=== PATIENT | male | born 1950 | race Caucasian/White ===

== ENCOUNTER 2022-07-31 17:21 | Inpatient (IN) | payer MEDICARE, BC ==
[~2022-07-31] VITALS: Ht 177.8 cm; Wt 98.4 kg
--- NOTE | 2022-07-31 17:33 | NUR ---
[id number] FOR LEFT TOE PAIN X 2 WEEKS "POSSIBLE GANGRENE". PT STATED THAT HE FIRST NOTICED IT ON SUNDAY AND IGNORED IT, NOTICED IT STARTED TO TURNED BLACK WHICH PROMPTED THEM TO CALL EMS. PT IS A&OX4, VISION IMPAIRED. PT IS UNABLE TO AMBULATE ON HIS OWN. AWAITING MD NICE.
[2022-07-31] MEDS ORDERED: VANCOMYCIN 1 GM in IV D5W 250 ML IV ONE (18:00)
[2022-07-31] MEDS ORDERED: CEFEPIME 1 GM in IV D5W 50 ML IV ONE (18:00)
[2022-07-31] MEDS ORDERED: KETOROLAC TROMETHAMINE INJ 30 MG/ML VIAL IV ONE (18:00)
--- NOTE | 2022-07-31 18:17 | NUR ---
IV ESTABLISHED R HAND 20G. LABS DRAWN AND COLLECTED AT BEDSIDE
--- NOTE | 2022-07-31 18:18 | NUR ---
COVID TEST COLLECTED AND SENT
[2022-07-31] MEDS ORDERED: KETOROLAC TROMETHAMINE 15 MG/ML VIAL ONE (18:20)
[2022-07-31 18:27] LABS: BASOPHILS % (AUTO) 0.3 % (0.0-2.0); EOSINOPHILS % (AUTO) 0.2 % (0.0-6.0); HEMATOCRIT 34 % (39-51); HEMOGLOBIN 10.4 g/dL (13.5-17.5); LYMPHOCYTES # (AUTO) 1.8 K/uL (0.8-4.8); LYMPHOCYTES % (AUTO) 11.9 % (20.0-44.0); MEAN CORPUSCULAR HGB CONC 31 g/dl (31.0-36.0); MEAN CORPUSCULAR VOLUME 86 fL (80-96); MONOCYTES # (AUTO) 1.5 K/uL (0.1-1.30); MONOCYTES % (AUTO) 9.7 % (2.0-12.0); NEUTROPHILS % (AUTO) 77.9 % (43.0-81.0); PLATELET COUNT (AUTO) 254 K/uL (150-450); RED BLOOD CELL COUNT(AUTO) 3.95 MIL/uL (4.5-6.0); WHITE BLOOD COUNT (AUTO) 15.4 K/uL (4.3-11.0)
[2022-07-31 18:45] LABS: CALCIUM, SERUM 8.6 mg/dL (8.5-10.1); CARBON DIOXIDE 21 mmol/L (21-32); CHLORIDE 99 mmol/L (98-107); CREATININE 1.9 mg/dL (0.6-1.3); GLUCOSE 129 mg/dL (74-106); POTASSIUM 4.9 mmol/L (3.5-5.1); SODIUM SERUM 132 mmol/L (136-145); UREA NITROGEN, BLOOD 33 mg/dL (7-18)
--- NOTE | 2022-07-31 19:09 | NUR ---
MOVE SHEET SUBMITTED.
[2022-07-31 19:19] LABS: C-REACTIVE PROTEIN 22.1 mg/dL (0.0-0.9)
[2022-07-31] MEDS ORDERED: DEXTROSE 50%-WATER 50 ML DISP.SYRIN IV PRN (21:00)
[2022-07-31] MEDS ORDERED: ONDANSETRON HCL/PF 4 MG/2 ML VIAL IVP PRN (21:00)
[2022-07-31] MEDS ORDERED: ZOLPIDEM TARTRATE 5 MG TABLET PO PRN (21:00)
[2022-07-31] MEDS ORDERED: MAGNESIUM HYDROXIDE 30 ML UDC PO PRN (21:00)
[2022-07-31] MEDS ORDERED: Z GUARD REMEDY 4 OZ OINT TP PRN (21:00)
[2022-07-31] MEDS ORDERED: MAG HYDROX/AL HYDROX/SIMETH 30 ML UDC PO PRN (21:00)
--- NOTE | 2022-07-31 21:25 | NUR ---
REPORT GIVEN TO ROSARIO Mitchell RN FOR GABRIELA
[2022-07-31] MEDS ORDERED: VANCOMYCIN HCL 0.75 GM in IV D5W 250 ML IV ONE (21:30)
--- NOTE | 2022-07-31 21:37 | NUR ---
transferred to 311 in stable condition
[2022-07-31 21:40] VITALS: BP 128/73
--- NOTE | 2022-07-31 21:40 | NUR ---
MS TRADE SPECIALIST NOTE RECEIVED REPORT FROM ER NURSE CEDRIC. PT IS BEING ADMITTED IN ROOM 311-2 WITH DIAGNOSIS OF DIABETIC FOOT ULCER. PT CAME FROM ER VIA GURNEY WITH ER NURSE PRESENT. PATIENT IS A/O X4, ABLE TO VERBALIZE NEEDS. NO SOB, NO RESPIRATORY DISTRESS NOTED. PT ON ROOM AIR. IV ACCESS TO RIGHT HAND #20G, IV INTACT, AND PATENT. PT HAS REDNESS TO LEFT FOOT, WITH GANGRENE TO LEFT SECOND TOE, REDNESS TO RIGHT HEEL WITH SCAB, AND REDNESS TO BILATERAL KNEES WITH BRUISES, DUE TO RECENT FALL AT HOME. ALL THE BELONGINGS ACCOUNTED AND SIGN FOR. ALL SAFETY MEASURES IN PLACE. BED LOCKED IN THE LOWEST POSITION. CALL LIGHT AND TABLE IN EASY REACH. SIDE RAILS UP TIMES 2. WILL CONTINUE TO MONITOR CLOSELY.
--- NOTE | 2022-07-31 21:45 | NUR ---
MS RN NOTE VANCOMYCIN IVPB IS NOT ADMINSTERED DUE TO PT WAS ALREADY GIVEN VANCOMYCIN AT 1900 PRIOR TO ADMISSION TO MS FLOOR. CHARGE NURSE DANIE SMITH.
[2022-07-31] MEDS: BLOOD SUGAR DIAGNOSTIC 1 EACH STRIP IN SCH (22:00)
[2022-08-01] MEDS: IV NS 0.9% 1,000 ML IV PRN ×2 (01:33→18:15)
[2022-08-01] MEDS: HEPARIN SODIUM, PORCINE 5000 UNITS/1 ML VIAL SQ SCH ×3 (01:33→21:22)
[2022-08-01] MEDS ORDERED: PIPERACILLIN /TAZOBACTAM 3.375 G VIAL IV ONE (01:44)
[2022-08-01] MEDS: ZOSYN IVPB 3.375 G in IV D5W 50ml IV SCH ×5 (02:03→21:22)
[2022-08-01] MEDS: INSULIN REGULAR, HUMAN 100 UNIT/ML 3 ML VIAL SQ PRN ×5 (02:23→21:54)
[2022-08-01 06:09] LABS: BASOPHILS % (AUTO) 0.2 % (0.0-2.0); EOSINOPHILS % (AUTO) 0.3 % (0.0-6.0); HEMATOCRIT 34 % (39-51); HEMOGLOBIN 10.9 g/dL (13.5-17.5); LYMPHOCYTES # (AUTO) 1.6 K/uL (0.8-4.8); MEAN CORPUSCULAR HGB CONC 32 g/dl (31.0-36.0); MEAN CORPUSCULAR VOLUME 82 fL (80-96); MONOCYTES # (AUTO) 1.3 K/uL (0.1-1.30); MONOCYTES % (AUTO) 10.2 % (2.0-12.0); NEUTROPHILS # (AUTO) 10.2 K/uL (1.8-8.9); NEUTROPHILS % (AUTO) 77.3 % (43.0-81.0); PLATELET COUNT (AUTO) 234 K/uL (150-450); RED BLOOD CELL COUNT(AUTO) 4.16 MIL/uL (4.5-6.0); WHITE BLOOD COUNT (AUTO) 13.2 K/uL (4.3-11.0)
--- NOTE | 2022-08-01 06:30 | NUR ---
MS RN CLOSING NOTE LEFT PT AWAKE, IN BED. PATIENT IS A/O X4, ABLE TO VERBALIZE NEEDS. NO SOB, NO RESPIRATORY DISTRESS NOTED. PT ON ROOM AIR. IV ACCESS TO RIGHT HAND #20G, IV INTACT, AND PATENT, INFUSING NS AT 75 ML/HR. IVPB ZOSYN NOT GIVEN TO PT DUE TO MED WAS ADMINISTERED AT 0200. WILL BE TOO SOON TO GIVE AT 0600. PHARMACY CALLED, AND REQUEST MADE WITH MODESTA TO CHANGE MED TIME . ALL SAFETY MEASURES IN PLACE. BED LOCKED IN THE LOWEST POSITION. CALL LIGHT AND TABLE IN EASY REACH. SIDE RAILS UP TIMES 2. WILL ENDORSE PT TO AM SHIFT NURSE FOR GABRIELA.
[2022-08-01 06:34] LABS: CHOLESTEROL 84 mg/dL (<200); HDL CHOLESTEROL 36 mg/dL (40-60); LDL 53 mg/dL (0-99); THYROID STIMULATING HORMONE 1.029 uIU/mL (0.358-3.74); TRIGLYCERIDES 73 mg/dL (30-150)
[2022-08-01 06:35] LABS: CALCIUM, SERUM 9.1 mg/dL (8.5-10.1); CARBON DIOXIDE 24 mmol/L (21-32); CHLORIDE 98 mmol/L (98-107); CREATININE 1.8 mg/dL (0.6-1.3); GLUCOSE 178 mg/dL (74-106); MAGNESIUM 1.9 mg/dL (1.8-2.4); PHOSPHORUS 4.4 mg/dL (2.5-4.9); POTASSIUM 4.8 mmol/L (3.5-5.1); SODIUM SERUM 135 mmol/L (136-145); UREA NITROGEN, BLOOD 36 mg/dL (7-18)
[2022-08-01] MEDS: BLOOD SUGAR DIAGNOSTIC 1 EACH STRIP IN SCH ×4 (06:49→21:48)
--- NOTE | 2022-08-01 07:30 | NUR ---
RN OPENING NOTE PATIENT AWAKE IN BED RESTING, A/O X 3-4. NO S/S OF PAIN NOTED AT THIS TIME. ON ROOM AIR, BREATHING EVEN UNLABORED, NO DISTRESS OR SHORTNESS OF BREATH NOTED. IV ACCESS R HAND #20G INTACT, PATENT AND FLUSHING WELL, RUNNING NS @ 75 ML/HR. FALL AND SAFETY MEASURES IN PLACE, BED ALARM ON, BED IN LOW AND LOCK POSITION, CALL LIGHT AND TABLE WITHIN EASY REACH, SIDE RAILS UP X2. WILL CONTINUE TO MONITOR.
[2022-08-01 08:00] VITALS: BP 133/62
[2022-08-01] MEDS ORDERED: VANCOMYCIN 1 GM in IV D5W 250ml IV SCH (08:30)
[2022-08-01] MEDS ORDERED: PANTOPRAZOLE 40 MG VIAL IV SCH (09:00)
--- NOTE | 2022-08-01 10:37 | NUR ---
WOUND CARE CONSULT: PT PRESENTS WITH RT HEEL ESCHAR AND LEFT 2ND TOE BLACK NECROTIC TISSUE WITH SURROUNDING REDNESS AND TENDERNESS, PRESENT ON ADMISSION. DR SUAREZ CALLED FOR DPM CONSULT. IN AGREEMENT WITH PLAN OF CARE.
[2022-08-01] MEDS ORDERED: DULA1.5P SQ (11:14)
[2022-08-01] MEDS ORDERED: CHOL100062 PO (11:14)
[2022-08-01] MEDS ORDERED: LISI40TA13 PO (11:14)
[2022-08-01] MEDS ORDERED: CARV12.52 PO (11:14)
[2022-08-01] MEDS ORDERED: METF-881 PO (11:14)
[2022-08-01] MEDS ORDERED: SPIR25TA6 PO (11:14)
[2022-08-01] MEDS ORDERED: ROSU10TA29 PO (11:14)
[2022-08-01] MEDS ORDERED: BUME0.5T5 PO (11:14)
[2022-08-01] MEDS ORDERED: GLIM2TAB31 PO (11:14)
[2022-08-01] MEDS ORDERED: ASPI-1420 PO (11:14)
[2022-08-01] MEDS ORDERED: GABA300C PO (11:14)
[2022-08-01 12:48] LABS: BILIRUBIN,URINE NEGATIVE (NEGATIVE); COLOR,URINE YELLOW (YELLOW); LEUKOCYTE ESTERASE ,URINE NEGATIVE (NEGATIVE); NITRITE, URINE NEGATIVE (NEGATIVE); PROTEIN,URINE NEGATIVE (NEGATIVE); UGLUCOSE NEGATIVE (NEGATIVE); UROBILINOGEN,URINE 0.2 EU/dL (0.2)
[2022-08-01 13:16] LABS: CREATININE, URINE 151.1 MG/DL (30.0-125.0)
[2022-08-01 14:43] LABS: BACTERIA,URINE Few /HPF (None Seen); RBC,URINE NONE SEEN /HPF (0-2); SQUAMOUS EPITHELIAL CELL,UR Few /HPF (None Seen); WBC,URINE 0-2 /HPF (0-3)
[2022-08-01 14:44] LABS: URINE AMORPHOUS URATE Many /HPF (None Seen)
[2022-08-01 16:00] VITALS: BP 108/74
--- NOTE | 2022-08-01 19:26 | NUR ---
RN CLOSING NOTE PATIENT AWAKE IN BED RESTING, A/O X 3-4. NO S/S OF PAIN NOTED AT THIS TIME. ON ROOM AIR, BREATHING EVEN UNLABORED, NO DISTRESS OR SHORTNESS OF BREATH NOTED. IV ACCESS R HAND #20G INTACT, PATENT AND FLUSHING WELL, RUNNING NS @ 75 ML/HR. FALL AND SAFETY MEASURES IN PLACE, BED ALARM ON, BED IN LOW AND LOCK POSITION, CALL LIGHT AND TABLE WITHIN EASY REACH, SIDE RAILS UP X2. Addendum: 08/01/22 at 1945 by SONJA REYNOLDS RN OPENING NOTE
[2022-08-01] MEDS: ACETAMINOPHEN 325 MG TABLET PO PRN (19:34)
--- NOTE | 2022-08-01 19:45 | NUR ---
RN NOTE PT NOTED WITH FEVER 100.5 PRN TYLENOL PROVIDED WELL COOLING MEASURES.
--- NOTE | 2022-08-01 19:52 | NUR ---
RN CLOSING NOTE PATIENT AWAKE IN BED RESTING, A/O X 3-4. NO S/S OF PAIN NOTED AT THIS TIME. ON ROOM AIR, BREATHING EVEN UNLABORED, NO DISTRESS OR SHORTNESS OF BREATH NOTED. IV ACCESS R HAND #20G INTACT, PATENT AND FLUSHING WELL, RUNNING NS @ 75 ML/HR. WOUND CARE IMPLEMENTED. SCHEDULE MEDICATIONS GIVEN. FALL AND SAFETY MEASURES IN PLACE, BED ALARM ON, BED IN LOW AND LOCK POSITION, CALL LIGHT AND TABLE WITHIN EASY REACH, SIDE RAILS UP X2. ALL NEEDS ATTENDED AND ANTICIPATED. WILL ENDORSE TO STORE CUSTODIAN NURSE.
[2022-08-01 20:00] VITALS: BP 134/78
[2022-08-01] MEDS: VANCOMYCIN 1 GM in IV D5W 250ml IV SCH (20:08)
[2022-08-02] MEDS: ZOSYN IVPB 3.375 G in IV D5W 50ml IV SCH ×4 (02:46→20:38)
[2022-08-02] MEDS: BLOOD SUGAR DIAGNOSTIC 1 EACH STRIP IN SCH ×4 (06:30→22:53)
[2022-08-02] MEDS: INSULIN REGULAR, HUMAN 100 UNIT/ML 3 ML VIAL SQ PRN ×4 (06:30→22:59)
--- NOTE | 2022-08-02 06:47 | NUR ---
RN CLOSING NOTE PATIENT AWAKE IN BED RESTING, A/O X4. NO S/S OF PAIN NOTED AT THIS TIME. ON ROOM AIR, BREATHING EVEN UNLABORED, NO DISTRESS OR SHORTNESS OF BREATH NOTED. IV ACCESS R HAND #20G INTACT, PATENT AND FLUSHING WELL, RUNNING NS @ 75 ML/HR. SCHEDULE MEDICATIONS GIVEN. FALL AND SAFETY MEASURES IN PLACE, BED ALARM ON, BED IN LOW AND LOCK POSITION, CALL LIGHT AND TABLE WITHIN EASY REACH, SIDE RAILS UP X2. ALL NEEDS ATTENDED AND ANTICIPATED. WILL ENDORSE TO BASKETBALL PLAYER NURSE.
[2022-08-02 07:00] VITALS: BP 143/71
[2022-08-02] MEDS: ACETAMINOPHEN 325 MG TABLET PO PRN (08:26)
[2022-08-02] MEDS: HEPARIN SODIUM, PORCINE 5000 UNITS/1 ML VIAL SQ SCH ×2 (08:27→21:06)
[2022-08-02] MEDS ORDERED: PANTOPRAZOLE 40 MG/PACK PACK PO SCH (09:00)
[2022-08-02 13:19] LABS: CALCIUM, SERUM 8.9 mg/dL (8.5-10.1); CARBON DIOXIDE 23 mmol/L (21-32); CHLORIDE 101 mmol/L (98-107); CREATININE 1.5 mg/dL (0.6-1.3); GLUCOSE 224 mg/dL (74-106); POTASSIUM 4.2 mmol/L (3.5-5.1); SODIUM SERUM 135 mmol/L (136-145); UREA NITROGEN, BLOOD 28 mg/dL (7-18)
--- NOTE | 2022-08-02 13:53 | NUR ---
RN NOTE DR GRCAY DIETRICH REQUESTED MATERIAL REQUIREMENTS WORKER TO BE INFORMED THAT PATIENT IS NOW AGREEING FOR AMPUTATION SURGERY. SPOKE WITH DR.TAYLOR SCHREIBER WHILE AT BEDSIDE WITH PATIENT AND SHE INFORMED MATERIAL REQUIREMENTS WORKER THAT PATIENT IS AGREEABLE TO SURGERY AWAITING FOR ANGIOPLASTY PER MATERIAL REQUIREMENTS WORKER
[2022-08-02 15:34] VITALS: BP 136/72
--- NOTE | 2022-08-02 15:52 | NUR ---
RN NOTE PATIENT REQUESTED TO HAVE TRAMADOL. DR WAS INFORMED AND DR ORDERED TRAMADOL 50MG PO Q6H PRN. ORDER WAS PLACED
[2022-08-02] MEDS: IV NS 0.9% 1,000 ML IV PRN (17:45)
--- NOTE | 2022-08-02 18:59 | NUR ---
RN CLOSING NOTE PT AWAKE, IN BED. PATIENT IS A/O X3, WITH EPISODE OF CONFUSION, ABLE TO VERBALIZE NEEDS. NO SOB, NO RESPIRATORY DISTRESS NOTED. PT ON ROOM AIR. IV ACCESS TO LEFT FOREARM #20G, IV INTACT, AND PATENT, INFUSING NS AT 100 ML/HR. PATIENT WAS REPOSITION PER PROTOCOL. FALL AND SAFETY MEASURES IN PLACE. BED LOCKED IN THE LOWEST POSITION. CALL LIGHT AND TABLE IN EASY REACH. SIDE RAILS UP TIMES 2. WOUND CARE AND DRESSING IMPLEMENTED. WILL ENDORSE PT TO BARGE CAPTAIN NURSE FOR GABRIELA.
--- NOTE | 2022-08-02 19:20 | NUR ---
noc rn opening Received patient with eyes closed, easy to arouse. at bedside during rounding. patient has no s/s of apparent distress in room air. no c/o pain at this time. patient noted to have bed mobility. left foot with dressing clean, dry, intact at this time. Left forearm #20 g running ns @100mls/hr. safety in place-- bed in lowest, locked position, call light within reach, siderails up X2, bed alarm in place. will continue with patient's plan of care.
[2022-08-02 20:00] VITALS: BP 116/57
[2022-08-02] MEDS: VANCOMYCIN 1 GM in IV D5W 250ml IV SCH (21:05)
[2022-08-03] MEDS: ACETAMINOPHEN 325 MG TABLET PO PRN ×2 (01:08→20:15)
--- NOTE | 2022-08-03 01:11 | NUR ---
noc rn note Temperature of 101.4. Given Tylenol 650 mg as ordered PRN. started on cooling measures.
[2022-08-03] MEDS: ZOSYN IVPB 3.375 G in IV D5W 50ml IV SCH ×4 (02:02→20:39)
--- NOTE | 2022-08-03 02:29 | NUR ---
noc rn note temp 100.5. continuing with the cooling measures. will cont. to monitor.
[2022-08-03] MEDS: IV NS 0.9% 1,000 ML IV PRN ×2 (06:21→17:34)
[2022-08-03] MEDS: BLOOD SUGAR DIAGNOSTIC 1 EACH STRIP IN SCH ×4 (06:52→22:56)
[2022-08-03] MEDS: INSULIN REGULAR, HUMAN 100 UNIT/ML 3 ML VIAL SQ PRN ×4 (06:53→22:56)
[2022-08-03 07:00] VITALS: BP 128/66
--- NOTE | 2022-08-03 07:07 | NUR ---
noc rn note Patient in bed comfortably sleeping. no s/s of apparent distress in room air. denies pain when asked. IV NS running @100mls/hr. all needs attended. all scheduled medications administered. Wound tx done for today. safety kept in place the whole shift. will endorse to morning shift rn for continuity of patient care,
--- NOTE | 2022-08-03 07:30 | NUR ---
RN OPENING NOTE PATIENT ASLEEP IN BED, EASY TO AROUSE. NO S/S OF PAIN NOTED AT THIS TIME. ON ROOM AIR, BREATHING EVEN AND UNLABORED, NO DISTRESS OR SHORTNESS OF BREATH NOTED. IV ACCESS R HAND #20G INTACT, PATENT AND FLUSHING WELL, RUNNING NS @ 100 ML/HR. FALL AND SAFETY MEASURES IN PLACE, BED ALARM ON, BED IN LOW AND LOCK POSITION, CALL LIGHT AND TABLE WITHIN EASY REACH, SIDE RAILS UP X2. WILL CONTINUE TO MONITOR.
[2022-08-03] MEDS ORDERED: PANTOPRAZOLE 40 MG/PACK PACK PO SCH (09:00)
[2022-08-03] MEDS: HEPARIN SODIUM, PORCINE 5000 UNITS/1 ML VIAL SQ SCH ×2 (09:08→21:00)
[2022-08-03] MEDS: TRAMADOL HCL 50 MG TABLET PO PRN (09:36)
--- NOTE | 2022-08-03 10:49 | NUR ---
RN NOTE DR DIETRICH AT BEDSIDE. ORDERED MIDLINE INSERTION AND NORCO 5-325 Q6H PO FOR PAIN. ORDERS PLACED. MIDLINE WAS INSERTED BY MD AT RIGHT UPPER ARM GAUGE 18, PATENT AND IN PLACED.
[2022-08-03] MEDS: HYDROCODONE/APAP 5/325MG TABLET PO PRN (11:36)
[2022-08-03 12:44] LABS: CALCIUM, SERUM 8.9 mg/dL (8.5-10.1); CARBON DIOXIDE 22 mmol/L (21-32); CHLORIDE 105 mmol/L (98-107); CREATININE 1.4 mg/dL (0.6-1.3); GLUCOSE 189 mg/dL (74-106); POTASSIUM 4.3 mmol/L (3.5-5.1); SODIUM SERUM 138 mmol/L (136-145); UREA NITROGEN, BLOOD 20 mg/dL (7-18)
[2022-08-03 15:26] VITALS: BP 144/92
[2022-08-03] MEDS: GLUCERNA SHAKE 237 ML CAN PO SCH (17:57)
--- NOTE | 2022-08-03 18:03 | NUR ---
RN NOTE 1700 GLUCOSE CHECK =152 MG/DL. PATIENT REFUSED TO EAT DINNER. PER SLIDING SCALE PATIENT WAS SUPPOSE TO GET 2 UNITS OF INSULIN, WAS NOT ADMINISTERED. WILL CONTINUE TO MONITOR
--- NOTE | 2022-08-03 19:05 | NUR ---
MS RN CLOSING NOTE PT AWAKE, IN BED. PATIENT IS A/O X3-4, WITH EPISODE OF CONFUSION, ABLE TO VERBALIZE NEEDS. NO SOB, NO RESPIRATORY DISTRESS NOTED. PT ON ROOM AIR. IV ACCESS TO RIGHT UPPERARM MIDLINE #18G, INTACT, AND PATENT, INFUSING NS AT 100 ML/HR. PATIENT WAS REPOSITION PER PROTOCOL. FALL AND SAFETY MEASURES IN PLACE. BED LOCKED IN THE LOWEST POSITION. CALL LIGHT AND TABLE IN EASY REACH. SIDE RAILS UP TIMES 2. WOUND CARE AND DRESSING IMPLEMENTED. WILL ENDORSE PT TO BLACK TOP RAKER NURSE FOR GABRIELA. PATIENT SHOULD BE NPO AFTER MIDNIGHT.
--- NOTE | 2022-08-03 19:30 | NUR ---
MS RN OPENING NOTE RECEIVED PT RESTING IN BED. A/O X0-1, VERY CONFUSED, ABLE TO VERBALIZE NEEDS. ON RA WITH NO SOB, NO RESPIRATORY DISTRESS NOTED. DENIES PAIN AT THIS TIME. IV ACCESS TO RIGHT UPPERARM MIDLINE #18G, INTACT, AND PATENT, INFUSING NS AT 100 ML/HR. FOR NPO AT MIDNIGHT DUE TO ABDOMINAL AORTOGRAM PROCEDURE TOMORROW AM. FALL AND SAFETY MEASURES IN PLACE: BED LOCKED IN THE LOWEST POSITION, SIDE RAILS UP X2, BED ALARM ON, CALL LIGHT AND TABLE IN EASY REACH. WILL CONTINUE TO MONITOR AND ASSIST.
--- NOTE | 2022-08-03 19:57 | NUR ---
RN NOTE RECEIVED CALL FROM PHARMACY TO HOLD VANCOMYCIN 1 GM. VANCOMYCIN TROUGH LEVEL @ 1930: 9.
[2022-08-03 20:00] VITALS: BP 136/71
--- NOTE | 2022-08-03 20:25 | NUR ---
RN NOTE PT TEMP 101.3 F. GIVEN TYLENOL 650 MG AND COOLING MEASURES PERFORMED. WILL MONITOR PT AND REASSESS TEMP IN 1 HR
--- NOTE | 2022-08-03 21:25 | NUR ---
RN NOTE PT TEMP AT 99.8 F. COOLING MEASURES MAINTAINED. WILL CONTINUE TO MONITOR.
[2022-08-03] MEDS: VANCOMYCIN 1.5 GM in IV D5W 500ml IV SCH (21:38)
--- NOTE | 2022-08-03 21:38 | NUR ---
RN NOTE NEW DOSE OF VANCOMYCIN PER PHARMACY: 1.5 GM / 500 ML GIVEN TO PT PRESCRIBED.
--- NOTE | 2022-08-03 21:50 | NUR ---
RN NOTE HEPARIN SCHEDULED @ [address] ROMERO DUE TO ABDOMINAL AORTOGRAM SCHEDULED FOR TOMORROW AT 0630.
--- NOTE | 2022-08-03 22:56 | NUR ---
RN NOTE PT BLOOD SUGAR AT 238. REGULAR INSULIN HELD DUE TO PT REFUSING TO EAT TONIGHT, WILL BE NPO BY MIDNIGHT, AND HAS A PROCEDURE TOMORROW MORNING. WILL CONTINUE TO MONITOR.
--- NOTE | 2022-08-03 23:10 | NUR ---
RN NOTE PT TOO CONFUSED TO SIGN CONSENT FOR ABDOMINAL AORTOGRAM WITH BILATERAL OR UNILATERAL LOWER EXTREMITY ARTERIOGRAM RUN OFF WITH CONTRAST. CALLED SUSANNAH QUINONES () AND SHELBI QUINONES (SON) FOR TELEPHONE CONSENT, BOTH VERBALIZED AGREEMENT TO THE PROCEDURE.
[2022-08-04] VITALS (27 sets, daily range): BP systolic 106–156; BP diastolic 65–97
[2022-08-04] MEDS: ZOSYN IVPB 3.375 G in IV D5W 50ml IV SCH ×4 (02:11→20:34)
--- NOTE | 2022-08-04 02:30 | NUR ---
RN NOTE PT TEMP 98.3 F AT THIS TIME. NO DISTRESS NOTED. WILL CONTINUE TO MONITOR.
[2022-08-04 04:27] LABS: BASOPHILS % (AUTO) 0.3 % (0.0-2.0); EOSINOPHILS % (AUTO) 0.8 % (0.0-6.0); HEMATOCRIT 29 % (39-51); LYMPHOCYTES # (AUTO) 1.4 K/uL (0.8-4.8); LYMPHOCYTES % (AUTO) 10.6 % (20.0-44.0); MEAN CORPUSCULAR HGB CONC 32 g/dl (31.0-36.0); MEAN CORPUSCULAR VOLUME 82 fL (80-96); MONOCYTES # (AUTO) 1.3 K/uL (0.1-1.30); MONOCYTES % (AUTO) 9.7 % (2.0-12.0); NEUTROPHILS # (AUTO) 10.2 K/uL (1.8-8.9); NEUTROPHILS % (AUTO) 78.6 % (43.0-81.0); PLATELET COUNT (AUTO) 220 K/uL (150-450)
[2022-08-04 04:45] LABS: CALCIUM, SERUM 8.9 mg/dL (8.5-10.1); CARBON DIOXIDE 27 mmol/L (21-32); CHLORIDE 104 mmol/L (98-107); CREATININE 1.5 mg/dL (0.6-1.3); GLUCOSE 217 mg/dL (74-106); MAGNESIUM 2.1 mg/dL (1.8-2.4); PHOSPHORUS 3.3 mg/dL (2.5-4.9); POTASSIUM 4.4 mmol/L (3.5-5.1); SODIUM SERUM 138 mmol/L (136-145); UREA NITROGEN, BLOOD 21 mg/dL (7-18)
--- NOTE | 2022-08-04 06:00 | NUR ---
ICU/PODIATRY PROFESSOR PT BROUGHT DOWN FROM THIRD FLOOR, REPORT RECIEVED FROM MED/SURG NURSE. PT PLACED ON MONITOR
--- NOTE | 2022-08-04 06:10 | NUR ---
TRANSFER/CLOSING NOTE PT TRANSFERRED TO ICU ROOM 253 FOR ABDOMINAL AORTOGRAM PROCEDURE, REPORT GIVEN TO NORMA WHITEHEAD. BELONGINGS LEFT AT BEDSIDE. CELLPHONE AND EMAIL MARKETING COORDINATOR WAS WITH PATIENT. PT IS A/O X3 THIS MORNING, ORIENTED TO PERSON, PLACE, TIME. ABLE TO MAKE NEEDS KNOWN. STABLE ON RA WITH NO SOB, NO RESPIRATORY DISTRESS NOTED. DENIES PAIN AT THIS TIME. IV ACCESS TO RIGHT UPPERARM MIDLINE #18G, INTACT, AND PATENT, INFUSING NS AT 100 ML/HR. NPO SINCE MIDNIGHT DUE TO ABDOMINAL AORTOGRAM PROCEDURE TODAY AT 0630. TURNED AND REPOSITIONED. ALL CARE PROVIDED AND MEDS TOLERATED WWLL. FALL AND SAFETY MEASURES MAINTAINED: BED LOCKED IN THE LOWEST POSITION, SIDE RAILS UP X2, BED ALARM ON, CALL LIGHT AND TABLE IN EASY REACH. WILL ENDORSE GABRIELA TO DAY SHIFT NURSE.
[2022-08-04] MEDS ORDERED: IODIXANOL 150 ML IV ONE ×2 (06:20→07:34)
[2022-08-04] MEDS ORDERED: IV SET PRIMARY PUMP SET 1 EA INFUS.SET MC ONE (06:21)
[2022-08-04] MEDS ORDERED: IV NS 0.9% 1,000 ML ONE (06:21)
--- NOTE | 2022-08-04 06:38 | NUR ---
ICU/MEDICAL SUPERINTENDENT PT WAS TAKEN DOWNSTAIRS TO ANNEALING TORCH OPERATOR WITH NURSES
[2022-08-04] MEDS ORDERED: LIDOCAINE HCL/MPF 1% 30 ML VIAL IJ ONE (06:53)
[2022-08-04] MEDS ORDERED: FENTANYL PF 100MCG/2ML AMPUL ONE ×2 (07:06→07:55)
[2022-08-04] MEDS ORDERED: MIDAZOLAM HCL 2 MG/2ML VIAL ONE (07:06)
[2022-08-04] MEDS: BLOOD SUGAR DIAGNOSTIC 1 EACH STRIP IN SCH ×4 (07:30→21:07)
[2022-08-04] MEDS ORDERED: HEPARIN SODIUM, PORCINE 5000 UNITS/1 ML VIAL ONE (07:37)
[2022-08-04] MEDS ORDERED: HEPARIN SODIUM, PORCINE 1,000 UNIT/ML VIAL ONE (07:38)
[2022-08-04] MEDS: GLUCERNA SHAKE 237 ML CAN PO SCH ×2 (08:00→17:51)
[2022-08-04] MEDS ORDERED: CLOPIDOGREL BISULFATE 300 MG TABLET ONE (08:18)
--- NOTE | 2022-08-04 08:53 | NUR ---
PATIENT IS BACK FROM GRAPPLER., BEDSIDE REPORT GIVEN BY RN-GRIS PER REPORT "S/P ABDOMINAL AORTOGRAM AND PLAVIX 300MG WAS GIVEN." RIGHT FEMORAL INCISION WITH DRSG C/D/I, NO BLEEDING NOTED, NO HEMATOMA NOTED. KEEP FLAT/BEDREST ON BED PER ORDER; ORAL TEMP =98.4F; NO SSX OF ACUTE DISTRESS NOTED. WILL CONTINUE TO MONITOR PT.
[2022-08-04] MEDS ORDERED: IV NS 0.9% 1,000 ML IV ONE (09:30)
--- NOTE | 2022-08-04 10:15 | NUR ---
PT. UNCOOPERATIVE AND COMBATIVE/HOSTILE, CHARGE NURSE-JONATHAN AND FILLING OPERATOR INSTRUCTED PT. TO KEEP LEGS FLAT ON BED D/T POST SURGERY STATUS, PT. REMAINS UNCOOPERATIVE AND BENDING HIS BOTH LEGS, AND DR. VELA WAS NOTIFIED AND MADE AWARE.
--- NOTE | 2022-08-04 10:28 | NUR ---
PT. AGREED NOW TO KEEP HIS LEGS FLAT ON BED. CHARGE NURSE-JONATHAN SMITH AND DR. VELA WAS NOTIFIED.
--- NOTE | 2022-08-04 11:00 | NUR ---
BEDREST/FLAT ON BED X 2HRS COMPLETED. RIGHT FEMORAL DRSG. C/D/I, NO BLEEDING/HEMATOMA NOTED.
[2022-08-04] MEDS: INSULIN REGULAR, HUMAN 100 UNIT/ML 3 ML VIAL SQ PRN ×3 (11:52→21:09)
[2022-08-04] MEDS: PANTOPRAZOLE 40 MG TABLET.DR PO SCH (11:53)
--- NOTE | 2022-08-04 12:00 | NUR ---
RIGHT FEMORAL DRSG. C/D/I, NO BLEEDING/HEMATOMA NOTED; KEPT PT POSITIONED HOB AT 10 DEG. PER ORDER.
--- NOTE | 2022-08-04 13:00 | NUR ---
HOB 30 DEG TOLERATED.
[2022-08-04] MEDS: IV NS 0.9% 1,000 ML IV PRN (16:09)
--- NOTE | 2022-08-04 16:35 | NUR ---
DR. LIBRADO Rosales SEEN PT. NOW
--- NOTE | 2022-08-04 16:41 | NUR ---
RIGHT FEMORAL DRSG. C/D/I, NO BLEEDING/HEMATOMA NOTED.
--- NOTE | 2022-08-04 16:41 | NUR ---
TRANSFERRED PT. PER ORDER/PROTOCOL TO TELE 3W RM 311-BED 2, NO SSX OF ACUTE DISTRESS NOTED AT THIS TIME, STABLE VS. BEDSIDE REPORT GIVEN TO AUBREE-CHARLEY, ALL BELONGINGS HANDED TO NATASHA ALSO PHONE/DUAL HOSE CEMENTER/ GLASSES. ALL SAFETY MEASURES IN-PLACE.
--- NOTE | 2022-08-04 16:50 | NUR ---
MS RN NOTES PATIENT CAME BACK FROM PROCEDURE IN STABLE CONDITION, REPORT GIVEN BY ROSE WHITEHEAD FROM ICU. PATIENT ALERT ORIENTED X 4. NO ACUTE DISTRESS NOTED, BREATHING UNLABORED. DENIED PAIN AT THIS TIME. SURGICAL SITE ON RIGHT FEMORAL WITH DRESSING CLEAN DRY AND INTACT. VITAL SIGNS STABLE.SAFETY MEASURES IN PLACE, CALL LIGHT WITHIN REACH WILL CONTINUE TO MONITOR ACCORDINGLY.
--- NOTE | 2022-08-04 18:48 | NUR ---
MS RN CLOSING NOTES PATIENT IN BED ALERT ORIENTED X 4. NO ACUTE DISTRESS NOTED, BREATHING UNLABORED. DENIED PAIN AT THIS TIME. SURGICAL SITE ON RIGHT FEMORAL WITH DRESSING CLEAN DRY AND INTACT. VITAL SIGNS STABLE.NEEDS ATTENDED AND ANTICIPATED. SAFETY MEASURES IN PLACE. CALL LIGHT WITHIN REACH. WILL ENDORSE TO NIGHT NURSE FOR CONTINUITY OF CARE.
[2022-08-04 18:53] LABS: CALCIUM, SERUM 8.7 mg/dL (8.5-10.1); CARBON DIOXIDE 23 mmol/L (21-32); CHLORIDE 106 mmol/L (98-107); CREATININE 1.3 mg/dL (0.6-1.3); GLUCOSE 218 mg/dL (74-106); POTASSIUM 4.4 mmol/L (3.5-5.1); SODIUM SERUM 139 mmol/L (136-145); UREA NITROGEN, BLOOD 21 mg/dL (7-18)
--- NOTE | 2022-08-04 19:00 | NUR ---
RN OPENING NOTE PT IS AWAKE IN BED WITH ON BEDSIDE. A/OX4, ABLE TO MAKE NEEDS KNOWN. PT IS IN 2LPM O2 VIA NASAL CANNULA, TOLERATING WELL, BREATHING EVEN AND UNLABORED @ THIS TIME. PT IV PRESENT ON MANUELA MIDLINE #18G RUNNING NS @100MLS/HR, PATENT, INTACT AND FLUSHES WELL W/ NO S & SX OF INFILTRATION @ SITE NOTED. PT IS ON DIAPER. PT IS ON TELE MONITOR WITH CURRENT READING OF SINUS RHYTHM W/ PVC, HR 90 BPM. SAFETY MEASURES IS IN PLACE. BED AT LOWEST AND LOCKED POSITION. SIDE RAILS UP X 3. BEDSIDE TABLE AND CALL LIGHT IS EASY REACH. BED ALARM IS ON. WILL CONTINUE TO MONITOR PT ACCORDINGLY.
[2022-08-04] MEDS: HYDROCODONE/APAP 5/325MG TABLET PO PRN (20:58)
[2022-08-04] MEDS: VANCOMYCIN 1.5 GM in IV D5W 500ml IV SCH (21:56)
[2022-08-05] VITALS: BP_SYST 118; BP_SYST 160; BP_DIAS 69; BP_DIAS 88
[2022-08-05] MEDS: IV NS 0.9% 1,000 ML IV PRN ×2 (00:52→16:54)
[2022-08-05] MEDS: ZOSYN IVPB 3.375 G in IV D5W 50ml IV SCH ×4 (01:55→19:53)
[2022-08-05 04:00] VITALS: BP 136/81
[2022-08-05 06:31] LABS: BASOPHILS % (AUTO) 0.2 % (0.0-2.0); EOSINOPHILS % (AUTO) 1.4 % (0.0-6.0); HEMATOCRIT 26 % (39-51); HEMOGLOBIN 8.5 g/dL (13.5-17.5); LYMPHOCYTES # (AUTO) 1.4 K/uL (0.8-4.8); MEAN CORPUSCULAR HGB CONC 33 g/dl (31.0-36.0); MEAN CORPUSCULAR VOLUME 82 fL (80-96); MONOCYTES # (AUTO) 0.8 K/uL (0.1-1.30); MONOCYTES % (AUTO) 7.8 % (2.0-12.0); NEUTROPHILS # (AUTO) 8.1 K/uL (1.8-8.9); NEUTROPHILS % (AUTO) 77.6 % (43.0-81.0); PLATELET COUNT (AUTO) 216 K/uL (150-450); RED BLOOD CELL COUNT(AUTO) 3.18 MIL/uL (4.5-6.0); WHITE BLOOD COUNT (AUTO) 10.5 K/uL (4.3-11.0)
[2022-08-05] MEDS: BLOOD SUGAR DIAGNOSTIC 1 EACH STRIP IN SCH ×4 (06:42→22:34)
[2022-08-05] MEDS: INSULIN REGULAR, HUMAN 100 UNIT/ML 3 ML VIAL SQ PRN ×4 (06:44→22:35)
--- NOTE | 2022-08-05 06:47 | NUR ---
RN CLOSING NOTE PT IS AWAKE AND RESTING COMFORTABLY IN BED . A/OX4, RESPONSIVE AND FOLLOWS VERBAL COMMAND. PT IS IN RA W/ NO S & SX OF RESPIRATORY DISTRESS @ THIS TIME. PT IV PRESENT ON MANUELA MIDLINE #18G RUNNING NS @100MLS/HR, PATENT, INTACT AND FLUSHES WELL W/ NO S & SX OF INFILTRATION @ SITE NOTED. PT DIAPER CHANGED X3. PT IS KEPT CLEAN AND DRY. PT IS ON TELE MONITOR WITH CURRENT READING OF SINUS RHYTHM W/ BBB, 1ST DEGREE AV BLOCK, HR 87 BPM. ADMINISTERED MEDICATION ACCORDINGLY PER MD'S ORDER. SAFETY MEASURES IS IN PLACE. BED AT LOWEST AND LOCKED POSITION. SIDE RAILS UP X 2. BEDSIDE TABLE AND CALL LIGHT IS EASY REACH. BED ALARM IS ON. WILL ENDORSE TO THE NEXT SHIFT FOR CONTINUITY OF CARE.
[2022-08-05 07:21] LABS: CALCIUM, SERUM 8.5 mg/dL (8.5-10.1); CARBON DIOXIDE 24 mmol/L (21-32); CHLORIDE 105 mmol/L (98-107); CREATININE 1.1 mg/dL (0.6-1.3); GLUCOSE 196 mg/dL (74-106); MAGNESIUM 2.1 mg/dL (1.8-2.4); PHOSPHORUS 2.8 mg/dL (2.5-4.9); SODIUM SERUM 138 mmol/L (136-145); UREA NITROGEN, BLOOD 20 mg/dL (7-18)
--- NOTE | 2022-08-05 07:30 | NUR ---
LAVENDER FARM WORKER OPENING NOTES RECEIVED PT RESTING IN BED, AO X4. ON 2L VIA NC, INCONTINENT USES DIAPER. DENIES PAIN/DISCOMFORT. RUNNING NS AT 100 ML/HR AT MANUELA MIDLINE 18 G. NO SX OF INFILTRATION NOTED. ON TELE MONITOR SR 76. PT IN NO DISTRESS. AMBULATORY WITH ASSIST AND CONTINENT. ABLE TO MAKE NEEDS KNOWN. SAFETY PRECAUTIONS IN PLACED. SIDE RAILS UP X2. CALL LIGHT WITHIN REACH. WILL ADMINISTR=ER MEDICATIONS SCHEDULED
[2022-08-05 08:00] VITALS: BP 142/77
[2022-08-05] MEDS: PANTOPRAZOLE 40 MG TABLET.DR PO SCH (08:47)
[2022-08-05] MEDS: CLOPIDOGREL BISULFATE 75 MG TABLET PO SCH (08:48)
[2022-08-05] MEDS: GLUCERNA SHAKE 237 ML CAN PO SCH ×2 (09:00→17:01)
[2022-08-05 12:47] LABS: CALCIUM, SERUM 8.7 mg/dL (8.5-10.1); CARBON DIOXIDE 24 mmol/L (21-32); CHLORIDE 106 mmol/L (98-107); CREATININE 1.3 mg/dL (0.6-1.3); GLUCOSE 197 mg/dL (74-106); POTASSIUM 4.3 mmol/L (3.5-5.1); SODIUM SERUM 138 mmol/L (136-145); UREA NITROGEN, BLOOD 18 mg/dL (7-18)
--- NOTE | 2022-08-05 18:23 | NUR ---
CASSANDRA CONSULTANT CLOSING NOTES PT RESTING IN BED, AO X4. ON ROOM AIR, STABLE, NO SOB, NO S/SX OF RESPIRATORY DISTRESS. INCONTINENT USES DIAPER. DENIES PAIN/DISCOMFORT. IV NS RUNNING AT 100 ML/HR AT MANUELA MIDLINE 18G. NO SX OF INFILTRATION NOTED. ON TELE MONITOR SR 99. PT IN NO DISTRESS. AMBULATORY WITH ASSIST AND CONTINENT. ABLE TO MAKE NEEDS KNOWN. SAFETY PRECAUTIONS IN PLACED. SIDE RAILS UP X2. CALL LIGHT WITHIN REACH. ALL DUE MEDS ADMINISTERED SCHEDULED. WILL ENDORSE TO NEXT SHIFT.
--- NOTE | 2022-08-05 18:44 | NUR ---
RN NOTES OFFERED PT WOUND TREATMENT BUT PT REFUSED TO HAVE WOUND TREATMENT AND DRESSING CHANGED DONE ON HIS LEFT FOOT. PT ALSO REFUSES TO SIGN CONSENT AT THIS TIME.
[2022-08-05 20:00] VITALS: BP 135/72
--- NOTE | 2022-08-05 20:00 | NUR ---
RECEIVED PATIENT IN BED, ALERT/ORIENTED X1, ROOM AIR, NO COMPLAIN OF PAIN, HOSTILE, DOES NOT WANT TO BE TOUCHED. SINUS TACH ON THE TELE, MANUELA MIDLINE INFUSING WITH NS. INCONTINENT OF URINE, KEPT SAFE, WILL CONTINUE TO MONITOR.
--- NOTE | 2022-08-05 22:05 | NUR ---
NOTIFIED AFTER HOURS PHARMACY REGARDING NEW VANCO TROUGH 13. PER PHARMACY, GIVE CURRENT OF VANCOMYCIN 1.5 SCHEDULED.
[2022-08-05] MEDS: VANCOMYCIN 1.5 GM in IV D5W 500ml IV SCH (22:15)
[2022-08-06] VITALS: BP 138/61
[2022-08-06] MEDS: ZOSYN IVPB 3.375 G in IV D5W 50ml IV SCH ×4 (03:05→20:07)
[2022-08-06 04:00] VITALS: BP 93/60
[2022-08-06 06:11] LABS: BASOPHILS % (AUTO) 0.2 % (0.0-2.0); EOSINOPHILS % (AUTO) 0.7 % (0.0-6.0); HEMATOCRIT 26 % (39-51); HEMOGLOBIN 8.1 g/dL (13.5-17.5); LYMPHOCYTES # (AUTO) 1.2 K/uL (0.8-4.8); LYMPHOCYTES % (AUTO) 10.8 % (20.0-44.0); MEAN CORPUSCULAR HGB CONC 31 g/dl (31.0-36.0); MEAN CORPUSCULAR VOLUME 83 fL (80-96); MONOCYTES % (AUTO) 8.3 % (2.0-12.0); NEUTROPHILS # (AUTO) 9.2 K/uL (1.8-8.9); PLATELET COUNT (AUTO) 243 K/uL (150-450); RED BLOOD CELL COUNT(AUTO) 3.12 MIL/uL (4.5-6.0); WHITE BLOOD COUNT (AUTO) 11.6 K/uL (4.3-11.0)
--- NOTE | 2022-08-06 06:12 | NUR ---
CONFUSED DURING GLOBAL SUPPLY CHAIN VICE PRESIDENT, COMBATIVE, HOSTILE, UNCOOPERATIVE, ST WITH PVC ON THE TELE. ROOM AIR, NO COMPLAIN OF PAIN, ZOSYN AND VANCOMYCIN, LEFT FOOT DRESSING CHANGED. FOR LEFT 2ND TOE AMPUTATION ON 08/07/22, CONSENT NOT SIGNED YET.
[2022-08-06] MEDS: BLOOD SUGAR DIAGNOSTIC 1 EACH STRIP IN SCH ×4 (06:30→21:28)
[2022-08-06] MEDS: INSULIN REGULAR, HUMAN 100 UNIT/ML 3 ML VIAL SQ PRN ×4 (06:33→21:30)
[2022-08-06 07:07] LABS: CALCIUM, SERUM 8.5 mg/dL (8.5-10.1); CREATININE 1.2 mg/dL (0.6-1.3); POTASSIUM 3.7 mmol/L (3.5-5.1)
--- NOTE | 2022-08-06 07:47 | NUR ---
RN OPENING NOTE PATIENT AWAKE IN BED RESTING, A/O X 3. NO S/S OF PAIN NOTED AT THIS TIME. ON ROOM AIR, BREATHING EVEN UNLABORED, NO DISTRESS OR SHORTNESS OF BREATH NOTED. IV ACCESS MANUELA MIDLINE #18G INTACT, PATENT AND FLUSHING WELL, RUNNING NS @ 100 ML/HR. FALL AND SAFETY MEASURES IN PLACE, BED ALARM ON, BED IN LOW AND LOCK POSITION, CALL LIGHT AND TABLE WITHIN EASY REACH, SIDE RAILS UP X2. WILL CONTINUE TO MONITOR. Addendum: 08/06/22 at 0754 by Gela Collier RN PATIENT WITH EXTERNAL B2B SALES REPRESENTATIVE WITH CURRENT READING OF SR AND HR OF 83, NO CARDIAC DISTRESS NOTED.
[2022-08-06] MEDS: CLOPIDOGREL BISULFATE 75 MG TABLET PO SCH (08:34)
[2022-08-06] MEDS: GLUCERNA SHAKE 237 ML CAN PO SCH ×2 (08:34→17:31)
[2022-08-06] MEDS: PANTOPRAZOLE 40 MG TABLET.DR PO SCH (08:34)
[2022-08-06 09:29] VITALS: BP 130/71
[2022-08-06] MEDS: IV NS 0.9% 1,000 ML IV PRN (11:11)
[2022-08-06 12:00] VITALS: BP 134/77
[2022-08-06 12:44] LABS: CALCIUM, SERUM 8.5 mg/dL (8.5-10.1); CREATININE 1.3 mg/dL (0.6-1.3); POTASSIUM 3.9 mmol/L (3.5-5.1)
[2022-08-06] MEDS: VANCOMYCIN 1 GM in IV D5W 250ml IV SCH (15:48)
--- NOTE | 2022-08-06 18:35 | NUR ---
RN NOTE PATIENT COMPLAINED OF DIFFICULTY BREATHING, VITAL SIGNS WERE TAKEN T: 98.8, P: 80, R: 20, BP: 146/78, O2 95% AT ROOM AIR, OXYGEN VIA NC WAS PROVIDED, PATIENT IS ON 2L OXYGEN VIA NC SAT. 98 AT THE MOMENT. PATIENT IS IN BED RESTING COMFORTABLY, WILL CONTINUE TO MONITOR.
--- NOTE | 2022-08-06 18:43 | NUR ---
RN CLOSING NOTE PATIENT AWAKE IN BED RESTING, A/O X 3, CONFUSED AT TIMES. NO S/S OF PAIN NOTED AT THIS TIME. ON ROOM AIR, BREATHING EVEN UNLABORED, NO DISTRESS OR SHORTNESS OF BREATH NOTED. IV ACCESS MANUELA MIDLINE #18G INTACT, PATENT AND FLUSHING WELL, RUNNING NS @ 100 ML/HR. PATIENT WITH EXTERNAL PEDIATRIC REGISTERED NURSE WITH CURRENT READING OF SR WITH PVC BBB AND HR OF 85, NO CARDIAC DISTRESS NOTED. WOUND CARE IMPLEMENT, PICTURE TAKEN OF LEFT FOOT. SCHEDULE MEDICATIONS ADMINISTERED. PATIENT WAS TURNED AND REPOSITIONED PER PROTOCOL. FALL AND SAFETY MEASURES IN PLACE, BED ALARM ON, BED IN LOW AND LOCK POSITION, CALL LIGHT AND TABLE WITHIN EASY REACH, SIDE RAILS UP X2. ALL NEEDS ATTENDED AND ANTICIPATED. WILL ENDORSE TO UNIVERSITY PROFESSOR NURSE..
--- NOTE | 2022-08-06 19:21 | NUR ---
SLOT SUPERVISOR OPENING NOTE RECEIVED PT RESTING IN BED, VERBALLY RESPONSIVE. A/O X3 AND ABLE TO MAKE NEEDS KNOWN. PT ON O2 @ 2LPM VIA NC, TOLERATING WELL. NO SOB OR S/S OF RESPIRATORY DISTRESS. BREATHING EVEN AND UNLABORED. ON EXTERNAL ENVIRONMENTAL STUDIES PROFESSOR READING SR 80 BPM. IV ACCESS MANUELA MIDLINE, INTACT AND PATENT, RUNNING NS @ 100 ML/HR. SAFETY PRECAUTIONS IN PLACE. BED IN LOWEST LOCKED POSITION, HOB ELEVATED, SIDE RAILS UP X2, AND CALL LIGHT AND TABLE WITHIN REACH. ALL NEEDS MET AT THIS TIME.
[2022-08-06 19:53] VITALS: BP 142/69
[2022-08-07] VITALS (10 sets, daily range): BP systolic 120–156; BP diastolic 50–80
[2022-08-07] MEDS: ZOSYN IVPB 3.375 G in IV D5W 50ml IV SCH ×4 (01:43→19:57)
[2022-08-07] MEDS: IV NS 0.9% 1,000 ML IV PRN ×2 (01:44→17:53)
[2022-08-07] MEDS: VANCOMYCIN 1 GM in IV D5W 250ml IV SCH ×2 (02:58→14:39)
[2022-08-07] MEDS: BLOOD SUGAR DIAGNOSTIC 1 EACH STRIP IN SCH ×4 (06:38→21:50)
[2022-08-07 06:39] LABS: BASOPHILS % (AUTO) 0.3 % (0.0-2.0); EOSINOPHILS % (AUTO) 1.3 % (0.0-6.0); HEMATOCRIT 26 % (39-51); HEMOGLOBIN 8.3 g/dL (13.5-17.5); LYMPHOCYTES % (AUTO) 9.3 % (20.0-44.0); MEAN CORPUSCULAR HGB CONC 32 g/dl (31.0-36.0); MEAN CORPUSCULAR VOLUME 83 fL (80-96); MONOCYTES # (AUTO) 0.7 K/uL (0.1-1.30); MONOCYTES % (AUTO) 6.7 % (2.0-12.0); NEUTROPHILS # (AUTO) 8.4 K/uL (1.8-8.9); NEUTROPHILS % (AUTO) 82.4 % (43.0-81.0); PLATELET COUNT (AUTO) 281 K/uL (150-450); RED BLOOD CELL COUNT(AUTO) 3.12 MIL/uL (4.5-6.0); WHITE BLOOD COUNT (AUTO) 10.2 K/uL (4.3-11.0)
[2022-08-07] MEDS: INSULIN REGULAR, HUMAN 100 UNIT/ML 3 ML VIAL SQ PRN ×4 (06:39→21:55)
--- NOTE | 2022-08-07 06:47 | NUR ---
SHIRT IRONER CLOSING NOTE PT RESTING IN BED, VERBALLY RESPONSIVE. A/O X3 AND ABLE TO MAKE NEEDS KNOWN. PT STABLE ON ROOM AIR, SATURATING 97%. NO SOB OR S/S OF RESPIRATORY DISTRESS. BREATHING EVEN AND UNLABORED. ON EXTERNAL WINDOWS PHONE DEVELOPER READING SR 82 BPM WITH BBB AND PVCS. IV ACCESS MANUELA MIDLINE, INTACT AND PATENT, RUNNING NS @ 100 ML/HR. ALL DUE MEDS GIVEN ORDERED. KEPT CLEAN AND DRY. KEPT NPO POST MIDNIGHT. SAFETY PRECAUTIONS IN PLACE AT ALL TIMES. BED IN LOWEST LOCKED POSITION, HOB ELEVATED, SIDE RAILS UP X2, AND CALL LIGHT AND TABLE WITHIN REACH. ALL NEEDS MET AT THIS TIME AND WILL ENDORSE TO ONCOMING NURSE FOR GABRIELA.
--- NOTE | 2022-08-07 07:03 | NUR ---
SENIOR SOFTWARE PROJECT MANAGER OPENING NOTES: RECEIVED PT ALMOST GOING FOR SURGERY,PT AWAKE. A/O X3. NO SOB OR CARDIAC DISTRESS NOTED. ON TELE MONITOR WITH CURRENT READING TELE SR 72 WITH BBB PVCS. PICKED UP BY SURGERY TRANSPORTER VIA BED. PT LEFT THE UNIT STABLE.
[2022-08-07] MEDS ORDERED: ANESTHESIA TRAY IN PYXIS 1 EA TRAY MC ONE (07:05)
[2022-08-07] MEDS ORDERED: LIDOCAINE HCL/MPF 1% 30 ML VIAL IJ ONE (07:06)
[2022-08-07 07:09] LABS: CALCIUM, SERUM 8.5 mg/dL (8.5-10.1); CARBON DIOXIDE 22 mmol/L (21-32); CHLORIDE 105 mmol/L (98-107); CREATININE 1.8 mg/dL (0.6-1.3); GLUCOSE 175 mg/dL (74-106); MAGNESIUM 2.2 mg/dL (1.8-2.4); PHOSPHORUS 4.7 mg/dL (2.5-4.9); POTASSIUM 4.2 mmol/L (3.5-5.1); SODIUM SERUM 138 mmol/L (136-145); UREA NITROGEN, BLOOD 24 mg/dL (7-18)
[2022-08-07] MEDS: PANTOPRAZOLE 40 MG TABLET.DR PO SCH (07:17)
[2022-08-07] MEDS: GLUCERNA SHAKE 237 ML CAN PO SCH ×2 (07:18→16:51)
[2022-08-07] MEDS ORDERED: MIDAZOLAM HCL 2 MG/2ML VIAL ONE (08:22)
[2022-08-07] MEDS ORDERED: FENTANYL PF 100MCG/2ML AMPUL ONE (08:22)
[2022-08-07] MEDS ORDERED: BUPIVACAINE 0.25% 75 MG/30 ML VIAL ONE (08:29)
[2022-08-07] MEDS: CLOPIDOGREL BISULFATE 75 MG TABLET PO SCH (08:40)
--- NOTE | 2022-08-07 09:50 | NUR ---
RN NOTES: S/P LEFT 2ND TOE AMPUTATION. PT BACK FROM SURGERY ACCOMPANIED BY CHARLEY WALLS AND TRANSPORTER BY BED. PT ALERT AND ORIENTED X 3 WITH EPISODES OF FORGETFULNESS/CONFUSION. RESUME DIET AND MEDS PER DR PÉREZ. ORDERS NOTED AND CARRIED OUT. TELEMONITOR ATTACHED. VS TAKEN, PT'S STABLE. PROVIDED CRACKERS AND JUICE. NOTED WITH LEFT LEG DRESSING WRAPPED IN KERLIX AND LEA WRAP, NO UNUSUAL DRAINAGE NOTED. WILL MONITOR PT ACCORDINGLY. SAFETY MEASURES MAINTAINED: BED LOCKED AND IN LOWEST POSITION, SIDE RAILS UP X 2. CALL LIGHT IN EASY OSKAR WILL MONITOR PT ACCORDINGLY.
[2022-08-07 12:30] LABS: CALCIUM, SERUM 8.6 mg/dL (8.5-10.1); CARBON DIOXIDE 23 mmol/L (21-32); CHLORIDE 108 mmol/L (98-107); CREATININE 2.1 mg/dL (0.6-1.3); GLUCOSE 159 mg/dL (74-106); SODIUM SERUM 140 mmol/L (136-145); UREA NITROGEN, BLOOD 24 mg/dL (7-18)
--- NOTE | 2022-08-07 14:25 | NUR ---
RN NOTES: PT REQUESTED IF SHE CAN HAVE EYE DROPS, INFORMED DR KIM AND SHE OKAYED FOR EYE DROPS PRN Q 8HRS. ORDERS NOTED AND CARRIED OUT.
--- NOTE | 2022-08-07 18:52 | NUR ---
JIG BORE TOOL MAKER CLOSING NOTES: PT IN BED AWAKE, ALERT AN ORIENTED X 3-4 WITH EPISODES OF CONFUSION AND FORGETFULNESS. NO SOB OR CARDIAC DISTRESS NOTED ON TELECOMMUNICATIONS ANALYST WITH CURRENT READING OF SINUS RHYTHM @ 75 BPM WITH PVCS AND BBB. IV ACCESS MANUELA MIDLINE GAUGE 18, PATENT, INTACT AND INFUSING NS @ 100ML/HR. ON BS MONITORING ACHS AND INSULIN ADMINISTRATION PER SLIDING SCALE ORDER.PT NOTED WITH FOOT DRESSING ON LEFT FOOT, S/P LEFT 2ND TOE AMPUTATION. SAFETY MEASURES MAINTAINED: BED LOCKED AND IN LOWEST POSITION, SIDE RAILS UP X 2. CALL LIGHT IN EASY REACH FOR HELP. WILL ENDORSED TO RECREATION TECHNICIAN FOR GABRIELA.
--- NOTE | 2022-08-07 19:30 | NUR ---
TIRE TRIMMER HAND OPENING NOTE RECEIVED PT RESTING IN BED, VERBALLY RESPONSIVE. A/O X3 AND ABLE TO MAKE NEEDS KNOWN, WITH EPISODES OF CONFUSION. PT STABLE ON ROOM AIR. NO SOB OR S/S OF RESPIRATORY DISTRESS. BREATHING EVEN AND UNLABORED. ON EXTERNAL RIVET MAKER READING SR 75 BPM. IV ACCESS MANUELA MIDLINE, INTACT AND PATENT, RUNNING NS @ 100 ML/HR. L FOOT DRESSING C/D/I. SAFETY PRECAUTIONS IN PLACE. BED IN LOWEST LOCKED POSITION, HOB ELEVATED, SIDE RAILS UP X2, AND CALL LIGHT AND TABLE WITHIN REACH. ALL NEEDS MET AT THIS TIME.
[2022-08-08] VITALS: BP 147/82
[2022-08-08] MEDS: ZOSYN IVPB 3.375 G in IV D5W 50ml IV SCH ×3 (01:07→13:03)
[2022-08-08] MEDS: VANCOMYCIN 1 GM in IV D5W 250ml IV SCH (03:00)
--- NOTE | 2022-08-08 03:26 | NUR ---
RN NOTE VANCO TROUGH 27. HELD VANCO AT THIS TIME.
[2022-08-08 04:00] VITALS: BP 150/79
[2022-08-08] MEDS: BLOOD SUGAR DIAGNOSTIC 1 EACH STRIP IN SCH ×2 (06:30→11:57)
[2022-08-08] MEDS: INSULIN REGULAR, HUMAN 100 UNIT/ML 3 ML VIAL SQ PRN ×2 (06:31→12:04)
--- NOTE | 2022-08-08 06:38 | NUR ---
CERAMICS TEST ENGINEER CLOSING NOTE PT RESTING IN BED, VERBALLY RESPONSIVE. A/O X3 AND ABLE TO MAKE NEEDS KNOWN. PT STABLE ON ROOM AIR, SATURATING 97%. NO SOB OR S/S OF RESPIRATORY DISTRESS. BREATHING EVEN AND UNLABORED. ON EXTERNAL COURT TRANSCRIBER READING SR 75 BPM WITH BBB AND PVCS. IV ACCESS SIXTO MIDLINE, INTACT AND PATENT, RUNNING NS @ 100 ML/HR. ALL DUE MEDS GIVEN ORDERED. KEPT CLEAN AND DRY. PT REFUSED INSULIN THIS AM FOR BS 139 "I WILL ONLY TAKE INSULIN WHEN IT IS ABOVE 150". ATTEMPTED EDUCATION BUT PT STILL REFUSED. SAFETY PRECAUTIONS IN PLACE AT ALL TIMES. BED IN LOWEST LOCKED POSITION, HOB ELEVATED, SIDE RAILS UP X2, AND CALL LIGHT AND TABLE WITHIN REACH. ALL NEEDS MET AT THIS TIME AND WILL ENDORSE TO ONCOMING NURSE FOR GABRIELA.
[2022-08-08 07:00] VITALS: BP 145/80
--- NOTE | 2022-08-08 07:30 | NUR ---
HEAD OF ADVERTISING OPENING NOTES RECEIVED PT RESTING IN BED, AWAKE, AO X4. ON ROOM AIR, STABLE WITH NO SIGNS OF RESPIRATORY DISTRESS. DENIES SOB, COMPLAINED OF PAIN FROM FOOT SURGERY. INCONTINENT USES DIAPER. RUNNING NS AT 100 ML/HR AT MANUELA MIDLINE 18 G. NO SX OF INFILTRATION NOTED. ON TELE MONITOR SR 95. PT IN NO DISTRESS. AMBULATORY WITH ASSIST. ABLE TO MAKE NEEDS KNOWN. SAFETY PRECAUTIONS IN PLACED. SIDE RAILS UP X2. CALL LIGHT WITHIN REACH. FOR POSSIBLE D/C, WILL UPDATE WITH ATTENDING DR. WILL ADMINISTER MEDICATIONS SCHEDULED
[2022-08-08] MEDS: PANTOPRAZOLE 40 MG TABLET.DR PO SCH (08:30)
[2022-08-08] MEDS: CLOPIDOGREL BISULFATE 75 MG TABLET PO SCH (08:30)
[2022-08-08] MEDS: GLUCERNA SHAKE 237 ML CAN PO SCH (08:30)
[2022-08-08] MEDS ORDERED: CEFE1FRO IV (10:03)
[2022-08-08] MEDS: TRAMADOL HCL 50 MG TABLET PO PRN (13:07)
[2022-08-08] MEDS ORDERED: VANCOMYCIN 1 GM in IV D5W 250ml IV SCH (15:00)
[2022-08-08 16:00] VITALS: BP 151/85
--- NOTE | 2022-08-08 17:55 | NUR ---
DREDGE PIPE INSTALLER NOTES PT AWAKE, ALERT AND ORIENTED, SITTING IN BED, NO COMPLAINT OF PAIN AT THIS TIME, RESPIRATIONS NORMAL, SEEN BY DR. CASTILLO AND DR. THORNTON TODAY, DISCHARGE ORDER GIVEN, LEFT FOOT DRESSING CHANGE DONE BY MD, DISCHARGE AND MEDICATION INSTRUCTIONS PROVIDED TO PT AND TO SUSANNAH, VERBALIZED UNDERSTANDING, PT REFUSED PHOTOS OF HIS SACRAL AREA AND LEFT FOOT, REPORT GIVEN TO BERTA WHITEHEAD OF [facility], PICKED UP BY 2 AMBULANCE PERSONNEL, LEFT VIA GUERNEY IN STABLE CONDITION.
== END 2022-08-08 17:50 | DRG 853 ==
LOC: ER 17:27 → MED 21:03 → ICU 08-04 06:05 → TELE 08-04 17:03
PROVIDERS: ADMIT Nurse Practitioner Acute Care; ATTEND Internal Medicine
PROC: 05HB33Z Insertion of Infusion Device into Right Basilic Vein, Percutaneous Approach (ICD-10-PCS; 2022-08-03)
PROC: 047U3ZZ Dilation of Left Peroneal Artery, Percutaneous Approach (ICD-10-PCS; principal; 2022-08-04)
PROC: 047S3ZZ Dilation of Left Posterior Tibial Artery, Percutaneous Approach (ICD-10-PCS; principal; 2022-08-04)
PROC: B41DYZZ Fluoroscopy of Aorta and Bilateral Lower Extremity Arteries using Other Contrast (ICD-10-PCS; principal; 2022-08-04)
PROC: 0Y6S0Z1 Detachment at Left 2nd Toe, High, Open Approach (ICD-10-PCS; 2022-08-07)
DX: A41.9 Sepsis, unspecified organism (principal); N17.0 Acute kidney failure with tubular necrosis; E11.52 Type 2 diabetes mellitus with diabetic peripheral angiopathy with gangrene; I70.262 Atherosclerosis of native arteries of extremities with gangrene, left leg; M86.8X7 Other osteomyelitis, ankle and foot; I70.92 Chronic total occlusion of artery of the extremities; E87.1 Hypo-osmolality and hyponatremia; E11.69 Type 2 diabetes mellitus with other specified complication; E11.621 Type 2 diabetes mellitus with foot ulcer; L97.529 Non-pressure chronic ulcer of other part of left foot with unspecified severity; E11.40 Type 2 diabetes mellitus with diabetic neuropathy, unspecified; E78.5 Hyperlipidemia, unspecified; I10 Essential (primary) hypertension; Z20.822 Contact with and (suspected) exposure to COVID-19; I25.10 Atherosclerotic heart disease of native coronary artery without angina pectoris; Z79.4 Long term (current) use of insulin; Z79.899 Other long term (current) drug therapy; Z95.1 Presence of aortocoronary bypass graft; Z79.84 Long term (current) use of oral hypoglycemic drugs
CPT/HCPCS: 36246; 36410; 36415; 37234; 73630-TC; 75625; 76770-TC; 80048-TC; 80061-TC; 80202-TC; 81001; 82570-TC; 82962-TC; 83605-TC; 83735-TC; 84100-TC; 84300-TC; 84443-TC; 85025-TC; 85347; 85610-TC; 85652-TC; 85730-TC; 86140-TC; 87040-TC; 87081-TC; 93926-TC; 97110-TC; 97112-TC; 97116-TC; 97530-TC; A4223; A6209; A6403; C1725; C1769; C1887; C1894; C9113; C9803; G0378; G0500; J0692; J1200; J1644; J1815; J1885; J2250; J2543; J2704; J2765; J3010; J3370; J3490; J7030; J7060; Q9967

== ENCOUNTER 2022-08-14 10:50 | Outpatient (CLI) | payer MEDICARE, BC ==
[~2022-08-14 10:50] MED LIST: ASPI-1420 PO; BUME0.5T5 PO; CARV12.52 PO; CEFE1FRO IV; CHOL100062 PO; DULA1.5P SQ; GABA300C PO; GLIM2TAB31 PO; LISI40TA13 PO; METF-881 PO; ROSU10TA29 PO; SPIR25TA6 PO
[2022-08-15] MEDS ORDERED: NA P133E RC (10:42)
[2022-08-15] MEDS ORDERED: MAGN400O6 PO (10:42)
[2022-08-15] MEDS ORDERED: ACET-868 PO (10:42)
[2022-08-15] MEDS ORDERED: BISA10SU11 RC (10:42)
[2022-08-15] MEDS ORDERED: MULT-447 PO (10:42)
[2022-08-15] MEDS ORDERED: HYDR-4209 PO (10:42)
== END 2022-08-14 23:59 | disposition home or self-care (01) ==
LOC: WOU 10:50
PROVIDERS: ATTEND Podiatrist Foot & Ankle Surgery
DX: E11.621 Type 2 diabetes mellitus with foot ulcer (principal); L97.526 Non-pressure chronic ulcer of other part of left foot with bone involvement without evidence of necrosis; E11.42 Type 2 diabetes mellitus with diabetic polyneuropathy; E11.51 Type 2 diabetes mellitus with diabetic peripheral angiopathy without gangrene; D69.0 Allergic purpura
CPT/HCPCS: G0463

== ENCOUNTER 2022-08-14 11:54 | Inpatient (IN) | payer MEDICARE, BC ==
[~2022-08-14] VITALS: Ht 177.8 cm; Wt 95.3 kg
--- NOTE | 2022-08-14 11:54 | NUR ---
[facility] STAFF FOR EVAL AND TREATMENT OF RASH TO BOTH FEEL AND HANDS X6 DAYS. PTS STATED THAT HE HAD SURGERY ON HIS L FOOT AT THIS HOSPITAL AND WAS SENT TO REHAB FOR ANTIBIOTIC TREATMENT AND STARTED TO DEVELOP A RASH ON HIS LEGS BILATER AND HANDS. PT VITALS ARE WITHIN NORMAL LIMITS, NO RESPIRATORY DISTRESS NOTED. AWAITING MD NICE.
--- NOTE | 2022-08-14 12:16 | NUR ---
COVID TEST COLLECTED AND SENT
[2022-08-14] MEDS ORDERED: DEXTROSE 50%-WATER 50 ML DISP.SYRIN IV PRN (13:30)
[2022-08-14] MEDS ORDERED: ONDANSETRON HCL/PF 4 MG/2 ML VIAL IVP PRN (13:30)
[2022-08-14 14:27] LABS: HEMATOCRIT 30 % (39-51); NEUTROPHILS # (AUTO) 9.9 K/uL (1.8-8.9); WHITE BLOOD COUNT (AUTO) 12.8 K/uL (4.3-11.0)
[2022-08-14 14:53] LABS: BASOPHILS % (AUTO) 0.1 % (0.0-2.0); EOSINOPHILS % (AUTO) 1.4 % (0.0-6.0); HEMOGLOBIN 9.4 g/dL (13.5-17.5); LYMPHOCYTES % (AUTO) 15.9 % (20.0-44.0); MEAN CORPUSCULAR HGB CONC 32 g/dl (31.0-36.0); MEAN CORPUSCULAR VOLUME 81 fL (80-96); MONOCYTES # (AUTO) 0.7 K/uL (0.1-1.30); MONOCYTES % (AUTO) 5.2 % (2.0-12.0); NEUTROPHILS % (AUTO) 77.4 % (43.0-81.0); PLATELET COUNT (AUTO) 501 K/uL (150-450); RED BLOOD CELL COUNT(AUTO) 3.65 MIL/uL (4.5-6.0)
[2022-08-14 15:01] LABS: ALANINE AMINOTRANSFERASE 17 U/L (12-78); ALBUMIN 2.5 g/dL (3.4-5.0); ALKALINE PHOSPHATASE 58 U/L (46-116); ASPARTATE AMINOTRANSFERASE 19 U/L (15-37); BILIRUBIN,DIRECT 0.3 mg/dL (0.0-0.2); BILIRUBIN,TOTAL 0.7 mg/dL (0.2-1.0); CALCIUM, SERUM 8.9 mg/dL (8.5-10.1); CARBON DIOXIDE 27 mmol/L (21-32); CHLORIDE 105 mmol/L (98-107); CREATININE 1.2 mg/dL (0.6-1.3); GLUCOSE 100 mg/dL (74-106); POTASSIUM 3.7 mmol/L (3.5-5.1); SODIUM SERUM 141 mmol/L (136-145); UREA NITROGEN, BLOOD 17 mg/dL (7-18)
--- NOTE | 2022-08-14 15:21 | NUR ---
REPORT GIVEN TO BHAVANA FOR GABRIELA
--- NOTE | 2022-08-14 15:40 | NUR ---
PT TRANSFERRED TO [facility] IN STABLE CONDITION
--- NOTE | 2022-08-14 16:00 | NUR ---
MS RN ADMITTING NOTES ADMITTED THIS 72 YO MALE TO THE UNIT AT 1540 VIA GURNEY WITH DX OF DRUG INTERACTION. PT IS AOX4 AND ABLE TO MAKE NEEDS KNOWN. ORIENTED TO ROOM AND STAFF. VS TAKEN, STABLE, RECORDED. PT ON ROOM AIR, TOLERATING WELL WITH NO ACUTE RESPIRATORY DISTRESS NOTED, IV ACCESS ON RFA MIDLINE G#10, SALINE LOCKED, PATENT AND FLUSHING WELL. LUNGS CLEAR UPON AUSCULTATION BILATERALLY, ABDOMEN SOFT AND NON TENDER, NON DISTENDED WITH + BOWEL SOUNDS ON ALL FOUR QUADRANTS. GENERALIZED PURPURICS RASH NOTED EXCEPT ON THE FACE, PICTURES TAKEN. WOUND CONSULT ORDERED FOR BILATERAL FOOT, PATIENT REFUSED TO HAVE IT CHECKED HE JUST HAD IT TREATED THIS MORNING. DENIES PAIN NOR DISCOMFORT AT THIS MOMENT. SAFETY MEASURES IN PLACE: BED IN LOWEST AND LOCKED POSITION, SIDE RAILS UP 2X, CALL LIGHT AND TRAY TABLE WITHIN EASY REACH. WILL MONITOR.
[2022-08-14] MEDS: ATORVASTATIN 10 MG TABLET PO SCH (17:14)
[2022-08-14] MEDS: GABAPENTIN 300 MG CAPSULE PO SCH (17:14)
[2022-08-14] MEDS: ENOXAPARIN SODIUM 40 MG/0.4 ML DISP.SYRIN SQ SCH (17:14)
[2022-08-14] MEDS: BLOOD SUGAR DIAGNOSTIC 1 EACH STRIP IN SCH ×2 (17:24→22:15)
[2022-08-14 18:00] VITALS: BP 160/82
--- NOTE | 2022-08-14 18:43 | NUR ---
RN NOTES - DR MITCHELL ORDERED NORCO 5/325 MG Q6H PRN
[2022-08-14] MEDS: HYDROCODONE/APAP 5/325MG TABLET PO PRN (18:55)
--- NOTE | 2022-08-14 18:55 | NUR ---
RN NOTES - PT IS COMPLAINING OF 8/10 L FOOT PAIN, GIVEN NORCO 5/325 ORDERED. WILL CONTINUE TO MONITOR.
--- NOTE | 2022-08-14 19:25 | NUR ---
MS RN CLOSING NOTES ENDORSED PATIENT TO RN CRISTINAI, PATIENT WAS JUST SEEN BY DR MITCHELL, AWAITING ORDERS. NORCO 5/325 MG WAS ADMINISTERED ALREADY, ENDORSED FOR MONITORING. SUSANNAH IS AT BEDSIDE. PATIENT IS NOT IN ANY FORM OF ACUTE DISTRESS.
--- NOTE | 2022-08-14 19:30 | NUR ---
MS RN OPENING NOTES RECEIVED PATIENT AWAKE IN BED. BED SIDE. PATIENT IS A/O TIMES 4. ABLE TO MAKE NEEDS KNOWN. NO PIN NOTED.NO SOB NOTED. NO DISTRESS NOTED. SIXTO MIDLINE G # 18 INTACT . PATIENT USING URINAL. ALL NEEDS ATTENDED. GENERALIZED RASH NOTED ON THE BODY. NO ITCHING. NO SWOLLEN LIPS .BREATHING EVEN AND UNLABORED IN ROOM AIR. DRESSING ON THE LEFT FOOT INTACT . ALL SAFETY MEASURES IN PLACE. BED LOCKED IN THE LOWEST POSITION. CALL LIGHT AND TABLE IN EASY REACH. SIDE RAILS UP TIMES 2. BED ALARM ON. WILL CONTINUE TO MONITOR CLOSELY FOR ANY GABRIELA.
[2022-08-14 20:00] VITALS: BP 134/76
[2022-08-14] MEDS ORDERED: Medication Not On Formulary EA (Cefepime Hcl/Dextrose, Iso-Osm (Cefepime 1 Gm Injection) IV SCH (21:00)
[2022-08-15] MEDS: HYDROCODONE/APAP 5/325MG TABLET PO PRN ×2 (05:55→14:47)
--- NOTE | 2022-08-15 05:55 | NUR ---
RN NOTES COMPLAINS OF PAIN 7/10 OF THE LEFT FOOT. PRN NORCO 5/325 ONE TAB GIVEN ORDERED PER MD ORDER FOR PAIN. WILL REASSESS IN 1 HOUR.
[2022-08-15] MEDS: BLOOD SUGAR DIAGNOSTIC 1 EACH STRIP IN SCH ×4 (06:13→21:13)
--- NOTE | 2022-08-15 06:42 | NUR ---
MS RN CLOSING NOTES PATIENT AWAKE IN BED. PATIENT IS A/O TIMES 4. ABLE TO MAKE NEEDS KNOWN. PAIN MEDICATION GIVEN. NOTED.NO SOB NOTED. NO DISTRESS NOTED. SIXTO MIDLINE G # 18 INTACT . PATIENT USING URINAL. ALL NEEDS ATTENDED. GENERALIZED RASH NOTED ON THE BODY. NO ITCHING. NO SWOLLEN LIPS .BREATHING EVEN AND UNLABORED IN ROOM AIR. DRESSING ON THE LEFT FOOT INTACT . ALL DUE MEDS GIVEN ORDERED.ALL SAFETY MEASURES IN PLACE. BED LOCKED IN THE LOWEST POSITION. CALL LIGHT AND TABLE IN EASY REACH. SIDE RAILS UP TIMES 2. BED ALARM ON. WILL ENDORSE FOR GABRIELA.
[2022-08-15 07:00] VITALS: BP 150/73
--- NOTE | 2022-08-15 07:00 | NUR ---
RN NOTES BEFORE BREAKFAST BLOOD SSUGAR CHECK WAS 76. ORANGE JUICE GIVEN . PATIENT ALERT AND ORIENTED TIMES 4.
--- NOTE | 2022-08-15 07:30 | NUR ---
MS RN CLOSING NOTES PATIENT AWAKE IN BED. PATIENT IS A/O TIMES 4. ABLE TO MAKE NEEDS KNOWN. PAIN MEDICATION GIVEN. NO SOB NOTED. NO DISTRESS NOTED. SIXTO MIDLINE G # 18 INTACT . PATIENT USING URINAL. ALL NEEDS ATTENDED. GENERALIZED RASH NOTED ON THE BODY. NO ITCHING, NO SWOLLEN LIPS, BREATHING EVEN AND UNLABORED IN ROOM AIR. DRESSING ON THE LEFT FOOT INTACT. ALL DUE MEDS GIVEN ORDERED.ALL SAFETY MEASURES IN PLACE. BED LOCKED IN THE LOWEST POSITION. CALL LIGHT AND TABLE IN EASY REACH. SIDE RAILS UP TIMES 2. BED ALARM ON. WILL ENDORSE FOR GABRIELA. Addendum: 08/15/22 at 1948 by TRICIA GORDON RN WRONG TIME ENTERED. THIS IS CLOSING NOTE
--- NOTE | 2022-08-15 07:40 | NUR ---
MS RN OPENING NOTES RECEIVED PATIENT AWAKE IN BED. PATIENT IS A/O TIMES 4. ABLE TO MAKE NEEDS KNOWN. PAIN SCALE OF 8-9 NOTED.NO SOB NOTED. NO DISTRESS NOTED. SIXTO MIDLINE G # 18 INTACT . PATIENT USING URINAL. ALL NEEDS ATTENDED. GENERALIZED RASH NOTED ON THE BODY. NO ITCHING. NO SWOLLEN LIPS .BREATHING EVEN AND UNLABORED IN ROOM AIR. DRESSING ON THE LEFT FOOT INTACT . ALL SAFETY MEASURES IN PLACE. BED LOCKED IN THE LOWEST POSITION. CALL LIGHT AND TABLE IN EASY REACH. SIDE RAILS UP TIMES 2. BED ALARM ON. WILL CONTINUE TO MONITOR CLOSELY FOR ANY GABRIELA.
[2022-08-15] MEDS: LISINOPRIL (20MG) 20 MG TABLET PO SCH (09:29)
[2022-08-15] MEDS: GABAPENTIN 300 MG CAPSULE PO SCH ×2 (09:29→17:15)
[2022-08-15] MEDS: CHOLECALCIFEROL 1,000 UNIT TABLET (VIT D3) PO SCH (09:29)
[2022-08-15] MEDS: SPIRONOLACTONE 25 MG TABLET PO SCH (09:30)
[2022-08-15] MEDS: ASPIRIN EC 81 MG TABLET.DR PO SCH (09:30)
[2022-08-15] MEDS: BUMETANIDE (1 MG) 1 MG TABLET PO SCH (09:30)
[2022-08-15] MEDS: METFORMIN XR 500 MG TAB.SR.24H PO SCH (09:30)
[2022-08-15] MEDS: CARVEDILOL 12.5 MG TABLET PO SCH (09:31)
[2022-08-15] MEDS: MORPHINE SULFATE INJ 2 MG/ML DISP.SYRIN IV PRN (09:38)
--- NOTE | 2022-08-15 09:43 | NUR ---
WOUND CARE CONSULT: PT PRESENTS WITH SEVERE RASH ALL OVER BODY, ESPECIALLY ON LOWER AND UPPER EXTREMITIES, PRESENT ON ADMISSION. DR MELENDREZ CALLED FOR DPM CONSULT ON LOWER EXTREMITY WOUNDS. DISCUSSED SKIN PROTECTION WITH NURSING STAFF. PT REFUSED TO REMOVE HIS SWEATER. MD IN AGREEMENT WITH PLAN OF CARE.
[2022-08-15 10:19] LABS: BASOPHILS % (AUTO) 0.3 % (0.0-2.0); EOSINOPHILS % (AUTO) 2.3 % (0.0-6.0); HEMATOCRIT 31 % (39-51); LYMPHOCYTES # (AUTO) 1.9 K/uL (0.8-4.8); LYMPHOCYTES % (AUTO) 17.7 % (20.0-44.0); MEAN CORPUSCULAR HGB CONC 32 g/dl (31.0-36.0); MEAN CORPUSCULAR VOLUME 81 fL (80-96); MONOCYTES # (AUTO) 0.5 K/uL (0.1-1.30); NEUTROPHILS % (AUTO) 74.7 % (43.0-81.0); PLATELET COUNT (AUTO) 479 K/uL (150-450); RED BLOOD CELL COUNT(AUTO) 3.84 MIL/uL (4.5-6.0); WHITE BLOOD COUNT (AUTO) 10.6 K/uL (4.3-11.0)
[2022-08-15] MEDS ORDERED: MAGN400O6 PO (10:42)
[2022-08-15] MEDS ORDERED: MULT-447 PO (10:42)
[2022-08-15] MEDS ORDERED: BISA10SU11 RC (10:42)
[2022-08-15] MEDS ORDERED: NA P133E RC (10:42)
[2022-08-15] MEDS ORDERED: ACET-868 PO (10:42)
[2022-08-15] MEDS ORDERED: HYDR-4209 PO (10:42)
[2022-08-15 10:53] LABS: ALANINE AMINOTRANSFERASE 16 U/L (12-78); ALBUMIN 2.4 g/dL (3.4-5.0); ALKALINE PHOSPHATASE 58 U/L (46-116); ASPARTATE AMINOTRANSFERASE 18 U/L (15-37); CALCIUM, SERUM 8.7 mg/dL (8.5-10.1); CARBON DIOXIDE 26 mmol/L (21-32); CHLORIDE 105 mmol/L (98-107); GLUCOSE 145 mg/dL (74-106); MAGNESIUM 1.7 mg/dL (1.8-2.4); PHOSPHORUS 3.1 mg/dL (2.5-4.9); POTASSIUM 3.7 mmol/L (3.5-5.1); SODIUM SERUM 140 mmol/L (136-145); TOTAL PROTEIN, SERUM 6.8 g/dL (6.4-8.2); UREA NITROGEN, BLOOD 15 mg/dL (7-18)
[2022-08-15 11:16] LABS: BILIRUBIN,TOTAL 0.7 mg/dL (0.2-1.0)
[2022-08-15] MEDS: INSULIN REGULAR, HUMAN 100 UNIT/ML 3 ML VIAL SQ PRN ×3 (11:57→21:23)
[2022-08-15] MEDS: ENOXAPARIN SODIUM 40 MG/0.4 ML DISP.SYRIN SQ SCH (13:35)
[2022-08-15] MEDS ORDERED: AZTREONAM 1 G VIAL IM SCH (14:00)
[2022-08-15 16:00] VITALS: BP 121/57
[2022-08-15] MEDS: AZTREONAM 2 G in IV NS 0.9% 100 ML IV SCH ×2 (17:14→21:13)
[2022-08-15] MEDS: ATORVASTATIN 10 MG TABLET PO SCH (17:15)
[2022-08-15] MEDS: ACETAMINOPHEN 325 MG TABLET PO PRN (17:15)
--- NOTE | 2022-08-15 19:20 | NUR ---
MS RN CLOSING NOTES PATIENT AWAKE IN BED. PATIENT IS A/O TIMES 4. ABLE TO MAKE NEEDS KNOWN. PAIN MEDICATION GIVEN. NO SOB NOTED. NO DISTRESS NOTED. SIXTO MIDLINE G # 18 INTACT . PATIENT USING URINAL. ALL NEEDS ATTENDED. GENERALIZED RASH NOTED ON THE BODY. NO ITCHING, NO SWOLLEN LIPS, BREATHING EVEN AND UNLABORED IN ROOM AIR. DRESSING ON THE LEFT FOOT INTACT. ALL DUE MEDS GIVEN ORDERED.ALL SAFETY MEASURES IN PLACE. BED LOCKED IN THE LOWEST POSITION. CALL LIGHT AND TABLE IN EASY REACH. SIDE RAILS UP TIMES 2. BED ALARM ON. WILL ENDORSE FOR GABRIELA.
--- NOTE | 2022-08-15 19:35 | NUR ---
MS RN OPENING NOTES PATIENT AWAKE IN BED. PATIENT IS A/O TIMES 4. ABLE TO MAKE NEEDS KNOWN. PAIN MEDICATION GIVEN. NO SOB NOTED. NO DISTRESS NOTED. SIXTO MIDLINE G # 18 INTACT . PATIENT USING URINAL. ALL NEEDS ATTENDED. GENERALIZED RASH NOTED ON THE BODY. NO ITCHING, NO SWOLLEN LIPS, BREATHING EVEN AND UNLABORED IN ROOM AIR. DRESSING ON THE LEFT FOOT INTACT.ALL SAFETY MEASURES IN PLACE. BED LOCKED IN THE LOWEST POSITION. CALL LIGHT AND TABLE IN EASY REACH. SIDE RAILS UP TIMES 2. BED ALARM ON.
[2022-08-15 20:00] VITALS: BP 137/74
[2022-08-16] MEDS: AZTREONAM 2 G in IV NS 0.9% 100 ML IV SCH ×3 (05:04→21:41)
[2022-08-16] MEDS: INSULIN REGULAR, HUMAN 100 UNIT/ML 3 ML VIAL SQ PRN ×4 (06:25→21:57)
--- NOTE | 2022-08-16 06:41 | NUR ---
MS RN CLOSING NOTES PATIENT AWAKE IN BED. PATIENT IS A/O TIMES 4. ABLE TO MAKE NEEDS KNOWN. PAIN MEDICATION GIVEN. NO SOB NOTED. NO DISTRESS NOTED. SIXTO MIDLINE G # 18 INTACT . PATIENT USING URINAL. ALL NEEDS ATTENDED. GENERALIZED RASH NOTED ON THE BODY. NO ITCHING, NO SWOLLEN LIPS, BREATHING EVEN AND UNLABORED IN ROOM AIR. DRESSING ON THE LEFT FOOT INTACT.ALL SAFETY MEASURES IN PLACE. BED LOCKED IN THE LOWEST POSITION. CALL LIGHT AND TABLE IN EASY REACH. SIDE RAILS UP TIMES 2. BED ALARM ON. WILL ENDORSE CARE TO DAY SHIFT NURSE.
--- NOTE | 2022-08-16 07:25 | NUR ---
MS RN OPENING NOTES RECEIVED PATIENT AWAKE, SITTING IN BED. PATIENT IS A/O X4. ABLE TO MAKE NEEDS KNOWN. NO PAIN NOTED. NO SOB AND NO DISTRESS NOTED. SIXTO MIDLINE G# 18 INTACT. PATIENT USING URINAL. ALL NEEDS ATTENDED. GENERALIZED RASH NOTED ON THE BODY. NO ITCHING. NO SWOLLEN LIPS .BREATHING EVEN AND UNLABORED IN ROOM AIR. DRESSING ON THE LEFT FOOT INTACT . ALL SAFETY MEASURES IN PLACE. BED LOCKED IN THE LOWEST POSITION. CALL LIGHT AND TABLE IN EASY REACH. SIDE RAILS UP X2. BED ALARM ON. WILL CONTINUE TO MONITOR CLOSELY FOR ANY GABRIELA AND ASSIST PATIENT WITH IMMEDIATE NEEDS.
[2022-08-16 08:19] LABS: BASOPHILS % (AUTO) 0.1 % (0.0-2.0); EOSINOPHILS % (AUTO) 0.3 % (0.0-6.0); HEMATOCRIT 29 % (39-51); HEMOGLOBIN 8.8 g/dL (13.5-17.5); LYMPHOCYTES # (AUTO) 1.7 K/uL (0.8-4.8); LYMPHOCYTES % (AUTO) 13.9 % (20.0-44.0); MEAN CORPUSCULAR HGB CONC 31 g/dl (31.0-36.0); MEAN CORPUSCULAR VOLUME 82 fL (80-96); MONOCYTES # (AUTO) 0.6 K/uL (0.1-1.30); MONOCYTES % (AUTO) 5.1 % (2.0-12.0); NEUTROPHILS # (AUTO) 9.7 K/uL (1.8-8.9); NEUTROPHILS % (AUTO) 80.6 % (43.0-81.0); PLATELET COUNT (AUTO) 407 K/uL (150-450); RED BLOOD CELL COUNT(AUTO) 3.51 MIL/uL (4.5-6.0); WHITE BLOOD COUNT (AUTO) 12.1 K/uL (4.3-11.0)
[2022-08-16] MEDS: BLOOD SUGAR DIAGNOSTIC 1 EACH STRIP IN SCH ×4 (08:19→21:58)
[2022-08-16 08:26] LABS: CALCIUM, SERUM 8.4 mg/dL (8.5-10.1); CARBON DIOXIDE 27 mmol/L (21-32); CHLORIDE 104 mmol/L (98-107); CREATININE 1.3 mg/dL (0.6-1.3); GLUCOSE 184 mg/dL (74-106); SODIUM SERUM 141 mmol/L (136-145); UREA NITROGEN, BLOOD 22 mg/dL (7-18)
[2022-08-16] MEDS: GABAPENTIN 300 MG CAPSULE PO SCH ×2 (08:57→17:09)
[2022-08-16] MEDS: METFORMIN XR 500 MG TAB.SR.24H PO SCH (08:57)
[2022-08-16] MEDS: CHOLECALCIFEROL 1,000 UNIT TABLET (VIT D3) PO SCH (08:58)
[2022-08-16] MEDS: ASPIRIN EC 81 MG TABLET.DR PO SCH (08:58)
[2022-08-16] MEDS: BUMETANIDE (1 MG) 1 MG TABLET PO SCH (08:58)
[2022-08-16] MEDS: CARVEDILOL 12.5 MG TABLET PO SCH (08:59)
[2022-08-16] MEDS: SPIRONOLACTONE 25 MG TABLET PO SCH (08:59)
[2022-08-16] MEDS: LISINOPRIL (20MG) 20 MG TABLET PO SCH (08:59)
[2022-08-16] MEDS: HYDROCODONE/APAP 5/325MG TABLET PO PRN ×2 (09:30→16:24)
--- NOTE | 2022-08-16 12:54 | NUR ---
RN NOTE PHARMACY ASKED IF PATIENT CAN PROVIDE THE MEDICATION DULAGLUTIDE/TRULICITY FROM HOME. PATIENT WAS INFORMED AND STATED THAT IF HE HAVE ANY LEFT AT HOME HE WILL ASK HIS TO BRING THE MEDICATION. PHARMACY AWARE.
[2022-08-16] MEDS: ENOXAPARIN SODIUM 40 MG/0.4 ML DISP.SYRIN SQ SCH (13:17)
[2022-08-16] MEDS: MORPHINE SULFATE INJ 2 MG/ML DISP.SYRIN IV PRN (13:45)
[2022-08-16 16:00] VITALS: BP 135/67
[2022-08-16] MEDS: ATORVASTATIN 10 MG TABLET PO SCH (17:09)
--- NOTE | 2022-08-16 18:40 | NUR ---
MS RN CLOSING NOTES PATIENT AWAKE IN BED. PATIENT IS A/O x4. ABLE TO MAKE NEEDS KNOWN. PAIN MEDICATION GIVEN. NO SOB NOTED. NO DISTRESS NOTED. SIXTO MIDLINE #18G, PATENT AND FLUSHING WELL. PATIENT USING URINAL. ALL NEEDS ATTENDED. GENERALIZED RASH NOTED ON THE BODY. NO ITCHING, NO SWOLLEN LIPS, BREATHING EVEN AND UNLABORED IN ROOM AIR. DRESSING DONE ON THE LEFT FOOT BY MD. DRESSING DRY AND INTACT. ALL DUE MEDS GIVEN ORDERED.ALL SAFETY MEASURES IN PLACE. BED LOCKED IN THE LOWEST POSITION. CALL LIGHT AND TABLE IN EASY REACH. SIDE RAILS UP TIMES 2. BED ALARM ON. WILL ENDORSE TO TRANSCRIBING OPERATORS SUPERVISOR NURSE.
--- NOTE | 2022-08-16 19:36 | NUR ---
MS RN OPENING NOTES: RECEIVED PATIENT SLEEP IN BED COMFORTABLY, AROUSABLE TO VERBAL STIMULI, BED IN LOW POSITION CALL LIGHTS WITHIN REACH, NO COMPLAIN OF PAIN AND DISCOMFORT AT THIS TIME, ON ROOM AIR SATURATING WELL, PATIENT IS A/O X4 ABLE TO MAKE NEEDS KNOWN, IV LINE AT SIXTO ML SL. PATIENT KEPT CLEAN AND DRY ALL NEEDS MET WILL CONTINUE TO MONITOR.
[2022-08-16 20:00] VITALS: BP 136/71
[2022-08-16] MEDS: ACETAMINOPHEN 325 MG TABLET PO PRN (22:46)
[2022-08-17] MEDS: AZTREONAM 2 G in IV NS 0.9% 100 ML IV SCH ×3 (05:08→22:07)
[2022-08-17] MEDS: HYDROCODONE/APAP 5/325MG TABLET PO PRN ×2 (06:06→15:01)
[2022-08-17] MEDS: BLOOD SUGAR DIAGNOSTIC 1 EACH STRIP IN SCH ×4 (06:48→22:28)
--- NOTE | 2022-08-17 06:48 | NUR ---
RN NOTES; BLOOD SUGAR-95/ NO INSULIN GIVEN PER SLIDING SCALE.
--- NOTE | 2022-08-17 06:51 | NUR ---
RN CLOSING NOTES; PATIENT AWAKE IN BED, BED IN LOW POSITION CALL LIGHTS WITHIN REACH, NO COMPLAIN OF PAIN AND DISCOMFORT AT THIS TIME, ON ROOM AIR SATURATING WELL, PATIENT IS A/O X4 ABLE TO MAKE NEEDS KNOWN. AMBULATORY WITH ASSISTANCE, ON PAIN MANAGEMENT, PATIENT KEPT CLEAN AND DRY ALL NEEDS MET ENDORSE TO INCOMING SHIFT.
[2022-08-17 07:11] LABS: BASOPHILS % (AUTO) 0.2 % (0.0-2.0); EOSINOPHILS % (AUTO) 1.5 % (0.0-6.0); HEMATOCRIT 29 % (39-51); HEMOGLOBIN 8.8 g/dL (13.5-17.5); LYMPHOCYTES # (AUTO) 2.5 K/uL (0.8-4.8); LYMPHOCYTES % (AUTO) 21.8 % (20.0-44.0); MEAN CORPUSCULAR HGB CONC 31 g/dl (31.0-36.0); MEAN CORPUSCULAR VOLUME 81 fL (80-96); MONOCYTES # (AUTO) 0.7 K/uL (0.1-1.30); NEUTROPHILS # (AUTO) 8.2 K/uL (1.8-8.9); NEUTROPHILS % (AUTO) 70.5 % (43.0-81.0); PLATELET COUNT (AUTO) 425 K/uL (150-450); RED BLOOD CELL COUNT(AUTO) 3.56 MIL/uL (4.5-6.0); WHITE BLOOD COUNT (AUTO) 11.6 K/uL (4.3-11.0)
[2022-08-17 07:30] LABS: CALCIUM, SERUM 8.6 mg/dL (8.5-10.1); CARBON DIOXIDE 31 mmol/L (21-32); CHLORIDE 108 mmol/L (98-107); CREATININE 1.2 mg/dL (0.6-1.3); GLUCOSE 103 mg/dL (74-106); POTASSIUM 4.2 mmol/L (3.5-5.1); SODIUM SERUM 146 mmol/L (136-145); UREA NITROGEN, BLOOD 23 mg/dL (7-18)
--- NOTE | 2022-08-17 07:53 | NUR ---
RN OPENING NOTES; PATIENT AWAKE IN BED, BED IN LOW POSITION CALL LIGHTS WITHIN REACH, NO COMPLAIN OF PAIN AND DISCOMFORT AT THIS TIME, ON ROOM AIR SATURATING WELL, PATIENT IS A/O X4 ABLE TO MAKE NEEDS KNOWN. AMBULATORY WITH ASSISTANCE, ON PAIN MANAGEMENT. SAFETY MEASURES ARE IN PLACED: BED IN LOWEST AND LOCKED POSITION; SIDE RAILS UP X 2; CALL LIGHT AND TABLE ARE WITHIN REACH. WILL CONTINUE TO MONITOR.
[2022-08-17 08:11] VITALS: BP 152/56
[2022-08-17] MEDS: ASPIRIN EC 81 MG TABLET.DR PO SCH (08:18)
[2022-08-17] MEDS: LISINOPRIL (20MG) 20 MG TABLET PO SCH (08:18)
[2022-08-17] MEDS: BUMETANIDE (1 MG) 1 MG TABLET PO SCH (08:19)
[2022-08-17] MEDS: SPIRONOLACTONE 25 MG TABLET PO SCH (08:20)
[2022-08-17] MEDS: METFORMIN XR 500 MG TAB.SR.24H PO SCH (08:20)
[2022-08-17] MEDS: CHOLECALCIFEROL 1,000 UNIT TABLET (VIT D3) PO SCH (08:20)
[2022-08-17] MEDS: GABAPENTIN 300 MG CAPSULE PO SCH ×2 (08:20→16:36)
[2022-08-17] MEDS: CARVEDILOL 12.5 MG TABLET PO SCH (08:24)
[2022-08-17] MEDS: ENOXAPARIN SODIUM 40 MG/0.4 ML DISP.SYRIN SQ SCH (13:01)
[2022-08-17] MEDS: INSULIN REGULAR, HUMAN 100 UNIT/ML 3 ML VIAL SQ PRN ×3 (13:28→22:28)
[2022-08-17 16:23] VITALS: BP 154/75
[2022-08-17] MEDS: ATORVASTATIN 10 MG TABLET PO SCH (17:01)
[2022-08-17] MEDS: TRULICITY 1.5 MG SQ SCH (18:25)
--- NOTE | 2022-08-17 18:35 | NUR ---
RN CLOSING NOTES- PATIENT AWAKE IN BED, BED IN LOW POSITION CALL LIGHTS WITHIN REACH, NO COMPLAIN OF PAIN AND DISCOMFORT AT THIS TIME, ON ROOM AIR SATURATING WELL, PATIENT IS A/O X4 ABLE TO MAKE NEEDS KNOWN. ON PAIN MANAGEMENT. WOUND CARE RENDERED, KEPT PATIENT CLEAN AND COMFORTABLE ALL TRHOUGHOUT THE SHIFT. SAFETY MEASURES ARE IN PLACED: BED IN LOWEST AND LOCKED POSITION; SIDE RAILS UP X 2; CALL LIGHT AND TABLE ARE WITHIN REACH. WILL ENDORSE TO NEXT SHIFT NURSE FOR CONTINUING PT CARE.
--- NOTE | 2022-08-17 19:27 | NUR ---
MS RN OPENING NOTES: RECEIVED PATIENT AWAKE IN BED, BED IN LOW POSITION CALL LIGHTS WITHIN REACH, NO COMPLAIN OF PAIN AND DISCOMFORT AT THIS TIME, ON ROOM AIR SATURATING WELL, NO SOB WAS OBSERVED, PATIENT IS A/O X4 AMBULATORY WITH FWW, WITH ASSISTANCE, IV LINE AT [facility], PATIENT KEPT CLEAN AND DRY ALL NEEDS MET WILL CONTINUE TO MONITOR.
[2022-08-17 20:00] VITALS: BP 159/79
--- NOTE | 2022-08-17 22:28 | NUR ---
RN NOTES: BLOOD SUGAR-150/ 2 UNITS INSULIN GIVEN PER SLIDING SCALE
[2022-08-18] MEDS: AZTREONAM 2 G in IV NS 0.9% 100 ML IV SCH (05:21)
[2022-08-18 05:59] LABS: BASOPHILS % (AUTO) 0.2 % (0.0-2.0); EOSINOPHILS % (AUTO) 0.7 % (0.0-6.0); HEMATOCRIT 29 % (39-51); HEMOGLOBIN 8.9 g/dL (13.5-17.5); LYMPHOCYTES # (AUTO) 1.7 K/uL (0.8-4.8); LYMPHOCYTES % (AUTO) 14.9 % (20.0-44.0); MEAN CORPUSCULAR HGB CONC 31 g/dl (31.0-36.0); MEAN CORPUSCULAR VOLUME 82 fL (80-96); MONOCYTES # (AUTO) 0.5 K/uL (0.1-1.30); MONOCYTES % (AUTO) 4.8 % (2.0-12.0); NEUTROPHILS # (AUTO) 8.9 K/uL (1.8-8.9); NEUTROPHILS % (AUTO) 79.4 % (43.0-81.0); PLATELET COUNT (AUTO) 378 K/uL (150-450); RED BLOOD CELL COUNT(AUTO) 3.52 MIL/uL (4.5-6.0); WHITE BLOOD COUNT (AUTO) 11.2 K/uL (4.3-11.0)
[2022-08-18 06:16] LABS: CALCIUM, SERUM 8.7 mg/dL (8.5-10.1); CARBON DIOXIDE 27 mmol/L (21-32); CHLORIDE 108 mmol/L (98-107); CREATININE 1.4 mg/dL (0.6-1.3); GLUCOSE 157 mg/dL (74-106); POTASSIUM 4.9 mmol/L (3.5-5.1); SODIUM SERUM 143 mmol/L (136-145); UREA NITROGEN, BLOOD 31 mg/dL (7-18)
--- NOTE | 2022-08-18 06:17 | NUR ---
MS RN CLOSING NOTES: PATIENT SLEEP IN BED COMFORTABLY, AROUSABLE TO VERBAL STIMULI, BED IN LOW POSITION CALL LIGHTS WITHIN REACH, NO COMPLAIN OF PAIN AND DISCOMFORT AT THIS TIME, ON ROOM AIR SATURATING WELL, NO SOB WAS OBSERVED, PATIENT KEPT CLEAN AND DRY ALL NEEDS MET ENDORSE TO INCOMING SHIFT.
[2022-08-18] MEDS: BLOOD SUGAR DIAGNOSTIC 1 EACH STRIP IN SCH ×4 (06:46→22:47)
[2022-08-18] MEDS: INSULIN REGULAR, HUMAN 100 UNIT/ML 3 ML VIAL SQ PRN ×4 (06:46→22:58)
[2022-08-18 08:16] VITALS: BP 156/75
[2022-08-18] MEDS: CHOLECALCIFEROL 1,000 UNIT TABLET (VIT D3) PO SCH (08:31)
[2022-08-18] MEDS: ASPIRIN EC 81 MG TABLET.DR PO SCH (08:31)
[2022-08-18] MEDS: predniSONE 20 MG TABLET PO SCH (08:31)
[2022-08-18] MEDS: LISINOPRIL (20MG) 20 MG TABLET PO SCH (08:31)
[2022-08-18] MEDS: GABAPENTIN 300 MG CAPSULE PO SCH ×2 (08:31→16:14)
[2022-08-18] MEDS: BUMETANIDE (1 MG) 1 MG TABLET PO SCH (08:31)
[2022-08-18] MEDS: SPIRONOLACTONE 25 MG TABLET PO SCH (08:32)
[2022-08-18] MEDS: METFORMIN XR 500 MG TAB.SR.24H PO SCH (08:32)
[2022-08-18] MEDS: CARVEDILOL 12.5 MG TABLET PO SCH (08:32)
[2022-08-18] MEDS: HYDROCODONE/APAP 5/325MG TABLET PO PRN ×2 (12:12→18:08)
[2022-08-18] MEDS: LEVOFLOXACIN (250MG) 250 MG TABLET PO SCH (12:25)
[2022-08-18] MEDS ORDERED: Magnesium 1 GM/2 ML VIAL IV ONE (12:30)
[2022-08-18] MEDS: Magnesium 1GM/D5W 100ML PREMIX 100 ML IV SCH ×2 (12:58→13:50)
[2022-08-18] MEDS: diphenhydrAMINE HCL 25 MG CAPSULE PO PRN (13:00)
[2022-08-18] MEDS: ENOXAPARIN SODIUM 40 MG/0.4 ML DISP.SYRIN SQ SCH (13:57)
[2022-08-18 16:11] VITALS: BP 150/72
--- NOTE | 2022-08-18 17:00 | NUR ---
RN NOTES S/P LEFT FOOT DEBRIDEMENT DONE BY MD, NO COMPLICATIONS NOTED. WILL MONITOR.
[2022-08-18] MEDS: ATORVASTATIN 10 MG TABLET PO SCH (17:06)
--- NOTE | 2022-08-18 18:16 | NUR ---
MS RN CLOSING NOTES: PATIENT AWAKE IN BED, A/OX4 BED IN LOW POSITION CALL LIGHTS WITHIN REACH, NO COMPLAIN OF PAIN AND DISCOMFORT AT THIS TIME, ON ROOM AIR SATURATING WELL, NO SOB WAS OBSERVED, ON NEW ANTIBIOTIC, LEVAQUIN, NO ADVERSE REACTION NOTED. S/P DEBRIDEMENT DONE IN THE AFTERNOON WITH NO COMPLICATIONS NOTED. PATIENT KEPT CLEAN AND DRY, ALL NEEDS MET. ENDORSE TO INCOMING SHIFT.
--- NOTE | 2022-08-18 19:30 | NUR ---
MS RN OPENING NOTE RECEIVED PATIENT IN BED; AWAKE, ALERT AND ORIENTED X 4. ON ROOM AIR; TOLERATING WELL. AFEBRILE. BREATHING EVEN AND NONLABORED. DENIES ANY PAIN OR DISCOMFORT AT THIS TIME. WITH RIGHT UPPER ARM MIDLINE; PATENT, INTACT AND SALINE LOCK. ABLE TO VERBALIZE NEEDS. SAFETY PRECAUTIONS IMPLEMENTED: CALL LIGHT AND TABLE WITHIN REACH, SIDE RAILS UP X 3. BED IN LOWEST LOCKED POSITION. WILL CONTINUE TO MONITOR THROUGHOUT SHIFT.
[2022-08-18 20:00] VITALS: BP 145/80
[2022-08-19] MEDS: diphenhydrAMINE HCL 25 MG CAPSULE PO PRN ×3 (01:18→22:13)
[2022-08-19] MEDS: HYDROCODONE/APAP 5/325MG TABLET PO PRN ×4 (01:22→22:07)
--- NOTE | 2022-08-19 01:22 | NUR ---
RN NOTE PATIENT COMPLAINED OF LEFT FOOT PAIN 7/10 PAIN SCALE. PRN NORCO 5/325 MG 1 TAB GIVEN PO ORDERED. KEPT COMFORTABLE IN BED. WILL CONTINUE TO MONITOR AND REASSESS PATIENT.
[2022-08-19 05:58] LABS: BASOPHILS % (AUTO) 0.3 % (0.0-2.0); HEMATOCRIT 28 % (39-51); HEMOGLOBIN 8.7 g/dL (13.5-17.5); LYMPHOCYTES # (AUTO) 2.2 K/uL (0.8-4.8); LYMPHOCYTES % (AUTO) 19.6 % (20.0-44.0); MEAN CORPUSCULAR HGB CONC 31 g/dl (31.0-36.0); MEAN CORPUSCULAR VOLUME 81 fL (80-96); MONOCYTES # (AUTO) 0.7 K/uL (0.1-1.30); MONOCYTES % (AUTO) 6.3 % (2.0-12.0); NEUTROPHILS # (AUTO) 8.3 K/uL (1.8-8.9); NEUTROPHILS % (AUTO) 72.8 % (43.0-81.0); PLATELET COUNT (AUTO) 349 K/uL (150-450); RED BLOOD CELL COUNT(AUTO) 3.44 MIL/uL (4.5-6.0); WHITE BLOOD COUNT (AUTO) 11.5 K/uL (4.3-11.0)
[2022-08-19] MEDS: BLOOD SUGAR DIAGNOSTIC 1 EACH STRIP IN SCH ×4 (06:20→22:04)
[2022-08-19 06:22] LABS: CALCIUM, SERUM 8.8 mg/dL (8.5-10.1); MAGNESIUM 1.9 mg/dL (1.8-2.4); POTASSIUM 4.2 mmol/L (3.5-5.1)
--- NOTE | 2022-08-19 06:45 | NUR ---
MS RN CLOSING NOTE PATIENT IN BED; AWAKE, A/O X 4. STABLE ON ROOM AIR. IN NO ACUTE DISTRESS. NO C/O ANY PAIN OR DISCOMFORT MADE AT THIS TIME. WITH SIXTO MIDLINE; INTACT, PATENT AND SALINE LOCK. ALL NEEDS ATTENDED. ALL DUE MEDS GIVEN ORDERED. SAFETY PRECAUTIONS MAINTAINED: CALL LIGHT AND TABLE WITHIN REACH, SIDE RAILS UP X 3. BED IN LOWEST LOCKED POSITION. ENDORSED TO MORNING SHIFT FOR GABRIELA.
--- NOTE | 2022-08-19 07:00 | NUR ---
MS RN OPENING NOTES: RECEIVED PT IN BED AWAKE ALERT AND ORIENTED X 3 AND ABLE TO MAKE NEEDS KNOWN. NO SOB OR CARDIAC DISTRESS NOTED AND ON ROOM AIR AND TOLERATING WELL. PT LEGALLY BLIND. IV ACCESS ON SIXTO MIDLINE PATENT, INTACT AND SALINE LOCKED. SAFETY MEASURES MAINTAINED: BED LOCKED AND IN LOWEST POSITION, SIDERAILS UP X 2 CALL LIGHT IN EASY REACH AND WILL MONITOR PT ACCORDINGLY.
[2022-08-19 08:00] VITALS: BP 160/88
[2022-08-19] MEDS: SPIRONOLACTONE 25 MG TABLET PO SCH (08:38)
[2022-08-19] MEDS: predniSONE 20 MG TABLET PO SCH (08:38)
[2022-08-19] MEDS: METFORMIN XR 500 MG TAB.SR.24H PO SCH (08:39)
[2022-08-19] MEDS: GABAPENTIN 300 MG CAPSULE PO SCH ×2 (08:39→16:21)
[2022-08-19] MEDS: LISINOPRIL (20MG) 20 MG TABLET PO SCH (08:39)
[2022-08-19] MEDS: CARVEDILOL 12.5 MG TABLET PO SCH (08:40)
[2022-08-19] MEDS: CHOLECALCIFEROL 1,000 UNIT TABLET (VIT D3) PO SCH (08:40)
[2022-08-19] MEDS: BUMETANIDE (1 MG) 1 MG TABLET PO SCH (08:41)
[2022-08-19] MEDS: ASPIRIN EC 81 MG TABLET.DR PO SCH (08:41)
[2022-08-19] MEDS: INSULIN REGULAR, HUMAN 100 UNIT/ML 3 ML VIAL SQ PRN ×3 (12:07→22:04)
[2022-08-19] MEDS: LEVOFLOXACIN (250MG) 250 MG TABLET PO SCH (12:08)
[2022-08-19] MEDS: ACETAMINOPHEN 325 MG TABLET PO PRN (12:59)
[2022-08-19] MEDS: ENOXAPARIN SODIUM 80 MG/0.8 ML DISP.SYRIN SQ SCH ×2 (13:00→22:07)
[2022-08-19 16:00] VITALS: BP 138/78
[2022-08-19] MEDS: ATORVASTATIN 10 MG TABLET PO SCH (17:10)
--- NOTE | 2022-08-19 19:06 | NUR ---
MS RN CLOSING NOTES: PT IN BED AWAKE ALERT AND ORIENTED X 3 AND ABLE TO MAKE NEEDS KNOWN. NO SOB OR CARDIAC DISTRESS NOTED AND ON ROOM AIR AND TOLERATING WELL. PT LEGALLY BLIND. PT ON PAIN MEDS ORDERED. ON BLOOD SUGAR MONITORING AND INSULIN ADMISINSTRATION PER SL ORDERED. NO HYPO OR HYPERGLYCEMIA NOTED IN AM SHIFT. IV ACCESS ON SIXTO MIDLINE PATENT, INTACT AND SALINE LOCKED.SAFETY MEASURES MAINTAINED: BED LOCKED AND IN LOWEST POSITION, SIDERAILS UP X 2 CALL LIGHT IN EASY REACH.ENDORSED TO REVERSE LOGISTICS ANALYST RN FOR CONTINUITY OF CARE.
--- NOTE | 2022-08-19 19:46 | NUR ---
MS RN OPENING NOTE PATIENT SLEEPING IN BED, EASILY AWAKENED, PT ALERT/ORIENTED X 3, PT ABLE TO MAKE NEEDS KNOWN. PATIENT STABLE ON RA, NO S/S OF DISTRESS OR SOB NOTED, BREATHING EVEN AND UNLABORED. SIXTO MIDLINE INTACT AND SALINE LOCKED. SAFETY MEASURES IN PLACE: CALL LIGHT WITHIN REACH, SIDE RAILS UP X 2, BED LOCKED IN LOWEST POSITION, HOB ELEVATED, BED ALARM ON. WILL CONTINUE TO MONITOR PATIENT
--- NOTE | 2022-08-19 22:15 | NUR ---
RN NOTE PATIENT C/O ITCHING D/T RASH. PRN BENADRYL 25 MG PO Q6H GIVEN ORDERED. WILL CONTINUE TO MONITOR
[2022-08-20 05:45] LABS: BASOPHILS % (AUTO) 0.3 % (0.0-2.0); EOSINOPHILS % (AUTO) 0.9 % (0.0-6.0); HEMATOCRIT 29 % (39-51); LYMPHOCYTES # (AUTO) 2.3 K/uL (0.8-4.8); LYMPHOCYTES % (AUTO) 20.6 % (20.0-44.0); MEAN CORPUSCULAR HGB CONC 31 g/dl (31.0-36.0); MEAN CORPUSCULAR VOLUME 82 fL (80-96); MONOCYTES # (AUTO) 0.7 K/uL (0.1-1.30); NEUTROPHILS # (AUTO) 8.2 K/uL (1.8-8.9); NEUTROPHILS % (AUTO) 72.2 % (43.0-81.0); PLATELET COUNT (AUTO) 332 K/uL (150-450); RED BLOOD CELL COUNT(AUTO) 3.55 MIL/uL (4.5-6.0); WHITE BLOOD COUNT (AUTO) 11.3 K/uL (4.3-11.0)
[2022-08-20 06:07] LABS: CREATININE 1.1 mg/dL (0.6-1.3)
--- NOTE | 2022-08-20 06:29 | NUR ---
MS RN CLOSING NOTE PATIENT SLEEPING IN BED, EASILY AWAKENED, PT ALERT/ORIENTED X 3, PT ABLE TO MAKE NEEDS KNOWN. PATIENT STABLE ON RA, NO S/S OF DISTRESS OR SOB NOTED, BREATHING EVEN AND UNLABORED. SIXTO MIDLINE INTACT AND SALINE LOCKED. NO SIGNIFICANT CHANGES THIS SHIFT, PT SLEPT WELL THROUGHOUT THE NIGHT, MEDICATIONS GIVEN ORDERED, PT NEEDS MET. ASSISTED PATIENT TO BATHROOM WITH FWW. SAFETY MEASURES IN PLACE: CALL LIGHT WITHIN REACH, SIDE RAILS UP X 2, BED LOCKED IN LOWEST POSITION, HOB ELEVATED, BED ALARM ON. WILL ENDORSE TO DAYSHIFT RN FOR CONTINUITY OF CARE
[2022-08-20] MEDS: BLOOD SUGAR DIAGNOSTIC 1 EACH STRIP IN SCH ×4 (06:43→22:56)
[2022-08-20] MEDS: INSULIN REGULAR, HUMAN 100 UNIT/ML 3 ML VIAL SQ PRN ×2 (06:43→16:46)
[2022-08-20 07:00] VITALS: BP 140/78
--- NOTE | 2022-08-20 07:30 | NUR ---
MS RN OPENING NOTE PATIENT SLEEPING IN BED, EASILY AWAKENED, PT ALERT/ORIENTED X 3, PT ABLE TO MAKE NEEDS KNOWN. PATIENT IS 95% LEGALLY BLIND, STABLE ON RA, NO S/S OF DISTRESS OR SOB NOTED, BREATHING EVEN AND UNLABORED. SIXTO MIDLINE INTACT AND SALINE LOCKED. SAFETY MEASURES IN PLACE: CALL LIGHT WITHIN REACH, SIDE RAILS UP X 2, BED LOCKED IN LOWEST POSITION, HOB ELEVATED, BED ALARM ON. WILL CONTINUE TO MONITOR THE PATIENT
[2022-08-20] MEDS: METFORMIN XR 500 MG TAB.SR.24H PO SCH (09:02)
[2022-08-20] MEDS: SPIRONOLACTONE 25 MG TABLET PO SCH (09:03)
[2022-08-20] MEDS: CARVEDILOL 12.5 MG TABLET PO SCH (09:03)
[2022-08-20] MEDS: BUMETANIDE (1 MG) 1 MG TABLET PO SCH (09:03)
[2022-08-20] MEDS: CHOLECALCIFEROL 1,000 UNIT TABLET (VIT D3) PO SCH (09:03)
[2022-08-20] MEDS: ASPIRIN EC 81 MG TABLET.DR PO SCH (09:04)
[2022-08-20] MEDS: LISINOPRIL (20MG) 20 MG TABLET PO SCH (09:04)
[2022-08-20] MEDS: predniSONE 20 MG TABLET PO SCH (09:04)
[2022-08-20] MEDS: ENOXAPARIN SODIUM 80 MG/0.8 ML DISP.SYRIN SQ SCH ×2 (09:06→21:00)
[2022-08-20] MEDS: GABAPENTIN 300 MG CAPSULE PO SCH ×2 (09:10→17:09)
[2022-08-20] MEDS: HYDROCODONE/APAP 5/325MG TABLET PO PRN (09:25)
[2022-08-20] MEDS: diphenhydrAMINE HCL 25 MG CAPSULE PO PRN (09:25)
[2022-08-20] MEDS: LEVOFLOXACIN (250MG) 250 MG TABLET PO SCH (11:27)
[2022-08-20] MEDS: ACETAMINOPHEN 325 MG TABLET PO PRN (12:22)
[2022-08-20 16:00] VITALS: BP 127/69
[2022-08-20] MEDS: ATORVASTATIN 10 MG TABLET PO SCH (17:09)
--- NOTE | 2022-08-20 18:45 | NUR ---
MS RN CLOSING NOTE PATIENT AWAKE, A/O X 3, PT IS 95% LEGALLY BLIND BUT ABLE TO MAKE NEEDS KNOWN. PATIENT STABLE ON RA, NO S/S OF DISTRESS OR SOB NOTED, BREATHING EVEN AND UNLABORED. SIXTO MIDLINE INTACT AND SALINE LOCKED. PATIENT IS NPO MIDNIGHT FOR WOUND DEBRIDEMENT OF LEFT FOOT TOMORROW. MEDICATIONS GIVEN ORDERED, PT NEEDS MET. ASSISTED PATIENT TO BATHROOM WITH FWW. SAFETY MEASURES IN PLACE: CALL LIGHT WITHIN REACH, SIDE RAILS UP X 2, BED LOCKED IN LOWEST POSITION, HOB ELEVATED, BED ALARM ON. WILL BE ENDORSED TO PM SHIFT RN FOR CONTINUITY OF CARE Addendum: 08/20/22 at 1930 by VERÓNICA MADRID JR, RN PATIENT'S [phone] IS COMING TOMORROW MORNING TO SIGN THE CONSENT FOR PATIENT'S SURGICAL DEBRIDEMENT OF LEFT FOOT AND NPWT SINCE PATIENT IS 95% LEGALLY BLIND. NIGHT NURSE AND CHARGE NURSE AWARE.
--- NOTE | 2022-08-20 19:20 | NUR ---
MS RN OPENING NOTE PATIENT IS SITTING IN BED WITH HIS FEET ELEVATED ON THE PILLOW. HE IS AWAKE, ALERT AND ORIENTED, AO X 4. PT IS ABLE TO MAKE NEEDS KNOWN. PATIENT IS 95% LEGALLY BLIND, HE IS ON RA, TOLERATED WELL. NO S/S OF DISTRESS OR SOB. PT HAS IV ACCESS AT HIS R UA, MIDLINE, #18G, SL. IV SITE IS PATENT AND INTACT. PATIENT IS ON NPO. EDUCATED ABOUT NPO; PT VERBALIZED UNDERSTANDING. SAFETY MEASURES ARE IN PLACED: CALL LIGHT WITHIN REACH, SIDE RAILS UP X 2, BED LOCKED IN LOWEST POSITION, HOB ELEVATED, BED ALARM ON. WILL CONTINUE MONITOR THE PT AND PROVIDE THE CARE PT NEEDS.
--- NOTE | 2022-08-20 19:50 | NUR ---
MS RN NOTE CALLED PT'S , SUSANNAH, AND GOT TELEPHONE CONSENT FOR THE PROCEDURE FOR SURGICAL DEBRIDEMENT WITH WOUND VAC APPLICATION, BLOOD TRANSFUSION, AND ANESTHESIA. WITNESSED BY CHARLEY MOHAMUD.
[2022-08-20 20:00] VITALS: BP 152/79
--- NOTE | 2022-08-20 21:00 | NUR ---
MS CHARLEY NOTE PT IS GOING TO HAVE WOUND DEBRIDEMENT AT OR TOMORROW. CONTACTED Quan KIM, AND Addendum: 08/20/22 at 2104 by VALENTIN GRAJEDA RN ASKED HER IF SHE WANT TO HOLD PT'S LOVENOX 80 MG SQ DUE AT 2100 TONIGHT. RECEIVED ORDER TO HOLD THIS MEDICATION. CHARGE NURSE, ANTHONY, NOTIFIED.
--- NOTE | 2022-08-20 21:15 | NUR ---
MS RN NOTE LOVENOX DUE AT 2100 WAS HELD PER MD ORDER. CHARGE NURSE, ANTHONY, NOTIFIED.
--- NOTE | 2022-08-20 22:59 | NUR ---
MS RN NOTE PT'S BS IS 144. INSULIN PER SLIDING SCALE IS NOT GIVEN DUE TO PT IS ON NPO FOR TOMORROW'S SURGERY.
[2022-08-21] MEDS: HYDROCODONE/APAP 5/325MG TABLET PO PRN ×3 (03:25→21:51)
[2022-08-21 06:24] LABS: BASOPHILS % (AUTO) 0.2 % (0.0-2.0); EOSINOPHILS % (AUTO) 0.5 % (0.0-6.0); HEMATOCRIT 30 % (39-51); HEMOGLOBIN 9.3 g/dL (13.5-17.5); LYMPHOCYTES # (AUTO) 2.3 K/uL (0.8-4.8); LYMPHOCYTES % (AUTO) 17.5 % (20.0-44.0); MEAN CORPUSCULAR HGB CONC 31 g/dl (31.0-36.0); MEAN CORPUSCULAR VOLUME 82 fL (80-96); MONOCYTES # (AUTO) 0.8 K/uL (0.1-1.30); MONOCYTES % (AUTO) 6.2 % (2.0-12.0); NEUTROPHILS # (AUTO) 9.9 K/uL (1.8-8.9); NEUTROPHILS % (AUTO) 75.6 % (43.0-81.0); PLATELET COUNT (AUTO) 326 K/uL (150-450); WHITE BLOOD COUNT (AUTO) 13.1 K/uL (4.3-11.0)
[2022-08-21] MEDS: BLOOD SUGAR DIAGNOSTIC 1 EACH STRIP IN SCH ×4 (06:39→21:20)
--- NOTE | 2022-08-21 06:40 | NUR ---
MS RN CLOSING NOTE PATIENT IS SITTING IN BED WITH HIS FEET ELEVATED ON THE PILLOW. HE IS AWAKE, ALERT AND ORIENTED, AO X 4. PT IS ABLE TO MAKE NEEDS KNOWN. PATIENT IS 95% LEGALLY BLIND, HE IS ON RA, TOLERATED WELL. NO S/S OF DISTRESS OR SOB. PT HAS IV ACCESS AT HIS R UA, MIDLINE, #18G, SL. IV SITE IS PATENT AND INTACT. PATIENT HAS BEEN ON NPO AFTER MIDNIGHT. CONSENT FOR THE PROCEDURES HAVE BEEN SIGNED AND PUT IN PT'S CHART. DRESSING HAS BEEN CHANGED, AND THE PICTURES OF HIS WOUNDS HAVE BEEN TAKEN AND PUT IN PATIENT'S CHART. SAFETY MEASURES ARE IN PLACED: CALL LIGHT WITHIN REACH, SIDE RAILS UP X 2, BED LOCKED IN LOWEST POSITION, HOB ELEVATED, BED ALARM ON. WILL ENDORSE NEXT SHIFT NURSE FOR CONTINUING PT CARE.
[2022-08-21 06:59] LABS: CALCIUM, SERUM 9.1 mg/dL (8.5-10.1); CREATININE 1.2 mg/dL (0.6-1.3); POTASSIUM 3.9 mmol/L (3.5-5.1)
--- NOTE | 2022-08-21 07:56 | NUR ---
MS RN OPENING NOTE RECEIVED PATIENT AWAKE, LYING IN BED. WITH HIS FEET ELEVATED ON THE PILLOW, AO X 4. PATIENT IS ON RA, NO S/S OF DISTRESS OR SOB. PT HAS IV ACCESS AT HIS SIXTO, MIDLINE, #18G, SL. IV SITE IS PATENT AND INTACT. PATIENT IS ON NPO. EDUCATED ABOUT NPO; PT VERBALIZED UNDERSTANDING. BED LOCKED IN THE LOWEST POSITION. CALL LIGHT AND TABLE IN EASY REACH. SIDE RAILS UP X2. BED ALARM ON. WILL CONTINUE TO MONITOR CLOSELY FOR ANY GABRIELA AND ASSIST PATIENT WITH IMMEDIATE NEEDS.
[2022-08-21 08:00] VITALS: BP 152/79
[2022-08-21] MEDS: METFORMIN XR 500 MG TAB.SR.24H PO SCH (09:00)
[2022-08-21] MEDS: SPIRONOLACTONE 25 MG TABLET PO SCH (09:00)
[2022-08-21] MEDS: GABAPENTIN 300 MG CAPSULE PO SCH ×2 (09:00→17:35)
[2022-08-21] MEDS: CHOLECALCIFEROL 1,000 UNIT TABLET (VIT D3) PO SCH (09:00)
[2022-08-21] MEDS: ENOXAPARIN SODIUM 80 MG/0.8 ML DISP.SYRIN SQ SCH ×2 (09:00→21:20)
[2022-08-21] MEDS: LISINOPRIL (20MG) 20 MG TABLET PO SCH (09:00)
[2022-08-21] MEDS: CARVEDILOL 12.5 MG TABLET PO SCH (09:00)
[2022-08-21] MEDS: predniSONE 20 MG TABLET PO SCH (09:00)
[2022-08-21] MEDS: ASPIRIN EC 81 MG TABLET.DR PO SCH (09:00)
[2022-08-21] MEDS: BUMETANIDE (1 MG) 1 MG TABLET PO SCH (09:00)
--- NOTE | 2022-08-21 11:00 | NUR ---
RN NOTE PATIENT IS NOT IN ROOM. PATIENT WAS TAKEN BY OR NURSE FOR SURGERY
[2022-08-21] MEDS: LEVOFLOXACIN (250MG) 250 MG TABLET PO SCH (11:37)
--- NOTE | 2022-08-21 11:37 | NUR ---
RN NOTE PATIENT GLUCOSE CHECK WAS NOT DONE AND SCHEDULED MEDICATION FOR 12:00 WERE NOT GIVEN. PATIENT WAS NOT IN UNIT. PATIENT WENT FOR SURGERY
--- NOTE | 2022-08-21 13:30 | NUR ---
RN NOTE PATIENT IS BACK FROM OR. VITAL SIGNS STABLE, TOLERATED PROCEDURE WELL. DRESSING IS DRY, INTACT. WOUND VAC IN PLACE. PATIENT IS IN BED RESTING COMFORTABLY. WILL CONTINUE TO MONITOR
[2022-08-21 16:00] VITALS: BP 156/82
[2022-08-21] MEDS: ATORVASTATIN 10 MG TABLET PO SCH (17:43)
--- NOTE | 2022-08-21 19:35 | NUR ---
MS RN OPENING NOTE RECEIVED PATIENT AWAKE, LYING IN BED. PT AO X 4. PATIENT IS ON RA, NO S/S OF DISTRESS OR SOB. PT HAS IV ACCESS AT HIS SIXTO, MIDLINE, #18G, SL. IV SITE IS PATENT AND INTACT. PATIENT IS ON NPO. EDUCATED ABOUT NPO; PT VERBALIZED UNDERSTANDING. BED LOCKED IN THE LOWEST POSITION. CALL LIGHT AND TABLE IN EASY REACH. SIDE RAILS UP X2. BED ALARM ON. WILL CONTINUE TO MONITOR CLOSELY FOR ANY GABRIELA AND ASSIST PATIENT WITH IMMEDIATE NEEDS. Addendum: 08/21/22 at 2058 by ROSARIO RAMOS RN WRONG ENTRY. PLEASE DISREGARD.
--- NOTE | 2022-08-21 19:36 | NUR ---
MS RN CLOSING NOTES PATIENT AWAKE IN BED. PATIENT IS A/O x4. ABLE TO MAKE NEEDS KNOWN. PAIN MEDICATION GIVEN. NO SOB NOTED. NO DISTRESS NOTED. SIXTO #18G, PATENT AND FLUSHING WELL. PATIENT USING URINAL. ALL NEEDS ATTENDED. GENERALIZED RASH NOTED ON THE BODY. NO ITCHING, NO SWOLLEN LIPS, BREATHING EVEN AND UNLABORED IN ROOM AIR. PATIENT HAS DRESSING ON THE LEFT FOOT WITH WOUND VAC AT 125 MMHG. DRESSING DRY AND INTACT. ALL DUE MEDS GIVEN ORDERED.ALL SAFETY MEASURES IN PLACE. BED LOCKED IN THE LOWEST POSITION. CALL LIGHT AND TABLE IN EASY REACH. SIDE RAILS UP TIMES 2. BED ALARM ON. WILL ENDORSE TO MANUFACTURING RECRUITER NURSE.
--- NOTE | 2022-08-21 19:40 | NUR ---
MS RN OPENING NOTE RECEIVED PATIENT SLEEPING IN BED. PT A/O X 4, ABLE TO MAKE NEEDS KNOWN. PATIENT IS ON RA, NO RESPIRATORY DISTRESS OR SOB NOTED. PT HAS IV ACCESS TO RIGHT UA, MIDLINE, #18G, SL, IV SITE PATENT AND INTACT. SAFETY MEASURES IN PLACE: BED LOCKED IN LOWEST POSITION. CALL LIGHT AND TABLE IN EASY REACH. SIDE RAILS UP X2. BED ALARM ON. WILL CONTINUE TO MONITOR CLOSELY.
[2022-08-21 21:14] VITALS: BP 146/81
--- NOTE | 2022-08-21 21:51 | NUR ---
MS RN NOTE PT REPORTS PAIN TO BILATERAL LEGS. NORCO ADMINISTERED TO PT.
[2022-08-22] MEDS: HYDROCODONE/APAP 5/325MG TABLET PO PRN ×2 (05:54→15:56)
--- NOTE | 2022-08-22 05:55 | NUR ---
MS RN NOTE PT REPORTS PAIN TO BILATERAL LEGS. NORCO ADMINISTERED TO PT.
[2022-08-22 06:18] LABS: CALCIUM, SERUM 8.8 mg/dL (8.5-10.1); CARBON DIOXIDE 25 mmol/L (21-32); CHLORIDE 107 mmol/L (98-107); GLUCOSE 83 mg/dL (74-106); POTASSIUM 3.8 mmol/L (3.5-5.1); SODIUM SERUM 141 mmol/L (136-145); UREA NITROGEN, BLOOD 17 mg/dL (7-18)
--- NOTE | 2022-08-22 06:35 | NUR ---
MS RN CLOSING NOTE LEFT PATIENT SLEEPING IN BED. PT A/O X 4, ABLE TO MAKE NEEDS KNOWN. PATIENT IS ON RA, NO RESPIRATORY DISTRESS OR SOB NOTED. PT HAS IV ACCESS TO RIGHT UA, MIDLINE, #18G, SL, IV SITE PATENT AND INTACT. SAFETY MEASURES IN PLACE: BED LOCKED IN LOWEST POSITION. CALL LIGHT AND TABLE IN EASY REACH. SIDE RAILS UP X2. BED ALARM ON. WILL ENDORSE PT TO AM SHIFT NURSE FOR GABRIELA.
[2022-08-22 07:07] LABS: BASOPHILS % (AUTO) 0.3 % (0.0-2.0); HEMATOCRIT 30 % (39-51); HEMOGLOBIN 9.4 g/dL (13.5-17.5); MEAN CORPUSCULAR HGB CONC 31 g/dl (31.0-36.0); MEAN CORPUSCULAR VOLUME 85 fL (80-96); MONOCYTES # (AUTO) 0.8 K/uL (0.1-1.30); MONOCYTES % (AUTO) 6.7 % (2.0-12.0); NEUTROPHILS # (AUTO) 9.3 K/uL (1.8-8.9); PLATELET COUNT (AUTO) 293 K/uL (150-450); RED BLOOD CELL COUNT(AUTO) 3.59 MIL/uL (4.5-6.0); WHITE BLOOD COUNT (AUTO) 12.3 K/uL (4.3-11.0)
--- NOTE | 2022-08-22 07:40 | NUR ---
MS RN OPENING NOTE RECEIVED PATIENT AWAKE, LYING IN BED. PATIENT IS ON ROOM AIR, NO S/S OF DISTRESS OR SOB, AO X4. WITH HIS FEET ELEVATED ON THE PILLOW, WITH WOUND VAC AT 125 MMHG. PT HAS IV ACCESS AT HIS SIXTO #18G, SL. IV SITE IS PATENT AND FLUSHING WELL. BED LOCKED IN THE LOWEST POSITION. CALL LIGHT AND TABLE IN EASY REACH. SIDE RAILS UP X2. BED ALARM ON. WILL CONTINUE TO MONITOR CLOSELY FOR ANY GABRIELA AND ASSIST PATIENT WITH IMMEDIATE NEEDS.
--- NOTE | 2022-08-22 07:45 | NUR ---
RN NOTE WOUND VAC BEEPING WITH ERROR MESSAGE OF AIR LEAKAGE. PATIENT COMPLAINING OF PAIN IN THE LEFT FOOT. TRIED TROUBLESHOOTING STEPS, ERROR STILL PRESENTING ON MACHINE. INFORMED WOUND NURSE FOR ASSISTANCE. INFORMED CHARGE NURSE
[2022-08-22] MEDS: BLOOD SUGAR DIAGNOSTIC 1 EACH STRIP IN SCH ×4 (07:53→21:53)
[2022-08-22] MEDS: INSULIN REGULAR, HUMAN 100 UNIT/ML 3 ML VIAL SQ PRN ×2 (07:54→17:36)
[2022-08-22 08:00] VITALS: BP 166/94
[2022-08-22] MEDS: MORPHINE SULFATE INJ 2 MG/ML DISP.SYRIN IV PRN (09:03)
--- NOTE | 2022-08-22 09:24 | NUR ---
WOUND CARE CONSULT: PT SEEN FOR LEFT LOWER LEG SURGICAL DRESSING WITH MEDELA NEGATIVE PRESSURE WOUND THERAPY DEVICE WHICH WAS ALARMING (AIR LEAK). DR SUAREZ NOTIFIED. FIT PAD WAS NONADHERENT, CAUSING AIR LEAK. FIT PAD WAS SEALED WITH DRAPE/TEGADERM. GENTLE LEA WRAP WAS APPLIED FOR PROTECTION OF DRESSING. PT TOLERATED WELL. NPWT FUNCTIONING WELL AT 125 mmHg CONTINUOUS SETTING WITH SMALL AMOUNT OF RED DRAINAGE IN CANISTER. MEDELA REP HERE. DR SUAREZ NOTIFIED.
--- NOTE | 2022-08-22 09:30 | NUR ---
WOUND NURSE REINFORCED DRESSING INSTEAD OF REMOVING THE DRESSING AND COVERED WITH LEA BANDAGE UNTIL DR ASSESSED PATIENT'S WOUND. WOUND VAC WORKING PROPERLY. CANISTER WAS CHANGED.
[2022-08-22] MEDS: CHOLECALCIFEROL 1,000 UNIT TABLET (VIT D3) PO SCH (09:50)
[2022-08-22] MEDS: predniSONE 20 MG TABLET PO SCH (09:51)
[2022-08-22] MEDS: METFORMIN XR 500 MG TAB.SR.24H PO SCH (09:51)
[2022-08-22] MEDS: LISINOPRIL (20MG) 20 MG TABLET PO SCH (09:52)
[2022-08-22] MEDS: CARVEDILOL 12.5 MG TABLET PO SCH (09:52)
[2022-08-22] MEDS: SPIRONOLACTONE 25 MG TABLET PO SCH (09:52)
[2022-08-22] MEDS: GABAPENTIN 300 MG CAPSULE PO SCH ×2 (09:53→17:14)
[2022-08-22] MEDS: ASPIRIN EC 81 MG TABLET.DR PO SCH (09:53)
[2022-08-22] MEDS: BUMETANIDE (1 MG) 1 MG TABLET PO SCH (09:53)
[2022-08-22] MEDS: ENOXAPARIN SODIUM 80 MG/0.8 ML DISP.SYRIN SQ SCH ×2 (10:16→21:19)
[2022-08-22] MEDS: LEVOFLOXACIN (250MG) 250 MG TABLET PO SCH (12:32)
[2022-08-22] MEDS: diphenhydrAMINE HCL 25 MG CAPSULE PO PRN (15:55)
[2022-08-22 16:00] VITALS: BP 133/78
[2022-08-22] MEDS: ATORVASTATIN 10 MG TABLET PO SCH (17:14)
--- NOTE | 2022-08-22 18:33 | NUR ---
MS RN CLOSING NOTES PATIENT AWAKE IN BED. PATIENT IS A/O x4. ABLE TO MAKE NEEDS KNOWN. PAIN MEDICATION GIVEN. NO SOB NOTED. NO DISTRESS NOTED. PATIENT IS BREATHING EVEN AND UNLABORED IN ROOM AIR. SIXTO #18G, PATENT AND FLUSHING WELL. PATIENT USING URINAL. ALL NEEDS ATTENDED. GENERALIZED RASH NOTED ON THE BODY. NO ITCHING, NO SWOLLEN LIPS. PATIENT HAS DRESSING ON THE LEFT FOOT WITH WOUND VAC AT 125 MMHG. DRESSING DRY AND INTACT. ALL DUE MEDS GIVEN ORDERED. SECURED CONSENT FOR CTA OF LOWER EXTREMITY. ALL SAFETY MEASURES IN PLACE. BED LOCKED IN THE LOWEST POSITION. CALL LIGHT AND TABLE IN EASY REACH. SIDE RAILS UP TIMES 2. BED ALARM ON. WILL ENDORSE TO RESIDENTIAL CAREGIVER NURSE.
--- NOTE | 2022-08-22 19:30 | NUR ---
MS RN OPENING NOTE RECEIVED PT RESTING IN BED, VERBALLY RESPONSIVE. A/O X4 AND ABLE TO MAKE NEEDS KNOWN. PT STABLE ON ROOM AIR. NO SOB OR S/S OF RESPIRATORY DISTRESS. BREATHING EVEN AND UNLABORED. IV ACCESS SIXTO 18G, INTACT AND PATENT. WITH WOUND VAC TO LLE, DRAINING BY SUCTION. SAFETY PRECAUTIONS IN PLACE. BED IN LOWEST LOCKED POSITION, HOB ELEVATED, SIDE RAILS UP X3, AND CALL LIGHT AND TABLE WITHIN REACH. ALL NEEDS MET AT THIS TIME.
[2022-08-22 19:54] VITALS: BP 135/68
[2022-08-23] MEDS: BLOOD SUGAR DIAGNOSTIC 1 EACH STRIP IN SCH ×4 (06:32→21:34)
--- NOTE | 2022-08-23 06:47 | NUR ---
MS RN CLOSING NOTE PT RESTING IN BED, VERBALLY RESPONSIVE. A/O X4 AND ABLE TO MAKE NEEDS KNOWN. PT STABLE ON ROOM AIR. NO SOB OR S/S OF RESPIRATORY DISTRESS. BREATHING EVEN AND UNLABORED. IV ACCESS SIXTO 18G, INTACT AND PATENT. WITH WOUND VAC TO LLE, DRAINING BY SUCTION. ALL DUE MEDS GIVEN ORDERED. KEPT CLEAN AND DRY. SAFETY PRECAUTIONS IN PLACE AT ALL TIMES. BED IN LOWEST LOCKED POSITION, HOB ELEVATED, SIDE RAILS UP X3, AND CALL LIGHT AND TABLE WITHIN REACH. ALL NEEDS MET AT THIS TIME AND WILL ENDORSE TO ONCOMING NURSE FOR GABRIELA.
[2022-08-23 07:00] VITALS: BP 131/68
--- NOTE | 2022-08-23 07:31 | NUR ---
WOUND CARE: MEDELA NEGATIVE PRESSURE WOUND THERAPY DEVICE FUNCTIONING WELL AT 125mmHg SETTING WITH SMALL AMOUNT OF RED DRAINAGE IN CANISTER.
--- NOTE | 2022-08-23 07:45 | NUR ---
MS RN OPENING NOTE RECEIVED PATIENT AWAKE, LYING IN BED. PATIENT IS ON ROOM AIR, NO S/S OF DISTRESS OR SOB, AO X4. WITH HIS FEET ELEVATED ON THE PILLOW, WITH WOUND VAC AT 125 MMHG. PT HAS IV ACCESS AT HIS SIXTO #18G, SL. IV SITE IS PATENT AND FLUSHING WELL. PATIENT VERBALIZED HAVING LOOSE STOOLS IN THE PARK GUARD, INFORMED DRMilton DE LEON LOCKED IN THE LOWEST POSITION. CALL LIGHT AND TABLE IN EASY REACH. SIDE RAILS UP X2. BED ALARM ON. WILL CONTINUE TO MONITOR CLOSELY FOR ANY GABRIELA AND ASSIST PATIENT WITH IMMEDIATE NEEDS.
[2022-08-23] MEDS: METFORMIN XR 500 MG TAB.SR.24H PO SCH (08:48)
[2022-08-23] MEDS: SPIRONOLACTONE 25 MG TABLET PO SCH (08:48)
[2022-08-23] MEDS: BUMETANIDE (1 MG) 1 MG TABLET PO SCH (08:49)
[2022-08-23] MEDS: CHOLECALCIFEROL 1,000 UNIT TABLET (VIT D3) PO SCH (08:49)
[2022-08-23] MEDS: ASPIRIN EC 81 MG TABLET.DR PO SCH (08:49)
[2022-08-23] MEDS: CARVEDILOL 12.5 MG TABLET PO SCH (08:50)
[2022-08-23] MEDS: predniSONE 20 MG TABLET PO SCH (08:50)
[2022-08-23] MEDS: GABAPENTIN 300 MG CAPSULE PO SCH ×2 (08:51→17:42)
[2022-08-23] MEDS: ENOXAPARIN SODIUM 80 MG/0.8 ML DISP.SYRIN SQ SCH ×2 (08:52→20:34)
[2022-08-23] MEDS: LISINOPRIL (20MG) 20 MG TABLET PO SCH (08:59)
[2022-08-23] MEDS: CHOLESTYRAMINE/ASPARTAME 4 G/PKT PACKET PO SCH ×2 (09:04→20:32)
[2022-08-23 09:13] LABS: BASOPHILS % (AUTO) 0.1 % (0.0-2.0); EOSINOPHILS % (AUTO) 0.8 % (0.0-6.0); HEMATOCRIT 31 % (39-51); HEMOGLOBIN 9.6 g/dL (13.5-17.5); LYMPHOCYTES # (AUTO) 1.1 K/uL (0.8-4.8); LYMPHOCYTES % (AUTO) 8.3 % (20.0-44.0); MEAN CORPUSCULAR HGB CONC 31 g/dl (31.0-36.0); MEAN CORPUSCULAR VOLUME 81 fL (80-96); MONOCYTES # (AUTO) 0.9 K/uL (0.1-1.30); MONOCYTES % (AUTO) 6.3 % (2.0-12.0); NEUTROPHILS # (AUTO) 11.5 K/uL (1.8-8.9); NEUTROPHILS % (AUTO) 84.5 % (43.0-81.0); PLATELET COUNT (AUTO) 296 K/uL (150-450); RED BLOOD CELL COUNT(AUTO) 3.83 MIL/uL (4.5-6.0); WHITE BLOOD COUNT (AUTO) 13.7 K/uL (4.3-11.0)
[2022-08-23 09:19] LABS: CALCIUM, SERUM 9.2 mg/dL (8.5-10.1); CREATININE 1.1 mg/dL (0.6-1.3); POTASSIUM 3.9 mmol/L (3.5-5.1)
[2022-08-23 09:24] LABS: ALBUMIN 2.6 g/dL (3.4-5.0); BILIRUBIN,TOTAL 1.3 mg/dL (0.2-1.0); TOTAL PROTEIN, SERUM 6.8 g/dL (6.4-8.2)
[2022-08-23] MEDS: INSULIN REGULAR, HUMAN 100 UNIT/ML 3 ML VIAL SQ PRN ×3 (12:10→21:34)
[2022-08-23] MEDS: LEVOFLOXACIN (250MG) 250 MG TABLET PO SCH (12:12)
--- NOTE | 2022-08-23 12:43 | NUR ---
RN NOTE CTA OF LOWER EXTREMITY NOT YET DONE AWAITING FOR RESULT OF C-DIFF. PATIENT HAS MORE THAN 5 BOWEL MOVEMENTS SUSPECTED OF CDIFF. CHARGE NURSE AWARE
[2022-08-23] MEDS: MORPHINE SULFATE INJ 2 MG/ML DISP.SYRIN IV PRN (14:23)
--- NOTE | 2022-08-23 15:15 | NUR ---
RN NOTE PATIENT WOUND VAC REMOVED BY WOUND CARE WAS DONE BY PATIENT TOLERATED PROCEDURE WELL. PAIN MEDICATION WAS GIVEN. PATIENT IS RESTING COMFORTABLY. AT BEDSIDE. WILL CONTINUE TO MONITOR
[2022-08-23 16:00] VITALS: BP 132/71
[2022-08-23] MEDS: ATORVASTATIN 10 MG TABLET PO SCH (17:42)
--- NOTE | 2022-08-23 18:41 | NUR ---
MS RN CLOSING NOTES PATIENT AWAKE IN BED. PATIENT IS A/O x4. ABLE TO MAKE NEEDS KNOWN. PAIN MEDICATION GIVEN DURING SHIFT. NO SOB NOTED. NO DISTRESS NOTED. PATIENT IS BREATHING EVEN AND UNLABORED IN OXYGEN AT 2LPM VIA NC. SIXTO #18G, PATENT AND FLUSHING WELL. PATIENT USING URINAL. ALL NEEDS ATTENDED. GENERALIZED RASH NOTED ON THE BODY. NO ITCHING, NO SWOLLEN LIPS. PATIENT HAS DRESSING ON THE LEFT FOOT. WOUND VAC WAS REMOVED TODAY. DRESSING DRY AND INTACT AT THE MOMENT. DURING SHIFT, PATIENT TRIED TO STAND AND STARTED BLEEDING FROM LEFT FOOT WOUND. DRESSING WAS REINFORCED AND FOOT ELEVATED. ALL DUE MEDS GIVEN ORDERED. CTA NOT DONE YET, AWAITING FOR C-DIFF RESULT. ALL SAFETY MEASURES IN PLACE. BED LOCKED IN THE LOWEST POSITION. CALL LIGHT AND TABLE IN EASY REACH. SIDE RAILS UP TIMES 2. BED ALARM ON. ALL NEEDS ATTENDED AND ANTICIPATED. WILL ENDORSE TO EMPLOYMENT MANAGER NURSE.
[2022-08-23] MEDS: VANCOMYCIN HCL 125 MG/2.5 ML ORAL.SUSP PO SCH (19:27)
[2022-08-23 20:00] VITALS: BP 105/57
[2022-08-23] MEDS: HYDROCODONE/APAP 5/325MG TABLET PO PRN (20:00)
--- NOTE | 2022-08-23 20:07 | NUR ---
MS RN OPENING NOTES PATIENT AWAKE IN BED. PATIENT IS A/O x4. ABLE TO MAKE NEEDS KNOWN. PAIN MEDICATION GIVEN AT THIS TIME FOR L FOOT PAIN. TOLERATED WELL. NO SOB NOTED. NO DISTRESS NOTED. PATIENT IS BREATHING EVEN AND UNLABORED IN OXYGEN AT 2LPM VIA NC. SIXTO #18G, PATENT AND FLUSHING WELL. PATIENT USING URINAL. ALL NEEDS ATTENDED. GENERALIZED RASH NOTED ON THE BODY. NO ITCHING, NO SWOLLEN LIPS. PATIENT HAS DRESSING ON THE LEFT FOOT. DRESSING DRY AND INTACT AT THE MOMENT. CTA NOT DONE YET, AWAITING FOR C-DIFF RESULT. ALL SAFETY MEASURES IN PLACE. BED LOCKED IN THE LOWEST POSITION. CALL LIGHT AND TABLE IN EASY REACH. SIDE RAILS UP TIMES 2. BED ALARM ON. ALL NEEDS ATTENDED AND ANTICIPATED.
--- NOTE | 2022-08-23 20:35 | NUR ---
RN NOTE PT NOTED WITH BLEEDING AT WOUND SITE INFORMED MANAGER MUSIC INSURANCE ADVISER NICK PER MANAGER MUSIC HOLD LOVENOX DOSE FOR TONIGHT.
[2022-08-24] MEDS: VANCOMYCIN HCL 125 MG/2.5 ML ORAL.SUSP PO SCH ×4 (01:21→17:31)
[2022-08-24] MEDS: ACIDOPHILUS/BULGARICUS 1 EACH TAB.CHEW PO SCH ×4 (02:41→16:07)
[2022-08-24] MEDS: HYDROCODONE/APAP 5/325MG TABLET PO PRN ×2 (02:51→16:07)
[2022-08-24 06:10] LABS: BASOPHILS % (AUTO) 0.2 % (0.0-2.0); EOSINOPHILS % (AUTO) 2.9 % (0.0-6.0); HEMATOCRIT 29 % (39-51); HEMOGLOBIN 8.9 g/dL (13.5-17.5); LYMPHOCYTES # (AUTO) 0.8 K/uL (0.8-4.8); LYMPHOCYTES % (AUTO) 12.9 % (20.0-44.0); MEAN CORPUSCULAR HGB CONC 31 g/dl (31.0-36.0); MEAN CORPUSCULAR VOLUME 81 fL (80-96); MONOCYTES # (AUTO) 0.6 K/uL (0.1-1.30); MONOCYTES % (AUTO) 9.5 % (2.0-12.0); NEUTROPHILS # (AUTO) 4.8 K/uL (1.8-8.9); NEUTROPHILS % (AUTO) 74.5 % (43.0-81.0); PLATELET COUNT (AUTO) 242 K/uL (150-450); RED BLOOD CELL COUNT(AUTO) 3.54 MIL/uL (4.5-6.0); WHITE BLOOD COUNT (AUTO) 6.5 K/uL (4.3-11.0)
[2022-08-24] MEDS: INSULIN REGULAR, HUMAN 100 UNIT/ML 3 ML VIAL SQ PRN ×2 (06:11→21:43)
[2022-08-24] MEDS: BLOOD SUGAR DIAGNOSTIC 1 EACH STRIP IN SCH ×4 (06:32→21:28)
--- NOTE | 2022-08-24 06:38 | NUR ---
MS RN CLOSING NOTES PATIENT AWAKE IN BED. PATIENT IS A/O x4. ABLE TO MAKE NEEDS KNOWN. NO SOB NOTED. NO DISTRESS NOTED. PATIENT IS BREATHING EVEN AND UNLABORED SIXTO #18G, PATENT AND FLUSHING WELL. ALL NEEDS ATTENDED. GENERALIZED RASH NOTED ON THE BODY. NO ITCHING, NO SWOLLEN LIPS. PATIENT HAS DRESSING ON THE LEFT FOOT. DRESSING DRY AND INTACT AT THE MOMENT. CTA NOT DONE YET, AWAITING FOR C-DIFF RESULT. ALL SAFETY MEASURES IN PLACE. BED LOCKED IN THE LOWEST POSITION. CALL LIGHT AND TABLE IN EASY REACH. SIDE RAILS UP TIMES 2. BED ALARM ON. ALL NEEDS ATTENDED AND ANTICIPATED. WILL ENDORSE CARE TO DAY SHIFT NURSE.
[2022-08-24 06:44] LABS: CALCIUM, SERUM 8.9 mg/dL (8.5-10.1); CARBON DIOXIDE 25 mmol/L (21-32); CHLORIDE 107 mmol/L (98-107); CREATININE 1.5 mg/dL (0.6-1.3); GLUCOSE 93 mg/dL (74-106); SODIUM SERUM 141 mmol/L (136-145); UREA NITROGEN, BLOOD 29 mg/dL (7-18)
[2022-08-24 06:50] LABS: ALANINE AMINOTRANSFERASE 10 U/L (12-78); ALBUMIN 2.4 g/dL (3.4-5.0); ALKALINE PHOSPHATASE 42 U/L (46-116); ASPARTATE AMINOTRANSFERASE 9 U/L (15-37); BILIRUBIN,TOTAL 1.4 mg/dL (0.2-1.0); TOTAL PROTEIN, SERUM 6.4 g/dL (6.4-8.2)
[2022-08-24 07:00] VITALS: BP 146/68
--- NOTE | 2022-08-24 07:00 | NUR ---
MS RN OPENING NOTES PATIENT AWAKE IN BED, A/O x4. ABLE TO MAKE NEEDS KNOWN. NO SOB NOTED, DISTRESS NOTED. PATIENT IS BREATHING EVEN AND UNLABORED IN OXYGEN AT 2LPM VIA NC. SIXTO #18G, C/D/I. GENERALIZED RASH NOTED ON THE BODY. NO ITCHING, NO SWOLLEN LIPS. PATIENT HAS DRESSING ON THE LEFT FOOT. DRESSING DRY AND INTACT AT THE MOMENT. CTA NOT DONE YET ENDORSED BY PM SHIFT NURSE, AWAITING FOR C-DIFF RESULT. ALL SAFETY MEASURES IN PLACE. BED LOCKED IN THE LOWEST POSITION. CALL LIGHT AND TABLE IN EASY REACH. SIDE RAILS UP TIMES 2. BED ALARM ON. ALL NEEDS ATTENDED.
[2022-08-24] MEDS: METFORMIN XR 500 MG TAB.SR.24H PO SCH ×2 (09:00→09:15)
[2022-08-24] MEDS: CHOLECALCIFEROL 1,000 UNIT TABLET (VIT D3) PO SCH (09:10)
[2022-08-24] MEDS: predniSONE 20 MG TABLET PO SCH (09:10)
[2022-08-24] MEDS: CHOLESTYRAMINE/ASPARTAME 4 G/PKT PACKET PO SCH ×2 (09:10→21:27)
[2022-08-24] MEDS: BUMETANIDE (1 MG) 1 MG TABLET PO SCH (09:11)
[2022-08-24] MEDS: GABAPENTIN 300 MG CAPSULE PO SCH ×2 (09:11→16:07)
[2022-08-24] MEDS: LISINOPRIL (20MG) 20 MG TABLET PO SCH (09:12)
[2022-08-24] MEDS: SPIRONOLACTONE 25 MG TABLET PO SCH (09:14)
[2022-08-24] MEDS: ASPIRIN EC 81 MG TABLET.DR PO SCH (09:15)
[2022-08-24] MEDS: CARVEDILOL 12.5 MG TABLET PO SCH (09:15)
[2022-08-24] MEDS: ENOXAPARIN SODIUM 80 MG/0.8 ML DISP.SYRIN SQ SCH ×2 (09:16→20:43)
[2022-08-24] MEDS: MORPHINE SULFATE INJ 2 MG/ML DISP.SYRIN IV PRN (09:18)
--- NOTE | 2022-08-24 11:37 | NUR ---
[phone] is C-Diff positive
[2022-08-24] MEDS: LEVOFLOXACIN (250MG) 250 MG TABLET PO SCH (12:00)
[2022-08-24 15:57] LABS: HEMOGLOBIN 8.8 g/dL (13.5-17.5)
[2022-08-24] MEDS ORDERED: SILVER NITRATE APPLICATOR 1 EA BOX TP STA (16:42)
[2022-08-24] MEDS: ATORVASTATIN 10 MG TABLET PO SCH (17:31)
[2022-08-24] MEDS: TRULICITY 1.5 MG SQ SCH (18:39)
--- NOTE | 2022-08-24 19:55 | NUR ---
MS RN CLOSING NOTES PATIENT AWAKE IN BED. PATIENT IS A/O x4. ABLE TO MAKE NEEDS KNOWN. NO SOB NOTED. NO DISTRESS NOTED. PATIENT IS BREATHING EVEN AND UNLABORED SIXTO #18G, PATENT AND FLUSHING WELL. ALL NEEDS ATTENDED. GENERALIZED RASH NOTED ON THE BODY. NO ITCHING, NO SWOLLEN LIPS. PATIENT HAS DRESSING ON THE LEFT FOOT. SILVER NITRATE APPLIED BY MD ON LEFT FOOT 2ND TOE (S/P DEBRIDEMENT), WITH APPLICATORS ON BEDSIDE THAT CAN BE USED IN CASE OF BLEEDING PLUS RECOMMENDED DRESSING - CHARGE NURSE AWARE. DRESSING DRY AND INTACT AT THE MOMENT. PATIENT IS C-DIFF POSITIVE, STILL AWAITING FOR CTA. ALL SAFETY MEASURES IN PLACE. BED LOCKED IN THE LOWEST POSITION. CALL LIGHT AND TABLE IN EASY REACH. SIDE RAILS UP TIMES 2. BED ALARM ON. ALL NEEDS ATTENDED AND ANTICIPATED. WILL ENDORSE CARE TO PM SHIFT NURSE FOR GABRIELA.
[2022-08-24 20:00] VITALS: BP 130/71
--- NOTE | 2022-08-24 20:11 | NUR ---
MS RN OPENING NOTES PATIENT AWAKE IN BED. PATIENT IS A/O x4. ABLE TO MAKE NEEDS KNOWN. NO SOB NOTED. NO DISTRESS NOTED. PATIENT IS BREATHING EVEN AND UNLABORED SIXTO #18G, PATENT AND FLUSHING WELL. ALL NEEDS ATTENDED. GENERALIZED RASH NOTED ON THE BODY. NO ITCHING, NO SWOLLEN LIPS. PATIENT HAS DRESSING ON THE LEFT FOOT. DRESSING DRY AND INTACT AT THE MOMENT. ALL SAFETY MEASURES IN PLACE. BED LOCKED IN THE LOWEST POSITION. CALL LIGHT AND TABLE IN EASY REACH. SIDE RAILS UP TIMES 2. BED ALARM ON. ALL NEEDS ATTENDED AND ANTICIPATED. ON ISOLATION FOR C. DIFF
[2022-08-25] MEDS: VANCOMYCIN HCL 125 MG/2.5 ML ORAL.SUSP PO SCH ×4 (00:14→17:20)
[2022-08-25] MEDS: HYDROCODONE/APAP 5/325MG TABLET PO PRN ×2 (02:13→12:39)
[2022-08-25] MEDS: INSULIN REGULAR, HUMAN 100 UNIT/ML 3 ML VIAL SQ PRN ×3 (06:01→23:18)
[2022-08-25 07:00] VITALS: BP 120/66
[2022-08-25 07:00] LABS: BASOPHILS % (AUTO) 0.2 % (0.0-2.0); EOSINOPHILS % (AUTO) 2.4 % (0.0-6.0); HEMATOCRIT 26 % (39-51); HEMOGLOBIN 8.2 g/dL (13.5-17.5); LYMPHOCYTES # (AUTO) 1.3 K/uL (0.8-4.8); LYMPHOCYTES % (AUTO) 17.1 % (20.0-44.0); MEAN CORPUSCULAR HGB CONC 31 g/dl (31.0-36.0); MEAN CORPUSCULAR VOLUME 81 fL (80-96); MONOCYTES # (AUTO) 0.8 K/uL (0.1-1.30); MONOCYTES % (AUTO) 10.6 % (2.0-12.0); NEUTROPHILS # (AUTO) 5.5 K/uL (1.8-8.9); NEUTROPHILS % (AUTO) 69.7 % (43.0-81.0); PLATELET COUNT (AUTO) 245 K/uL (150-450); RED BLOOD CELL COUNT(AUTO) 3.27 MIL/uL (4.5-6.0); WHITE BLOOD COUNT (AUTO) 7.9 K/uL (4.3-11.0)
[2022-08-25 07:09] LABS: CALCIUM, SERUM 8.7 mg/dL (8.5-10.1); CREATININE 1.3 mg/dL (0.6-1.3); POTASSIUM 4.1 mmol/L (3.5-5.1)
--- NOTE | 2022-08-25 07:12 | NUR ---
MS RN OPENING NOTES PATIENT ASLEEP BUT WAKES UP EASILY. ABLE TO MAKE NEEDS KNOWN. NO SOB NOTED, DISTRESS NOTED. PATIENT IS BREATHING EVEN AND UNLABORED IN OXYGEN AT 2LPM VIA NC. SIXTO #18G, C/D/I. GENERALIZED RASH NOTED ON THE BODY. NO ITCHING, NO SWOLLEN LIPS. PATIENT HAS DRESSING ON THE LEFT FOOT. DRESSING DRY AND INTACT AT THE MOMENT. CTA NOT DONE YET ENDORSED BY PM SHIFT NURSE, ALL SAFETY MEASURES IN PLACE. BED LOCKED IN THE LOWEST POSITION. CALL LIGHT AND TABLE IN EASY REACH. SIDE RAILS UP TIMES 2. BED ALARM ON. WILL CONTINUE TO MONITOR THE PATIENT
[2022-08-25 07:15] LABS: ALBUMIN 2.4 g/dL (3.4-5.0); BILIRUBIN,TOTAL 2.1 mg/dL (0.2-1.0); TOTAL PROTEIN, SERUM 6.2 g/dL (6.4-8.2)
[2022-08-25] MEDS: CHOLESTYRAMINE/ASPARTAME 4 G/PKT PACKET PO SCH ×2 (08:28→21:38)
[2022-08-25] MEDS: predniSONE 20 MG TABLET PO SCH (08:29)
[2022-08-25] MEDS: ACIDOPHILUS/BULGARICUS 1 EACH TAB.CHEW PO SCH ×3 (08:29→17:20)
[2022-08-25] MEDS: CHOLECALCIFEROL 1,000 UNIT TABLET (VIT D3) PO SCH (08:30)
[2022-08-25] MEDS: GABAPENTIN 300 MG CAPSULE PO SCH ×2 (08:30→17:20)
[2022-08-25] MEDS: BUMETANIDE (1 MG) 1 MG TABLET PO SCH (08:30)
[2022-08-25] MEDS: METFORMIN XR 500 MG TAB.SR.24H PO SCH ×2 (08:31→08:52)
[2022-08-25] MEDS: ASPIRIN EC 81 MG TABLET.DR PO SCH (08:31)
[2022-08-25] MEDS: BLOOD SUGAR DIAGNOSTIC 1 EACH STRIP IN SCH ×4 (08:48→22:28)
[2022-08-25] MEDS: SPIRONOLACTONE 25 MG TABLET PO SCH (08:49)
[2022-08-25] MEDS: LISINOPRIL (20MG) 20 MG TABLET PO SCH (08:49)
[2022-08-25] MEDS: CARVEDILOL 12.5 MG TABLET PO SCH (08:50)
[2022-08-25] MEDS: ENOXAPARIN SODIUM 80 MG/0.8 ML DISP.SYRIN SQ SCH (08:50)
[2022-08-25] MEDS: LEVOFLOXACIN (250MG) 250 MG TABLET PO SCH (12:39)
--- NOTE | 2022-08-25 12:58 | NUR ---
Patient refused regular insulin shot for glucose reading of 171 at 1243
[2022-08-25] MEDS: ATORVASTATIN 10 MG TABLET PO SCH (17:20)
[2022-08-25] MEDS: ACETAMINOPHEN 325 MG TABLET PO PRN (17:20)
[2022-08-25 20:00] VITALS: BP 121/70
--- NOTE | 2022-08-25 21:00 | NUR ---
MS RN CLOSING NOTES PATIENT AWAKE IN BED. PATIENT IS A/O x4. ABLE TO MAKE NEEDS KNOWN. NO SOB NOTED. NO DISTRESS NOTED. PATIENT IS BREATHING EVEN AND UNLABORED SIXTO #18G, PATENT AND FLUSHING WELL. ALL NEEDS ATTENDED. GENERALIZED RASH NOTED ON THE BODY. NO ITCHING, NO SWOLLEN LIPS. PATIENT HAS DRESSING ON THE LEFT FOOT, S/P DEBRIDEMENT. DRESSING DRY AND INTACT AT THE MOMENT. PATIENT IS C-DIFF POSITIVE, STILL AWAITING FOR CTA. ALL SAFETY MEASURES IN PLACE. BED LOCKED IN THE LOWEST POSITION. CALL LIGHT AND TABLE IN EASY REACH. SIDE RAILS UP TIMES 2. BED ALARM ON. ALL NEEDS ATTENDED AND ANTICIPATED. WILL ENDORSE CARE TO PM SHIFT NURSE FOR GABRIELA.
--- NOTE | 2022-08-25 21:44 | NUR ---
RN MS OPENING NOTES RECEIVED PATIENT IN BED, AWAKE AND COHERENT. A/O X 4 ABLE TO VERBALIZED CONCERNS. LEGALLY BLIND AMBULATE WITH ASSISTANCE, CONTINENT USES DIAPER AND URINAL. WITH IV ACCESS AT SIXTO $18G PATENT AND INTACT. NOTED GENERALIZED RASH AND LEFT FOOT CELLULITIS WITH DRESSING CLEAN AND DRY. KEPT BED ON MODERATE HIGH BACK REST POSITION, KEPT SIDE RAILS UP X 2 ALL THE TIME, KEPT PATIENT WARM AND COMFORTABLE. WILL CONTINUE TO MONITOR FOR GABRIELA.
[2022-08-26] MEDS: VANCOMYCIN HCL 125 MG/2.5 ML ORAL.SUSP PO SCH ×5 (00:18→23:51)
[2022-08-26] MEDS: HYDROCODONE/APAP 5/325MG TABLET PO PRN ×2 (04:19→20:09)
[2022-08-26] MEDS: BLOOD SUGAR DIAGNOSTIC 1 EACH STRIP IN SCH ×4 (06:32→21:53)
--- NOTE | 2022-08-26 06:33 | NUR ---
RN MS CLOSING NOTES PATIENT IS IN BED, ASLEEP. ON MODERATE HIGH BACK REST POSITION. PATIENT IS LEGALLY BLIND 95% AND AMBULATORY WITH ASSIST. INCONTINENT USES URINAL AND DIAPER. ON BEDREST FOR NOW. WITH IV ACCESS AT SIXTO #18G ON SL PATENT AND INTACT, ON SUGAR MONITORING. NO PAIN OR DISCOMFORT NOTED. VITAL SIGNS IS WNL. NO CHEST PAIN OR DISCOMFORT DURING THE SHIFT. PATIENT IS ON BLOOD SUGAR MONITORING WITH RESULTS OF 111MG/DL. ON CONTACT PRECAUTIONS MAINTAINED. KEPT BED ON LOWER LOCKED POSITION, KEPT SIDE RAILS X 2 UP ALL THE TIME, KEPT CALL LIGHT WITHIN AT REACH. WILL CONTINUE TO MONITOR FOR GABRIELA.
--- NOTE | 2022-08-26 07:30 | NUR ---
RN MS OPENING NOTES RECEIVED PATIENT AWAKE IN BED, A/O X 4 ABLE TO VERBALIZED CONCERNS. LEGALLY BLIND BUT AMBULATE WITH ASSISTANCE, CONTINENT USES DIAPER AND URINAL. WITH IV ACCESS AT SIXTO G#18 PATENT AND INTACT. NOTED GENERALIZED RASH AND LEFT FOOT CELLULITIS WITH DRESSING CLEAN AND DRY. KEPT BED ON MODERATE HIGH BACK REST POSITION, KEPT SIDE RAILS UP X 2 ALL THE TIME, KEPT PATIENT WARM AND COMFORTABLE. SAFETY MEASURES IMPLEMENTED, BED IN LOWEST LOCKED POSITION, CALL LIGHT WITHIN REACH, WILL CONTINUE TO MONITOR PATIENT.
[2022-08-26 07:35] LABS: BASOPHILS % (AUTO) 0.1 % (0.0-2.0); EOSINOPHILS % (AUTO) 2.3 % (0.0-6.0); HEMATOCRIT 27 % (39-51); HEMOGLOBIN 8.3 g/dL (13.5-17.5); LYMPHOCYTES # (AUTO) 1.3 K/uL (0.8-4.8); LYMPHOCYTES % (AUTO) 17.7 % (20.0-44.0); MEAN CORPUSCULAR HGB CONC 31 g/dl (31.0-36.0); MEAN CORPUSCULAR VOLUME 82 fL (80-96); MONOCYTES # (AUTO) 0.8 K/uL (0.1-1.30); NEUTROPHILS % (AUTO) 68.9 % (43.0-81.0); PLATELET COUNT (AUTO) 228 K/uL (150-450); RED BLOOD CELL COUNT(AUTO) 3.28 MIL/uL (4.5-6.0); WHITE BLOOD COUNT (AUTO) 7.2 K/uL (4.3-11.0)
[2022-08-26 07:48] LABS: CALCIUM, SERUM 8.8 mg/dL (8.5-10.1); CREATININE 1.2 mg/dL (0.6-1.3); POTASSIUM 4.3 mmol/L (3.5-5.1)
[2022-08-26 07:53] LABS: ALBUMIN 2.5 g/dL (3.4-5.0); BILIRUBIN,TOTAL 1.5 mg/dL (0.2-1.0); TOTAL PROTEIN, SERUM 6.3 g/dL (6.4-8.2)
[2022-08-26 08:00] VITALS: BP 132/76
[2022-08-26] MEDS: CHOLESTYRAMINE/ASPARTAME 4 G/PKT PACKET PO SCH ×2 (08:16→20:09)
[2022-08-26] MEDS: CARVEDILOL 12.5 MG TABLET PO SCH (08:16)
[2022-08-26] MEDS: ACIDOPHILUS/BULGARICUS 1 EACH TAB.CHEW PO SCH ×3 (08:17→17:20)
[2022-08-26] MEDS: GABAPENTIN 300 MG CAPSULE PO SCH ×2 (08:17→17:20)
[2022-08-26] MEDS: CHOLECALCIFEROL 1,000 UNIT TABLET (VIT D3) PO SCH (08:17)
[2022-08-26] MEDS: METFORMIN XR 500 MG TAB.SR.24H PO SCH (08:17)
[2022-08-26] MEDS: LISINOPRIL (20MG) 20 MG TABLET PO SCH (08:17)
[2022-08-26] MEDS: SPIRONOLACTONE 25 MG TABLET PO SCH (08:17)
[2022-08-26] MEDS: predniSONE 20 MG TABLET PO SCH (08:18)
[2022-08-26] MEDS: BUMETANIDE (1 MG) 1 MG TABLET PO SCH (08:18)
[2022-08-26] MEDS: ASPIRIN EC 81 MG TABLET.DR PO SCH (08:18)
[2022-08-26] MEDS: LEVOFLOXACIN (250MG) 250 MG TABLET PO SCH (12:13)
[2022-08-26] MEDS: INSULIN REGULAR, HUMAN 100 UNIT/ML 3 ML VIAL SQ PRN ×3 (12:38→22:17)
[2022-08-26] MEDS ORDERED: IV NS 0.9% 250 ML IV ONE (15:38)
[2022-08-26] MEDS ORDERED: IOHEXOL-350 100 ML VIAL IV ONE ×2 (15:38→15:53)
[2022-08-26] MEDS ORDERED: CT SWABBABLE VALVE TRANS SET 1 EA INFUS.SET MC ONE (15:38)
[2022-08-26] MEDS: ATORVASTATIN 10 MG TABLET PO SCH (18:10)
--- NOTE | 2022-08-26 19:33 | NUR ---
RN MS CLOSING NOTES PATIENT IS IN BED, EATING. PATIENT IS LEGALLY BLIND 95% AND AMBULATORY WITH ASSIST. INCONTINENT USES URINAL AND DIAPER. ON BEDREST FOR NOW. WITH IV ACCESS AT RAC #18G ON SL PATENT AND INTACT, WITH PICC LINE ON SIXTO. NO PAIN OR DISCOMFORT NOTED. VITAL SIGNS IS WNL. NO CHEST PAIN OR DISCOMFORT DURING THE SHIFT. KEPT BED ON LOWER LOCKED POSITION, KEPT SIDE RAILS X 2 UP ALL THE TIME, KEPT CALL LIGHT WITHIN REACH. WILL ENDORSE TO GAS METER REPAIR SUPERVISOR NURSE FOR GABRIELA.
[2022-08-26 20:00] VITALS: BP 93/50
--- NOTE | 2022-08-26 20:29 | NUR ---
RN MS OPENING NOTES RECEIVED PATIENT ON BED, AWAKE ON MODERATE HIGH BACK REST POSITION. ON OXYGEN VIA NASAL CANNULA AT 3 LPM SATURATING AT 98%. ON CONTACT PRECAUTIONS. COMPLAIN OF PAIN AT 7/10 AT LEG AREA, PAIN MEDICATIONS GIVEN AND TOLERATE BY THE PATIENT. NOTED RASH ALL OVER THE BODY AND BLE WOUND AND SWELLING KEPI DRESSING CLEAN AND INTACT,WITH IV ACCESS AT SIXTO #18G PATENT AND INTACT. ENCOURAGE FLUIDS TOLERATED. ON ASPIRATION PRECAUTIONS. FOR BLOOD SUGAR MONITORING. SAFETY PRECAUTIONS MAINTAINED. KEPT BED ON LOWER LOCKED POSITION, SIDE RAILS UP X 2 ALL THE TIME, CALL LIGHT KEPT ON REACH. KEPT PATIENT WARM AND COMFORTABLE. WILL CONTINUE TO MONITOR FOR GABRIELA.
[2022-08-27] MEDS: VANCOMYCIN HCL 125 MG/2.5 ML ORAL.SUSP PO SCH ×3 (05:30→18:09)
[2022-08-27 05:58] LABS: BASOPHILS % (AUTO) 0.1 % (0.0-2.0); EOSINOPHILS % (AUTO) 1.3 % (0.0-6.0); HEMATOCRIT 26 % (39-51); HEMOGLOBIN 8.1 g/dL (13.5-17.5); LYMPHOCYTES # (AUTO) 1.7 K/uL (0.8-4.8); LYMPHOCYTES % (AUTO) 20.9 % (20.0-44.0); MEAN CORPUSCULAR HGB CONC 31 g/dl (31.0-36.0); MEAN CORPUSCULAR VOLUME 80 fL (80-96); MONOCYTES # (AUTO) 0.9 K/uL (0.1-1.30); MONOCYTES % (AUTO) 11.4 % (2.0-12.0); NEUTROPHILS # (AUTO) 5.4 K/uL (1.8-8.9); NEUTROPHILS % (AUTO) 66.3 % (43.0-81.0); PLATELET COUNT (AUTO) 255 K/uL (150-450); RED BLOOD CELL COUNT(AUTO) 3.27 MIL/uL (4.5-6.0); WHITE BLOOD COUNT (AUTO) 8.2 K/uL (4.3-11.0)
[2022-08-27 06:01] LABS: CALCIUM, SERUM 8.7 mg/dL (8.5-10.1); CARBON DIOXIDE 25 mmol/L (21-32); CHLORIDE 105 mmol/L (98-107); CREATININE 1.4 mg/dL (0.6-1.3); GLUCOSE 112 mg/dL (74-106); POTASSIUM 4.3 mmol/L (3.5-5.1); SODIUM SERUM 139 mmol/L (136-145); UREA NITROGEN, BLOOD 28 mg/dL (7-18)
[2022-08-27 06:06] LABS: ALANINE AMINOTRANSFERASE 28 U/L (12-78); ALBUMIN 2.6 g/dL (3.4-5.0); ALKALINE PHOSPHATASE 51 U/L (46-116); ASPARTATE AMINOTRANSFERASE 21 U/L (15-37); BILIRUBIN,TOTAL 0.8 mg/dL (0.2-1.0); TOTAL PROTEIN, SERUM 6.4 g/dL (6.4-8.2)
--- NOTE | 2022-08-27 06:55 | NUR ---
RN MS CLOSING NOTES PATIENT IS ON BED, ASLEEP ON MODERATE HIGH BACK REST POSITION. ON OXYGEN VIA NASAL CANNULA AT 3 LPM SATURATING AT 98%. NO COMPLAIN OR PAIN OR DISCOMFORT AT THIS TIME. NOTED RASH ALL OVER THE BODY AND BLE WOUND AND SWELLING KEPI DRESSING CLEAN AND INTACT,WITH IV ACCESS AT SIXTO #18G PATENT AND INTACT. ENCOURAGE FLUIDS TOLERATED. ON ASPIRATION PRECAUTIONS.ALL DUE MEDICATIONS GIVEN, ALL NEEDS ATTENDED. PM CARE RENDERED.WITH EPISODES OF DIARRHEA INTAKE AND OUTPUT RECORDED. ALL DUE MEDICATIONS GIVEN. FOR BLOOD SUGAR MONITORING. SAFETY PRECAUTIONS MAINTAINED. KEPT BED ON LOWER LOCKED POSITION, SIDE RAILS UP X 2 ALL THE TIME, CALL LIGHT KEPT ON REACH. KEPT PATIENT WARM AND COMFORTABLE. ENDORSED TO NEXT SHIFT FOR GABRIELA.
[2022-08-27 07:00] VITALS: BP 115/57
--- NOTE | 2022-08-27 07:35 | NUR ---
RN MS OPENING NOTES RECEIVED PATIENT AWAKE IN BED, ON MODERATE HIGH BACK REST POSITION. ON OXYGEN VIA NASAL CANNULA AT 3 LPM SATURATING AT 98%. NO COMPLAINT OF PAIN, NO SOB, ON CONTACT PRECAUTIONS. NOTED RASH ALL OVER THE BODY, BLE WOUND WITH SWELLING, KEPT DRESSING CLEAN, DRY AND INTACT,WITH IV ACCESS AT [facility] #18G PATENT AND INTACT. PICC LINE AT [facility], ENCOURAGE FLUIDS TOLERATED. ON ASPIRATION PRECAUTIONS. FOR BLOOD SUGAR MONITORING. SAFETY PRECAUTIONS MAINTAINED. KEPT BED ON LOWER LOCKED POSITION, SIDE RAILS UP X 2 ALL THE TIME, CALL LIGHT KEPT ON REACH. KEPT PATIENT WARM AND COMFORTABLE. WILL CONTINUE TO MONITOR FOR GABRIELA.
--- NOTE | 2022-08-27 08:41 | NUR ---
RN NOTES HOLD METFORMIN FOR [address] SCAN WITH CONTRAST YESTERDAY.
[2022-08-27] MEDS: METFORMIN XR 500 MG TAB.SR.24H PO SCH (08:57)
[2022-08-27] MEDS: CHOLECALCIFEROL 1,000 UNIT TABLET (VIT D3) PO SCH (09:00)
[2022-08-27] MEDS: MULTIVIT W/MINERALS 1 TAB TABLET PO SCH (09:00)
[2022-08-27] MEDS: ACIDOPHILUS/BULGARICUS 1 EACH TAB.CHEW PO SCH ×3 (09:00→17:01)
[2022-08-27] MEDS: GABAPENTIN 300 MG CAPSULE PO SCH ×2 (09:00→17:00)
[2022-08-27] MEDS: CHOLESTYRAMINE/ASPARTAME 4 G/PKT PACKET PO SCH ×2 (09:00→20:49)
[2022-08-27] MEDS: SPIRONOLACTONE 25 MG TABLET PO SCH (09:01)
[2022-08-27] MEDS: BUMETANIDE (1 MG) 1 MG TABLET PO SCH (09:01)
[2022-08-27] MEDS: predniSONE 20 MG TABLET PO SCH (09:01)
[2022-08-27] MEDS: CARVEDILOL 12.5 MG TABLET PO SCH (09:02)
[2022-08-27] MEDS: LISINOPRIL (20MG) 20 MG TABLET PO SCH (09:02)
[2022-08-27] MEDS: ASPIRIN EC 81 MG TABLET.DR PO SCH (09:05)
[2022-08-27] MEDS: BLOOD SUGAR DIAGNOSTIC 1 EACH STRIP IN SCH ×3 (12:19→21:12)
[2022-08-27] MEDS: INSULIN REGULAR, HUMAN 100 UNIT/ML 3 ML VIAL SQ PRN ×3 (12:20→21:13)
[2022-08-27] MEDS: LEVOFLOXACIN (250MG) 250 MG TABLET PO SCH (12:22)
[2022-08-27] MEDS: MORPHINE SULFATE INJ 2 MG/ML DISP.SYRIN IV PRN (12:33)
--- NOTE | 2022-08-27 12:34 | NUR ---
RN NOTES PATIENT COMPLAINED OF LEFT LOWER TOE PAIN. RATE PAIN 8/10. PATIENT ASKED FOR PAIN MEDICINE. PRN MORPHINE 2MG GIVEN. WILL CONTINUE TO MONITOR PATIENT.
[2022-08-27 16:11] VITALS: BP 129/68
[2022-08-27] MEDS: ATORVASTATIN 10 MG TABLET PO SCH (18:09)
[2022-08-27] MEDS: HYDROCODONE/APAP 5/325MG TABLET PO PRN (18:25)
--- NOTE | 2022-08-27 18:30 | NUR ---
RN NOTES PATIENT COMPLAINED OF LEFT LOWER TOE PAIN. RATE PAIN 7/10. PATIENT ASKED FOR PAIN MEDICINE. PRN NORCO 5/325 GIVEN. WILL CONTINUE TO MONITOR PATIENT.
--- NOTE | 2022-08-27 18:48 | NUR ---
RN MS CLOSING NOTES PATIENT IN BED, ON OXYGEN VIA NASAL CANNULA AT 3 LPM SATURATING AT 98%. NO DISCOMFORT AT THIS TIME. NOTED RASH ALL OVER THE BODY. BLE WOUND WITH SWELLING, KEPT DRESSING CLEAN, DRY,AND INTACT. WITH PICC LINE IV ACCESS AT RFA PATENT AND INTACT. ON ASPIRATION PRECAUTIONS. ALL DUE MEDICATIONS GIVEN, ALL NEEDS ATTENDED. ALL DUE MEDICATIONS GIVEN. FOR BLOOD SUGAR MONITORING. SAFETY PRECAUTIONS MAINTAINED. KEPT BED ON LOWER LOCKED POSITION, SIDE RAILS UP X 2 ALL THE TIME, CALL LIGHT KEPT ON REACH. KEPT PATIENT WARM AND COMFORTABLE. WILL ENDORSE TO THE CAMPUS CHAPLAIN NURSE FOR GABRIELA.
--- NOTE | 2022-08-27 19:15 | NUR ---
RN opening notes Received Pt is sitting in the room watching TV comfortably. Pt is alert and orientedX4. Pt is legally blind and able to make needs known. On 3 L NC. No SOB. No S/S of distress noted. SIXTO Picc line is clean, intact. Noted BLE dressing are intact, clean and dry. Per am nurse and Pt informed that MD will change the dressing tomorrow. Safety precautions is maintained. Isolation precautions is maintained. Bed at low position, brakes locked, side rails upX2, hob elevated, urinal at the bedside, bed alarm is on and call light is within reach. will continue to monitor.
[2022-08-27] MEDS: ACETAMINOPHEN 325 MG TABLET PO PRN (19:28)
[2022-08-27 20:00] VITALS: BP 123/63
[2022-08-28] MEDS: VANCOMYCIN HCL 125 MG/2.5 ML ORAL.SUSP PO SCH ×4 (00:26→17:37)
[2022-08-28] MEDS: HYDROCODONE/APAP 5/325MG TABLET PO PRN (05:12)
--- NOTE | 2022-08-28 05:12 | NUR ---
RN notes Pt's complaining of BLE pain and requesting med. administered norco/1 tab/po/prn as ordered. safety precautions is maintained. will continue to monitor.
[2022-08-28 05:59] LABS: BASOPHILS % (AUTO) 0.2 % (0.0-2.0); EOSINOPHILS % (AUTO) 0.2 % (0.0-6.0); HEMATOCRIT 26 % (39-51); HEMOGLOBIN 8.2 g/dL (13.5-17.5); LYMPHOCYTES # (AUTO) 1.6 K/uL (0.8-4.8); LYMPHOCYTES % (AUTO) 15.8 % (20.0-44.0); MEAN CORPUSCULAR HGB CONC 32 g/dl (31.0-36.0); MEAN CORPUSCULAR VOLUME 80 fL (80-96); MONOCYTES # (AUTO) 0.9 K/uL (0.1-1.30); MONOCYTES % (AUTO) 9.2 % (2.0-12.0); NEUTROPHILS # (AUTO) 7.4 K/uL (1.8-8.9); NEUTROPHILS % (AUTO) 74.6 % (43.0-81.0); PLATELET COUNT (AUTO) 229 K/uL (150-450); RED BLOOD CELL COUNT(AUTO) 3.23 MIL/uL (4.5-6.0)
[2022-08-28 06:22] LABS: ALANINE AMINOTRANSFERASE 24 U/L (12-78); ALBUMIN 2.6 g/dL (3.4-5.0); ALKALINE PHOSPHATASE 48 U/L (46-116); ASPARTATE AMINOTRANSFERASE 19 U/L (15-37); BILIRUBIN,TOTAL 0.7 mg/dL (0.2-1.0); CALCIUM, SERUM 8.5 mg/dL (8.5-10.1); CARBON DIOXIDE 24 mmol/L (21-32); CHLORIDE 103 mmol/L (98-107); CREATININE 1.6 mg/dL (0.6-1.3); GLUCOSE 150 mg/dL (74-106); POTASSIUM 4.3 mmol/L (3.5-5.1); SODIUM SERUM 136 mmol/L (136-145); TOTAL PROTEIN, SERUM 6.5 g/dL (6.4-8.2); UREA NITROGEN, BLOOD 35 mg/dL (7-18)
[2022-08-28] MEDS: INSULIN REGULAR, HUMAN 100 UNIT/ML 3 ML VIAL SQ PRN (06:41)
[2022-08-28] MEDS: BLOOD SUGAR DIAGNOSTIC 1 EACH STRIP IN SCH ×3 (06:41→17:18)
--- NOTE | 2022-08-28 06:41 | NUR ---
RN notes Pt's blood sugar 135. Pt refuses coverage. explained risks and benefits. Will continue to monitor.
--- NOTE | 2022-08-28 06:42 | NUR ---
RN closing notes Pt is resting in bed comfortably. Pt is alert and orientedX4. On 3 L NC. No SOB. No S/S of distress noted. Vs is stable. SIXTO Picc line is clean, intact. Routine meds were given as ordered. Kept Pt clean, dry and comfortable. Safety precautions is maintained. Isolation precautions is maintained. Bed at low position, brakes locked, side rails upX2, hob elevated, urinal at the bedside, bed alarm is on and call light is within reach. Will endorse to am nurse for GABRIELA.
[2022-08-28 07:00] VITALS: BP 137/79
--- NOTE | 2022-08-28 07:35 | NUR ---
MS RN OPENING NOTES RECEIVED PATIENT ON BED AWAKE AND A/O X4 AND VERBALLY RESPONSIVE , ON 3L O2 WITH NO SOB OR DISTRESS NOTED , NO C/O OF PAIN AND DISCOMFORT NOTED , IV ACCESS ON THE SIXTO PICC LINE SL , SAFETY MEASURES PROVIDED , KEPT DRY AND CLEAN , CALL LIGHT WITHIN REACH AND WILL MONITOR FOR ANY CHANGES
[2022-08-28] MEDS: CHOLESTYRAMINE/ASPARTAME 4 G/PKT PACKET PO SCH (08:51)
[2022-08-28] MEDS: SPIRONOLACTONE 25 MG TABLET PO SCH (08:52)
[2022-08-28] MEDS: predniSONE 20 MG TABLET PO SCH (08:52)
[2022-08-28] MEDS: GABAPENTIN 300 MG CAPSULE PO SCH ×2 (08:52→17:32)
[2022-08-28] MEDS: ASPIRIN EC 81 MG TABLET.DR PO SCH (08:52)
[2022-08-28] MEDS: MULTIVIT W/MINERALS 1 TAB TABLET PO SCH (08:52)
[2022-08-28] MEDS: BUMETANIDE (1 MG) 1 MG TABLET PO SCH (08:52)
[2022-08-28] MEDS: CHOLECALCIFEROL 1,000 UNIT TABLET (VIT D3) PO SCH (08:52)
[2022-08-28] MEDS: ACIDOPHILUS/BULGARICUS 1 EACH TAB.CHEW PO SCH ×3 (08:52→17:32)
[2022-08-28] MEDS: LISINOPRIL (20MG) 20 MG TABLET PO SCH (08:53)
[2022-08-28] MEDS: CARVEDILOL 12.5 MG TABLET PO SCH (08:53)
[2022-08-28] MEDS: METFORMIN XR 500 MG TAB.SR.24H PO SCH (08:54)
[2022-08-28] MEDS ORDERED: LEVO250T59 PO (11:05)
[2022-08-28] MEDS ORDERED: VANC125C11 PO (11:05)
[2022-08-28] MEDS ORDERED: SPIR25TA6 PO (11:05)
[2022-08-28] MEDS ORDERED: PRED20TA PO (11:05)
[2022-08-28] MEDS: LEVOFLOXACIN (250MG) 250 MG TABLET PO SCH (12:21)
[2022-08-28 15:40] VITALS: BP 131/76
[2022-08-28] MEDS: ATORVASTATIN 10 MG TABLET PO SCH (17:33)
--- NOTE | 2022-08-28 20:04 | NUR ---
MS RN CLOSING AND DISCHARGE NOTES PATIENT ON BED AWAKE AND A/O X4 AND VERBALLY RESPONSIVE , ON 3L O2 WITH NO SOB OR DISTRESS NOTED , NO C/O OF PAIN AND DISCOMFORT NOTED , IV ACCESS ON THE SIXTO PICC LINE SL ,ALL DUE MEDS ORDERED , WITH ORDER FOR DISCHARGE TO HOME AND WILL BE FOLLOWED BY HOME HEALTH ARRANGED BY BILLET GRINDER , WOUND DRESSING DONE ON THE LEFT FOOT WOUND AND RIGHT WOUND , NO S/S OF BLEEDING NOTED . PICCLINE WILL RETAIN FOR IV ATB TO CONTINUE AT HOME FOR 6 WEEKS , DISCHARGE INSTRUCTIONS PROVIDED TO THE PATIENT AND REGARDING MEDICATIONS , FOLLOW WITH PCPC AND SURGEON , HOME HEALTH FOLLOW UP AND WHEN TO CALL 911 IN CASE OF EMERGENCY , PATIENT SIGNED ALL THE D/C PAPERS AND ALL BELONGINGS WERE TAKEN AND FORM WAS SIGNED , NO SOB OR DISTRESS NOTED AT THIS TIME , NO PAIN AND DISCOMFORT , ID BAND REMOVED AND ENDORSED TO CIGAR PATCHER . WAITING FOR AMBULANCE
--- NOTE | 2022-08-28 20:10 | NUR ---
MS RN OPENING NOTE RECEIVED PT AWAKE IN BED. AT BEDSIDE. MEDICALLY STABLE. NO ACUTE DISTRESS AT THIS TIME. WAITING FOR AMBULANCE AT THIS TIME.
--- NOTE | 2022-08-28 21:14 | NUR ---
RN NOTE TRANSPORTATION PICKING UP PT NOW. REPORT ALREADY GIVEN. MEDICALLY STABLE. DISCHARGED WITH BELONGINGS. CHARGE NURSE ANTHONY AWARE.
== END 2022-08-28 21:45 | disposition home health service (06) | DRG 570 ==
LOC: ER 11:56 → MED 14:41
PROVIDERS: ADMIT Internal Medicine; ATTEND Internal Medicine
PROC: 0KBW0ZZ Excision of Left Foot Muscle, Open Approach (ICD-10-PCS; principal; 2022-08-18)
PROC: 0JBR0ZZ Excision of Left Foot Subcutaneous Tissue and Fascia, Open Approach (ICD-10-PCS; 2022-08-21)
PROC: 02HV33Z Insertion of Infusion Device into Superior Vena Cava, Percutaneous Approach (ICD-10-PCS; 2022-08-26)
PROC: B548ZZA Ultrasonography of Superior Vena Cava, Guidance (ICD-10-PCS; 2022-08-26)
DX: L27.0 Generalized skin eruption due to drugs and medicaments taken internally (principal); N17.0 Acute kidney failure with tubular necrosis; E11.52 Type 2 diabetes mellitus with diabetic peripheral angiopathy with gangrene; M86.172 Other acute osteomyelitis, left ankle and foot; L97.413 Non-pressure chronic ulcer of right heel and midfoot with necrosis of muscle; A04.72 Enterocolitis due to Clostridium difficile, not specified as recurrent; I70.262 Atherosclerosis of native arteries of extremities with gangrene, left leg; E11.69 Type 2 diabetes mellitus with other specified complication; T36.95XA Adverse effect of unspecified systemic antibiotic, initial encounter; D69.2 Other nonthrombocytopenic purpura; Z20.822 Contact with and (suspected) exposure to COVID-19; I25.10 Atherosclerotic heart disease of native coronary artery without angina pectoris; Z95.1 Presence of aortocoronary bypass graft; I10 Essential (primary) hypertension; Z98.890 Other specified postprocedural states; Z79.82 Long term (current) use of aspirin; Z79.84 Long term (current) use of oral hypoglycemic drugs; Z79.899 Other long term (current) drug therapy; Z89.422 Acquired absence of other left toe(s); E11.42 Type 2 diabetes mellitus with diabetic polyneuropathy; E11.621 Type 2 diabetes mellitus with foot ulcer; D63.8 Anemia in other chronic diseases classified elsewhere; Z85.038 Personal history of other malignant neoplasm of large intestine; H54.8 Legal blindness, as defined in USA; E88.09 Other disorders of plasma-protein metabolism, not elsewhere classified; E78.5 Hyperlipidemia, unspecified; D75.839 Thrombocytosis, unspecified; L97.523 Non-pressure chronic ulcer of other part of left foot with necrosis of muscle; T36.1X5A Adverse effect of cephalosporins and other beta-lactam antibiotics, initial encounter; Y92.129 Unspecified place in nursing home as the place of occurrence of the external cause
CPT/HCPCS: 36415; 71045-TC; 75635-TC; 80048-TC; 80053-TC; 80076-TC; 82962-TC; 83605-TC; 83735-TC; 84100-TC; 84484-TC; 85025-TC; 85027-TC; 85610-TC; 85730-TC; 86592; 86593; 86803; 86850-TC; 87040-TC; 87081-TC; 87806; 97110-TC; 97530-TC; A4223; A6209; A6253; A6403; C9803; G0378; G0463; J0690; J1650; J1815; J2270; J3475; J3490; J7030; J7050; Q0163; Q9967

== ENCOUNTER 2022-08-31 09:57 | Outpatient (CLI) | payer MEDICARE, BC ==
[~2022-08-31 09:57] MED LIST changes: -CEFE1FRO IV; -GLIM2TAB31 PO; +LEVO250T59 PO; +MULT-447 PO; +PRED20TA PO; +VANC125C11 PO
[2022-08-31] MEDS ORDERED: LIDOCAINE 2% JEL 5 ML TUBE ONE (10:00)
[2022-08-31] MEDS ORDERED: DAKINS HALF STRENGTH (0.25%) 480 ML BOTTLE ONE (10:43)
[2022-08-31] MEDS ORDERED: UREA 10% -AHA 4% CREAM 57 GM TUBE ONE (10:51)
[2022-08-31 12:22] LABS: BASOPHILS # (AUTO) 0.1 K/uL (0.0-0.2); BASOPHILS % (AUTO) 0.7 % (0.0-2.0); EOSINOPHILS % (AUTO) 2.9 % (0.0-6.0); HEMATOCRIT 25 % (39-51); HEMOGLOBIN 7.7 g/dL (13.5-17.5); LYMPHOCYTES # (AUTO) 2.9 K/uL (0.8-4.8); LYMPHOCYTES % (AUTO) 18.5 % (20.0-44.0); MEAN CORPUSCULAR HGB CONC 31 g/dl (31.0-36.0); MEAN CORPUSCULAR VOLUME 81 fL (80-96); MONOCYTES # (AUTO) 1.2 K/uL (0.1-1.30); MONOCYTES % (AUTO) 7.9 % (2.0-12.0); NEUTROPHILS # (AUTO) 10.8 K/uL (1.8-8.9); PLATELET COUNT (AUTO) 223 K/uL (150-450); RED BLOOD CELL COUNT(AUTO) 3.06 MIL/uL (4.5-6.0); WHITE BLOOD COUNT (AUTO) 15.5 K/uL (4.3-11.0)
[2022-08-31 12:44] LABS: ALANINE AMINOTRANSFERASE 25 U/L (12-78); ALBUMIN 2.9 g/dL (3.4-5.0); ALKALINE PHOSPHATASE 57 U/L (46-116); ASPARTATE AMINOTRANSFERASE 14 U/L (15-37); BILIRUBIN,TOTAL 0.4 mg/dL (0.2-1.0); CALCIUM, SERUM 8.9 mg/dL (8.5-10.1); CARBON DIOXIDE 25 mmol/L (21-32); CHLORIDE 108 mmol/L (98-107); CREATININE 2.8 mg/dL (0.6-1.3); GLUCOSE 53 mg/dL (74-106); POTASSIUM 4.4 mmol/L (3.5-5.1); SODIUM SERUM 140 mmol/L (136-145); TOTAL PROTEIN, SERUM 6.9 g/dL (6.4-8.2); UREA NITROGEN, BLOOD 49 mg/dL (7-18)
== END 2022-08-31 23:59 | disposition home health service (06) ==
LOC: WOU 09:57
PROVIDERS: ATTEND Podiatrist Foot & Ankle Surgery
DX: E11.621 Type 2 diabetes mellitus with foot ulcer (principal); L97.526 Non-pressure chronic ulcer of other part of left foot with bone involvement without evidence of necrosis; L97.528 Non-pressure chronic ulcer of other part of left foot with other specified severity; L97.318 Non-pressure chronic ulcer of right ankle with other specified severity; L97.428 Non-pressure chronic ulcer of left heel and midfoot with other specified severity; L97.418 Non-pressure chronic ulcer of right heel and midfoot with other specified severity; E11.42 Type 2 diabetes mellitus with diabetic polyneuropathy; E11.51 Type 2 diabetes mellitus with diabetic peripheral angiopathy without gangrene; D69.0 Allergic purpura; Z79.82 Long term (current) use of aspirin; Z79.84 Long term (current) use of oral hypoglycemic drugs
CPT/HCPCS: 11043; 87070 ×2; 87075 ×2; 11046; 85025; 83036; 85652; 36415; 80053; 86140; 82306; A6253

== ENCOUNTER 2022-09-04 09:51 | Outpatient (CLI) | payer MEDICARE, BC | END 2022-09-04 23:59 | disposition home health service (06) | LOC: WOU 09:51 | PROVIDERS: ATTEND Podiatrist Foot & Ankle Surgery | DX: E11.621 Type 2 diabetes mellitus with foot ulcer (principal); L97.526 Non-pressure chronic ulcer of other part of left foot with bone involvement without evidence of necrosis; L97.524 Non-pressure chronic ulcer of other part of left foot with necrosis of bone; L97.528 Non-pressure chronic ulcer of other part of left foot with other specified severity; L97.318 Non-pressure chronic ulcer of right ankle with other specified severity; L97.428 Non-pressure chronic ulcer of left heel and midfoot with other specified severity; L97.418 Non-pressure chronic ulcer of right heel and midfoot with other specified severity; E11.42 Type 2 diabetes mellitus with diabetic polyneuropathy; E11.51 Type 2 diabetes mellitus with diabetic peripheral angiopathy without gangrene; D69.0 Allergic purpura; Z79.84 Long term (current) use of oral hypoglycemic drugs; Z79.82 Long term (current) use of aspirin | CPT/HCPCS: 11043; 11046; A6253 ==

== ENCOUNTER 2022-09-07 09:48 | Outpatient (CLI) | payer MEDICARE, BC ==
[2022-09-07] MEDS ORDERED: UREA 10% -AHA 4% CREAM 57 GM TUBE ONE (11:31)
== END 2022-09-07 23:59 | disposition home health service (06) ==
LOC: WOU 09:48
PROVIDERS: ATTEND Podiatrist Foot & Ankle Surgery
DX: E11.621 Type 2 diabetes mellitus with foot ulcer (principal); L97.523 Non-pressure chronic ulcer of other part of left foot with necrosis of muscle; L97.526 Non-pressure chronic ulcer of other part of left foot with bone involvement without evidence of necrosis; L97.528 Non-pressure chronic ulcer of other part of left foot with other specified severity; L97.318 Non-pressure chronic ulcer of right ankle with other specified severity; L97.428 Non-pressure chronic ulcer of left heel and midfoot with other specified severity; L97.418 Non-pressure chronic ulcer of right heel and midfoot with other specified severity; E11.42 Type 2 diabetes mellitus with diabetic polyneuropathy; E11.51 Type 2 diabetes mellitus with diabetic peripheral angiopathy without gangrene; Z79.84 Long term (current) use of oral hypoglycemic drugs; Z79.82 Long term (current) use of aspirin
CPT/HCPCS: 11043; 11046; A6253

== ENCOUNTER 2022-09-07 10:51 | Outpatient (CLI) | payer MEDICARE, BC ==
[2022-09-07 11:58] LABS: BASOPHILS % (AUTO) 0.3 % (0.0-2.0); EOSINOPHILS % (AUTO) 1.3 % (0.0-6.0); HEMATOCRIT 26 % (39-51); HEMOGLOBIN 8.3 g/dL (13.5-17.5); LYMPHOCYTES # (AUTO) 2.4 K/uL (0.8-4.8); LYMPHOCYTES % (AUTO) 21.6 % (20.0-44.0); MEAN CORPUSCULAR HGB CONC 32 g/dl (31.0-36.0); MEAN CORPUSCULAR VOLUME 79 fL (80-96); MONOCYTES # (AUTO) 0.8 K/uL (0.1-1.30); MONOCYTES % (AUTO) 7.6 % (2.0-12.0); NEUTROPHILS # (AUTO) 7.5 K/uL (1.8-8.9); NEUTROPHILS % (AUTO) 69.2 % (43.0-81.0); PLATELET COUNT (AUTO) 298 K/uL (150-450); RED BLOOD CELL COUNT(AUTO) 3.33 MIL/uL (4.5-6.0); WHITE BLOOD COUNT (AUTO) 10.9 K/uL (4.3-11.0)
[2022-09-07 12:01] LABS: IRON, SERUM 6 ug/dl (50-175); TOTAL IRON BINDING CAPACITY 87 ug/dl (250-450)
[2022-09-07 12:05] LABS: ALANINE AMINOTRANSFERASE 20 U/L (12-78); ALBUMIN 2.8 g/dL (3.4-5.0); ALKALINE PHOSPHATASE 50 U/L (46-116); ASPARTATE AMINOTRANSFERASE 9 U/L (15-37); BILIRUBIN,TOTAL 0.5 mg/dL (0.2-1.0); CALCIUM, SERUM 8.8 mg/dL (8.5-10.1); CARBON DIOXIDE 22 mmol/L (21-32); CHLORIDE 107 mmol/L (98-107); CREATININE 1.9 mg/dL (0.6-1.3); GLUCOSE 54 mg/dL (74-106); PHOSPHORUS 4.5 mg/dL (2.5-4.9); SODIUM SERUM 138 mmol/L (136-145); TOTAL PROTEIN, SERUM 6.6 g/dL (6.4-8.2); UREA NITROGEN, BLOOD 36 mg/dL (7-18)
[2022-09-07 12:15] LABS: FERRITIN 71 ng/mL (8-388)
[2022-09-07 12:18] LABS: C-REACTIVE PROTEIN 2.4 mg/dL (0.0-0.9)
[2022-09-07 14:43] LABS: BILIRUBIN,URINE NEGATIVE (NEGATIVE); COLOR,URINE YELLOW (YELLOW); LEUKOCYTE ESTERASE ,URINE 1+ (NEGATIVE); NITRITE, URINE NEGATIVE (NEGATIVE); PH,URINE 5.5 (5.0-8.0); PROTEIN,URINE NEGATIVE (NEGATIVE); UGLUCOSE NEGATIVE (NEGATIVE); UROBILINOGEN,URINE 0.2 EU/dL (0.2)
[2022-09-07 14:56] LABS: BACTERIA,URINE Few /HPF (None Seen)
[2022-09-08 07:06] LABS: COMPLEMENT C3, SERUM 113 mg/dL (82-167); COMPLEMENT C4, SERUM 40 mg/dL (12-38)
[2022-09-08 11:07] LABS: *ANA ANTI-CENTROMERE B AB <0.2 AI (0.0-0.9); *ANA ANTI-DNA(DS) AB, QN 4 IU/mL (0-9); *ANA ANTI-JO-1 <0.2 AI (0.0-0.9); *ANA ANTICHROMATIN ANTIBODY <0.2 AI (0.0-0.9); *ANA RNP ANTIBODIES <0.2 AI (0.0-0.9); *ANA SJOGREN'S ANTI-SS-A <0.2 AI (0.0-0.9); *ANA SJOGREN'S ANTI-SS-B <0.2 AI (0.0-0.9); *ANAANTI-SCLERODERMA-70 AB <0.2 AI (0.0-0.9); *ANASMITH AB <0.2 AI (0.0-0.9)
[2022-09-11 07:06] LABS: *SPE A/G RATIO 0.8 (0.7-1.7); *SPE ALPHA-1-GLOBULIN 0.3 g/dL (0.0-0.4); *SPE ALPHA-2-GLOBULIN 1.1 g/dL (0.4-1.0); *SPE BETA GLOBULIN 1.1 g/dL (0.7-1.3); *SPE M-SPIKE Not Observed g/dL (Not Observed)
[2022-09-11 13:07] LABS: *ANCA ATYPICAL p-ANCA <1:20 titer (Neg:<1:20)
== END 2022-09-07 23:59 | disposition home or self-care (01) ==
LOC: MSC 10:51
PROVIDERS: ATTEND Internal Medicine
DX: N17.9 Acute kidney failure, unspecified (principal); E11.22 Type 2 diabetes mellitus with diabetic chronic kidney disease; I12.9 Hypertensive chronic kidney disease with stage 1 through stage 4 chronic kidney disease, or unspecified chronic kidney disease; N18.32 Chronic kidney disease, stage 3b; E11.319 Type 2 diabetes mellitus with unspecified diabetic retinopathy without macular edema; E11.69 Type 2 diabetes mellitus with other specified complication; M86.172 Other acute osteomyelitis, left ankle and foot; D64.9 Anemia, unspecified; E83.9 Disorder of mineral metabolism, unspecified; M89.9 Disorder of bone, unspecified; D69.2 Other nonthrombocytopenic purpura; Z79.899 Other long term (current) drug therapy
CPT/HCPCS: 85025; 87086; 83540; 83735; 83036; 84100; 85652; 81001; 80053; 82728; 86140; 82306; 83970; 86160 ×2; 82043; 82570; 83520 ×2; 84165; 86225; 86235 ×8; 86256 ×3; 84155; 84156 ×2; G0463

== ENCOUNTER 2022-09-08 15:41 | Outpatient (CLI) | payer MEDICARE, BC ==
[2022-09-08 16:33] LABS: CALCIUM, SERUM 9.1 mg/dL (8.5-10.1); CARBON DIOXIDE 24 mmol/L (21-32); CHLORIDE 105 mmol/L (98-107); CREATININE 1.6 mg/dL (0.6-1.3); GLUCOSE 69 mg/dL (74-106); POTASSIUM 5.6 mmol/L (3.5-5.1); SODIUM SERUM 138 mmol/L (136-145); UREA NITROGEN, BLOOD 29 mg/dL (7-18)
== END 2022-09-08 23:59 | disposition home or self-care (01) ==
LOC: LAB 15:41
PROVIDERS: ATTEND Internal Medicine
DX: E87.5 Hyperkalemia (principal)
CPT/HCPCS: 36415; 80048-TC

== ENCOUNTER 2022-09-18 09:46 | Outpatient (CLI) | payer MEDICARE, BC ==
[~2022-09-18 09:46] MED LIST changes: +LIDOCAINE 2% JEL 5 ML TUBE ONE
[2022-09-19] MEDS ORDERED: GLIM2TAB31 PO (15:42)
[2022-09-19] MEDS ORDERED: LINE600T12 PO (15:42)
== END 2022-09-18 23:59 | disposition home health service (06) ==
LOC: WOU 09:46
PROVIDERS: ATTEND Podiatrist Foot & Ankle Surgery
DX: E11.621 Type 2 diabetes mellitus with foot ulcer (principal); L97.523 Non-pressure chronic ulcer of other part of left foot with necrosis of muscle; L97.524 Non-pressure chronic ulcer of other part of left foot with necrosis of bone; L97.528 Non-pressure chronic ulcer of other part of left foot with other specified severity; L97.428 Non-pressure chronic ulcer of left heel and midfoot with other specified severity; L97.418 Non-pressure chronic ulcer of right heel and midfoot with other specified severity; E11.622 Type 2 diabetes mellitus with other skin ulcer; L97.318 Non-pressure chronic ulcer of right ankle with other specified severity; E11.42 Type 2 diabetes mellitus with diabetic polyneuropathy; E11.51 Type 2 diabetes mellitus with diabetic peripheral angiopathy without gangrene; Z79.84 Long term (current) use of oral hypoglycemic drugs; Z79.82 Long term (current) use of aspirin
CPT/HCPCS: 11043; 11046; A6253

== ENCOUNTER 2022-09-19 10:20 | Inpatient (IN) | payer MEDICARE, BC ==
[~2022-09-19] VITALS: Ht 177.8 cm; Wt 95.3 kg
[~2022-09-19 10:20] MED LIST changes: -LIDOCAINE 2% JEL 5 ML TUBE ONE
--- NOTE | 2022-09-19 10:45 | NUR ---
MOVE SHEET SUBMITTED.
[2022-09-19] MEDS ORDERED: IV NS 0.9% 1,000 ML BAG IV ONE (11:00)
--- NOTE | 2022-09-19 11:00 | NUR ---
BIB FAMILY, SENT BY DR SUAREZ FOR POSSIBLE L FOOT DEBRIDEMENT/SURGERY
--- NOTE | 2022-09-19 11:04 | NUR ---
PT IN BED. picc LINE SIXTO flushed, blood collected and sent. Covid test sent. Fluids started via PICC
[2022-09-19 11:27] LABS: ALANINE AMINOTRANSFERASE 32 U/L (12-78); ALBUMIN 2.7 g/dL (3.4-5.0); ALKALINE PHOSPHATASE 59 U/L (46-116); ASPARTATE AMINOTRANSFERASE 12 U/L (15-37); BILIRUBIN,DIRECT 0.2 mg/dL (0.0-0.2); BILIRUBIN,TOTAL 0.5 mg/dL (0.2-1.0); CARBON DIOXIDE 18 mmol/L (21-32); CREATININE 1.7 mg/dL (0.6-1.3); GLUCOSE 173 mg/dL (74-106); TOTAL PROTEIN, SERUM 6.8 g/dL (6.4-8.2); UREA NITROGEN, BLOOD 33 mg/dL (7-18)
[2022-09-19 11:32] LABS: CHLORIDE 105 mmol/L (98-107); SODIUM SERUM 131 mmol/L (136-145)
[2022-09-19 11:39] LABS: BASOPHILS % (AUTO) 0.1 % (0.0-2.0); EOSINOPHILS % (AUTO) 0.1 % (0.0-6.0); HEMATOCRIT 24 % (39-51); HEMOGLOBIN 7.6 g/dL (13.5-17.5); LYMPHOCYTES # (AUTO) 1.2 K/uL (0.8-4.8); LYMPHOCYTES % (AUTO) 15.2 % (20.0-44.0); MEAN CORPUSCULAR HGB CONC 31 g/dl (31.0-36.0); MEAN CORPUSCULAR VOLUME 80 fL (80-96); MONOCYTES # (AUTO) 0.3 K/uL (0.1-1.30); MONOCYTES % (AUTO) 3.9 % (2.0-12.0); NEUTROPHILS # (AUTO) 6.1 K/uL (1.8-8.9); NEUTROPHILS % (AUTO) 80.7 % (43.0-81.0); PLATELET COUNT (AUTO) 201 K/uL (150-450); RED BLOOD CELL COUNT(AUTO) 3.06 MIL/uL (4.5-6.0); WHITE BLOOD COUNT (AUTO) 7.6 K/uL (4.3-11.0)
[2022-09-19 11:45] LABS: POTASSIUM 7.6 mmol/L (3.5-5.1)
[2022-09-19] MEDS ORDERED: Calcium Gluconate 1GM/10ML 4.65 MEQ in IV NS 0.9% 100 ML IV ONE (12:00)
[2022-09-19] MEDS ORDERED: FUROSEMIDE 40 MG/4 ML VIAL IV ONE (12:00)
[2022-09-19] MEDS ORDERED: ALBUTEROL FS 2.5 MG/0.5 ML VIAL.NEB NEB ONE (12:00)
[2022-09-19] MEDS ORDERED: DEXTROSE 50%-WATER 50 ML DISP.SYRIN IVP ONE (12:00)
[2022-09-19] MEDS ORDERED: INSULIN REGULAR, HUMAN 100 UNIT/ML 10 ML VIAL IV ONE (12:00)
[2022-09-19] MEDS ORDERED: FUROSEMIDE 40 MG/4 ML VIAL ONE (12:01)
[2022-09-19] MEDS ORDERED: DEXTROSE 50%-WATER 50 ML DISP.SYRIN ONE (12:02)
[2022-09-19] MEDS ORDERED: INSULIN REGULAR, HUMAN 100 UNIT/ML 10 ML VIAL ONE (12:02)
--- NOTE | 2022-09-19 12:24 | NUR ---
[facility] CALLED HEAD OF STOCK PAGED.
[2022-09-19] MEDS ORDERED: VANCOMYCIN 1 GM in IV D5W 250 ML IV ONE (12:30)
[2022-09-19] MEDS ORDERED: VANCOMYCIN 1 GM /D5W 250 ML PB IV ONE (12:39)
--- NOTE | 2022-09-19 12:47 | NUR ---
GOT BED 327-2 KHLOE WHITEHEAD
[2022-09-19] MEDS ORDERED: ALBUTEROL FS 2.5 MG/3 ML VIAL.NEB ONE (12:53)
--- NOTE | 2022-09-19 12:55 | NUR ---
report given to nurse Mathias for pricsila
[2022-09-19] MEDS ORDERED: ALBUTEROL FS 2.5 MG/0.5 ML VIAL.NEB ONE (12:56)
[2022-09-19] MEDS ORDERED: SODIUM POLYSTYRENE SULF. PWD 15 GM UDC PO ONE (13:30)
[2022-09-19] MEDS ORDERED: SODIUM POLYSTYRENE SULFONATE 15 G/60 ML BOTTLE ONE (13:46)
--- NOTE | 2022-09-19 13:59 | NUR ---
URINE SAMPLE SENT TO LAB
[2022-09-19] MEDS ORDERED: ONDANSETRON HCL/PF 4 MG/2 ML VIAL IVP PRN (14:00)
[2022-09-19 14:20] LABS: BILIRUBIN,URINE NEGATIVE (NEGATIVE); COLOR,URINE YELLOW (YELLOW); LEUKOCYTE ESTERASE ,URINE 1+ (NEGATIVE); NITRITE, URINE NEGATIVE (NEGATIVE); PH,URINE 5.5 (5.0-8.0); PROTEIN,URINE NEGATIVE (NEGATIVE); UGLUCOSE NEGATIVE (NEGATIVE); UROBILINOGEN,URINE 0.2 EU/dL (0.2)
[2022-09-19 14:51] LABS: BACTERIA,URINE None seen /HPF (None Seen); SQUAMOUS EPITHELIAL CELL,UR 0-2 /HPF (None Seen)
[2022-09-19 15:10] LABS: CALCIUM, SERUM 9.4 mg/dL (8.5-10.1); CARBON DIOXIDE 18 mmol/L (21-32); CHLORIDE 105 mmol/L (98-107); CREATININE 1.7 mg/dL (0.6-1.3); GLUCOSE 145 mg/dL (74-106); SODIUM SERUM 134 mmol/L (136-145); UREA NITROGEN, BLOOD 30 mg/dL (7-18)
[2022-09-19 15:20] LABS: POTASSIUM 6.6 mmol/L (3.5-5.1)
[2022-09-19] MEDS ORDERED: GLIM2TAB31 PO (15:42)
[2022-09-19] MEDS ORDERED: LINE600T12 PO (15:42)
--- NOTE | 2022-09-19 16:40 | NUR ---
ADMITTING NOTES: ADMITTED A 72YO MALE PT FROM ER VIA GURNEY ACCOMPANIED BY TRANSPORTER.. PTT AA/O X 4 AND ABLE TO MAKE NEEDS KNOWN, NO SOB OR CARDIAC DISTRESS NOTED. NO SOB DENIES PAIN AT THIS TIME. ON ROOM AIR AND TOLERATING WELL. IV ACCESS ON SIXTO PICC LINE,PATENT INTACT AND SALINE LOCKED. BODY ASSESSMENT DONE,PICTURES TAKEN AND FILED TO PT'S ROOM. PER PT HE IS LEGALLY BLIND BUT ABLE TO SEE BUT BLURRY. BELONGINGS CLOTHES HE'S WEARING AND EYE GLASSES. ABDOMEN SOFT NOTED WITH DISCOLORATION ADN UNDER THE ABDOMEN NOTED WITH RASHES. WOUND CARE TREATMENT DONE. ATTACHED TO IV PUMP RUNNING NS1L 275ML/HR. SAFETY MEASURES INITIATED: BED LOCKED AND IN LOWEST POSITION, SIDERAILS UP X 2. CALL LIGHT IN EASY REACH AND WILL MONITOR PT ACCORDINGLY.
[2022-09-19] MEDS: METFORMIN XR 500 MG TAB.SR.24H PO SCH (17:00)
[2022-09-19] MEDS ORDERED: VANCOMYCIN 1.25 GM in IV D5W 250 ML IV SCH (17:00)
[2022-09-19] MEDS: GABAPENTIN 300 MG CAPSULE PO SCH (17:26)
[2022-09-19] MEDS: ATORVASTATIN 40 MG TABLET PO SCH (17:26)
[2022-09-19] MEDS: IV NS 0.9% 1,000 ML IV PRN (17:42)
[2022-09-19] MEDS: VANCOMYCIN HCL 125 MG/2.5 ML ORAL.SUSP PO SCH ×2 (17:55→23:38)
--- NOTE | 2022-09-19 19:30 | NUR ---
MS RN NOTES RECEIVED LYING ON BED,BREATHING NORMAL,NOT IN ANY FORM OF RESPIRATORY DISTRESS.DRESSING TO RIGHT AND LEFT FOOT INTACT AND DRY.DENIES PAIN AT THE MOMENT.WITH SIXTO PICC LINE FOR MEDS,WITH IVF NS AT 75ML./HR RATE.ABLE TO AMBULATE WITH WALKER.WILL MONITOR FOR PAIN,CALL LIGHT IN REACH,NEEDS ANTICIPATED.
[2022-09-19 20:00] VITALS: BP_SYST 115; BP_SYST 118; BP_DIAS 65
--- NOTE | 2022-09-19 20:00 | NUR ---
MS RN CLOSING NOTES: PT IN BED AWAKE, ALERT AND ORIENTED X 4 AND ABLE TO MAKE NEEDS KNOWN. NO SOB OR CARDIAC DISTRESS DENIES PAIN AT THI TIME. PT AMBULATORY WITH WALKER. PICC LINE NOTED ON SIXTO PATENT INTACT AND RUNNING NS 1L @75ML/HR. SAFETY MEASURES MAINTAINED: BED LOCKED AND IN LOWEST POSITION, SIDERAILS UP X 2 CALL LIGHT IN EASY REACH. ENDORSED TO TIE CARRIER FOR GABRIELA.
[2022-09-19] MEDS: ACETAMINOPHEN 325 MG TABLET PO PRN (21:16)
--- NOTE | 2022-09-19 21:16 | NUR ---
MS RN NOTES C/O MILD PAIN ON BILATERAL FOOT,TYLENOL 650MG PO GIVEN PER PATIENT REQUEST.
--- NOTE | 2022-09-19 22:30 | NUR ---
AUTOMATION ENGINEER NOTES PLACE ON TELE MONITOR ORDERED.
--- NOTE | 2022-09-19 23:05 | NUR ---
CERTIFIED EXECUTIVE CHEF NOTES HOSPITALIST MARY MADE AWARE OF POTASSIUM LEVEL OF 6.6 AFTER GIVEN KAYEXALATE 30GM IN ER,NO FURTHER ORDERS.
[2022-09-19 23:57] VITALS: BP 142/72
[2022-09-20] VITALS: BP 142/72
[2022-09-20 04:00] VITALS: BP 116/63
[2022-09-20] MEDS: ACETAMINOPHEN 325 MG TABLET PO PRN (05:48)
--- NOTE | 2022-09-20 05:48 | NUR ---
SENIOR WEB ANALYST NOTES C/O MILD PAIN ON BILATERAL FOOT,MEDICATED WITH TYLENOL 325MG FOR MILD PAIN,SUPPOSED TO BE 650MG BUT PATIENT WANTS ONLY ONE,OTHER 325MG RETURNED TO OMNICELL WITNESSED BY CHARLEY HILL.
[2022-09-20] MEDS: VANCOMYCIN HCL 125 MG/2.5 ML ORAL.SUSP PO SCH ×4 (05:49→23:02)
[2022-09-20 06:24] LABS: BASOPHILS % (AUTO) 0.2 % (0.0-2.0); EOSINOPHILS % (AUTO) 1.7 % (0.0-6.0); HEMATOCRIT 23 % (39-51); HEMOGLOBIN 7.2 g/dL (13.5-17.5); LYMPHOCYTES # (AUTO) 1.3 K/uL (0.8-4.8); LYMPHOCYTES % (AUTO) 16.7 % (20.0-44.0); MEAN CORPUSCULAR HGB CONC 31 g/dl (31.0-36.0); MEAN CORPUSCULAR VOLUME 79 fL (80-96); MONOCYTES # (AUTO) 0.5 K/uL (0.1-1.30); MONOCYTES % (AUTO) 6.4 % (2.0-12.0); NEUTROPHILS # (AUTO) 5.8 K/uL (1.8-8.9); PLATELET COUNT (AUTO) 184 K/uL (150-450); RED BLOOD CELL COUNT(AUTO) 2.94 MIL/uL (4.5-6.0); WHITE BLOOD COUNT (AUTO) 7.7 K/uL (4.3-11.0)
[2022-09-20 06:51] LABS: ALANINE AMINOTRANSFERASE 29 U/L (12-78); ALBUMIN 2.5 g/dL (3.4-5.0); ALKALINE PHOSPHATASE 52 U/L (46-116); ASPARTATE AMINOTRANSFERASE 10 U/L (15-37); BILIRUBIN,TOTAL 0.5 mg/dL (0.2-1.0); CALCIUM, SERUM 8.7 mg/dL (8.5-10.1); CARBON DIOXIDE 19 mmol/L (21-32); CHLORIDE 108 mmol/L (98-107); CREATININE 1.4 mg/dL (0.6-1.3); GLUCOSE 87 mg/dL (74-106); MAGNESIUM 1.8 mg/dL (1.8-2.4); PHOSPHORUS 4.5 mg/dL (2.5-4.9); POTASSIUM 5.9 mmol/L (3.5-5.1); SODIUM SERUM 137 mmol/L (136-145); TOTAL PROTEIN, SERUM 6.3 g/dL (6.4-8.2); UREA NITROGEN, BLOOD 25 mg/dL (7-18)
--- NOTE | 2022-09-20 06:54 | NUR ---
DIAL POLISHER NOTES SLEPT WITH INTERVALS,TYLENOL EFFECTIVE FOR MILD PAIN,HAD 3X BOWEL MOVEMENT FROM KAYEXALATE GIVEN IN ER.PICC LINE REMAINS PATENT.IN NO ACUTE DISTRESS.
--- NOTE | 2022-09-20 07:23 | NUR ---
RN OPENING NOTE RECEIVED PATIENT IN BED, AWAKE, A/O X4, VERBALLY RESPONSIVE AND ABLE TO MAKE NEEDS KNOWN. NO SIGNS OF ACUTE DISTRESS NOTED. ON ROOM AIR, BREATHING EVEN AND UNLABORED. DENIES ANY PAIN AT THIS TIME. ON MANAGER RESIDENTIAL SHOWING SINUS RHYTHM, HR @79. NOTED WITH RIGHT UPPER ARM PICC LINE, INTACT AND PATENT, RUNNING NS @75 ML/HR. SAFETY MEASURE IN PLACE. BED IN LOW AND LOCKED POSITION, SIDE RAILS UP X2, CALL LIGHT PLACED WITHIN EASY REACH. WILL CONTINUE TO MONITOR PATIENT.
[2022-09-20 08:00] VITALS: BP 130/73
[2022-09-20] MEDS ORDERED: SODIUM POLYSTYRENE SULF. PWD 15 GM UDC PO ONE (08:00)
--- NOTE | 2022-09-20 08:00 | NUR ---
WOUND CARE CONSULT: PT PRESENTS WITH RASH TO GROIN FOLDS, PERINEUM AND INNER THIGHS, PRESENT ON ADMISSION. SACRAL AREA NOTED TO HAVE BROWN LESION/AREA OF DISCOLORATION ON BONY AREA, PRESENT ON ADMISSION. DEFER TO DPM CURRENTLY ON CASE FOR LOWER EXTREMITIES. RECOMMENDATIONS MADE FOR SKIN PROTECTION. DISCUSSED WITH NURSING STAFF. MD IN AGREEMENT WITH PLAN OF CARE.
--- NOTE | 2022-09-20 08:20 | NUR ---
RN NOTE PATIENT REQUESTING FOR STRONGER PAIN MEDICATION. DR. HOYT MADE AWARE. WITH NEW ORDER FOR TRAMADOL 50 MG O2AGRIW FOR SEVERE PAIN, ORDER CARRIED OUT.
[2022-09-20] MEDS ORDERED: Z GUARD REMEDY 4 OZ OINT TP PRN (08:30)
[2022-09-20] MEDS: TRAMADOL HCL 50 MG TABLET PO PRN ×2 (08:43→20:30)
[2022-09-20] MEDS: ASPIRIN EC 81 MG TABLET.DR PO SCH (08:46)
[2022-09-20] MEDS: predniSONE 20 MG TABLET PO SCH (08:46)
[2022-09-20] MEDS: CHOLECALCIFEROL 1,000 UNIT TABLET (VIT D3) PO SCH (08:47)
[2022-09-20] MEDS: GABAPENTIN 300 MG CAPSULE PO SCH ×2 (08:47→17:14)
[2022-09-20] MEDS: MULTIVIT W/MINERALS 1 TAB TABLET PO SCH (08:47)
[2022-09-20] MEDS: METFORMIN XR 500 MG TAB.SR.24H PO SCH ×2 (08:47→17:00)
[2022-09-20] MEDS: CARVEDILOL 12.5 MG TABLET PO SCH (08:52)
[2022-09-20] MEDS: Z GUARD REMEDY 4 OZ OINT TP SCH (08:59)
[2022-09-20] MEDS: CLOTRIMAZOLE 1% 15 GM TUBE TP SCH ×2 (08:59→16:13)
[2022-09-20] MEDS ORDERED: SPIRONOLACTONE 25 MG TABLET PO SCH (09:00)
[2022-09-20] MEDS ORDERED: LISINOPRIL (20MG) 20 MG TABLET PO SCH (09:00)
[2022-09-20] MEDS ORDERED: BUMETANIDE (1 MG) 1 MG TABLET PO SCH (09:00)
[2022-09-20] MEDS ORDERED: DEXTROSE 50%-WATER 50 ML DISP.SYRIN IV PRN (10:30)
[2022-09-20] MEDS: IV NS 0.9% 1,000 ML IV PRN (11:09)
[2022-09-20] MEDS: VANCOMYCIN 1.25 GM in IV D5W 250 ML IV SCH (11:11)
[2022-09-20] MEDS: BLOOD SUGAR DIAGNOSTIC 1 EACH STRIP VI SCH ×3 (11:29→23:06)
[2022-09-20] MEDS: INSULIN REGULAR, HUMAN 100 UNIT/ML 3 ML VIAL SQ PRN ×3 (11:30→21:25)
[2022-09-20 12:00] VITALS: BP 119/63
[2022-09-20] MEDS ORDERED: SODIUM POLYSTYRENE SULFONATE 15 G/60 ML BOTTLE PO ONE (15:00)
[2022-09-20] MEDS: ATORVASTATIN 40 MG TABLET PO SCH (17:14)
--- NOTE | 2022-09-20 18:50 | NUR ---
RN CLOSING NOTE PATIENT IN BED, AWAKE, A/O X4, VERBALLY RESPONSIVE AND ABLE TO MAKE NEEDS KNOWN. NO SIGNS OF ACUTE DISTRESS NOTED. REMAINS STABLE ON ROOM AIR, BREATHING EVEN AND UNLABORED. CONTINUE ON JOURNAL CLERK SHOWING SINUS RHYTHM, HR @83. WITH RIGHT UPPER ARM PICC LINE, INTACT AND PATENT, RUNNING NS @75 ML/HR. ALL DUE MEDS GIVEN, TOLERATED WELL. SAFETY MEASURE MAINTAINED. BED IN LOW AND LOCKED POSITION, SIDE RAILS UP X2, CALL LIGHT PLACED WITHIN EASY REACH. WILL ENDORSE TO NEXT SHIFT FOR CONTINUITY OF CARE.
--- NOTE | 2022-09-20 19:00 | NUR ---
RN NOTE RECEIVED A CALL FROM DR. SUAREZ WITH NEW ORDERS RECEIVED, CARRIED OUT.
--- NOTE | 2022-09-20 19:00 | NUR ---
RN OPENING NOTE RECEIVED PT AWAKE IN BED. A/O X 4, ABLE TO MAKE NEEDS KNOWN. PT IS IN RA, TOLERATING WELL, BREATHING EVEN AND UNLABORED @ THIS TIME. PT PICC LINE PRESENT ON RIGHT UPPER ARM RUNNING NS # 75MLS/HR, PATENT, INTACT AND FLUSHES WELL W/ NO S&SX OF INFILTRATION @ SITE NOTED. PT'S TELE MONITOR IN IN PLACE W/ CURRENT READING OF SINUS RHYTHM WITH BBB, OCCASIONAL PVC, HR OF 83BPM. SAFETY MEASURES IS IN PLACE. BED IN LOWEST AND LOCKED POSITION. SIDE RAILS UP X 2. BEDSIDE TABLE AND CALL LIGHT IS EASY REACH. BED ALARM IS ON. WILL CONTINUE TO MONITOR PT ACCORDINGLY. Addendum: 09/20/22 at 2000 by MIGUEL LEY RN ERROR ON OPENING NOTES. WRONG PATIENT. Addendum: 09/20/22 at 2003 by MIGUEL LEY RN CORRECTION: WRONG AMMENDMENT
[2022-09-20 20:00] VITALS: BP 136/64
[2022-09-20 20:39] LABS: BASOPHILS % (AUTO) 0.1 % (0.0-2.0); EOSINOPHILS % (AUTO) 0.1 % (0.0-6.0); HEMATOCRIT 23 % (39-51); HEMOGLOBIN 7.3 g/dL (13.5-17.5); LYMPHOCYTES # (AUTO) 0.9 K/uL (0.8-4.8); LYMPHOCYTES % (AUTO) 15.6 % (20.0-44.0); MEAN CORPUSCULAR HGB CONC 31 g/dl (31.0-36.0); MEAN CORPUSCULAR VOLUME 79 fL (80-96); MONOCYTES # (AUTO) 0.2 K/uL (0.1-1.30); MONOCYTES % (AUTO) 3.1 % (2.0-12.0); NEUTROPHILS # (AUTO) 4.9 K/uL (1.8-8.9); NEUTROPHILS % (AUTO) 81.1 % (43.0-81.0); PLATELET COUNT (AUTO) 168 K/uL (150-450); RED BLOOD CELL COUNT(AUTO) 2.97 MIL/uL (4.5-6.0); WHITE BLOOD COUNT (AUTO) 6.1 K/uL (4.3-11.0)
[2022-09-20 20:52] LABS: CREATININE 1.3 mg/dL (0.6-1.3); POTASSIUM 6.1 mmol/L (3.5-5.1)
[2022-09-21] VITALS: BP 143/68
[2022-09-21] MEDS: IV NS 0.9% 1,000 ML IV PRN (02:32)
[2022-09-21 04:00] VITALS: BP 136/71
[2022-09-21] MEDS: VANCOMYCIN HCL 125 MG/2.5 ML ORAL.SUSP PO SCH ×4 (06:00→23:11)
[2022-09-21] MEDS: BLOOD SUGAR DIAGNOSTIC 1 EACH STRIP VI SCH ×4 (06:38→21:52)
[2022-09-21] MEDS: INSULIN REGULAR, HUMAN 100 UNIT/ML 3 ML VIAL SQ PRN (06:39)
--- NOTE | 2022-09-21 06:40 | NUR ---
HELD INSULIN REGULAR D/T PT BLOOD GLUCOSE OF 95.
--- NOTE | 2022-09-21 07:06 | NUR ---
RN CLOSING NOTE PT AWAKE & RESTING COMFORTABLY IN BED. A/O X 4, RESPOSNIVE AND FOLLOWS VERBAL COMMAND. PT IS IN RA, W/ NO S & SX OF RESPIRATORY DISTRESS @ THIS TIME. PT PICC LINE PRESENT ON RIGHT UPPER ARM RUNNING NS #75MLS/HR, PATENT, INTACT AND FLUSHES WELL W/ NO S&SX OF INFILTRATION @ SITE NOTED. PT'S TELE MONITOR IN IN PLACE W/ CURRENT READING OF SR. PT DIAPER CHANGED X 1. PT KEPT CLEAN AND DRY. ADMINISTERED MEDICATIONS PER MD'S ORDER. SAFETY MEASURES IS IN PLACE. BED IN LOWEST AND LOCKED POSITION. SIDERAILS UP X 2. BEDSIDE TABLE AND CALL LIGHT IS EASY REACH. BED ALARM IS ON. WILL ENDORSE PT TO THE NEXT SHIFT FOR GABRIELA.
[2022-09-21 07:21] LABS: BASOPHILS % (AUTO) 0.2 % (0.0-2.0); EOSINOPHILS % (AUTO) 0.8 % (0.0-6.0); HEMATOCRIT 22 % (39-51); LYMPHOCYTES # (AUTO) 1.9 K/uL (0.8-4.8); LYMPHOCYTES % (AUTO) 26.2 % (20.0-44.0); MEAN CORPUSCULAR HGB CONC 32 g/dl (31.0-36.0); MEAN CORPUSCULAR VOLUME 79 fL (80-96); MONOCYTES # (AUTO) 0.6 K/uL (0.1-1.30); MONOCYTES % (AUTO) 8.4 % (2.0-12.0); NEUTROPHILS # (AUTO) 4.6 K/uL (1.8-8.9); NEUTROPHILS % (AUTO) 64.4 % (43.0-81.0); PLATELET COUNT (AUTO) 163 K/uL (150-450); WHITE BLOOD COUNT (AUTO) 7.1 K/uL (4.3-11.0)
[2022-09-21] MEDS ORDERED: LIDOCAINE HCL/MPF 1% 30 ML VIAL IJ ONE (07:25)
[2022-09-21] MEDS ORDERED: BUPIVACAINE 0.5 % PF 150 MG/30 ML VIAL ONE (07:26)
[2022-09-21] MEDS ORDERED: ANESTHESIA TRAY IN PYXIS 1 EA TRAY MC ONE (07:26)
[2022-09-21 07:56] LABS: ALBUMIN 2.4 g/dL (3.4-5.0); BILIRUBIN,TOTAL 0.5 mg/dL (0.2-1.0); CALCIUM, SERUM 8.3 mg/dL (8.5-10.1); CREATININE 1.1 mg/dL (0.6-1.3); MAGNESIUM 1.8 mg/dL (1.8-2.4); PHOSPHORUS 3.8 mg/dL (2.5-4.9); POTASSIUM 4.9 mmol/L (3.5-5.1); TOTAL PROTEIN, SERUM 6.1 g/dL (6.4-8.2)
[2022-09-21] MEDS ORDERED: KETAMINE HCL (500MG/10ML) 50 MG/ML VIAL ONE (08:08)
[2022-09-21] MEDS ORDERED: ROCURONIUM BROMIDE 50 MG/5 ML ONE (08:08)
[2022-09-21] MEDS ORDERED: MIDAZOLAM HCL 2 MG/2ML VIAL ONE (08:08)
[2022-09-21] MEDS ORDERED: FENTANYL PF 100MCG/2ML AMPUL ONE (08:08)
[2022-09-21] MEDS ORDERED: Magnesium 1GM/D5W 100ML PREMIX PIGGYBACK IV STA (08:23)
[2022-09-21] MEDS: CLOTRIMAZOLE 1% 15 GM TUBE TP SCH ×2 (09:00→18:41)
[2022-09-21] MEDS: GABAPENTIN 300 MG CAPSULE PO SCH ×2 (09:00→18:37)
[2022-09-21] MEDS: METFORMIN XR 500 MG TAB.SR.24H PO SCH ×2 (09:00→18:37)
[2022-09-21] MEDS: Z GUARD REMEDY 4 OZ OINT TP SCH (09:00)
[2022-09-21] MEDS ORDERED: Magnesium 1GM/D5W 100ML PREMIX 100 ML IV SCH (09:30)
--- NOTE | 2022-09-21 11:00 | NUR ---
ms rn received from or,awake,alert,oriented x4,not in nay form of distress, blood transfusion ongoing at [facility], flowing well, s/p right foot transmetatarsal amputation, dressing clean and dry, denies pain at this time, repositioned for comfort,on room air at this time, saturating well, will monitor patient.
[2022-09-21 12:00] VITALS: BP 150/74
--- NOTE | 2022-09-21 15:00 | NUR ---
ms rn patient is well awake, due meds given,tolerated well. dressing has some blood streak, assessed area,not an actively bleeding and expected for post op amputation, dr. ramos awake w/ order to reinforce dressing if necessary.
[2022-09-21] MEDS: CHOLECALCIFEROL 1,000 UNIT TABLET (VIT D3) PO SCH (15:41)
[2022-09-21] MEDS: CARVEDILOL 12.5 MG TABLET PO SCH (15:42)
[2022-09-21] MEDS: predniSONE 20 MG TABLET PO SCH (15:42)
[2022-09-21] MEDS: ASPIRIN EC 81 MG TABLET.DR PO SCH (15:43)
[2022-09-21] MEDS: MULTIVIT W/MINERALS 1 TAB TABLET PO SCH (15:43)
[2022-09-21 15:57] VITALS: BP 137/68
[2022-09-21] MEDS: VANCOMYCIN 1.25 GM in IV D5W 250 ML IV SCH (16:11)
[2022-09-21 17:32] LABS: BASOPHILS % (AUTO) 0.1 % (0.0-2.0); EOSINOPHILS % (AUTO) 2.1 % (0.0-6.0); HEMATOCRIT 24 % (39-51); HEMOGLOBIN 7.5 g/dL (13.5-17.5); LYMPHOCYTES % (AUTO) 19.1 % (20.0-44.0); MEAN CORPUSCULAR HGB CONC 32 g/dl (31.0-36.0); MEAN CORPUSCULAR VOLUME 79 fL (80-96); MONOCYTES # (AUTO) 0.8 K/uL (0.1-1.30); MONOCYTES % (AUTO) 7.2 % (2.0-12.0); NEUTROPHILS # (AUTO) 7.5 K/uL (1.8-8.9); NEUTROPHILS % (AUTO) 71.5 % (43.0-81.0); PLATELET COUNT (AUTO) 164 K/uL (150-450); RED BLOOD CELL COUNT(AUTO) 2.98 MIL/uL (4.5-6.0); WHITE BLOOD COUNT (AUTO) 10.5 K/uL (4.3-11.0)
--- NOTE | 2022-09-21 18:29 | NUR ---
ms rn on bed, no distress noted, all needs attended.
[2022-09-21] MEDS: ATORVASTATIN 40 MG TABLET PO SCH (18:37)
[2022-09-21] MEDS ORDERED: Magnesium 1GM/D5W 100ML PREMIX PIGGYBACK IV ONE (19:30)
--- NOTE | 2022-09-21 19:30 | NUR ---
FILLING HAULER WEAVING OPENING NOTE RECEIVED PATIENT AWAKE AND RESTING COMFORTABLY IN BED. PATIENT IS A/O X 4, PATIENT IS IN RA, NO S & SX OF RESPIRATORY DISTRESS NOTED @ THIS TIME. PT PICC LINE PRESENT ON RIGHT UPPER ARM RUNNING NS #75MLS/HR, PATENT, INTACT AND FLUSHES WELL. TELE MONITOR IN PLACE , HR IS SR75. S/P OF THE LEFT FOOT METATARSAL AMPUTATION. DRESSING NOTED WITH BLEEDING . WITH LIDIA TRIED TO CHECK THE BLEEDING SIZE. PER PREVIOUS SHIFT NURSE AWARE OF THET AND WE JUST HAVE TO REINFORCE THE DRESSING. ALL SAFETY MEASURES IS IN PLACE. BED IN LOWEST AND LOCKED POSITION. SIDE RAILS UP X 2. BEDSIDE TABLE AND CALL LIGHT IS EASY REACH. BED ALARM IS ON. WILL CONTINUE TO MONITOR CLOSELY.
[2022-09-21 20:00] VITALS: BP 152/64
[2022-09-21] MEDS: TRAMADOL HCL 50 MG TABLET PO PRN (20:32)
--- NOTE | 2022-09-21 20:32 | NUR ---
RN NOTES PRN TRAMADOL GIVEN FOR PAIN 8/10 OF THE LEFT FOOT PER PATIENT REQUEST AT 2031 . WILL ASSESS IN 1 HOUR.
[2022-09-21] MEDS: *INSULIN REGULAR(HUMULIN R)HUM 100 UNIT/ML VIAL SQ PRN (21:52)
--- NOTE | 2022-09-21 22:00 | NUR ---
RN NOTES BLOOD SUGAR CHECK NOTED 196 AT 2200. 3 UNITS INSULIN GIVEN ORDER.
[2022-09-22] VITALS: BP 136/71
--- NOTE | 2022-09-22 02:19 | NUR ---
RN NOTE RECEIVED NEW ORDER OF PERCOCET 5/325 1 TAB PO PRN Q 6 HOURS FOR PAIN 8-10. FROM DR FLORES.
[2022-09-22] MEDS ORDERED: oxyCODONE/APAP (5/325 MG) 1 UDTAB TABLET PO PRN (02:30)
[2022-09-22] MEDS: ACETAMINOPHEN 325 MG TABLET PO PRN (02:35)
[2022-09-22] MEDS: VANCOMYCIN 1 GM in IV D5W 250 ML IV SCH ×2 (03:40→16:16)
[2022-09-22] MEDS: IV NS 0.9% 1,000 ML IV PRN ×2 (03:48→18:29)
[2022-09-22 04:00] VITALS: BP 126/60
[2022-09-22] MEDS: VANCOMYCIN HCL 125 MG/2.5 ML ORAL.SUSP PO SCH ×3 (05:03→17:21)
[2022-09-22] MEDS: TRAMADOL HCL 50 MG TABLET PO PRN ×3 (05:38→16:24)
[2022-09-22] MEDS: BLOOD SUGAR DIAGNOSTIC 1 EACH STRIP VI SCH ×4 (05:43→22:28)
[2022-09-22] MEDS: INSULIN REGULAR, HUMAN 100 UNIT/ML 3 ML VIAL SQ PRN ×2 (06:04→18:05)
--- NOTE | 2022-09-22 06:57 | NUR ---
RASCHEL KNITTING MACHINE OPERATOR CLOSING NOTE PATIENT AWAKE AND RESTING COMFORTABLY IN BED. PATIENT IS A/O X 4, PATIENT IS IN RA, NO S & SX OF RESPIRATORY DISTRESS NOTED @ THIS TIME. PT PICC LINE PRESENT ON RIGHT UPPER ARM RUNNING NS AT 75MLS/HR, PATENT, INTACT AND FLUSHES WELL. TELE MONITOR IN PLACE , HR IS SR 70. S/P OF THE LEFT FOOT METATARSAL AMPUTATION. DRESSING NOTED WITH BLEEDING . WITH LIDIA TRIED TO CHECK THE BLEEDING SIZE.NO BLEEDING NOTED DURING SHIFT. PER PREVIOUS SHIFT NURSE AWARE OF THAT AND WE JUST HAVE TO REINFORCE THE DRESSING. I REINFORCED THE DRESSING.ALL DUE MEDS GIVEN ORDER. ALL SAFETY MEASURES IS IN PLACE. BED IN LOWEST AND LOCKED POSITION. SIDE RAILS UP X 2. BEDSIDE TABLE AND CALL LIGHT IS EASY REACH. BED ALARM IS ON. WILL ENDORSE FOR GABRIELA.
--- NOTE | 2022-09-22 07:30 | NUR ---
REFRACTORY SPECIALIST OPENING NOTE RECEIVED PATIENT AWAKE AND RESTING COMFORTABLY IN BED. PATIENT IS A/O X 4, PATIENT IS IN RA, TOLERATING WELL. NO S & SX OF RESPIRATORY DISTRESS NOTED AT THIS TIME. PT PICC LINE PRESENT ON RIGHT UPPER ARM RUNNING NS AT 75MLS/HR, PATENT, INTACT AND FLUSHES WELL. TELE MONITOR IN PLACE, SR 69. S/P OF THE LEFT FOOT METATARSAL AMPUTATION WITH DRESSING REINFORCED. WILL ADMINISTER ALL DUE MEDS ORDERED. ALL SAFETY MEASURES IS IN PLACE. BED IN LOWEST AND LOCKED POSITION. SIDE RAILS UP X 2. BEDSIDE TABLE AND CALL LIGHT IS EASY REACH. BED ALARM IS ON. WILL CONTINUE TO MONITOR.
[2022-09-22 07:39] LABS: CALCIUM, SERUM 7.7 mg/dL (8.5-10.1); CREATININE 1.1 mg/dL (0.6-1.3); POTASSIUM 4.9 mmol/L (3.5-5.1)
[2022-09-22 08:00] VITALS: BP 127/56
[2022-09-22] MEDS: ASPIRIN EC 81 MG TABLET.DR PO SCH (09:06)
[2022-09-22] MEDS: CHOLECALCIFEROL 1,000 UNIT TABLET (VIT D3) PO SCH (09:06)
[2022-09-22] MEDS: predniSONE 20 MG TABLET PO SCH (09:06)
[2022-09-22] MEDS: GABAPENTIN 300 MG CAPSULE PO SCH ×2 (09:06→17:21)
[2022-09-22] MEDS: MULTIVIT W/MINERALS 1 TAB TABLET PO SCH (09:06)
[2022-09-22] MEDS: METFORMIN XR 500 MG TAB.SR.24H PO SCH ×2 (09:06→17:21)
[2022-09-22] MEDS: CARVEDILOL 12.5 MG TABLET PO SCH (09:07)
[2022-09-22] MEDS: Z GUARD REMEDY 4 OZ OINT TP SCH (09:17)
[2022-09-22] MEDS: CLOTRIMAZOLE 1% 15 GM TUBE TP SCH ×2 (09:54→17:22)
[2022-09-22 12:00] VITALS: BP 128/64
[2022-09-22] MEDS ORDERED: HOME MED MISCELLANEOUS SQ SCH ×2 (15:58→15:59)
[2022-09-22 16:00] VITALS: BP 118/56
[2022-09-22] MEDS: ATORVASTATIN 40 MG TABLET PO SCH (17:21)
--- NOTE | 2022-09-22 18:13 | NUR ---
AREA SECRETARY CLOSING NOTE PATIENT AWAKE AND RESTING COMFORTABLY IN BED. PATIENT IS A/O X 4, PATIENT IS IN RA, TOLERATING WELL. NO S & SX OF RESPIRATORY DISTRESS NOTED AT THIS TIME. PT PICC LINE PRESENT ON RIGHT UPPER ARM RUNNING NS AT 75MLS/HR, PATENT, INTACT AND FLUSHES WELL. TELE MONITOR IN PLACE, SR 80. S/P OF THE LEFT FOOT METATARSAL AMPUTATION WITH DRESSING CHANGED BY DR. SUAREZ. ALL DUE MEDS GIVEN ORDERED. ALL SAFETY MEASURES IS IN PLACE. BED IN LOWEST AND LOCKED POSITION. SIDE RAILS UP X 2. BEDSIDE TABLE AND CALL LIGHT IS EASY REACH. BED ALARM IS ON. WILL CONTINUE TO MONITOR.
--- NOTE | 2022-09-22 19:55 | NUR ---
DATABASE REPORTING CONSULTANT OPENING NOTE RECEIVED PATIENT AWAKE AND RESTING COMFORTABLY IN BED. PATIENT IS A/O X 4, ABLE TO MAKE NEEDS KNOWN. PATIENT IS ON RA, TOLERATING WELL. NO RESPIRATORY DISTRESS NOTED AT THIS TIME. PICC LINE PRESENT TO RIGHT UPPER ARM RUNNING NS AT 75ML/HR, IV PATENT, INTACT, AND FLUSHING WELL. TELE MONITOR IN PLACE, SR, WITH HR 78. S/P LEFT FOOT METATARSAL AMPUTATION WITH DRESSING CLEAN, AND DRY. ALL SAFETY MEASURES IN PLACE. BED IN LOWEST AND LOCKED POSITION. SIDE RAILS UP X 2. BEDSIDE TABLE AND CALL LIGHT WITHIN EASY REACH. BED ALARM ON. WILL CONTINUE TO MONITOR.
[2022-09-22 20:00] VITALS: BP 145/65
[2022-09-22] MEDS: *INSULIN REGULAR(HUMULIN R)HUM 100 UNIT/ML VIAL SQ PRN (22:31)
[2022-09-23] VITALS (15 sets, daily range): BP systolic 107–139; BP diastolic 59–77
[2022-09-23] MEDS: VANCOMYCIN HCL 125 MG/2.5 ML ORAL.SUSP PO SCH ×4 (00:18→17:11)
[2022-09-23] MEDS: TRAMADOL HCL 50 MG TABLET PO PRN ×2 (00:48→19:59)
--- NOTE | 2022-09-23 01:45 | NUR ---
WELDING MACHINE OPERATOR HELPER ARC NOTE PT REPORTS PAIN TO LEFT LOWER EXTREMITY. PERCOCET REMOVED FROM PIXIES. BUT PT DECLINES PERCOCET. PT STATES THAT HE PREFERS TRAMADOL. PERCOCET RETURNED TO PIXIES. TRAMADOL ADMINISTERED TO PT.
[2022-09-23] MEDS: VANCOMYCIN 1 GM in IV D5W 250 ML IV SCH ×2 (04:38→15:46)
[2022-09-23 06:32] LABS: BASOPHILS % (AUTO) 0.2 % (0.0-2.0); EOSINOPHILS % (AUTO) 1.1 % (0.0-6.0); HEMATOCRIT 21 % (39-51); LYMPHOCYTES # (AUTO) 2.7 K/uL (0.8-4.8); LYMPHOCYTES % (AUTO) 21.6 % (20.0-44.0); MEAN CORPUSCULAR HGB CONC 32 g/dl (31.0-36.0); MEAN CORPUSCULAR VOLUME 78 fL (80-96); MONOCYTES # (AUTO) 1.5 K/uL (0.1-1.30); MONOCYTES % (AUTO) 12.2 % (2.0-12.0); NEUTROPHILS # (AUTO) 8.1 K/uL (1.8-8.9); NEUTROPHILS % (AUTO) 64.9 % (43.0-81.0); PLATELET COUNT (AUTO) 140 K/uL (150-450); WHITE BLOOD COUNT (AUTO) 12.5 K/uL (4.3-11.0)
[2022-09-23 06:44] LABS: CALCIUM, SERUM 7.5 mg/dL (8.5-10.1); CARBON DIOXIDE 22 mmol/L (21-32); CHLORIDE 103 mmol/L (98-107); CREATININE 0.9 mg/dL (0.6-1.3); GLUCOSE 112 mg/dL (74-106); MAGNESIUM 1.9 mg/dL (1.8-2.4); PHOSPHORUS 2.8 mg/dL (2.5-4.9); POTASSIUM 4.5 mmol/L (3.5-5.1); SODIUM SERUM 133 mmol/L (136-145); UREA NITROGEN, BLOOD 13 mg/dL (7-18)
[2022-09-23 06:45] LABS: HEMOGLOBIN 6.6 g/dL (13.5-17.5)
--- NOTE | 2022-09-23 06:45 | NUR ---
VETERINARY TOXICOLOGIST CLOSING NOTE LEFT PATIENT AWAKE IN BED. PATIENT IS A/O X 4, PATIENT IS IN RA, TOLERATING WELL. NO S & SX OF RESPIRATORY DISTRESS NOTED AT THIS TIME. PT PICC LINE PRESENT ON RIGHT UPPER ARM RUNNING NS AT 75MLS/HR, PATENT, INTACT AND FLUSHES WELL. TELE MONITOR IN PLACE. S/P OF THE LEFT FOOT METATARSAL AMPUTATION. LAB CALLED REGARDING CRITICAL LAB RESULTS: PT'S H/H: 6.6/21. ALL SAFETY MEASURES IS IN PLACE. BED IN LOWEST AND LOCKED POSITION. SIDE RAILS UP X 2. BEDSIDE TABLE AND CALL LIGHT IS EASY REACH. BED ALARM IS ON. WILL ENDORSE PT TO AM SHIFT NURSE FOR GABRIELA.
--- NOTE | 2022-09-23 07:30 | NUR ---
MICROCOMPUTER SUPPORT SPECIALIST OPENING NOTE RECEIVED PATIENT ASLEEP AND RESTING COMFORTABLY IN BED. PATIENT IS A/O X 4, PATIENT IS IN RA, TOLERATING WELL. NO S & SX OF RESPIRATORY DISTRESS NOTED AT THIS TIME. PT PICC LINE PRESENT ON RIGHT UPPER ARM RUNNING NS AT 75MLS/HR, PATENT, INTACT AND FLUSHES WELL. TELE MONITOR IN PLACE, SR 70. S/P OF THE LEFT FOOT METATARSAL AMPUTATION WITH DRESSING REINFORCED. WILL ADMINISTER ALL DUE MEDS ORDERED. ALL SAFETY MEASURES IS IN PLACE. BED IN LOWEST AND LOCKED POSITION. SIDE RAILS UP X 2. BEDSIDE TABLE AND CALL LIGHT IS EASY REACH. BED ALARM IS ON. WILL CONTINUE TO MONITOR.
[2022-09-23] MEDS: BLOOD SUGAR DIAGNOSTIC 1 EACH STRIP VI SCH ×4 (07:48→22:21)
[2022-09-23] MEDS: INSULIN REGULAR, HUMAN 100 UNIT/ML 3 ML VIAL SQ PRN ×2 (07:49→17:17)
[2022-09-23] MEDS: MULTIVIT W/MINERALS 1 TAB TABLET PO SCH (08:58)
[2022-09-23] MEDS: predniSONE 20 MG TABLET PO SCH (08:58)
[2022-09-23] MEDS: CHOLECALCIFEROL 1,000 UNIT TABLET (VIT D3) PO SCH (08:58)
[2022-09-23] MEDS: GABAPENTIN 300 MG CAPSULE PO SCH ×2 (08:58→16:03)
[2022-09-23] MEDS: METFORMIN XR 500 MG TAB.SR.24H PO SCH ×2 (08:58→16:03)
[2022-09-23] MEDS: CARVEDILOL 12.5 MG TABLET PO SCH (08:58)
[2022-09-23] MEDS: ASPIRIN EC 81 MG TABLET.DR PO SCH (09:32)
[2022-09-23] MEDS: Z GUARD REMEDY 4 OZ OINT TP SCH (09:32)
[2022-09-23] MEDS: CLOTRIMAZOLE 1% 15 GM TUBE TP SCH ×2 (09:33→16:06)
--- NOTE | 2022-09-23 11:30 | NUR ---
RN NTOES PT HGB LEVEL 6.6. RECEIVED ORDER FOR [address] SUNG. PRE VITALS TAKEN AND WNL. OBTAINED BLOOD FROM BLOOD BANK. CONSENTS AND CROSSMATCHING VERIFIED. STARTED BLOOD TRANSFUSION AT 1130 WITH 2 RN VERIFICATION. NO DISTRESS NOTED. WILL CONTINUE TO MONITOR.
[2022-09-23 12:49] LABS: BASOPHILS % (MANUAL) 0 % (0.0-2.0); EOSINOPHILS % (MANUAL) 3 % (0-4); LYMPHOCYTES % (MANUAL) 19 % (16-48); MONOCYTES % (MANUAL) 10 % (0-11.0); NEUTROPHILS % (MANUAL) 68 (42-76)
[2022-09-23] MEDS: ATORVASTATIN 40 MG TABLET PO SCH (17:11)
--- NOTE | 2022-09-23 18:04 | NUR ---
RN NOTES STARTED 2ND UNIT OF BLOOD TRANSFUSION OF PRBC AT 1802 FOR HGB 6.6. CONSENTS AND ORDER VERIFIED. PRE VITALS CHECKED AND WNL. OBTAINED BLOOD FROM BLOOD BANK. STARTED BLOOD TRANSFUSION WITH 2 RN VERIFICATION. WILL CONTINUE TO MONITOR FOR ANY REACTIONS.
--- NOTE | 2022-09-23 19:03 | NUR ---
PROJECTION WELDING MACHINE OPERATOR CLOSING NOTE PATIENT AWAKE AND RESTING COMFORTABLY IN BED. PATIENT IS A/O X 4, PATIENT IS IN RA, TOLERATING WELL. NO S & SX OF RESPIRATORY DISTRESS NOTED AT THIS TIME. PT PICC LINE PRESENT ON RIGHT UPPER ARM WITH BLOOD TRANSFUSING RUNNING PRBC AT 60MLS/HR. TELE MONITOR IN PLACE, SR 80. S/P OF THE LEFT FOOT METATARSAL AMPUTATION WITH DRESSING CHANGED BY DR. SUAREZ. ALL DUE MEDS GIVEN ORDERED. READY FOR DISCAHRGE ONCE BLOOD TRANSFUSION AND BLOOD LEVELS ARE STABLE. ALL SAFETY MEASURES IS IN PLACE. BED IN LOWEST AND LOCKED POSITION. SIDE RAILS UP X 2. BEDSIDE TABLE AND CALL LIGHT IS EASY REACH. BED ALARM IS ON. WILL ENDORSE TO NEXT SHIFT
--- NOTE | 2022-09-23 20:33 | NUR ---
CORPORATE DEVELOPMENT MANAGER OPENING NOTES: RECEIVE PATIENT AWAKE IN BED, BED IN LOW POSITION, CALL LIGHTS WITHIN REACH, NO COMPLAIN OF PAIN AND DISCOMFORT AT THIS TIME, ON 2LPM VIA NASAL CANNULA SATURATING WELL, PATIENT IS A/O X4 ABLE TO MAKE NEEDS KNOWN, WITH ONGOING BLOOD TRANSFUSION, NO REACTION WAS OBSERVED, ON TELE MONITOR- SR-77, IV LINE AT [facility] PICC LINE WITH ONGOING 0.9NSS@75ML/HR, PATIENT KEPT CLEAN AND DRY ALL NEEDS MET WILL CONTINUE TO MONITOR.
--- NOTE | 2022-09-23 21:34 | NUR ---
RN NOTES: BLOOD TRANSFUSION DONE NO REACTION WAS OBSERVED, V/S ARE FOLLOWS: BP-124/77, HR-71, TEMP-97.9, O2 AT 97% ROOM AIR, RR-20, TO ORDER HGB AND HCT 30 MINUTES AFTER WILL CONTINUE TO MONITOR.
[2022-09-23] MEDS: *INSULIN REGULAR(HUMULIN R)HUM 100 UNIT/ML VIAL SQ PRN (22:21)
--- NOTE | 2022-09-23 22:21 | NUR ---
RN NOTES: BLOOD SUGAR-162/ 3 UNITS REGULAR INSULIN GIVEN PER SLIDING SCALE.
[2022-09-23 22:31] LABS: HEMOGLOBIN 8.1 g/dL (13.5-17.5)
[2022-09-24] MEDS: VANCOMYCIN HCL 125 MG/2.5 ML ORAL.SUSP PO SCH (00:09)
--- NOTE | 2022-09-24 01:25 | NUR ---
ADVERTISING JOB TITLES NOTES: [facility] CAME AT 01OO PATIENT WAS PREPARED, CLEANSE AND CHANGE HIS CLOTHES, V/S REMAIN STABLE, PERSONAL BELONGINGS TURNOVER, DOCUMENTS SIGNED, BILATERAL FOOT DRESSING INTACT, NO BLEEDING WAS OBSERVED, DISCHARGE PAPER WAS ENDORSE, PATIENT REMAINS STABLE V/S ARE WITHIN NORMAL REACH, SUSANNAH WAS MADE AWARE OF THE DISCHARGE, PATIENT S/P BLOOD TRANSFUSION OF 2PRBC, MOST RECENT LABS FOR HGB AND HCT AT 8.1 AND 2.6, PICC LINE WAS REMOVED, PATIENT REMAINS A/O X4 NO COMPLAIN OF PAIN AND DISCOMFORT KEPT CLEAN AND DRY ALL NEEDS MET OUT IN THE FLOOR AT 0115 ON STABLE CONDITION.
== END 2022-09-24 01:30 | disposition home health service (06) | DRG 617 ==
LOC: ER 10:22 → MED 12:59 → TELE 22:06
PROVIDERS: ADMIT Internal Medicine; ATTEND Internal Medicine
PROC: 0Y6N0ZD Detachment at Left Foot, Partial 4th Ray, Open Approach (ICD-10-PCS; principal; 2022-09-21)
PROC: 0Y6N0ZB Detachment at Left Foot, Partial 2nd Ray, Open Approach (ICD-10-PCS; principal; 2022-09-21)
PROC: 0Y6N0ZF Detachment at Left Foot, Partial 5th Ray, Open Approach (ICD-10-PCS; principal; 2022-09-21)
PROC: 0Y6N0Z9 Detachment at Left Foot, Partial 1st Ray, Open Approach (ICD-10-PCS; principal; 2022-09-21)
PROC: 0Y6N0ZC Detachment at Left Foot, Partial 3rd Ray, Open Approach (ICD-10-PCS; principal; 2022-09-21)
PROC: 30233N1 Transfusion of Nonautologous Red Blood Cells into Peripheral Vein, Percutaneous Approach (ICD-10-PCS; 2022-09-21)
DX: E11.69 Type 2 diabetes mellitus with other specified complication (principal); E46 Unspecified protein-calorie malnutrition; M86.172 Other acute osteomyelitis, left ankle and foot; N39.0 Urinary tract infection, site not specified; L97.525 Non-pressure chronic ulcer of other part of left foot with muscle involvement without evidence of necrosis; E11.621 Type 2 diabetes mellitus with foot ulcer; N17.0 Acute kidney failure with tubular necrosis; I10 Essential (primary) hypertension; E11.51 Type 2 diabetes mellitus with diabetic peripheral angiopathy without gangrene; E11.42 Type 2 diabetes mellitus with diabetic polyneuropathy; I25.10 Atherosclerotic heart disease of native coronary artery without angina pectoris; L89.619 Pressure ulcer of right heel, unspecified stage; D63.8 Anemia in other chronic diseases classified elsewhere; E78.5 Hyperlipidemia, unspecified; E87.5 Hyperkalemia; E88.09 Other disorders of plasma-protein metabolism, not elsewhere classified; I27.20 Pulmonary hypertension, unspecified; I48.91 Unspecified atrial fibrillation; I70.0 Atherosclerosis of aorta; Z20.822 Contact with and (suspected) exposure to COVID-19; Z79.84 Long term (current) use of oral hypoglycemic drugs; Z79.899 Other long term (current) drug therapy; Z85.038 Personal history of other malignant neoplasm of large intestine; Z86.19 Personal history of other infectious and parasitic diseases; Z89.422 Acquired absence of other left toe(s); Z95.1 Presence of aortocoronary bypass graft; E11.622 Type 2 diabetes mellitus with other skin ulcer; E66.9 Obesity, unspecified
CPT/HCPCS: 36415; 71045-TC; 80048-TC; 80053-TC; 80076-TC; 80202-TC; 81001; 82962-TC; 83605-TC; 83735-TC; 84100-TC; 84132-TC; 84484-TC; 85025-TC; 85027-TC; 85730-TC; 86850-TC; 87040-TC; 87081-TC; 87086-TC; 93307-TC; A4223; A6209; A6253; A6403; C9803; G0378; J0610; J1815; J1940; J2250; J2704; J3010; J3370; J3475; J3490; J7030; J7050; J7060; P9016

== ENCOUNTER 2022-09-27 08:23 | Day surgery (SDC) | payer MEDICARE, BC ==
[~2022-09-27 08:23] MED LIST changes: -ASPI-1420 PO; -BUME0.5T5 PO; +GLIM2TAB31 PO; -LEVO250T59 PO; +LINE600T12 PO; -LISI40TA13 PO; -METF-881 PO; -MULT-447 PO; -VANC125C11 PO
[2022-09-27] MEDS ORDERED: LIDOCAINE HCL/MPF 1% 30 ML VIAL IJ ONE (09:09)
[2022-09-27] MEDS ORDERED: BUPIVACAINE 0.5 % PF 150 MG/30 ML VIAL ONE (09:09)
[2022-09-27 09:10] VITALS: BP 137/79
--- NOTE | 2022-09-27 09:10 | NUR ---
RN NOTE PATIENT CAME TO UNIT VIA WHEELCHAIR WITH NO SIGN OF DISTRESS. ORIENTED THE PATIENT TO ROOM SET UP AND EDUCATED PATIENT ON THE USE OF CALL LIGHT. VITAL SIGNS TAKEN STABLE AND RECORDED. SKIN ASSESSMENT WAS NOT DONE AND NOT TAKEN BECAUSE PT WAS TAKEN TO OR RIGHT AFTER HE GOT TO THE UNIT.. ALL BELONGINGS CHECKED AND BELONGINGS LIST SIGNED. MRSA SPECIMEN COLLECTED AND ORDER PLACED. CONSENT OBTAINED AND SIGNED BY THE PATIENT. PATIENT A/O X4. NO SIGNS OF PAIN NOTED AT THIS TIME. ON ROOM AIR, BREATHING EVENLY AND UNLABORED, NO DISTRESS OR SOB NOTED. NO IV ACCESS AT THE MOMENT, OR NURSE SAID SHE WILL INSERT TO HIM. FALL SAFETY MEASURE IN PLACE, BED ALARM ON, BED IN LOW LOCKED POSITION, CALL LIGHT AND TABLE WITHIN REACH, SIDE RAILS UP X2. WILL CONTINUE TO MONITOR.
--- NOTE | 2022-09-27 09:40 | NUR ---
RN NOTE PATIENT IS NOT IN ROOM, PATIENT WAS TAKEN BY OR NURSE, PATIENT WENT FOR LEFT FOOT WOUND DEBRIDEMENT, WOUND VAC APPLICATION. CHARGE NURSE AWARE.
[2022-09-27 11:08] LABS: BASOPHILS % (AUTO) 0.2 % (0.0-2.0); EOSINOPHILS % (AUTO) 1.5 % (0.0-6.0); HEMATOCRIT 27 % (39-51); HEMOGLOBIN 8.7 g/dL (13.5-17.5); LYMPHOCYTES # (AUTO) 2.2 K/uL (0.8-4.8); LYMPHOCYTES % (AUTO) 21.2 % (20.0-44.0); MEAN CORPUSCULAR HGB CONC 33 g/dl (31.0-36.0); MEAN CORPUSCULAR VOLUME 82 fL (80-96); MONOCYTES # (AUTO) 0.8 K/uL (0.1-1.30); MONOCYTES % (AUTO) 7.7 % (2.0-12.0); NEUTROPHILS # (AUTO) 7.3 K/uL (1.8-8.9); NEUTROPHILS % (AUTO) 69.4 % (43.0-81.0); PLATELET COUNT (AUTO) 264 K/uL (150-450); RED BLOOD CELL COUNT(AUTO) 3.24 MIL/uL (4.5-6.0); WHITE BLOOD COUNT (AUTO) 10.4 K/uL (4.3-11.0)
[2022-09-27] MEDS ORDERED: hydrALAZINE HCL IV 20 MG VIAL ONE (11:20)
[2022-09-27] MEDS ORDERED: FENTANYL PF 100MCG/2ML AMPUL ONE (11:28)
--- NOTE | 2022-09-27 12:05 | NUR ---
rn note pt came back from surgery. tolerated procedure well. vital signs taken and stable. surgery site clean dry and intact with wound wound vac. ok for weight bearing for transfer. pt ok to dc home when stable per protocol. diet ordered, pt eval, patient is in room resting comfortably, will continue to monitor. charge nurse aware.
[2022-09-27 16:40] VITALS: BP 155/81
--- NOTE | 2022-09-27 16:45 | NUR ---
CLASSIFIER TENDER NOTE PATIENT DISCHARGE IN STABLE MEDICAL CONDITION, A/O X4, VITAL SIGNS STABLE TAKEN AND RECORDED. IV ACCESS WAS REMOVED, NAME ACCESS REMOVED,SKIN ASSESSMENT DONE, SURGICAL DRESSING CLEAN DRY AND INTACT, PT HAS DRESSING ON RIGHT FOOT AND REFUSED TO REMOVE DRESSING AND TAKE PICTURE. ALL BELONGINGS CHECKED AND BELONGING LIST SIGNED.HEALTH TEACHING AND DISCHARGE INSTRUCTIONS GIVEN TO PT AND , VERBALIZED UNDERSTANDING. INSTRUCTED PT TO F/U WITH PCP AND TO MAKE APPT WITH A VASCULAR DOCTOR. DISCUSSED PRESCRIPTION WITH PT AND , PER DOCTOR TO CONTINUE PREVIOUS MEDICATION. LEFT THE UNIT WITH NO SIGN OF DISTRESS VIA WHEELCHAIR. ACCOMPANIED BY RN AND TACTICAL DEBRIEFER TO THE LOBBY. PT WENT HOME WITH , CHARGE NURSE AWARE OF DISCHARGE.
== END 2022-09-27 18:00 | disposition home or self-care (01) ==
LOC: DS 08:23 → MED 09:02 → UNDOADMIN 09:02 → UNDODISIN 17:00 → DS 18:00
PROVIDERS: ATTEND Podiatrist Foot & Ankle Surgery
DX: M86.8X7 Other osteomyelitis, ankle and foot (principal); I25.10 Atherosclerotic heart disease of native coronary artery without angina pectoris; I10 Essential (primary) hypertension; Z95.1 Presence of aortocoronary bypass graft; Z89.432 Acquired absence of left foot; Z98.890 Other specified postprocedural states; Z79.899 Other long term (current) drug therapy; T87.44 Infection of amputation stump, left lower extremity; Y83.9 Surgical procedure, unspecified as the cause of abnormal reaction of the patient, or of later complication, without mention of misadventure at the time of the procedure
CPT/HCPCS: 15738; 97162; 97530; 97605; 85025; 36415; 87081; 86850; J3490 ×3; J2704; J3010; J0360; A6209; G0378

== ENCOUNTER 2022-10-02 09:46 | Outpatient (CLI) | payer MEDICARE, BC ==
[2022-10-02] MEDS ORDERED: LIDOCAINE 2% JEL 5 ML TUBE ONE (10:05)
== END 2022-10-02 23:59 | disposition home health service (06) ==
LOC: WOU 09:46
PROVIDERS: ATTEND Podiatrist Foot & Ankle Surgery
DX: E11.621 Type 2 diabetes mellitus with foot ulcer (principal); L97.524 Non-pressure chronic ulcer of other part of left foot with necrosis of bone; L97.418 Non-pressure chronic ulcer of right heel and midfoot with other specified severity; E11.622 Type 2 diabetes mellitus with other skin ulcer; L97.318 Non-pressure chronic ulcer of right ankle with other specified severity; E11.42 Type 2 diabetes mellitus with diabetic polyneuropathy; E11.51 Type 2 diabetes mellitus with diabetic peripheral angiopathy without gangrene; Z79.84 Long term (current) use of oral hypoglycemic drugs; D69.0 Allergic purpura; Z79.82 Long term (current) use of aspirin
CPT/HCPCS: 11043; 97606-TC

== ENCOUNTER 2022-10-09 09:57 | Outpatient (CLI) | payer MEDICARE, BC ==
[~2022-10-09 09:57] MED LIST changes: +DAKINS HALF STRENGTH (0.25%) 480 ML BOTTLE ONE
== END 2022-10-09 23:59 | disposition home health service (06) ==
LOC: WOU 09:57
PROVIDERS: ATTEND Podiatrist Foot & Ankle Surgery
DX: E11.621 Type 2 diabetes mellitus with foot ulcer (principal); L97.524 Non-pressure chronic ulcer of other part of left foot with necrosis of bone; L97.418 Non-pressure chronic ulcer of right heel and midfoot with other specified severity; E11.622 Type 2 diabetes mellitus with other skin ulcer; L97.318 Non-pressure chronic ulcer of right ankle with other specified severity; E11.42 Type 2 diabetes mellitus with diabetic polyneuropathy; E11.51 Type 2 diabetes mellitus with diabetic peripheral angiopathy without gangrene; D69.0 Allergic purpura; Z79.84 Long term (current) use of oral hypoglycemic drugs
CPT/HCPCS: 11044; 11047; A6402; A6197

== ENCOUNTER 2022-10-16 09:35 | Outpatient (CLI) | payer MEDICARE, BC ==
[~2022-10-16 09:35] MED LIST changes: -DAKINS HALF STRENGTH (0.25%) 480 ML BOTTLE ONE
[2022-10-16] MEDS ORDERED: LIDOCAINE 2% JEL 5 ML TUBE ONE (09:43)
== END 2022-10-16 23:59 | disposition home health service (06) ==
LOC: WOU 09:35
PROVIDERS: ATTEND Podiatrist Foot & Ankle Surgery
DX: E11.621 Type 2 diabetes mellitus with foot ulcer (principal); L97.524 Non-pressure chronic ulcer of other part of left foot with necrosis of bone; L97.512 Non-pressure chronic ulcer of other part of right foot with fat layer exposed; L97.318 Non-pressure chronic ulcer of right ankle with other specified severity; L97.418 Non-pressure chronic ulcer of right heel and midfoot with other specified severity; E11.42 Type 2 diabetes mellitus with diabetic polyneuropathy; E11.51 Type 2 diabetes mellitus with diabetic peripheral angiopathy without gangrene; Z79.84 Long term (current) use of oral hypoglycemic drugs
CPT/HCPCS: 11044; 11047

== ENCOUNTER 2022-11-13 10:37 | Inpatient (IN) | payer MEDICARE, BC ==
[~2022-11-13] VITALS: Ht 177.8 cm; Wt 83.9 kg
[2022-11-13] MEDS ORDERED: IV NS 0.9% 1,000 ML BAG IV ONE (11:00)
[2022-11-13 11:07] LABS: BASOPHILS % (AUTO) 0.2 % (0.0-2.0); EOSINOPHILS % (AUTO) 0.7 % (0.0-6.0); HEMATOCRIT 23 % (39-51); HEMOGLOBIN 7.3 g/dL (13.5-17.5); LYMPHOCYTES # (AUTO) 1.6 K/uL (0.8-4.8); LYMPHOCYTES % (AUTO) 14.3 % (20.0-44.0); MEAN CORPUSCULAR HGB CONC 32 g/dl (31.0-36.0); MEAN CORPUSCULAR VOLUME 76 fL (80-96); MONOCYTES # (AUTO) 1.4 K/uL (0.1-1.30); MONOCYTES % (AUTO) 12.2 % (2.0-12.0); NEUTROPHILS # (AUTO) 8.2 K/uL (1.8-8.9); NEUTROPHILS % (AUTO) 72.6 % (43.0-81.0); PLATELET COUNT (AUTO) 483 K/uL (150-450); RED BLOOD CELL COUNT(AUTO) 3.04 MIL/uL (4.5-6.0); WHITE BLOOD COUNT (AUTO) 11.3 K/uL (4.3-11.0)
[2022-11-13 11:29] LABS: ALANINE AMINOTRANSFERASE 17 U/L (12-78); ALBUMIN 2.5 g/dL (3.4-5.0); ALKALINE PHOSPHATASE 73 U/L (46-116); ASPARTATE AMINOTRANSFERASE 8 U/L (15-37); BILIRUBIN,DIRECT 0.2 mg/dL (0.0-0.2); BILIRUBIN,TOTAL 0.7 mg/dL (0.2-1.0); CALCIUM, SERUM 8.5 mg/dL (8.5-10.1); CARBON DIOXIDE 21 mmol/L (21-32); CHLORIDE 102 mmol/L (98-107); CREATININE 2.7 mg/dL (0.6-1.3); GLUCOSE 214 mg/dL (74-106); POTASSIUM 6.1 mmol/L (3.5-5.1); SODIUM SERUM 131 mmol/L (136-145); TOTAL PROTEIN, SERUM 6.3 g/dL (6.4-8.2); UREA NITROGEN, BLOOD 71 mg/dL (7-18)
[2022-11-13] MEDS ORDERED: ASPI-1169 PO (11:33)
[2022-11-13] MEDS ORDERED: POVI1MED TP (11:33)
[2022-11-13] MEDS ORDERED: HYDR-4209 PO (11:33)
[2022-11-13] MEDS ORDERED: TRAM50TA2 PO (11:33)
[2022-11-13] MEDS ORDERED: CYAN-51 PO (11:33)
[2022-11-13] MEDS ORDERED: ASCO500T21 PO (11:33)
[2022-11-13] MEDS ORDERED: SPIR25TA6 PO (11:33)
[2022-11-13] MEDS ORDERED: MULT-213 PO (11:33)
[2022-11-13] MEDS ORDERED: [UNRECOGNIZED DRUG - SUPPLY] TP (11:33)
[2022-11-13] MEDS ORDERED: CYCL5TAB PO (11:33)
[2022-11-13 16:00] VITALS: BP 94/53; TEMP 97.4; O2SAT 97
[2022-11-13] MEDS ORDERED: ONDANSETRON HCL/PF 4 MG/2 ML VIAL IVP PRN (16:30)
[2022-11-13] MEDS ORDERED: MAG HYDROX/AL HYDROX/SIMETH 30 ML UDC PO PRN (16:30)
[2022-11-13] MEDS ORDERED: *INSULIN REGULAR(HUMULIN R)HUM 100 UNIT/ML VIAL SQ PRN (16:30)
[2022-11-13] MEDS ORDERED: MAGNESIUM HYDROXIDE 30 ML UDC PO PRN (16:30)
[2022-11-13] MEDS ORDERED: Z GUARD REMEDY 4 OZ OINT TP PRN (16:30)
[2022-11-13] MEDS: IV NS 0.9% 1,000 ML IV PRN (16:51)
[2022-11-13] MEDS: BLOOD SUGAR DIAGNOSTIC 1 EACH STRIP VI SCH ×2 (17:42→22:26)
[2022-11-13] MEDS ORDERED: VANCOMYCIN HCL 125 MG/2.5 ML ORAL.SUSP PO SCH (18:00)
[2022-11-13] MEDS: VANCOMYCIN HCL 125 MG/2.5 ML ORAL.SUSP PO SCH (18:16)
[2022-11-13] MEDS: INSULIN REGULAR, HUMAN 100 UNIT/ML 3 ML VIAL SQ PRN (18:19)
[2022-11-13 20:00] VITALS: BP 107/53; TEMP 97.7; O2SAT 97
[2022-11-13] MEDS: DEXTROSE 50%-WATER 50 ML DISP.SYRIN IV PRN (22:30)
[2022-11-14] VITALS: BP 91/54; TEMP 97.7; O2SAT 97
[2022-11-14] MEDS: VANCOMYCIN HCL 125 MG/2.5 ML ORAL.SUSP PO SCH ×5 (00:18→23:40)
[2022-11-14 04:00] VITALS: BP 132/48; O2SAT 98
[2022-11-14] MEDS: IV NS 0.9% 1,000 ML IV PRN ×2 (05:15→16:34)
[2022-11-14] MEDS: BLOOD SUGAR DIAGNOSTIC 1 EACH STRIP VI SCH (06:05)
[2022-11-14] MEDS: INSULIN REGULAR, HUMAN 100 UNIT/ML 3 ML VIAL SQ PRN ×2 (06:07→22:17)
[2022-11-14] MEDS: DEXTROSE 50%-WATER 50 ML DISP.SYRIN IV PRN (06:37)
[2022-11-14 06:40] LABS: BASOPHILS % (AUTO) 0.3 % (0.0-2.0); EOSINOPHILS % (AUTO) 1.3 % (0.0-6.0); HEMATOCRIT 22 % (39-51); LYMPHOCYTES # (AUTO) 1.9 K/uL (0.8-4.8); LYMPHOCYTES % (AUTO) 17.8 % (20.0-44.0); MEAN CORPUSCULAR HGB CONC 31 g/dl (31.0-36.0); MEAN CORPUSCULAR VOLUME 76 fL (80-96); MONOCYTES # (AUTO) 1.4 K/uL (0.1-1.30); MONOCYTES % (AUTO) 12.8 % (2.0-12.0); NEUTROPHILS # (AUTO) 7.3 K/uL (1.8-8.9); NEUTROPHILS % (AUTO) 67.8 % (43.0-81.0); PLATELET COUNT (AUTO) 463 K/uL (150-450); RED BLOOD CELL COUNT(AUTO) 2.94 MIL/uL (4.5-6.0); WHITE BLOOD COUNT (AUTO) 10.8 K/uL (4.3-11.0)
[2022-11-14 07:08] LABS: CALCIUM, SERUM 8.5 mg/dL (8.5-10.1); CREATININE 1.2 mg/dL (0.6-1.3); MAGNESIUM 2.4 mg/dL (1.8-2.4); PHOSPHORUS 4.2 mg/dL (2.5-4.9); POTASSIUM 4.8 mmol/L (3.5-5.1)
[2022-11-14 07:30] VITALS: BP 131/69; TEMP 97.3; O2SAT 98
[2022-11-14] MEDS ORDERED: DEXTROSE 50%-WATER 50 ML DISP.SYRIN IV PRN (13:00)
[2022-11-14 16:00] VITALS: BP 103/55; TEMP 97.5; O2SAT 95
[2022-11-14] MEDS: BLOOD SUGAR DIAGNOSTIC 1 EACH STRIP IN SCH ×2 (17:46→22:17)
[2022-11-14] MEDS ORDERED: FIDAXOMICIN 200 MG TABLET PO SCH (18:30)
[2022-11-14 19:00] VITALS: BP 116/63; TEMP 98; O2SAT 96
[2022-11-14] MEDS: METRONIDAZOLE 500 MG TABLET PO SCH (21:00)
[2022-11-14] MEDS ORDERED: ZOLPIDEM TARTRATE 5 MG TABLET PO ONE (23:30)
[2022-11-14] MEDS: TRAZODONE 50 MG TABLET PO PRN (23:37)
[2022-11-15] VITALS (11 sets, daily range): BP systolic 116–139; BP diastolic 50–69; TEMP 97.3–99.2; O2SAT 96–98
[2022-11-15] MEDS: IV NS 0.9% 1,000 ML IV PRN (03:13)
[2022-11-15] MEDS: METRONIDAZOLE 500 MG TABLET PO SCH ×3 (05:01→21:00)
[2022-11-15 06:12] LABS: BASOPHILS % (AUTO) 0.2 % (0.0-2.0); EOSINOPHILS % (AUTO) 3.4 % (0.0-6.0); LYMPHOCYTES # (AUTO) 2.5 K/uL (0.8-4.8); MEAN CORPUSCULAR HGB CONC 31 g/dl (31.0-36.0); MEAN CORPUSCULAR VOLUME 77 fL (80-96); MONOCYTES % (AUTO) 10.7 % (2.0-12.0); NEUTROPHILS % (AUTO) 60.7 % (43.0-81.0); PLATELET COUNT (AUTO) 394 K/uL (150-450); RED BLOOD CELL COUNT(AUTO) 2.64 MIL/uL (4.5-6.0); WHITE BLOOD COUNT (AUTO) 9.8 K/uL (4.3-11.0)
[2022-11-15] MEDS: VANCOMYCIN HCL 125 MG/2.5 ML ORAL.SUSP PO SCH ×4 (06:19→23:51)
[2022-11-15 06:27] LABS: HEMATOCRIT 20 % (39-51)
[2022-11-15] MEDS: BLOOD SUGAR DIAGNOSTIC 1 EACH STRIP IN SCH ×4 (06:39→22:26)
[2022-11-15] MEDS: INSULIN REGULAR, HUMAN 100 UNIT/ML 3 ML VIAL SQ PRN ×4 (06:39→22:27)
[2022-11-15 06:40] LABS: CARBON DIOXIDE 18 mmol/L (21-32); CHLORIDE 107 mmol/L (98-107); CREATININE 0.9 mg/dL (0.6-1.3); GLUCOSE 83 mg/dL (74-106); MAGNESIUM 2.1 mg/dL (1.8-2.4); PHOSPHORUS 2.8 mg/dL (2.5-4.9); POTASSIUM 4.5 mmol/L (3.5-5.1); SODIUM SERUM 134 mmol/L (136-145); UREA NITROGEN, BLOOD 26 mg/dL (7-18)
[2022-11-15 06:55] LABS: HEMOGLOBIN 6.3 g/dL (13.5-17.5)
[2022-11-15] MEDS: DAKINS HALF STRENGTH (0.25%) 480 ML BOTTLE TOP SCH (10:31)
[2022-11-15 13:03] LABS: BASOPHILS % (MANUAL) 0 % (0.0-2.0); EOSINOPHILS % (MANUAL) 5 % (0-4); LYMPHOCYTES % (MANUAL) 22 % (16-48); MONOCYTES % (MANUAL) 12 % (0-11.0); NEUTROPHILS % (MANUAL) 61 (42-76)
[2022-11-15 14:16] LABS: IRON, SERUM 12 ug/dl (50-175); TOTAL IRON BINDING CAPACITY 86 ug/dl (250-450)
[2022-11-15] MEDS: CHOLESTYRAMINE/ASPARTAME 4 G/PKT PACKET PO SCH (21:08)
[2022-11-15] MEDS: VANCOMYCIN FOR RECTAL ENEMA 500 MG RC SCH (21:08)
[2022-11-16 04:00] VITALS: BP 102/66; TEMP 97; O2SAT 97
[2022-11-16] MEDS: VANCOMYCIN FOR RECTAL ENEMA 500 MG RC SCH ×3 (04:40→21:00)
[2022-11-16] MEDS: METRONIDAZOLE 500 MG TABLET PO SCH ×3 (04:40→21:31)
[2022-11-16] MEDS: VANCOMYCIN HCL 125 MG/2.5 ML ORAL.SUSP PO SCH ×3 (05:50→17:31)
[2022-11-16] MEDS: BLOOD SUGAR DIAGNOSTIC 1 EACH STRIP IN SCH ×4 (06:11→21:43)
[2022-11-16] MEDS: IV NS 0.9% 1,000 ML IV PRN (07:36)
[2022-11-16 07:56] LABS: CALCIUM, SERUM 8.1 mg/dL (8.5-10.1); CREATININE 0.9 mg/dL (0.6-1.3); MAGNESIUM 1.9 mg/dL (1.8-2.4); POTASSIUM 4.5 mmol/L (3.5-5.1)
[2022-11-16 08:05] LABS: BASOPHILS % (AUTO) 0.4 % (0.0-2.0); HEMATOCRIT 23 % (39-51); HEMOGLOBIN 7.3 g/dL (13.5-17.5); LYMPHOCYTES # (AUTO) 2.7 K/uL (0.8-4.8); LYMPHOCYTES % (AUTO) 21.4 % (20.0-44.0); MEAN CORPUSCULAR HGB CONC 31 g/dl (31.0-36.0); MEAN CORPUSCULAR VOLUME 78 fL (80-96); MONOCYTES # (AUTO) 1.1 K/uL (0.1-1.30); MONOCYTES % (AUTO) 8.8 % (2.0-12.0); NEUTROPHILS # (AUTO) 8.7 K/uL (1.8-8.9); NEUTROPHILS % (AUTO) 67.4 % (43.0-81.0); PLATELET COUNT (AUTO) 369 K/uL (150-450); WHITE BLOOD COUNT (AUTO) 12.8 K/uL (4.3-11.0)
[2022-11-16 08:13] VITALS: BP 132/75; TEMP 97.2; O2SAT 97
[2022-11-16] MEDS: CHOLESTYRAMINE/ASPARTAME 4 G/PKT PACKET PO SCH ×2 (09:03→21:31)
[2022-11-16] MEDS: DAKINS HALF STRENGTH (0.25%) 480 ML BOTTLE TOP SCH (09:04)
[2022-11-16 12:00] VITALS: BP 130/79; TEMP 97.4; O2SAT 97
[2022-11-16 16:00] VITALS: BP 122/71; TEMP 97.2; O2SAT 94
[2022-11-16 16:17] LABS: HEMOGLOBIN 7.2 g/dL (13.5-17.5)
[2022-11-16] MEDS: SOD FERRIC GLUC 125 MG in IV NS 0.9% 100 ML IV SCH (16:35)
[2022-11-16 16:41] LABS: THYROID STIMULATING HORMONE 1.813 uIU/mL (0.358-3.74)
[2022-11-16] MEDS: ASPIRIN 81 MG TAB.CHEW PO SCH (16:54)
[2022-11-16] MEDS: SPIRONOLACTONE 25 MG TABLET PO SCH (16:55)
[2022-11-16] MEDS: CYANOCOBALAMIN 500 MCG TABLET PO SCH (16:55)
[2022-11-16] MEDS: GABAPENTIN 300 MG CAPSULE PO SCH (17:19)
[2022-11-16 20:00] VITALS: BP 128/62; TEMP 98.4; O2SAT 98
[2022-11-16] MEDS: ATORVASTATIN 10 MG TABLET PO SCH (21:32)
[2022-11-16] MEDS: TRAZODONE 50 MG TABLET PO PRN (22:12)
[2022-11-16] MEDS: INSULIN REGULAR, HUMAN 100 UNIT/ML 3 ML VIAL SQ PRN (22:24)
[2022-11-17] VITALS: BP 121/61; TEMP 98.3; O2SAT 97
[2022-11-17] MEDS: VANCOMYCIN HCL 125 MG/2.5 ML ORAL.SUSP PO SCH ×4 (00:40→18:02)
[2022-11-17 04:00] VITALS: BP_SYST 126; BP_SYST 128; BP_DIAS 64; TEMP 98.1; O2SAT 97
[2022-11-17] MEDS: VANCOMYCIN FOR RECTAL ENEMA 500 MG RC SCH ×3 (05:00→21:00)
[2022-11-17] MEDS: METRONIDAZOLE 500 MG TABLET PO SCH ×3 (05:11→21:10)
[2022-11-17] MEDS: IV NS 0.9% 1,000 ML IV PRN ×2 (05:17→20:31)
[2022-11-17 06:05] LABS: OCCULT BLOOD STOOL NEGATIVE (NEGATIVE)
[2022-11-17 06:28] LABS: BASOPHILS % (AUTO) 0.3 % (0.0-2.0); EOSINOPHILS % (AUTO) 2.3 % (0.0-6.0); HEMATOCRIT 23 % (39-51); HEMOGLOBIN 7.2 g/dL (13.5-17.5); LYMPHOCYTES # (AUTO) 2.8 K/uL (0.8-4.8); LYMPHOCYTES % (AUTO) 19.9 % (20.0-44.0); MEAN CORPUSCULAR HGB CONC 31 g/dl (31.0-36.0); MEAN CORPUSCULAR VOLUME 78 fL (80-96); MONOCYTES % (AUTO) 7.1 % (2.0-12.0); NEUTROPHILS # (AUTO) 9.7 K/uL (1.8-8.9); NEUTROPHILS % (AUTO) 70.4 % (43.0-81.0); PLATELET COUNT (AUTO) 348 K/uL (150-450); RED BLOOD CELL COUNT(AUTO) 2.99 MIL/uL (4.5-6.0); WHITE BLOOD COUNT (AUTO) 13.8 K/uL (4.3-11.0)
[2022-11-17] MEDS: BLOOD SUGAR DIAGNOSTIC 1 EACH STRIP IN SCH ×4 (06:28→22:44)
[2022-11-17] MEDS: INSULIN REGULAR, HUMAN 100 UNIT/ML 3 ML VIAL SQ PRN (06:28)
[2022-11-17 07:00] VITALS: BP 136/74; TEMP 97.3; O2SAT 98
[2022-11-17 07:26] LABS: MAGNESIUM 1.9 mg/dL (1.8-2.4); PHOSPHORUS 2.9 mg/dL (2.5-4.9); POTASSIUM 4.3 mmol/L (3.5-5.1)
[2022-11-17 08:07] LABS: IMMUNOGLOBULIN A, SERUM 479 mg/dL (61-437); IMMUNOGLOBULIN G, SERUM 761 mg/dL (603-1613); IMMUNOGLOBULIN M, SERUM 56 mg/dL (15-143)
[2022-11-17] MEDS: GLIMEPIRIDE 1 MG TABLET PO SCH (08:52)
[2022-11-17] MEDS: SPIRONOLACTONE 25 MG TABLET PO SCH (08:53)
[2022-11-17] MEDS: CYANOCOBALAMIN 500 MCG TABLET PO SCH (08:53)
[2022-11-17] MEDS: ASCORBIC ACID 500 MG TABLET PO SCH (08:53)
[2022-11-17] MEDS: ASPIRIN 81 MG TAB.CHEW PO SCH (08:53)
[2022-11-17] MEDS: CHOLECALCIFEROL (VITAMIN D 3) 400 UNIT TABLET PO SCH (08:53)
[2022-11-17] MEDS: CHOLESTYRAMINE/ASPARTAME 4 G/PKT PACKET PO SCH ×2 (08:53→21:10)
[2022-11-17] MEDS: GABAPENTIN 300 MG CAPSULE PO SCH ×3 (08:53→16:46)
[2022-11-17] MEDS: MULTIVIT W/MINERALS 1 TAB TABLET PO SCH (08:53)
[2022-11-17] MEDS: CARVEDILOL 12.5 MG TABLET PO SCH ×3 (09:00→16:47)
[2022-11-17] MEDS: DAKINS HALF STRENGTH (0.25%) 480 ML BOTTLE TOP SCH (09:52)
[2022-11-17 13:07] LABS: *SPE A/G RATIO 0.8 (0.7-1.7); *SPE ALPHA-1-GLOBULIN 0.3 g/dL (0.0-0.4); *SPE ALPHA-2-GLOBULIN 0.9 g/dL (0.4-1.0); *SPE BETA GLOBULIN 0.7 g/dL (0.7-1.3); *SPE M-SPIKE Not Observed g/dL (Not Observed)
[2022-11-17] MEDS: SOD FERRIC GLUC 125 MG in IV NS 0.9% 100 ML IV SCH (13:49)
[2022-11-17 16:00] VITALS: BP 136/73; TEMP 97.8; O2SAT 100
[2022-11-17] MEDS: ACETAMINOPHEN 325 MG TABLET PO PRN (16:19)
[2022-11-17 20:00] VITALS: BP 104/52; TEMP 97.9; O2SAT 98
[2022-11-17] MEDS: ATORVASTATIN 10 MG TABLET PO SCH (22:47)
[2022-11-17] MEDS: CYCLOBENZAPRINE 10 MG TABLET PO PRN (22:47)
[2022-11-18] MEDS: VANCOMYCIN HCL 125 MG/2.5 ML ORAL.SUSP PO SCH ×5 (00:13→23:30)
[2022-11-18] MEDS: INSULIN REGULAR, HUMAN 100 UNIT/ML 3 ML VIAL SQ PRN ×4 (00:14→21:42)
[2022-11-18] MEDS: VANCOMYCIN FOR RECTAL ENEMA 500 MG RC SCH ×3 (05:00→21:00)
[2022-11-18] MEDS: METRONIDAZOLE 500 MG TABLET PO SCH ×3 (05:23→21:17)
[2022-11-18] MEDS: BLOOD SUGAR DIAGNOSTIC 1 EACH STRIP IN SCH ×4 (06:41→21:18)
[2022-11-18 07:36] LABS: BASOPHILS % (AUTO) 0.2 % (0.0-2.0); EOSINOPHILS % (AUTO) 1.2 % (0.0-6.0); HEMATOCRIT 25 % (39-51); HEMOGLOBIN 7.5 g/dL (13.5-17.5); LYMPHOCYTES # (AUTO) 1.7 K/uL (0.8-4.8); LYMPHOCYTES % (AUTO) 11.8 % (20.0-44.0); MEAN CORPUSCULAR HGB CONC 30 g/dl (31.0-36.0); MEAN CORPUSCULAR VOLUME 79 fL (80-96); MONOCYTES # (AUTO) 0.6 K/uL (0.1-1.30); MONOCYTES % (AUTO) 4.1 % (2.0-12.0); NEUTROPHILS # (AUTO) 12.2 K/uL (1.8-8.9); NEUTROPHILS % (AUTO) 82.7 % (43.0-81.0); PLATELET COUNT (AUTO) 299 K/uL (150-450); RED BLOOD CELL COUNT(AUTO) 3.12 MIL/uL (4.5-6.0); WHITE BLOOD COUNT (AUTO) 14.7 K/uL (4.3-11.0)
[2022-11-18 07:38] LABS: CALCIUM, SERUM 7.8 mg/dL (8.5-10.1); PHOSPHORUS 3.6 mg/dL (2.5-4.9); POTASSIUM 4.8 mmol/L (3.5-5.1)
[2022-11-18 08:00] VITALS: BP 146/67; TEMP 97.8; O2SAT 94
[2022-11-18] MEDS: CHOLESTYRAMINE/ASPARTAME 4 G/PKT PACKET PO SCH ×2 (09:16→21:16)
[2022-11-18] MEDS: ASCORBIC ACID 500 MG TABLET PO SCH (09:16)
[2022-11-18] MEDS: GABAPENTIN 300 MG CAPSULE PO SCH ×3 (09:16→17:28)
[2022-11-18] MEDS: ASPIRIN 81 MG TAB.CHEW PO SCH (09:16)
[2022-11-18] MEDS: CHOLECALCIFEROL (VITAMIN D 3) 400 UNIT TABLET PO SCH (09:16)
[2022-11-18] MEDS: GLIMEPIRIDE 1 MG TABLET PO SCH (09:16)
[2022-11-18] MEDS: SPIRONOLACTONE 25 MG TABLET PO SCH (09:16)
[2022-11-18] MEDS: MULTIVIT W/MINERALS 1 TAB TABLET PO SCH (09:16)
[2022-11-18] MEDS: IV NS 0.9% 1,000 ML IV PRN ×2 (09:17→21:33)
[2022-11-18] MEDS: GLUCERNA SHAKE 237 ML CAN PO SCH (09:17)
[2022-11-18] MEDS: CARVEDILOL 12.5 MG TABLET PO SCH ×2 (09:17→17:28)
[2022-11-18] MEDS: CYANOCOBALAMIN 500 MCG TABLET PO SCH (09:19)
[2022-11-18] MEDS: DAKINS HALF STRENGTH (0.25%) 480 ML BOTTLE TOP SCH (09:21)
[2022-11-18] MEDS: SOD FERRIC GLUC 125 MG in IV NS 0.9% 100 ML IV SCH (15:02)
[2022-11-18 16:00] VITALS: BP 142/72; TEMP 98; O2SAT 98
[2022-11-18 20:00] VITALS: BP_SYST 138; BP_DIAS 66; BP_DIAS 99; TEMP 98.4; O2SAT 97
[2022-11-18] MEDS: ATORVASTATIN 10 MG TABLET PO SCH (21:17)
[2022-11-19] MEDS: ACETAMINOPHEN 325 MG TABLET PO PRN ×2 (03:28→20:37)
[2022-11-19] MEDS: VANCOMYCIN FOR RECTAL ENEMA 500 MG RC SCH ×2 (04:57→12:38)
[2022-11-19] MEDS: METRONIDAZOLE 500 MG TABLET PO SCH ×3 (04:57→20:37)
[2022-11-19] MEDS: VANCOMYCIN HCL 125 MG/2.5 ML ORAL.SUSP PO SCH ×4 (05:13→23:15)
[2022-11-19] MEDS: BLOOD SUGAR DIAGNOSTIC 1 EACH STRIP IN SCH ×4 (05:14→21:32)
[2022-11-19] MEDS: INSULIN REGULAR, HUMAN 100 UNIT/ML 3 ML VIAL SQ PRN ×2 (05:23→17:24)
[2022-11-19 06:38] LABS: BASOPHILS % (AUTO) 0.2 % (0.0-2.0); EOSINOPHILS % (AUTO) 0.9 % (0.0-6.0); HEMATOCRIT 24 % (39-51); HEMOGLOBIN 7.4 g/dL (13.5-17.5); LYMPHOCYTES # (AUTO) 1.7 K/uL (0.8-4.8); LYMPHOCYTES % (AUTO) 11.5 % (20.0-44.0); MEAN CORPUSCULAR HGB CONC 31 g/dl (31.0-36.0); MEAN CORPUSCULAR VOLUME 79 fL (80-96); MONOCYTES # (AUTO) 0.5 K/uL (0.1-1.30); MONOCYTES % (AUTO) 3.6 % (2.0-12.0); NEUTROPHILS # (AUTO) 12.7 K/uL (1.8-8.9); NEUTROPHILS % (AUTO) 83.8 % (43.0-81.0); PLATELET COUNT (AUTO) 300 K/uL (150-450); RED BLOOD CELL COUNT(AUTO) 3.05 MIL/uL (4.5-6.0); WHITE BLOOD COUNT (AUTO) 15.2 K/uL (4.3-11.0)
[2022-11-19 07:04] LABS: CALCIUM, SERUM 7.9 mg/dL (8.5-10.1); CREATININE 1.1 mg/dL (0.6-1.3); MAGNESIUM 1.9 mg/dL (1.8-2.4); PHOSPHORUS 3.2 mg/dL (2.5-4.9); POTASSIUM 5.2 mmol/L (3.5-5.1)
[2022-11-19 08:51] VITALS: BP 124/66; TEMP 97.7; O2SAT 98
[2022-11-19] MEDS: SPIRONOLACTONE 25 MG TABLET PO SCH (09:44)
[2022-11-19] MEDS: ASCORBIC ACID 500 MG TABLET PO SCH (09:45)
[2022-11-19] MEDS: MULTIVIT W/MINERALS 1 TAB TABLET PO SCH (09:45)
[2022-11-19] MEDS: ASPIRIN 81 MG TAB.CHEW PO SCH (09:45)
[2022-11-19] MEDS: GABAPENTIN 300 MG CAPSULE PO SCH ×3 (09:46→17:21)
[2022-11-19] MEDS: CHOLECALCIFEROL (VITAMIN D 3) 400 UNIT TABLET PO SCH (09:46)
[2022-11-19] MEDS: GLIMEPIRIDE 1 MG TABLET PO SCH (09:47)
[2022-11-19] MEDS: CYANOCOBALAMIN 500 MCG TABLET PO SCH (09:47)
[2022-11-19] MEDS: DAKINS HALF STRENGTH (0.25%) 480 ML BOTTLE TOP SCH (09:48)
[2022-11-19] MEDS: CARVEDILOL 12.5 MG TABLET PO SCH ×2 (09:48→17:21)
[2022-11-19] MEDS: CHOLESTYRAMINE/ASPARTAME 4 G/PKT PACKET PO SCH ×2 (09:49→20:37)
[2022-11-19] MEDS: GLUCERNA SHAKE 237 ML CAN PO SCH (09:49)
[2022-11-19] MEDS: SOD FERRIC GLUC 125 MG in IV NS 0.9% 100 ML IV SCH (14:08)
[2022-11-19] MEDS ORDERED: SODIUM POLYSTYRENE SULF. PWD 15 GM UDC PO ONE (16:00)
[2022-11-19 16:59] VITALS: BP 125/61; TEMP 97.5; O2SAT 99
[2022-11-19 20:00] VITALS: BP 141/74; TEMP 98.1; O2SAT 99
[2022-11-19] MEDS: ATORVASTATIN 10 MG TABLET PO SCH (21:33)
[2022-11-19] MEDS: IV NS 0.9% 1,000 ML IV PRN (21:36)
[2022-11-20] MEDS: METRONIDAZOLE 500 MG TABLET PO SCH ×3 (04:30→20:41)
[2022-11-20] MEDS: VANCOMYCIN HCL 125 MG/2.5 ML ORAL.SUSP PO SCH ×3 (05:40→17:25)
[2022-11-20] MEDS: BLOOD SUGAR DIAGNOSTIC 1 EACH STRIP IN SCH ×4 (06:40→21:31)
[2022-11-20 08:00] VITALS: BP 146/82; TEMP 98.1; O2SAT 98
[2022-11-20] MEDS: DAKINS HALF STRENGTH (0.25%) 480 ML BOTTLE TOP SCH (09:11)
[2022-11-20] MEDS: MULTIVIT W/MINERALS 1 TAB TABLET PO SCH (09:19)
[2022-11-20] MEDS: ASPIRIN 81 MG TAB.CHEW PO SCH (09:19)
[2022-11-20] MEDS: GLIMEPIRIDE 1 MG TABLET PO SCH (09:20)
[2022-11-20] MEDS: CARVEDILOL 12.5 MG TABLET PO SCH ×2 (09:20→16:49)
[2022-11-20] MEDS: ASCORBIC ACID 500 MG TABLET PO SCH (09:20)
[2022-11-20] MEDS: CHOLESTYRAMINE/ASPARTAME 4 G/PKT PACKET PO SCH ×2 (09:20→20:41)
[2022-11-20] MEDS: CYANOCOBALAMIN 500 MCG TABLET PO SCH (09:21)
[2022-11-20] MEDS: CHOLECALCIFEROL (VITAMIN D 3) 400 UNIT TABLET PO SCH (09:21)
[2022-11-20] MEDS: GLUCERNA SHAKE 237 ML CAN PO SCH (09:21)
[2022-11-20] MEDS: GABAPENTIN 300 MG CAPSULE PO SCH ×3 (09:21→16:49)
[2022-11-20] MEDS: IV NS 0.9% 1,000 ML IV PRN ×2 (09:24→21:22)
[2022-11-20] MEDS: ACETAMINOPHEN 325 MG TABLET PO PRN (10:18)
[2022-11-20] MEDS: INSULIN REGULAR, HUMAN 100 UNIT/ML 3 ML VIAL SQ PRN ×3 (12:27→22:09)
[2022-11-20] MEDS: SOD FERRIC GLUC 125 MG in IV NS 0.9% 100 ML IV SCH (13:45)
[2022-11-20 15:08] LABS: BASOPHILS % (AUTO) 0.3 % (0.0-2.0); EOSINOPHILS % (AUTO) 1.6 % (0.0-6.0); HEMATOCRIT 26 % (39-51); HEMOGLOBIN 7.8 g/dL (13.5-17.5); LYMPHOCYTES # (AUTO) 2.1 K/uL (0.8-4.8); LYMPHOCYTES % (AUTO) 17.6 % (20.0-44.0); MEAN CORPUSCULAR HGB CONC 30 g/dl (31.0-36.0); MEAN CORPUSCULAR VOLUME 80 fL (80-96); MONOCYTES # (AUTO) 0.5 K/uL (0.1-1.30); MONOCYTES % (AUTO) 3.9 % (2.0-12.0); NEUTROPHILS # (AUTO) 9.2 K/uL (1.8-8.9); NEUTROPHILS % (AUTO) 76.6 % (43.0-81.0); PLATELET COUNT (AUTO) 284 K/uL (150-450)
[2022-11-20 16:00] VITALS: BP 132/68; TEMP 98; O2SAT 96
[2022-11-20 20:00] LABS: BAND % (MANUAL) 2 % (0.0-5.0); EOSINOPHILS % (MANUAL) 3 % (0-4); LYMPHOCYTES % (MANUAL) 20 % (16-48); NEUTROPHILS % (MANUAL) 75 (42-76)
[2022-11-20] MEDS: CYCLOBENZAPRINE 10 MG TABLET PO PRN (20:41)
[2022-11-20 20:52] VITALS: BP 125/67; TEMP 97.6; O2SAT 97
[2022-11-20] MEDS: ATORVASTATIN 10 MG TABLET PO SCH (21:31)
[2022-11-21] MEDS: VANCOMYCIN HCL 125 MG/2.5 ML ORAL.SUSP PO SCH ×4 (00:21→17:46)
[2022-11-21 05:51] LABS: BASOPHILS # (AUTO) 0.1 K/uL (0.0-0.2); BASOPHILS % (AUTO) 0.6 % (0.0-2.0); EOSINOPHILS % (AUTO) 2.2 % (0.0-6.0); HEMATOCRIT 25 % (39-51); HEMOGLOBIN 7.6 g/dL (13.5-17.5); LYMPHOCYTES # (AUTO) 2.8 K/uL (0.8-4.8); LYMPHOCYTES % (AUTO) 23.7 % (20.0-44.0); MEAN CORPUSCULAR HGB CONC 30 g/dl (31.0-36.0); MEAN CORPUSCULAR VOLUME 82 fL (80-96); MONOCYTES # (AUTO) 0.7 K/uL (0.1-1.30); MONOCYTES % (AUTO) 5.6 % (2.0-12.0); NEUTROPHILS # (AUTO) 8.1 K/uL (1.8-8.9); NEUTROPHILS % (AUTO) 67.9 % (43.0-81.0); PLATELET COUNT (AUTO) 278 K/uL (150-450); RED BLOOD CELL COUNT(AUTO) 3.09 MIL/uL (4.5-6.0); WHITE BLOOD COUNT (AUTO) 11.9 K/uL (4.3-11.0)
[2022-11-21 06:19] LABS: CALCIUM, SERUM 7.9 mg/dL (8.5-10.1); CREATININE 0.9 mg/dL (0.6-1.3); MAGNESIUM 1.6 mg/dL (1.8-2.4); PHOSPHORUS 2.3 mg/dL (2.5-4.9); POTASSIUM 4.4 mmol/L (3.5-5.1)
[2022-11-21] MEDS: METRONIDAZOLE 500 MG TABLET PO SCH ×4 (06:46→21:10)
[2022-11-21] MEDS: IV NS 0.9% 1,000 ML IV PRN ×2 (06:46→17:44)
[2022-11-21] MEDS: BLOOD SUGAR DIAGNOSTIC 1 EACH STRIP IN SCH ×4 (07:03→22:26)
[2022-11-21 08:00] VITALS: BP 132/70; TEMP 98.1; O2SAT 97
[2022-11-21] MEDS: GABAPENTIN 300 MG CAPSULE PO SCH ×4 (09:07→16:29)
[2022-11-21] MEDS: CHOLESTYRAMINE/ASPARTAME 4 G/PKT PACKET PO SCH ×2 (09:07→21:10)
[2022-11-21] MEDS: CYANOCOBALAMIN 500 MCG TABLET PO SCH (09:07)
[2022-11-21] MEDS: GLIMEPIRIDE 1 MG TABLET PO SCH (09:08)
[2022-11-21] MEDS: ASPIRIN 81 MG TAB.CHEW PO SCH (09:08)
[2022-11-21] MEDS: MULTIVIT W/MINERALS 1 TAB TABLET PO SCH (09:08)
[2022-11-21] MEDS: CHOLECALCIFEROL (VITAMIN D 3) 400 UNIT TABLET PO SCH (09:08)
[2022-11-21] MEDS: ASCORBIC ACID 500 MG TABLET PO SCH (09:09)
[2022-11-21] MEDS: CARVEDILOL 12.5 MG TABLET PO SCH ×2 (09:09→16:41)
[2022-11-21] MEDS: GLUCERNA SHAKE 237 ML CAN PO SCH (09:29)
[2022-11-21] MEDS: DAKINS HALF STRENGTH (0.25%) 480 ML BOTTLE TOP SCH (09:29)
[2022-11-21] MEDS ORDERED: MAGNESIUM OXIDE 400 MG TABLET PO ONE (10:00)
[2022-11-21] MEDS: INSULIN REGULAR, HUMAN 100 UNIT/ML 3 ML VIAL SQ PRN ×2 (11:30→22:32)
[2022-11-21] MEDS ORDERED: METR500T PO (12:17)
[2022-11-21] MEDS ORDERED: CHOL4PAC4 PO (12:17)
[2022-11-21] MEDS ORDERED: VANC125C11 PO (12:17)
[2022-11-21 16:00] VITALS: BP 131/69; TEMP 99; O2SAT 97
[2022-11-21] MEDS: K PHOS NEUTRAL 250 MG TABLET PO ONE ×2 (16:29→16:40)
[2022-11-21 19:00] VITALS: BP 163/68; TEMP 98.3
[2022-11-21] MEDS: ATORVASTATIN 10 MG TABLET PO SCH (21:10)
[2022-11-21] MEDS: ACETAMINOPHEN 325 MG TABLET PO PRN (21:10)
[2022-11-21] MEDS: TRAZODONE 50 MG TABLET PO PRN (22:38)
[2022-11-22] MEDS: VANCOMYCIN HCL 125 MG/2.5 ML ORAL.SUSP PO SCH ×5 (00:18→23:28)
[2022-11-22] MEDS: IV NS 0.9% 1,000 ML IV PRN ×2 (03:00→21:16)
[2022-11-22] MEDS: METRONIDAZOLE 500 MG TABLET PO SCH ×3 (05:00→21:26)
[2022-11-22 05:54] LABS: BASOPHILS # (AUTO) 0.1 K/uL (0.0-0.2); BASOPHILS % (AUTO) 0.6 % (0.0-2.0); EOSINOPHILS % (AUTO) 1.7 % (0.0-6.0); HEMATOCRIT 26 % (39-51); HEMOGLOBIN 8.2 g/dL (13.5-17.5); LYMPHOCYTES # (AUTO) 2.8 K/uL (0.8-4.8); LYMPHOCYTES % (AUTO) 26.3 % (20.0-44.0); MEAN CORPUSCULAR HGB CONC 31 g/dl (31.0-36.0); MEAN CORPUSCULAR VOLUME 81 fL (80-96); MONOCYTES # (AUTO) 0.7 K/uL (0.1-1.30); MONOCYTES % (AUTO) 6.3 % (2.0-12.0); NEUTROPHILS # (AUTO) 6.8 K/uL (1.8-8.9); NEUTROPHILS % (AUTO) 65.1 % (43.0-81.0); PLATELET COUNT (AUTO) 287 K/uL (150-450); RED BLOOD CELL COUNT(AUTO) 3.24 MIL/uL (4.5-6.0); WHITE BLOOD COUNT (AUTO) 10.5 K/uL (4.3-11.0)
[2022-11-22 06:20] LABS: IRON, SERUM 22 ug/dl (50-175); TOTAL IRON BINDING CAPACITY 103 ug/dl (250-450)
[2022-11-22 06:30] LABS: FERRITIN 413 ng/mL (8-388)
[2022-11-22] MEDS: BLOOD SUGAR DIAGNOSTIC 1 EACH STRIP IN SCH ×5 (07:30→22:00)
[2022-11-22] MEDS ORDERED: FENTANYL PF 250MCG/5ML AMPUL ONE (07:34)
[2022-11-22] MEDS: DAKINS HALF STRENGTH (0.25%) 480 ML BOTTLE TOP SCH (09:00)
[2022-11-22 09:45] VITALS: BP 138/76; TEMP 98.1; O2SAT 98
[2022-11-22] MEDS: GABAPENTIN 300 MG CAPSULE PO SCH ×3 (10:24→17:37)
[2022-11-22] MEDS: CHOLECALCIFEROL (VITAMIN D 3) 400 UNIT TABLET PO SCH (10:24)
[2022-11-22] MEDS: MULTIVIT W/MINERALS 1 TAB TABLET PO SCH (10:24)
[2022-11-22] MEDS: ASPIRIN 81 MG TAB.CHEW PO SCH (10:24)
[2022-11-22] MEDS: GLIMEPIRIDE 1 MG TABLET PO SCH (10:24)
[2022-11-22] MEDS: CYANOCOBALAMIN 500 MCG TABLET PO SCH (10:25)
[2022-11-22] MEDS: ASCORBIC ACID 500 MG TABLET PO SCH (10:25)
[2022-11-22] MEDS: CHOLESTYRAMINE/ASPARTAME 4 G/PKT PACKET PO SCH ×3 (10:25→21:26)
[2022-11-22] MEDS: CARVEDILOL 12.5 MG TABLET PO SCH ×2 (10:26→17:38)
[2022-11-22] MEDS: GLUCERNA SHAKE 237 ML CAN PO SCH (10:26)
[2022-11-22] MEDS: MORPHINE SULFATE INJ 2 MG/ML DISP.SYRIN IV PRN ×2 (13:39→22:08)
[2022-11-22] MEDS ORDERED: SOD FERRIC GLUC 125 MG in IV NS 0.9% 100 ML IV SCH (14:00)
[2022-11-22] MEDS ORDERED: CT SWABBABLE VALVE TRANS SET 1 EA INFUS.SET MC ONE (15:58)
[2022-11-22] MEDS ORDERED: IOHEXOL-350 100 ML VIAL IV ONE (15:58)
[2022-11-22] MEDS ORDERED: IV NS 0.9% 250 ML IV ONE (15:59)
[2022-11-22 16:00] VITALS: BP 147/75; TEMP 98.4; O2SAT 96
[2022-11-22] MEDS: ACETAMINOPHEN 325 MG TABLET PO PRN (17:38)
[2022-11-22 20:00] VITALS: BP 125/62; TEMP 98.4; O2SAT 96
[2022-11-22] MEDS: ATORVASTATIN 10 MG TABLET PO SCH (21:26)
[2022-11-22] MEDS: TRAZODONE 50 MG TABLET PO PRN (23:27)
[2022-11-23] MEDS: METRONIDAZOLE 500 MG TABLET PO SCH ×2 (05:37→12:25)
[2022-11-23 05:48] LABS: BASOPHILS % (AUTO) 0.3 % (0.0-2.0); EOSINOPHILS % (AUTO) 0.2 % (0.0-6.0); HEMATOCRIT 23 % (39-51); HEMOGLOBIN 7.2 g/dL (13.5-17.5); LYMPHOCYTES # (AUTO) 1.4 K/uL (0.8-4.8); LYMPHOCYTES % (AUTO) 10.3 % (20.0-44.0); MEAN CORPUSCULAR HGB CONC 31 g/dl (31.0-36.0); MEAN CORPUSCULAR VOLUME 81 fL (80-96); MONOCYTES # (AUTO) 0.6 K/uL (0.1-1.30); MONOCYTES % (AUTO) 4.1 % (2.0-12.0); NEUTROPHILS # (AUTO) 11.9 K/uL (1.8-8.9); NEUTROPHILS % (AUTO) 85.1 % (43.0-81.0); PLATELET COUNT (AUTO) 244 K/uL (150-450); RED BLOOD CELL COUNT(AUTO) 2.89 MIL/uL (4.5-6.0)
[2022-11-23 05:59] LABS: CALCIUM, SERUM 8.1 mg/dL (8.5-10.1); CREATININE 0.9 mg/dL (0.6-1.3); MAGNESIUM 1.6 mg/dL (1.8-2.4); PHOSPHORUS 3.6 mg/dL (2.5-4.9); POTASSIUM 4.5 mmol/L (3.5-5.1)
[2022-11-23] MEDS: VANCOMYCIN HCL 125 MG/2.5 ML ORAL.SUSP PO SCH ×2 (06:37→12:34)
[2022-11-23] MEDS: BLOOD SUGAR DIAGNOSTIC 1 EACH STRIP IN SCH ×2 (06:49→12:25)
[2022-11-23] MEDS: INSULIN REGULAR, HUMAN 100 UNIT/ML 3 ML VIAL SQ PRN ×2 (06:49→12:46)
[2022-11-23 07:30] VITALS: BP 134/63; TEMP 98.1; O2SAT 99
[2022-11-23] MEDS: DAKINS HALF STRENGTH (0.25%) 480 ML BOTTLE TOP SCH (08:56)
[2022-11-23] MEDS: GABAPENTIN 300 MG CAPSULE PO SCH ×2 (08:57→12:25)
[2022-11-23] MEDS: CYANOCOBALAMIN 500 MCG TABLET PO SCH (08:57)
[2022-11-23] MEDS: ASPIRIN 81 MG TAB.CHEW PO SCH (08:57)
[2022-11-23] MEDS: CHOLESTYRAMINE/ASPARTAME 4 G/PKT PACKET PO SCH (08:57)
[2022-11-23 08:58] VITALS: BP 134/63
[2022-11-23] MEDS: ASCORBIC ACID 500 MG TABLET PO SCH (08:58)
[2022-11-23] MEDS: GLIMEPIRIDE 1 MG TABLET PO SCH (08:58)
[2022-11-23] MEDS: CARVEDILOL 12.5 MG TABLET PO SCH (08:58)
[2022-11-23] MEDS: CHOLECALCIFEROL (VITAMIN D 3) 400 UNIT TABLET PO SCH (08:58)
[2022-11-23] MEDS: MULTIVIT W/MINERALS 1 TAB TABLET PO SCH (08:58)
[2022-11-23] MEDS: GLUCERNA SHAKE 237 ML CAN PO SCH (09:01)
[2022-11-23] MEDS ORDERED: MAGNESIUM OXIDE 400 MG TABLET PO ONE (11:00)
== END 2022-11-23 15:30 | disposition home health service (06) | DRG 987 ==
LOC: ER 10:43 → MED 15:27 → TELE 16:37 → MED 11-17 08:08
PROVIDERS: ADMIT Internal Medicine; ATTEND Internal Medicine
PROC: 05HB33Z Insertion of Infusion Device into Right Basilic Vein, Percutaneous Approach (ICD-10-PCS; principal; 2022-11-15)
PROC: 0QB Lower Bones, Excision (ICD-10-PCS; 2022-11-15)
PROC: 30233N1 Transfusion of Nonautologous Red Blood Cells into Peripheral Vein, Percutaneous Approach (ICD-10-PCS; 2022-11-15)
DX: A04.71 Enterocolitis due to Clostridium difficile, recurrent (principal); E43 Unspecified severe protein-calorie malnutrition; N17.0 Acute kidney failure with tubular necrosis; E87.1 Hypo-osmolality and hyponatremia; M86.672 Other chronic osteomyelitis, left ankle and foot; L97.528 Non-pressure chronic ulcer of other part of left foot with other specified severity; L97.418 Non-pressure chronic ulcer of right heel and midfoot with other specified severity; E11.52 Type 2 diabetes mellitus with diabetic peripheral angiopathy with gangrene; E87.5 Hyperkalemia; D50.9 Iron deficiency anemia, unspecified; E11.42 Type 2 diabetes mellitus with diabetic polyneuropathy; E11.69 Type 2 diabetes mellitus with other specified complication; E78.5 Hyperlipidemia, unspecified; I27.20 Pulmonary hypertension, unspecified; E88.09 Other disorders of plasma-protein metabolism, not elsewhere classified; Z95.1 Presence of aortocoronary bypass graft; I25.10 Atherosclerotic heart disease of native coronary artery without angina pectoris; Z89.432 Acquired absence of left foot; E66.9 Obesity, unspecified; Z68.26 Body mass index [BMI] 26.0-26.9, adult; E11.621 Type 2 diabetes mellitus with foot ulcer; L97.511 Non-pressure chronic ulcer of other part of right foot limited to breakdown of skin; D50.8 Other iron deficiency anemias; Z79.2 Long term (current) use of antibiotics; Z79.82 Long term (current) use of aspirin
CPT/HCPCS: 11043; 36410; 36415; 71045-TC; 80048-TC; 80076-TC; 82272-TC; 82378; 82607-TC; 82728-TC; 82784; 82962-TC; 83540-TC; 83605-TC; 83735-TC; 84100-TC; 84155; 84165; 84443-TC; 84484-TC; 85025-TC; 85027-TC; 85730-TC; 86334; 86850-TC; 87040-TC; 97112-TC; 97116-TC; 97530-TC; A4223; A4349; A6209; A6253; A6402; A6403; G0378; J0690; J1815; J2270; J2704; J2916; J3010; J3370; J3490; J7030; J7050; P9016; Q9967

== ENCOUNTER 2022-11-30 16:37 | Inpatient (IN) | payer MEDICARE, BC ==
[~2022-11-30] VITALS: Ht 177.8 cm; Wt 93.0 kg
[2022-11-30] VITALS (9 sets, daily range): BP systolic 122–143; BP diastolic 63–76; TEMP 97.7–98.4; O2SAT 100
[~2022-11-30 16:37] MED LIST changes: +ASCO500T21 PO; +ASPI-1169 PO; +CHOL4PAC4 PO; +CYAN-51 PO; +CYCL5TAB PO; -DULA1.5P SQ; +HYDR-4209 PO; -LINE600T12 PO; +METR500T PO; +MULT-213 PO; +POVI1MED TP; -PRED20TA PO; +TRAM50TA2 PO; +VANC125C11 PO; +[UNRECOGNIZED DRUG - SUPPLY] TP
[2022-11-30 17:40] LABS: BASOPHILS % (AUTO) 0.5 % (0.0-2.0); EOSINOPHILS # (AUTO) 0.2 K/uL (0.0-0.7); EOSINOPHILS % (AUTO) 2.9 % (0.0-6.0); HEMATOCRIT 22 % (39-51); LYMPHOCYTES % (AUTO) 25.5 % (20.0-44.0); MEAN CORPUSCULAR HEMOGLOBIN 26 PG (26.0-33.0); MEAN CORPUSCULAR HGB CONC 31 g/dl (31.0-36.0); MEAN CORPUSCULAR VOLUME 83 fL (80-96); MONOCYTES # (AUTO) 0.7 K/uL (0.1-1.30); MONOCYTES % (AUTO) 8.8 % (2.0-12.0); NEUTROPHILS # (AUTO) 4.9 K/uL (1.8-8.9); NEUTROPHILS % (AUTO) 62.3 % (43.0-81.0); PLATELET COUNT (AUTO) 308 K/uL (150-450); RED CELL DISTRIBUTION WIDTH 26.4 % (11.5-15.0); WHITE BLOOD COUNT (AUTO) 7.9 K/uL (4.3-11.0)
[2022-11-30 17:53] LABS: HEMOGLOBIN 6.6 g/dL (13.5-17.5)
[2022-11-30 18:12] LABS: CALCIUM, SERUM 8.5 mg/dL (8.5-10.1); CARBON DIOXIDE 25 mmol/L (21-32); CHLORIDE 109 mmol/L (98-107); CREATININE 0.8 mg/dL (0.6-1.3); GLUCOSE 49 mg/dL (74-106); POTASSIUM 3.9 mmol/L (3.5-5.1); SODIUM SERUM 141 mmol/L (136-145); UREA NITROGEN, BLOOD 23 mg/dL (7-18)
[2022-11-30 18:18] LABS: ALANINE AMINOTRANSFERASE 26 U/L (12-78); ALBUMIN 2.3 g/dL (3.4-5.0); ALKALINE PHOSPHATASE 48 U/L (46-116); ASPARTATE AMINOTRANSFERASE 13 U/L (15-37); BILIRUBIN,DIRECT 0.1 mg/dL (0.0-0.2); BILIRUBIN,TOTAL 0.4 mg/dL (0.2-1.0); LIPASE 53 U/L (73-393); TOTAL PROTEIN, SERUM 6.2 g/dL (6.4-8.2)
[2022-11-30 19:34] LABS: ANISOCYTOSIS 1+; LYMPHOCYTES % (MANUAL) 26 % (16-48); MONOCYTES % (MANUAL) 9 % (0-11.0); NEUTROPHILS % (MANUAL) 65 (42-76); OVALOCYTES 1+; PLATELET ESTIMATE ADEQUATE; ROULEAUX 1+
[2022-12-01] MEDS ORDERED: ACETAMINOPHEN 325 MG TABLET PO PRN (00:30)
[2022-12-01] MEDS ORDERED: MAGNESIUM HYDROXIDE 30 ML UDC PO PRN (00:30)
[2022-12-01] MEDS ORDERED: HYDROCODONE/APAP 5/325MG TABLET PO PRN (00:30)
[2022-12-01] MEDS ORDERED: Z GUARD REMEDY 4 OZ OINT TP PRN (00:30)
[2022-12-01] MEDS ORDERED: ONDANSETRON HCL/PF 4 MG/2 ML VIAL IVP PRN (00:30)
[2022-12-01] MEDS ORDERED: MAG HYDROX/AL HYDROX/SIMETH 30 ML UDC PO PRN (00:30)
[2022-12-01] MEDS ORDERED: DEXTROSE 50%-WATER 50 ML DISP.SYRIN IV PRN (00:30)
[2022-12-01 04:43] LABS: BASOPHILS % (AUTO) 0.5 % (0.0-2.0); EOSINOPHILS # (AUTO) 0.3 K/uL (0.0-0.7); HEMATOCRIT 22 % (39-51); LYMPHOCYTES # (AUTO) 2.1 K/uL (0.8-4.8); LYMPHOCYTES % (AUTO) 33.8 % (20.0-44.0); MEAN CORPUSCULAR HEMOGLOBIN 26 PG (26.0-33.0); MEAN CORPUSCULAR HGB CONC 31 g/dl (31.0-36.0); MEAN CORPUSCULAR VOLUME 85 fL (80-96); MONOCYTES # (AUTO) 0.6 K/uL (0.1-1.30); MONOCYTES % (AUTO) 9.5 % (2.0-12.0); NEUTROPHILS # (AUTO) 3.3 K/uL (1.8-8.9); NEUTROPHILS % (AUTO) 52.2 % (43.0-81.0); PLATELET COUNT (AUTO) 266 K/uL (150-450); RED BLOOD CELL COUNT(AUTO) 2.64 MIL/uL (4.5-6.0); RED CELL DISTRIBUTION WIDTH 25.5 % (11.5-15.0); WHITE BLOOD COUNT (AUTO) 6.3 K/uL (4.3-11.0)
[2022-12-01 04:47] LABS: HEMOGLOBIN 6.9 g/dL (13.5-17.5)
[2022-12-01 04:58] LABS: CALCIUM, SERUM 8.5 mg/dL (8.5-10.1); CREATININE 0.7 mg/dL (0.6-1.3); MAGNESIUM 2.1 mg/dL (1.8-2.4); PHOSPHORUS 3.2 mg/dL (2.5-4.9); POTASSIUM 4.2 mmol/L (3.5-5.1)
[2022-12-01 05:54] LABS: OCCULT BLOOD STOOL POSITIVE (NEGATIVE)
[2022-12-01] MEDS: BLOOD SUGAR DIAGNOSTIC 1 EACH STRIP IN SCH ×4 (06:57→22:30)
[2022-12-01] MEDS: INSULIN REGULAR, HUMAN 100 UNIT/ML 3 ML VIAL SQ PRN (06:58)
[2022-12-01] MEDS: SPIRONOLACTONE 25 MG TABLET PO SCH (09:21)
[2022-12-01] MEDS: ASCORBIC ACID 500 MG TABLET PO SCH (09:21)
[2022-12-01] MEDS: CHOLECALCIFEROL 1,000 UNIT TABLET (VIT D3) PO SCH (09:21)
[2022-12-01] MEDS: GABAPENTIN 300 MG CAPSULE PO SCH ×3 (09:21→16:24)
[2022-12-01] MEDS: PANTOPRAZOLE 40 MG VIAL IV SCH (09:21)
[2022-12-01] MEDS: CARVEDILOL 12.5 MG TABLET PO SCH (09:22)
[2022-12-01] MEDS ORDERED: PEG 3350/NA SULF,BICARB,CL/KCL 4,000 ML BOTTLE PO ONE (10:00)
[2022-12-01 11:51] LABS: ANISOCYTOSIS 1+; BASOPHILS % (MANUAL) 0 % (0.0-2.0); EOSINOPHILS % (MANUAL) 4 % (0-4); LYMPHOCYTES % (MANUAL) 26 % (16-48); MONOCYTES % (MANUAL) 11 % (0-11.0); NEUTROPHILS % (MANUAL) 59 (42-76); PLATELET ESTIMATE ADEQUATE
[2022-12-01 14:19] LABS: HEMOGLOBIN 8.7 g/dL (13.5-17.5)
[2022-12-01 16:41] VITALS: BP 133/73; TEMP 98.2; O2SAT 96
[2022-12-01 20:00] VITALS: BP 127/72; TEMP 97.2; O2SAT 95
[2022-12-01] MEDS: TRAMADOL HCL 50 MG TABLET PO PRN (21:27)
[2022-12-01] MEDS: ATORVASTATIN 40 MG TABLET PO SCH (21:27)
[2022-12-01] MEDS: ZOLPIDEM TARTRATE 5 MG TABLET PO PRN (22:33)
[2022-12-02 06:16] LABS: BASOPHILS % (AUTO) 0.5 % (0.0-2.0); EOSINOPHILS # (AUTO) 0.1 K/uL (0.0-0.7); EOSINOPHILS % (AUTO) 1.5 % (0.0-6.0); HEMATOCRIT 26 % (39-51); HEMOGLOBIN 8.2 g/dL (13.5-17.5); LYMPHOCYTES # (AUTO) 1.2 K/uL (0.8-4.8); LYMPHOCYTES % (AUTO) 22.6 % (20.0-44.0); MEAN CORPUSCULAR HEMOGLOBIN 27 PG (26.0-33.0); MEAN CORPUSCULAR HGB CONC 31 g/dl (31.0-36.0); MEAN CORPUSCULAR VOLUME 87 fL (80-96); MONOCYTES # (AUTO) 0.5 K/uL (0.1-1.30); MONOCYTES % (AUTO) 9.8 % (2.0-12.0); NEUTROPHILS # (AUTO) 3.6 K/uL (1.8-8.9); NEUTROPHILS % (AUTO) 65.6 % (43.0-81.0); PLATELET COUNT (AUTO) 282 K/uL (150-450); RED BLOOD CELL COUNT(AUTO) 3.01 MIL/uL (4.5-6.0); RED CELL DISTRIBUTION WIDTH 24.1 % (11.5-15.0); WHITE BLOOD COUNT (AUTO) 5.4 K/uL (4.3-11.0)
[2022-12-02] MEDS: INSULIN REGULAR, HUMAN 100 UNIT/ML 3 ML VIAL SQ PRN ×3 (06:36→22:10)
[2022-12-02] MEDS: BLOOD SUGAR DIAGNOSTIC 1 EACH STRIP IN SCH ×4 (06:36→22:09)
[2022-12-02 07:21] LABS: CALCIUM, SERUM 8.5 mg/dL (8.5-10.1); CREATININE 0.9 mg/dL (0.6-1.3); MAGNESIUM 2.1 mg/dL (1.8-2.4); PHOSPHORUS 4.1 mg/dL (2.5-4.9); POTASSIUM 4.9 mmol/L (3.5-5.1)
[2022-12-02 08:00] VITALS: BP 139/76; TEMP 98.2; O2SAT 98
[2022-12-02] MEDS: CARVEDILOL 12.5 MG TABLET PO SCH (09:00)
[2022-12-02] MEDS: PANTOPRAZOLE 40 MG VIAL IV SCH (09:00)
[2022-12-02] MEDS: GABAPENTIN 300 MG CAPSULE PO SCH ×3 (09:00→17:00)
[2022-12-02] MEDS: SPIRONOLACTONE 25 MG TABLET PO SCH (09:00)
[2022-12-02] MEDS: CHOLECALCIFEROL 1,000 UNIT TABLET (VIT D3) PO SCH (09:00)
[2022-12-02] MEDS: ASCORBIC ACID 500 MG TABLET PO SCH (09:00)
[2022-12-02] MEDS ORDERED: DULA1.5P SQ (10:30)
[2022-12-02] MEDS ORDERED: SOD FERRIC GLUC 125 MG in IV NS 0.9% 100 ML IV SCH (14:00)
[2022-12-02] MEDS ORDERED: IOHEXOL-300 100 ML VIAL IV ONE ×2 (15:55→16:31)
[2022-12-02] MEDS ORDERED: CT SWABBABLE VALVE TRANS SET 1 EA INFUS.SET MC ONE (15:55)
[2022-12-02] MEDS ORDERED: IV NS 0.9% 250 ML IV ONE (15:55)
[2022-12-02 16:00] VITALS: BP 135/75; TEMP 98.3; O2SAT 96
[2022-12-02 20:30] VITALS: BP 137/70; TEMP 97.9; O2SAT 95
[2022-12-02] MEDS: TRAMADOL HCL 50 MG TABLET PO PRN (21:31)
[2022-12-02] MEDS: ATORVASTATIN 40 MG TABLET PO SCH (21:31)
[2022-12-02] MEDS: ZOLPIDEM TARTRATE 5 MG TABLET PO PRN (22:31)
[2022-12-03 05:49] LABS: BASOPHILS % (AUTO) 0.4 % (0.0-2.0); EOSINOPHILS # (AUTO) 0.2 K/uL (0.0-0.7); EOSINOPHILS % (AUTO) 4.8 % (0.0-6.0); HEMATOCRIT 26 % (39-51); HEMOGLOBIN 8.2 g/dL (13.5-17.5); LYMPHOCYTES # (AUTO) 1.6 K/uL (0.8-4.8); MEAN CORPUSCULAR HEMOGLOBIN 27 PG (26.0-33.0); MEAN CORPUSCULAR HGB CONC 32 g/dl (31.0-36.0); MEAN CORPUSCULAR VOLUME 87 fL (80-96); MONOCYTES # (AUTO) 0.7 K/uL (0.1-1.30); MONOCYTES % (AUTO) 13.3 % (2.0-12.0); NEUTROPHILS # (AUTO) 2.5 K/uL (1.8-8.9); NEUTROPHILS % (AUTO) 49.5 % (43.0-81.0); PLATELET COUNT (AUTO) 286 K/uL (150-450); RED BLOOD CELL COUNT(AUTO) 2.98 MIL/uL (4.5-6.0); RED CELL DISTRIBUTION WIDTH 24.4 % (11.5-15.0); WHITE BLOOD COUNT (AUTO) 5.1 K/uL (4.3-11.0)
[2022-12-03 06:15] LABS: CALCIUM, SERUM 8.6 mg/dL (8.5-10.1); CARBON DIOXIDE 25 mmol/L (21-32); CHLORIDE 107 mmol/L (98-107); CREATININE 0.8 mg/dL (0.6-1.3); GLUCOSE 79 mg/dL (74-106); MAGNESIUM 2.1 mg/dL (1.8-2.4); PHOSPHORUS 3.9 mg/dL (2.5-4.9); POTASSIUM 4.2 mmol/L (3.5-5.1); SODIUM SERUM 138 mmol/L (136-145); UREA NITROGEN, BLOOD 16 mg/dL (7-18)
[2022-12-03] MEDS: BLOOD SUGAR DIAGNOSTIC 1 EACH STRIP IN SCH ×2 (06:22→13:06)
[2022-12-03 06:27] LABS: EOSINOPHILS % (MANUAL) 1 % (0-4); LYMPHOCYTES % (MANUAL) 32 % (16-48); MONOCYTES % (MANUAL) 9 % (0-11.0); NEUTROPHILS % (MANUAL) 58 (42-76)
[2022-12-03 06:28] LABS: PLATELET ESTIMATE ADEQUATE
[2022-12-03 08:00] VITALS: BP 149/79; TEMP 98; O2SAT 95
[2022-12-03] MEDS: ASCORBIC ACID 500 MG TABLET PO SCH (08:12)
[2022-12-03] MEDS: CHOLECALCIFEROL 1,000 UNIT TABLET (VIT D3) PO SCH (08:12)
[2022-12-03] MEDS: PANTOPRAZOLE 40 MG VIAL IV SCH (08:12)
[2022-12-03] MEDS: GABAPENTIN 300 MG CAPSULE PO SCH (08:12)
[2022-12-03] MEDS: SPIRONOLACTONE 25 MG TABLET PO SCH (08:12)
[2022-12-03 08:13] VITALS: BP 149/79
[2022-12-03] MEDS: CARVEDILOL 12.5 MG TABLET PO SCH (08:13)
== END 2022-12-03 13:10 | disposition home or self-care (01) | DRG 377 ==
LOC: ER 16:58 → MED 21:19
PROVIDERS: ADMIT Nurse Practitioner Acute Care; ATTEND Internal Medicine
PROC: 30233N1 Transfusion of Nonautologous Red Blood Cells into Peripheral Vein, Percutaneous Approach (ICD-10-PCS; principal; 2022-11-30)
PROC: 05H633Z Insertion of Infusion Device into Left Subclavian Vein, Percutaneous Approach (ICD-10-PCS; 2022-12-02)
PROC: B547ZZA Ultrasonography of Left Subclavian Vein, Guidance (ICD-10-PCS; 2022-12-02)
PROC: 0DJD8ZZ Inspection of Lower Intestinal Tract, Via Natural or Artificial Opening Endoscopic (ICD-10-PCS; 2022-12-02)
PROC: 0DB98ZX Excision of Duodenum, Via Natural or Artificial Opening Endoscopic, Diagnostic (ICD-10-PCS; 2022-12-02)
DX: K57.31 Diverticulosis of large intestine without perforation or abscess with bleeding (principal); I21.A1 Myocardial infarction type 2; M86.672 Other chronic osteomyelitis, left ankle and foot; L97.518 Non-pressure chronic ulcer of other part of right foot with other specified severity; L97.528 Non-pressure chronic ulcer of other part of left foot with other specified severity; K64.8 Other hemorrhoids; E86.0 Dehydration; D63.8 Anemia in other chronic diseases classified elsewhere; I25.10 Atherosclerotic heart disease of native coronary artery without angina pectoris; E11.51 Type 2 diabetes mellitus with diabetic peripheral angiopathy without gangrene; D50.9 Iron deficiency anemia, unspecified; E66.9 Obesity, unspecified; E78.5 Hyperlipidemia, unspecified; K29.70 Gastritis, unspecified, without bleeding; Z79.82 Long term (current) use of aspirin; Z79.84 Long term (current) use of oral hypoglycemic drugs; Z95.1 Presence of aortocoronary bypass graft; Z90.49 Acquired absence of other specified parts of digestive tract; Z85.038 Personal history of other malignant neoplasm of large intestine; N18.9 Chronic kidney disease, unspecified; Z79.899 Other long term (current) drug therapy; I12.9 Hypertensive chronic kidney disease with stage 1 through stage 4 chronic kidney disease, or unspecified chronic kidney disease; E11.22 Type 2 diabetes mellitus with diabetic chronic kidney disease; E11.42 Type 2 diabetes mellitus with diabetic polyneuropathy; E11.69 Type 2 diabetes mellitus with other specified complication; E11.621 Type 2 diabetes mellitus with foot ulcer; I27.20 Pulmonary hypertension, unspecified; G47.33 Obstructive sleep apnea (adult) (pediatric); L89.159 Pressure ulcer of sacral region, unspecified stage; Z89.422 Acquired absence of other left toe(s); Z68.29 Body mass index [BMI] 29.0-29.9, adult
CPT/HCPCS: 36415; 71045-TC; 71270-TC; 74178; 80048-TC; 80061-TC; 80076-TC; 82272-TC; 82728-TC; 82962-TC; 83540-TC; 83690-TC; 83735-TC; 84100-TC; 84484-TC; 85025-TC; 85027-TC; 86850-TC; 87081-TC; 97112-TC; 97116-TC; 97530-TC; A4223; A6253; A6403; C9113; G0378; J1815; J2704; J2916; J3490; J7030; J7040; J7050; P9016; Q9967

== ENCOUNTER 2022-12-28 10:26 | Outpatient (CLI) | payer MEDICARE, BC ==
[~2022-12-28 10:26] MED LIST changes: -CHOL4PAC4 PO; +DULA1.5P SQ; -HYDR-4209 PO; -METR500T PO; -MULT-213 PO; -POVI1MED TP; -VANC125C11 PO; -[UNRECOGNIZED DRUG - SUPPLY] TP
== END 2022-12-28 23:59 | disposition home health service (06) ==
LOC: WOU 10:26
PROVIDERS: ATTEND Podiatrist Foot & Ankle Surgery
DX: E11.621 Type 2 diabetes mellitus with foot ulcer (principal); E11.52 Type 2 diabetes mellitus with diabetic peripheral angiopathy with gangrene; A48.0 Gas gangrene; L97.524 Non-pressure chronic ulcer of other part of left foot with necrosis of bone; I70.262 Atherosclerosis of native arteries of extremities with gangrene, left leg; L97.513 Non-pressure chronic ulcer of other part of right foot with necrosis of muscle; L97.318 Non-pressure chronic ulcer of right ankle with other specified severity; I70.235 Atherosclerosis of native arteries of right leg with ulceration of other part of foot; E11.42 Type 2 diabetes mellitus with diabetic polyneuropathy; D69.0 Allergic purpura; Z89.422 Acquired absence of other left toe(s); Z98.62 Peripheral vascular angioplasty status; E11.69 Type 2 diabetes mellitus with other specified complication; M86.671 Other chronic osteomyelitis, right ankle and foot; L03.116 Cellulitis of left lower limb
CPT/HCPCS: 11043; 87070; 11046; A4649

== ENCOUNTER 2023-01-03 09:51 | Inpatient (IN) | payer MEDICARE, BC ==
[~2023-01-03] VITALS: Ht 177.8 cm; Wt 88.5 kg
[2023-01-03] MEDS ORDERED: LISI20TA30 PO (10:18)
[2023-01-03] MEDS ORDERED: CYAN500T64 PO (10:18)
[2023-01-03] MEDS ORDERED: CARV25TA PO (10:18)
[2023-01-03] MEDS ORDERED: ASCO-317 PO (10:18)
[2023-01-03] MEDS ORDERED: BUME1TAB34 PO (10:21)
[2023-01-03] MEDS ORDERED: DEXTROSE 50%-WATER 50 ML DISP.SYRIN IV PRN (10:30)
[2023-01-03 11:08] LABS: BASOPHILS % (AUTO) 0.3 % (0.0-2.0); EOSINOPHILS % (AUTO) 0.8 % (0.0-6.0); HEMATOCRIT 26 % (39-51); HEMOGLOBIN 8.1 g/dL (13.5-17.5); LYMPHOCYTES # (AUTO) 1.4 K/uL (0.8-4.8); MEAN CORPUSCULAR HEMOGLOBIN 28 PG (26.0-33.0); MEAN CORPUSCULAR HGB CONC 31 g/dl (31.0-36.0); MEAN CORPUSCULAR VOLUME 89 fL (80-96); MONOCYTES # (AUTO) 0.2 K/uL (0.1-1.30); MONOCYTES % (AUTO) 3.6 % (2.0-12.0); NEUTROPHILS # (AUTO) 3.9 K/uL (1.8-8.9); NEUTROPHILS % (AUTO) 69.3 % (43.0-81.0); PLATELET COUNT (AUTO) 192 K/uL (150-450); RED BLOOD CELL COUNT(AUTO) 2.93 MIL/uL (4.5-6.0); RED CELL DISTRIBUTION WIDTH 19.1 % (11.5-15.0); WHITE BLOOD COUNT (AUTO) 5.6 K/uL (4.3-11.0)
[2023-01-03 11:16] LABS: CALCIUM, SERUM 8.8 mg/dL (8.5-10.1); CARBON DIOXIDE 21 mmol/L (21-32); CHLORIDE 105 mmol/L (98-107); CREATININE 1.7 mg/dL (0.6-1.3); GLUCOSE 117 mg/dL (74-106); POTASSIUM 4.7 mmol/L (3.5-5.1); SODIUM SERUM 137 mmol/L (136-145); UREA NITROGEN, BLOOD 28 mg/dL (7-18)
[2023-01-03 11:22] LABS: ALANINE AMINOTRANSFERASE 22 U/L (12-78); ALBUMIN 2.8 g/dL (3.4-5.0); ALKALINE PHOSPHATASE 101 U/L (46-116); ASPARTATE AMINOTRANSFERASE 13 U/L (15-37); BILIRUBIN,DIRECT 0.2 mg/dL (0.0-0.2); BILIRUBIN,TOTAL 0.6 mg/dL (0.2-1.0); TOTAL PROTEIN, SERUM 7.1 g/dL (6.4-8.2)
[2023-01-03 11:24] LABS: LACTIC ACID 1.1 mmol/L (0.4-2.0)
[2023-01-03 11:26] LABS: INR 1.14 (0.91-1.10); PARTIAL THROMBOPLASTIN TIME 31.5 SEC (24.3-34.3); PROTHROMBIN TIME 11.9 SECS (9.2-11.1)
[2023-01-03 11:38] LABS: MAGNESIUM 2.2 mg/dL (1.8-2.4); PHOSPHORUS 4.7 mg/dL (2.5-4.9)
[2023-01-03] MEDS: BLOOD SUGAR DIAGNOSTIC 1 EACH STRIP VI SCH ×3 (12:00→22:00)
[2023-01-03 12:23] LABS: APPEARANCE,URINE CLEAR (CLEAR); BILIRUBIN,URINE NEGATIVE (NEGATIVE); BLOOD, URINE NEGATIVE Ery/uL (NEGATIVE); COLOR,URINE YELLOW (YELLOW); KETONES,URINE NEGATIVE (NEGATIVE); LEUKOCYTE ESTERASE ,URINE 1+ (NEGATIVE); NITRITE, URINE NEGATIVE (NEGATIVE); PROTEIN,URINE NEGATIVE (NEGATIVE); UGLUCOSE NEGATIVE (NEGATIVE); UROBILINOGEN,URINE 0.2 EU/dL (0.2)
[2023-01-03 12:34] LABS: ADD URINE CULTURE YES; BACTERIA,URINE Rare /HPF (None Seen); RBC,URINE 0-2 /HPF (0-2); SQUAMOUS EPITHELIAL CELL,UR Few /HPF (None Seen)
[2023-01-03 16:00] VITALS: BP 144/71; TEMP 97.6; O2SAT 99
[2023-01-03] MEDS: GABAPENTIN 300 MG CAPSULE PO SCH (16:55)
[2023-01-03 20:00] VITALS: BP 139/69; TEMP 97.5; O2SAT 95
[2023-01-03] MEDS: TRAMADOL HCL 50 MG TABLET PO SCH (21:35)
[2023-01-03] MEDS: CARVEDILOL 12.5 MG TABLET PO SCH (21:35)
[2023-01-04 06:31] LABS: INR 1.14 (0.91-1.10); PARTIAL THROMBOPLASTIN TIME 32.8 SEC (24.3-34.3); PROTHROMBIN TIME 11.9 SECS (9.2-11.1)
[2023-01-04] MEDS: BLOOD SUGAR DIAGNOSTIC 1 EACH STRIP VI SCH ×4 (06:48→22:00)
[2023-01-04] MEDS ORDERED: FENTANYL PF 250MCG/5ML AMPUL ONE (06:55)
[2023-01-04] MEDS ORDERED: FAMOTIDINE/PF INJ 20 MG/2 ML VIAL IV ONE (06:56)
[2023-01-04] MEDS ORDERED: ANESTHESIA TRAY IN PYXIS 1 EA TRAY MC ONE (06:56)
[2023-01-04] MEDS ORDERED: BUPIVACAINE 0.5 % PF 150 MG/30 ML VIAL ONE (06:56)
[2023-01-04] MEDS ORDERED: LIDOCAINE HCL/MPF 1% 30 ML VIAL IJ ONE (06:57)
[2023-01-04] MEDS ORDERED: LIDOCAINE 1%-EPI 1:100,000 20 ML VIAL ONE (06:57)
[2023-01-04 07:00] VITALS: BP 131/62; TEMP 97.5; O2SAT 95
[2023-01-04 07:05] VITALS: BP 131/62; TEMP 97.5; O2SAT 95
[2023-01-04] MEDS ORDERED: SEVOFLURANE 250 ML BOTTLE IH ONE (07:36)
[2023-01-04 08:44] LABS: ALBUMIN 2.7 g/dL (3.4-5.0); BILIRUBIN,TOTAL 0.6 mg/dL (0.2-1.0); CALCIUM, SERUM 8.8 mg/dL (8.5-10.1); CREATININE 1.2 mg/dL (0.6-1.3); POTASSIUM 4.3 mmol/L (3.5-5.1)
[2023-01-04] MEDS ORDERED: VANCOMYCIN 1.25 GM in IV D5W 250 ML IV ONE (09:00)
[2023-01-04] MEDS: CYCLOBENZAPRINE 10 MG TABLET PO SCH (10:10)
[2023-01-04] MEDS: CARVEDILOL 12.5 MG TABLET PO SCH ×2 (10:10→23:07)
[2023-01-04] MEDS: BUMETANIDE (1 MG) 1 MG TABLET PO SCH (10:11)
[2023-01-04] MEDS: GABAPENTIN 300 MG CAPSULE PO SCH ×2 (10:11→16:35)
[2023-01-04] MEDS: LISINOPRIL (20MG) 20 MG TABLET PO SCH (10:11)
[2023-01-04] MEDS: Z GUARD REMEDY 4 OZ OINT TP SCH (10:42)
[2023-01-04] MEDS: INSULIN REGULAR, HUMAN 100 UNIT/ML 3 ML VIAL SQ PRN ×2 (11:42→16:41)
[2023-01-04] MEDS: MEROPENEM 1 G in IV NS 0.9% 100 ML IV SCH ×2 (11:49→20:45)
[2023-01-04] MEDS: VANCOMYCIN HCL 125 MG/2.5 ML ORAL.SUSP PO SCH ×2 (12:49→17:40)
[2023-01-04] MEDS ORDERED: SOD FERRIC GLUC 125 MG in IV NS 0.9% 100 ML IV ONE (15:30)
[2023-01-04 16:00] VITALS: BP 133/73; TEMP 97.6; O2SAT 98
[2023-01-04] MEDS: CLOTRIMAZOLE/BETAMETASONE DIPROPIONATE 15 GM TUBE TP SCH (16:35)
[2023-01-04 20:00] VITALS: BP 124/61; TEMP 98; O2SAT 95
[2023-01-04] MEDS: VANCOMYCIN HCL 0.75 GM in IV D5W 250 ML IV SCH (21:42)
[2023-01-04] MEDS: TRAMADOL HCL 50 MG TABLET PO SCH (23:07)
[2023-01-04] MEDS: *INSULIN REGULAR(HUMULIN R)HUM 100 UNIT/ML VIAL SQ PRN (23:25)
[2023-01-05] MEDS: VANCOMYCIN HCL 125 MG/2.5 ML ORAL.SUSP PO SCH ×4 (00:18→18:05)
[2023-01-05] MEDS: BLOOD SUGAR DIAGNOSTIC 1 EACH STRIP VI SCH ×4 (07:30→21:09)
[2023-01-05 07:40] LABS: BASOPHILS % (AUTO) 0.2 % (0.0-2.0); EOSINOPHILS # (AUTO) 0.1 K/uL (0.0-0.7); EOSINOPHILS % (AUTO) 1.3 % (0.0-6.0); HEMATOCRIT 26 % (39-51); HEMOGLOBIN 7.8 g/dL (13.5-17.5); LYMPHOCYTES # (AUTO) 1.9 K/uL (0.8-4.8); MEAN CORPUSCULAR HEMOGLOBIN 27 PG (26.0-33.0); MEAN CORPUSCULAR HGB CONC 31 g/dl (31.0-36.0); MEAN CORPUSCULAR VOLUME 87 fL (80-96); MONOCYTES # (AUTO) 0.5 K/uL (0.1-1.30); MONOCYTES % (AUTO) 7.1 % (2.0-12.0); NEUTROPHILS # (AUTO) 4.5 K/uL (1.8-8.9); NEUTROPHILS % (AUTO) 64.4 % (43.0-81.0); PLATELET COUNT (AUTO) 166 K/uL (150-450); RED BLOOD CELL COUNT(AUTO) 2.92 MIL/uL (4.5-6.0); RED CELL DISTRIBUTION WIDTH 18.9 % (11.5-15.0)
[2023-01-05 07:57] LABS: CALCIUM, SERUM 8.6 mg/dL (8.5-10.1); CREATININE 1.3 mg/dL (0.6-1.3); POTASSIUM 4.5 mmol/L (3.5-5.1)
[2023-01-05 08:10] LABS: FERRITIN 358 ng/mL (8-388)
[2023-01-05] MEDS: CYCLOBENZAPRINE 10 MG TABLET PO SCH (08:34)
[2023-01-05] MEDS: GABAPENTIN 300 MG CAPSULE PO SCH ×2 (08:34→16:48)
[2023-01-05] MEDS: MEROPENEM 1 G in IV NS 0.9% 100 ML IV SCH ×2 (08:35→20:18)
[2023-01-05] MEDS: BUMETANIDE (1 MG) 1 MG TABLET PO SCH (08:35)
[2023-01-05] MEDS: CARVEDILOL 12.5 MG TABLET PO SCH ×2 (08:35→21:00)
[2023-01-05] MEDS: LISINOPRIL (20MG) 20 MG TABLET PO SCH (08:35)
[2023-01-05] MEDS: Z GUARD REMEDY 4 OZ OINT TP PRN (08:37)
[2023-01-05] MEDS: Z GUARD REMEDY 4 OZ OINT TP SCH (08:38)
[2023-01-05] MEDS: *INSULIN REGULAR(HUMULIN R)HUM 100 UNIT/ML VIAL SQ PRN ×2 (08:38→21:10)
[2023-01-05] MEDS: CLOTRIMAZOLE/BETAMETASONE DIPROPIONATE 15 GM TUBE TP SCH ×2 (08:38→16:48)
[2023-01-05 09:00] VITALS: BP 114/59; TEMP 98.6; O2SAT 96
[2023-01-05 09:09] LABS: IRON, SERUM 81 ug/dl (50-175); TOTAL IRON BINDING CAPACITY 152 ug/dl (250-450)
[2023-01-05] MEDS: VANCOMYCIN HCL 0.75 GM in IV D5W 250 ML IV SCH ×2 (09:31→21:27)
[2023-01-05 11:38] LABS: OCCULT BLOOD STOOL NEGATIVE (NEGATIVE)
[2023-01-05] MEDS: INSULIN REGULAR, HUMAN 100 UNIT/ML 3 ML VIAL SQ PRN ×2 (11:44→16:49)
[2023-01-05 16:00] VITALS: BP 141/78; TEMP 98.6; O2SAT 97
[2023-01-05 19:00] VITALS: BP 157/64; TEMP 97.9; O2SAT 96
[2023-01-05 20:00] VITALS: BP 157/64; TEMP 97.9; O2SAT 96
[2023-01-05] MEDS: TRAMADOL HCL 50 MG TABLET PO SCH (21:01)
[2023-01-06] VITALS: BP 152/64; TEMP 97.9; O2SAT 98
[2023-01-06] MEDS: VANCOMYCIN HCL 125 MG/2.5 ML ORAL.SUSP PO SCH ×5 (00:21→23:45)
[2023-01-06 04:00] VITALS: BP 128/71; TEMP 97.8; O2SAT 98
[2023-01-06] MEDS: BLOOD SUGAR DIAGNOSTIC 1 EACH STRIP VI SCH ×4 (06:36→21:23)
[2023-01-06] MEDS: INSULIN REGULAR, HUMAN 100 UNIT/ML 3 ML VIAL SQ PRN ×3 (06:36→16:32)
[2023-01-06 08:00] VITALS: BP 131/75; TEMP 97.7; O2SAT 96
[2023-01-06 08:17] LABS: BASOPHILS % (AUTO) 0.4 % (0.0-2.0); EOSINOPHILS # (AUTO) 0.1 K/uL (0.0-0.7); EOSINOPHILS % (AUTO) 2.1 % (0.0-6.0); HEMATOCRIT 25 % (39-51); HEMOGLOBIN 7.6 g/dL (13.5-17.5); LYMPHOCYTES # (AUTO) 2.1 K/uL (0.8-4.8); LYMPHOCYTES % (AUTO) 32.3 % (20.0-44.0); MEAN CORPUSCULAR HEMOGLOBIN 27 PG (26.0-33.0); MEAN CORPUSCULAR HGB CONC 31 g/dl (31.0-36.0); MEAN CORPUSCULAR VOLUME 86 fL (80-96); MONOCYTES # (AUTO) 0.5 K/uL (0.1-1.30); MONOCYTES % (AUTO) 8.4 % (2.0-12.0); NEUTROPHILS # (AUTO) 3.6 K/uL (1.8-8.9); NEUTROPHILS % (AUTO) 56.8 % (43.0-81.0); PLATELET COUNT (AUTO) 157 K/uL (150-450); RED BLOOD CELL COUNT(AUTO) 2.85 MIL/uL (4.5-6.0); RED CELL DISTRIBUTION WIDTH 18.8 % (11.5-15.0); WHITE BLOOD COUNT (AUTO) 6.4 K/uL (4.3-11.0)
[2023-01-06 08:37] LABS: CALCIUM, SERUM 8.8 mg/dL (8.5-10.1); CARBON DIOXIDE 24 mmol/L (21-32); CHLORIDE 105 mmol/L (98-107); GLUCOSE 102 mg/dL (74-106); MAGNESIUM 1.9 mg/dL (1.8-2.4); PHOSPHORUS 3.3 mg/dL (2.5-4.9); POTASSIUM 4.3 mmol/L (3.5-5.1); SODIUM SERUM 138 mmol/L (136-145); UREA NITROGEN, BLOOD 19 mg/dL (7-18)
[2023-01-06] MEDS: CYCLOBENZAPRINE 10 MG TABLET PO SCH (09:38)
[2023-01-06] MEDS: GABAPENTIN 300 MG CAPSULE PO SCH ×2 (09:38→16:34)
[2023-01-06] MEDS: BUMETANIDE (1 MG) 1 MG TABLET PO SCH (09:38)
[2023-01-06] MEDS: LISINOPRIL (20MG) 20 MG TABLET PO SCH (09:39)
[2023-01-06] MEDS: CARVEDILOL 12.5 MG TABLET PO SCH ×2 (09:39→21:11)
[2023-01-06] MEDS: Z GUARD REMEDY 4 OZ OINT TP SCH (09:42)
[2023-01-06] MEDS: CLOTRIMAZOLE/BETAMETASONE DIPROPIONATE 15 GM TUBE TP SCH ×2 (09:42→16:35)
[2023-01-06] MEDS: VANCOMYCIN HCL 0.75 GM in IV D5W 250 ML IV SCH ×2 (10:04→21:07)
[2023-01-06] MEDS: MEROPENEM 1 G in IV NS 0.9% 100 ML IV SCH ×2 (10:05→20:29)
[2023-01-06 16:00] VITALS: BP 148/74; TEMP 97.8; O2SAT 98
[2023-01-06] MEDS: MAGNESIUM HYDROXIDE 30 ML UDC PO PRN (18:42)
[2023-01-06 20:00] VITALS: BP 140/70; TEMP 98.2; O2SAT 94; O2SAT 96
[2023-01-06] MEDS: TRAMADOL HCL 50 MG TABLET PO SCH (21:11)
[2023-01-06] MEDS: *INSULIN REGULAR(HUMULIN R)HUM 100 UNIT/ML VIAL SQ PRN (21:23)
[2023-01-06] MEDS: Z GUARD REMEDY 4 OZ OINT TP PRN (21:43)
[2023-01-07 02:35] LABS: APPEARANCE,URINE CLEAR (CLEAR); BILIRUBIN,URINE NEGATIVE (NEGATIVE); BLOOD, URINE TRACE-INTA Ery/uL (NEGATIVE); COLOR,URINE YELLOW (YELLOW); KETONES,URINE NEGATIVE (NEGATIVE); LEUKOCYTE ESTERASE ,URINE TRACE (NEGATIVE); NITRITE, URINE NEGATIVE (NEGATIVE); PH,URINE 5.5 (5.0-8.0); PROTEIN,URINE NEGATIVE (NEGATIVE); UGLUCOSE NEGATIVE (NEGATIVE); UROBILINOGEN,URINE 0.2 EU/dL (0.2)
[2023-01-07 02:36] LABS: ADD URINE CULTURE NO; BACTERIA,URINE Rare /HPF (None Seen); SQUAMOUS EPITHELIAL CELL,UR Few /HPF (None Seen); WBC,URINE 0-2 /HPF (0-3)
[2023-01-07] MEDS: MAGNESIUM HYDROXIDE 30 ML UDC PO PRN ×3 (05:17→16:51)
[2023-01-07] MEDS: VANCOMYCIN HCL 125 MG/2.5 ML ORAL.SUSP PO SCH ×4 (06:38→23:52)
[2023-01-07] MEDS: INSULIN REGULAR, HUMAN 100 UNIT/ML 3 ML VIAL SQ PRN ×3 (06:39→16:58)
[2023-01-07] MEDS: BLOOD SUGAR DIAGNOSTIC 1 EACH STRIP VI SCH ×4 (06:39→22:23)
[2023-01-07] MEDS: MEROPENEM 1 G in IV NS 0.9% 100 ML IV SCH ×2 (08:34→21:14)
[2023-01-07] MEDS: Z GUARD REMEDY 4 OZ OINT TP SCH (08:35)
[2023-01-07] MEDS: CLOTRIMAZOLE/BETAMETASONE DIPROPIONATE 15 GM TUBE TP SCH ×2 (08:35→17:01)
[2023-01-07] MEDS: VANCOMYCIN HCL 0.75 GM in IV D5W 250 ML IV SCH ×2 (08:35→22:05)
[2023-01-07] MEDS: GABAPENTIN 300 MG CAPSULE PO SCH ×2 (08:36→16:50)
[2023-01-07] MEDS: BUMETANIDE (1 MG) 1 MG TABLET PO SCH (08:36)
[2023-01-07] MEDS: CYCLOBENZAPRINE 10 MG TABLET PO SCH (08:36)
[2023-01-07] MEDS: CARVEDILOL 12.5 MG TABLET PO SCH ×2 (08:44→22:07)
[2023-01-07] MEDS: LISINOPRIL (20MG) 20 MG TABLET PO SCH (08:45)
[2023-01-07] MEDS: TAMSULOSIN 0.4 MG CAP.SR.24H PO SCH ×2 (11:16→22:07)
[2023-01-07 11:40] LABS: BASOPHILS % (AUTO) 0.2 % (0.0-2.0); EOSINOPHILS # (AUTO) 0.1 K/uL (0.0-0.7); HEMATOCRIT 24 % (39-51); HEMOGLOBIN 7.8 g/dL (13.5-17.5); LYMPHOCYTES # (AUTO) 1.5 K/uL (0.8-4.8); LYMPHOCYTES % (AUTO) 23.5 % (20.0-44.0); MEAN CORPUSCULAR HEMOGLOBIN 27 PG (26.0-33.0); MEAN CORPUSCULAR HGB CONC 32 g/dl (31.0-36.0); MEAN CORPUSCULAR VOLUME 84 fL (80-96); MONOCYTES # (AUTO) 0.6 K/uL (0.1-1.30); MONOCYTES % (AUTO) 9.3 % (2.0-12.0); NEUTROPHILS # (AUTO) 4.3 K/uL (1.8-8.9); PLATELET COUNT (AUTO) 149 K/uL (150-450); RED BLOOD CELL COUNT(AUTO) 2.87 MIL/uL (4.5-6.0); RED CELL DISTRIBUTION WIDTH 18.9 % (11.5-15.0); WHITE BLOOD COUNT (AUTO) 6.5 K/uL (4.3-11.0)
[2023-01-07 11:57] LABS: CALCIUM, SERUM 8.8 mg/dL (8.5-10.1); POTASSIUM 3.9 mmol/L (3.5-5.1)
[2023-01-07] MEDS ORDERED: NA PHOS,M-B/NA PHOS,DI-BA 1 EA ENEMA RC ONE (18:30)
[2023-01-07 20:41] VITALS: BP 105/53; TEMP 98.8; O2SAT 86
[2023-01-07] MEDS: TRAMADOL HCL 50 MG TABLET PO SCH (22:00)
[2023-01-07] MEDS: *INSULIN REGULAR(HUMULIN R)HUM 100 UNIT/ML VIAL SQ PRN (22:20)
[2023-01-08] MEDS: VANCOMYCIN HCL 125 MG/2.5 ML ORAL.SUSP PO SCH ×3 (06:12→17:45)
[2023-01-08] MEDS: BLOOD SUGAR DIAGNOSTIC 1 EACH STRIP VI SCH ×3 (06:13→17:45)
[2023-01-08 06:53] LABS: BASOPHILS % (AUTO) 0.3 % (0.0-2.0); EOSINOPHILS # (AUTO) 0.1 K/uL (0.0-0.7); EOSINOPHILS % (AUTO) 1.5 % (0.0-6.0); HEMATOCRIT 25 % (39-51); LYMPHOCYTES # (AUTO) 2.5 K/uL (0.8-4.8); LYMPHOCYTES % (AUTO) 31.4 % (20.0-44.0); MEAN CORPUSCULAR HEMOGLOBIN 28 PG (26.0-33.0); MEAN CORPUSCULAR HGB CONC 32 g/dl (31.0-36.0); MEAN CORPUSCULAR VOLUME 86 fL (80-96); MONOCYTES # (AUTO) 0.8 K/uL (0.1-1.30); MONOCYTES % (AUTO) 10.6 % (2.0-12.0); NEUTROPHILS # (AUTO) 4.4 K/uL (1.8-8.9); NEUTROPHILS % (AUTO) 56.2 % (43.0-81.0); PLATELET COUNT (AUTO) 177 K/uL (150-450); RED CELL DISTRIBUTION WIDTH 18.8 % (11.5-15.0); WHITE BLOOD COUNT (AUTO) 7.8 K/uL (4.3-11.0)
[2023-01-08 07:23] LABS: CALCIUM, SERUM 9.1 mg/dL (8.5-10.1); POTASSIUM 4.2 mmol/L (3.5-5.1)
[2023-01-08 07:30] VITALS: BP_SYST 121; BP_SYST 126; BP_DIAS 59; BP_DIAS 83; TEMP 98.2; TEMP 98.4; O2SAT 97; O2SAT 98
[2023-01-08] MEDS ORDERED: TAMS-12 PO (09:12)
[2023-01-08] MEDS ORDERED: MERO1PIG IV (09:20)
[2023-01-08] MEDS ORDERED: VANC125C11 PO (09:20)
[2023-01-08] MEDS ORDERED: VANC750F2 IV (09:20)
[2023-01-08] MEDS: CLOTRIMAZOLE/BETAMETASONE DIPROPIONATE 15 GM TUBE TP SCH ×2 (09:59→16:12)
[2023-01-08] MEDS: Z GUARD REMEDY 4 OZ OINT TP SCH (10:00)
[2023-01-08] MEDS: LISINOPRIL (20MG) 20 MG TABLET PO SCH (10:00)
[2023-01-08] MEDS: VANCOMYCIN HCL 0.75 GM in IV D5W 250 ML IV SCH (10:00)
[2023-01-08] MEDS: MEROPENEM 1 G in IV NS 0.9% 100 ML IV SCH (10:00)
[2023-01-08] MEDS: CYCLOBENZAPRINE 10 MG TABLET PO SCH (10:01)
[2023-01-08] MEDS: GABAPENTIN 300 MG CAPSULE PO SCH ×2 (10:01→16:12)
[2023-01-08] MEDS: CARVEDILOL 12.5 MG TABLET PO SCH (10:01)
[2023-01-08] MEDS: BUMETANIDE (1 MG) 1 MG TABLET PO SCH (10:02)
[2023-01-08] MEDS: *INSULIN REGULAR(HUMULIN R)HUM 100 UNIT/ML VIAL SQ PRN (12:20)
[2023-01-08] MEDS ORDERED: SOD FERRIC GLUC 125 MG in IV NS 0.9% 100 ML IV SCH (14:00)
[2023-01-08 16:00] VITALS: BP 132/72; TEMP 98.8; O2SAT 97
[2023-01-08] MEDS: INSULIN REGULAR, HUMAN 100 UNIT/ML 3 ML VIAL SQ PRN (17:49)
== END 2023-01-08 18:00 | disposition home health service (06) | DRG 981 ==
LOC: ER 09:55 → MED 11:58
PROVIDERS: ADMIT Internal Medicine; ATTEND Internal Medicine
PROC: 0KBW0ZZ Excision of Left Foot Muscle, Open Approach (ICD-10-PCS; principal; 2023-01-04)
PROC: 02HV33Z Insertion of Infusion Device into Superior Vena Cava, Percutaneous Approach (ICD-10-PCS; 2023-01-05)
PROC: B548ZZA Ultrasonography of Superior Vena Cava, Guidance (ICD-10-PCS; 2023-01-05)
PROC: 02HV33Z Insertion of Infusion Device into Superior Vena Cava, Percutaneous Approach (ICD-10-PCS; 2023-01-06)
PROC: B548ZZA Ultrasonography of Superior Vena Cava, Guidance (ICD-10-PCS; 2023-01-06)
DX: E11.51 Type 2 diabetes mellitus with diabetic peripheral angiopathy without gangrene (principal); E43 Unspecified severe protein-calorie malnutrition; I21.4 Non-ST elevation (NSTEMI) myocardial infarction; N17.9 Acute kidney failure, unspecified; M86.672 Other chronic osteomyelitis, left ankle and foot; E87.1 Hypo-osmolality and hyponatremia; E11.621 Type 2 diabetes mellitus with foot ulcer; L97.529 Non-pressure chronic ulcer of other part of left foot with unspecified severity; L97.519 Non-pressure chronic ulcer of other part of right foot with unspecified severity; E11.42 Type 2 diabetes mellitus with diabetic polyneuropathy; E11.22 Type 2 diabetes mellitus with diabetic chronic kidney disease; E11.628 Type 2 diabetes mellitus with other skin complications; Z20.822 Contact with and (suspected) exposure to COVID-19; I25.10 Atherosclerotic heart disease of native coronary artery without angina pectoris; N18.30 Chronic kidney disease, stage 3 unspecified; I12.9 Hypertensive chronic kidney disease with stage 1 through stage 4 chronic kidney disease, or unspecified chronic kidney disease; Z90.49 Acquired absence of other specified parts of digestive tract; Z85.038 Personal history of other malignant neoplasm of large intestine; Z98.890 Other specified postprocedural states; Z89.429 Acquired absence of other toe(s), unspecified side; Z79.82 Long term (current) use of aspirin; Z79.84 Long term (current) use of oral hypoglycemic drugs; Z79.899 Other long term (current) drug therapy; N40.1 Benign prostatic hyperplasia with lower urinary tract symptoms; Z95.1 Presence of aortocoronary bypass graft; D50.9 Iron deficiency anemia, unspecified; E88.09 Other disorders of plasma-protein metabolism, not elsewhere classified; Z87.39 Personal history of other diseases of the musculoskeletal system and connective tissue; E11.319 Type 2 diabetes mellitus with unspecified diabetic retinopathy without macular edema; E78.5 Hyperlipidemia, unspecified; I27.20 Pulmonary hypertension, unspecified; E11.69 Type 2 diabetes mellitus with other specified complication; K29.70 Gastritis, unspecified, without bleeding; E66.9 Obesity, unspecified; K57.30 Diverticulosis of large intestine without perforation or abscess without bleeding; K64.8 Other hemorrhoids; K80.20 Calculus of gallbladder without cholecystitis without obstruction; R91.1 Solitary pulmonary nodule; Z86.19 Personal history of other infectious and parasitic diseases; R33.8 Other retention of urine
CPT/HCPCS: 36415; 36569; 71045-TC; 80048-TC; 80053-TC; 80076-TC; 80202-TC; 81001; 82272-TC; 82378; 82550-TC; 82728-TC; 82962-TC; 83540-TC; 83605-TC; 83735-TC; 84100-TC; 84484-TC; 85025-TC; 85610-TC; 85652-TC; 85730-TC; 86140-TC; 86850-TC; 87040-TC; 87081-TC; 87086-TC; A4217; A4223; A6253; G0378; J1815; J2185; J2916; J3010; J3370; J3490; J7030; J7050; J7060

== ENCOUNTER → 2023-01-19 | Outpatient (CLI) | payer MEDICARE, BC ==
[~2023-01-19] MED LIST changes: +ASCO-317 PO; -ASCO500T21 PO; +BUME1TAB34 PO; -CARV12.52 PO; +CARV25TA PO; -CYAN-51 PO; +CYAN500T64 PO; +LISI20TA30 PO; +MERO1PIG IV; -SPIR25TA6 PO; +TAMS-12 PO; +VANC125C11 PO; +VANC750F2 IV
== END | disposition home or self-care (01) ==
LOC: MSC 15:00
PROVIDERS: ATTEND Internal Medicine
DX: E11.22 Type 2 diabetes mellitus with diabetic chronic kidney disease (principal); I12.9 Hypertensive chronic kidney disease with stage 1 through stage 4 chronic kidney disease, or unspecified chronic kidney disease; N18.32 Chronic kidney disease, stage 3b; N17.8 Other acute kidney failure; Z79.84 Long term (current) use of oral hypoglycemic drugs; E11.40 Type 2 diabetes mellitus with diabetic neuropathy, unspecified; E11.319 Type 2 diabetes mellitus with unspecified diabetic retinopathy without macular edema; E11.69 Type 2 diabetes mellitus with other specified complication; M86.172 Other acute osteomyelitis, left ankle and foot; Z89.422 Acquired absence of other left toe(s); D64.9 Anemia, unspecified; E83.9 Disorder of mineral metabolism, unspecified; M89.9 Disorder of bone, unspecified; R23.3 Spontaneous ecchymoses

== ENCOUNTER 2023-01-22 10:44 | Outpatient (CLI) | payer MEDICARE, BC ==
[2023-01-22] MEDS ORDERED: LIDOCAINE 2% JEL 5 ML TUBE ONE (10:53)
== END 2023-01-22 23:59 | disposition home health service (06) ==
LOC: WOU 10:44
PROVIDERS: ATTEND Surgery
DX: E11.621 Type 2 diabetes mellitus with foot ulcer (principal); L97.428 Non-pressure chronic ulcer of left heel and midfoot with other specified severity; L97.528 Non-pressure chronic ulcer of other part of left foot with other specified severity; L97.513 Non-pressure chronic ulcer of other part of right foot with necrosis of muscle; L97.518 Non-pressure chronic ulcer of other part of right foot with other specified severity; E11.52 Type 2 diabetes mellitus with diabetic peripheral angiopathy with gangrene; A48.0 Gas gangrene; E11.69 Type 2 diabetes mellitus with other specified complication; E11.42 Type 2 diabetes mellitus with diabetic polyneuropathy; M86.671 Other chronic osteomyelitis, right ankle and foot; Z79.84 Long term (current) use of oral hypoglycemic drugs; I70.235 Atherosclerosis of native arteries of right leg with ulceration of other part of foot; I70.245 Atherosclerosis of native arteries of left leg with ulceration of other part of foot; D69.0 Allergic purpura; Z89.432 Acquired absence of left foot
CPT/HCPCS: 11043; 11042; 11046; A6253; A6454; A4649

== ENCOUNTER 2023-01-22 12:04 | Outpatient (CLI) | payer MEDICARE, BC ==
[2023-01-22 13:36] LABS: BASOPHILS % (AUTO) 0.3 % (0.0-2.0); EOSINOPHILS # (AUTO) 0.2 K/uL (0.0-0.7); HEMATOCRIT 27 % (39-51); HEMOGLOBIN 8.2 g/dL (13.5-17.5); LYMPHOCYTES # (AUTO) 1.2 K/uL (0.8-4.8); LYMPHOCYTES % (AUTO) 20.2 % (20.0-44.0); MEAN CORPUSCULAR HEMOGLOBIN 27 PG (26.0-33.0); MEAN CORPUSCULAR HGB CONC 31 g/dl (31.0-36.0); MEAN CORPUSCULAR VOLUME 88 fL (80-96); MONOCYTES # (AUTO) 0.4 K/uL (0.1-1.30); MONOCYTES % (AUTO) 7.1 % (2.0-12.0); NEUTROPHILS # (AUTO) 4.1 K/uL (1.8-8.9); NEUTROPHILS % (AUTO) 69.4 % (43.0-81.0); PLATELET COUNT (AUTO) 202 K/uL (150-450); RED BLOOD CELL COUNT(AUTO) 3.03 MIL/uL (4.5-6.0); RED CELL DISTRIBUTION WIDTH 20.9 % (11.5-15.0); WHITE BLOOD COUNT (AUTO) 5.9 K/uL (4.3-11.0)
[2023-01-22 13:51] LABS: IRON, SERUM 28 ug/dl (50-175); TOTAL IRON BINDING CAPACITY 173 ug/dl (250-450)
[2023-01-22 13:55] LABS: ALANINE AMINOTRANSFERASE 35 U/L (12-78); ALBUMIN 3.2 g/dL (3.4-5.0); ALKALINE PHOSPHATASE 87 U/L (46-116); ASPARTATE AMINOTRANSFERASE 10 U/L (15-37); BILIRUBIN,TOTAL 0.7 mg/dL (0.2-1.0); CALCIUM, SERUM 8.6 mg/dL (8.5-10.1); CARBON DIOXIDE 20 mmol/L (21-32); CHLORIDE 108 mmol/L (98-107); CREATININE 1.8 mg/dL (0.6-1.3); GLUCOSE 156 mg/dL (74-106); SODIUM SERUM 142 mmol/L (136-145); UREA NITROGEN, BLOOD 38 mg/dL (7-18)
[2023-01-22 14:05] LABS: FERRITIN 244 ng/mL (8-388); PROSTATE SPECIFIC ANTIGEN SCR 1.77 ng/mL (0.00-4.00)
== END 2023-01-22 23:59 | disposition home or self-care (01) ==
LOC: LAB 12:04
PROVIDERS: ATTEND Internal Medicine
DX: Z13.228 Encounter for screening for other metabolic disorders (principal); I12.9 Hypertensive chronic kidney disease with stage 1 through stage 4 chronic kidney disease, or unspecified chronic kidney disease; N18.9 Chronic kidney disease, unspecified; D64.9 Anemia, unspecified; R97.0 Elevated carcinoembryonic antigen [CEA]; R76.0 Raised antibody titer
CPT/HCPCS: 36415; 80053-TC; 82378; 82728-TC; 83540-TC; 84153-TC; 85025-TC

== ENCOUNTER 2023-02-06 09:33 | Outpatient (CLI) | payer MEDICARE, BC ==
[2023-02-06 09:52] LABS: BASOPHILS % (AUTO) 0.3 % (0.0-2.0); EOSINOPHILS # (AUTO) 0.4 K/uL (0.0-0.7); EOSINOPHILS % (AUTO) 5.9 % (0.0-6.0); HEMATOCRIT 33 % (39-51); LYMPHOCYTES # (AUTO) 2.2 K/uL (0.8-4.8); LYMPHOCYTES % (AUTO) 30.4 % (20.0-44.0); MEAN CORPUSCULAR HEMOGLOBIN 27 PG (26.0-33.0); MEAN CORPUSCULAR HGB CONC 31 g/dl (31.0-36.0); MEAN CORPUSCULAR VOLUME 87 fL (80-96); MONOCYTES # (AUTO) 0.6 K/uL (0.1-1.30); MONOCYTES % (AUTO) 7.6 % (2.0-12.0); NEUTROPHILS # (AUTO) 4.1 K/uL (1.8-8.9); NEUTROPHILS % (AUTO) 55.8 % (43.0-81.0); PLATELET COUNT (AUTO) 207 K/uL (150-450); RED BLOOD CELL COUNT(AUTO) 3.75 MIL/uL (4.5-6.0); WHITE BLOOD COUNT (AUTO) 7.4 K/uL (4.3-11.0)
[2023-02-06 09:59] LABS: ALANINE AMINOTRANSFERASE 21 U/L (12-78); ALBUMIN 3.3 g/dL (3.4-5.0); ALKALINE PHOSPHATASE 86 U/L (46-116); ASPARTATE AMINOTRANSFERASE 13 U/L (15-37); BILIRUBIN,TOTAL 0.8 mg/dL (0.2-1.0); CALCIUM, SERUM 8.9 mg/dL (8.5-10.1); CARBON DIOXIDE 26 mmol/L (21-32); CHLORIDE 108 mmol/L (98-107); CREATININE 1.3 mg/dL (0.6-1.3); GLUCOSE 100 mg/dL (74-106); SODIUM SERUM 141 mmol/L (136-145); UREA NITROGEN, BLOOD 33 mg/dL (7-18)
[2023-02-06 11:12] LABS: IRON, SERUM 26 ug/dl (50-175); TOTAL IRON BINDING CAPACITY 157 ug/dl (250-450)
[2023-02-06 11:17] LABS: FERRITIN 212 ng/mL (8-388); PROSTATE SPECIFIC ANTIGEN SCR 2.56 ng/mL (0.00-4.00)
== END 2023-02-06 23:59 | disposition home or self-care (01) ==
LOC: LAB 09:33
PROVIDERS: ATTEND Internal Medicine Hematology & Oncology
DX: Z13.228 Encounter for screening for other metabolic disorders (principal); Z12.5 Encounter for screening for malignant neoplasm of prostate; D64.9 Anemia, unspecified; R97.0 Elevated carcinoembryonic antigen [CEA]; R33.9 Retention of urine, unspecified
CPT/HCPCS: 36415; 80053-TC; 82378; 82728-TC; 83540-TC; 84153-TC; 85025-TC

== ENCOUNTER 2023-02-12 12:55 | Outpatient (CLI) | payer MEDICARE, BC ==
[2023-02-12 14:20] LABS: BASOPHILS % (AUTO) 0.3 % (0.0-2.0); EOSINOPHILS # (AUTO) 0.2 K/uL (0.0-0.7); EOSINOPHILS % (AUTO) 2.6 % (0.0-6.0); HEMATOCRIT 31 % (39-51); HEMOGLOBIN 9.5 g/dL (13.5-17.5); LYMPHOCYTES # (AUTO) 1.5 K/uL (0.8-4.8); LYMPHOCYTES % (AUTO) 23.8 % (20.0-44.0); MEAN CORPUSCULAR HEMOGLOBIN 26 PG (26.0-33.0); MEAN CORPUSCULAR HGB CONC 31 g/dl (31.0-36.0); MEAN CORPUSCULAR VOLUME 86 fL (80-96); MONOCYTES # (AUTO) 0.4 K/uL (0.1-1.30); MONOCYTES % (AUTO) 6.9 % (2.0-12.0); NEUTROPHILS # (AUTO) 4.2 K/uL (1.8-8.9); NEUTROPHILS % (AUTO) 66.4 % (43.0-81.0); PLATELET COUNT (AUTO) 190 K/uL (150-450); RED BLOOD CELL COUNT(AUTO) 3.58 MIL/uL (4.5-6.0); RED CELL DISTRIBUTION WIDTH 18.4 % (11.5-15.0); WHITE BLOOD COUNT (AUTO) 6.3 K/uL (4.3-11.0)
[2023-02-12 14:39] LABS: ALANINE AMINOTRANSFERASE 32 U/L (12-78); ALBUMIN 3.3 g/dL (3.4-5.0); ALKALINE PHOSPHATASE 88 U/L (46-116); ASPARTATE AMINOTRANSFERASE 14 U/L (15-37); BILIRUBIN,TOTAL 0.8 mg/dL (0.2-1.0); CALCIUM, SERUM 9.1 mg/dL (8.5-10.1); CARBON DIOXIDE 26 mmol/L (21-32); CHLORIDE 107 mmol/L (98-107); CREATININE 1.4 mg/dL (0.6-1.3); GLUCOSE 86 mg/dL (74-106); POTASSIUM 4.3 mmol/L (3.5-5.1); SODIUM SERUM 142 mmol/L (136-145); UREA NITROGEN, BLOOD 32 mg/dL (7-18)
[2023-02-12 14:40] LABS: IRON, SERUM 27 ug/dl (50-175); TOTAL IRON BINDING CAPACITY 170 ug/dl (250-450)
[2023-02-12 16:00] LABS: FERRITIN 252 ng/mL (8-388); PROSTATE SPECIFIC ANTIGEN SCR 2.15 ng/mL (0.00-4.00)
== END 2023-02-12 23:59 | disposition home or self-care (01) ==
LOC: LAB 12:55
PROVIDERS: ATTEND Internal Medicine Hematology & Oncology
DX: Z13.228 Encounter for screening for other metabolic disorders (principal); Z12.5 Encounter for screening for malignant neoplasm of prostate; D64.9 Anemia, unspecified; R97.0 Elevated carcinoembryonic antigen [CEA]; R33.9 Retention of urine, unspecified
CPT/HCPCS: 36415; 80053-TC; 82378; 82728-TC; 83540-TC; 84153-TC; 85025-TC

== ENCOUNTER 2023-04-05 06:14 | Day surgery (SDC) | payer MEDICARE, BC ==
[2023-04-05] MEDS ORDERED: ANESTHESIA TRAY IN PYXIS 1 EA TRAY MC ONE (07:02)
[2023-04-05] MEDS ORDERED: LIDOCAINE 1% INJ 50 ML MDV IJ ONE (07:03)
[2023-04-05] MEDS ORDERED: BUPIVACAINE MPF 0.5% W/EPI INJ 30 ML VIAL ONE (07:03)
[2023-04-05] MEDS ORDERED: MINERAL OIL 10 ML VIAL MC ONE (07:03)
[2023-04-05] MEDS ORDERED: BUPIVACAINE 0.25% 75 MG/30 ML VIAL ONE (07:03)
[2023-04-05] MEDS ORDERED: LIDOCAINE 1%-EPI 1:100,000 20 ML VIAL ONE (07:31)
[2023-04-05] MEDS ORDERED: FENTANYL PF 100MCG/2ML AMPUL ONE (07:38)
== END 2023-04-05 11:52 | disposition home or self-care (01) ==
LOC: DS 06:14
PROVIDERS: ATTEND Podiatrist Foot & Ankle Surgery
DX: E11.621 Type 2 diabetes mellitus with foot ulcer (principal); I10 Essential (primary) hypertension; I25.2 Old myocardial infarction; E78.5 Hyperlipidemia, unspecified; E11.9 Type 2 diabetes mellitus without complications; E66.9 Obesity, unspecified; D64.9 Anemia, unspecified; Z98.890 Other specified postprocedural states; Z79.899 Other long term (current) drug therapy
CPT/HCPCS: 15004; 15120; 36415; 82962; 86850; 97605; J0690; J2704; J3010; J3490; J7030

== ENCOUNTER 2023-06-14 09:40 | Outpatient (CLI) | payer MEDICARE, BC ==
[~2023-06-14 09:40] MED LIST changes: +LIDOCAINE SOLN 4% 50 ML BOTTLE ONE
[2023-06-14] MEDS ORDERED: GENTAMICIN 0.1% CREAM 15 GM TUBE ONE (09:58)
[2023-06-29] MEDS ORDERED: METR500T PO (11:13)
== END 2023-06-14 23:59 | disposition home health service (06) ==
LOC: WOU 09:40
PROVIDERS: ATTEND Podiatrist Foot & Ankle Surgery
DX: E11.621 Type 2 diabetes mellitus with foot ulcer (principal); E11.51 Type 2 diabetes mellitus with diabetic peripheral angiopathy without gangrene; E11.42 Type 2 diabetes mellitus with diabetic polyneuropathy; I70.235 Atherosclerosis of native arteries of right leg with ulceration of other part of foot; L97.522 Non-pressure chronic ulcer of other part of left foot with fat layer exposed; L97.512 Non-pressure chronic ulcer of other part of right foot with fat layer exposed; Z79.84 Long term (current) use of oral hypoglycemic drugs
CPT/HCPCS: 11042; 11045; A6253; A6454

== ENCOUNTER 2023-06-27 10:30 | Inpatient (IN) | payer MEDICARE, BC ==
[~2023-06-27] VITALS: Ht 177.8 cm; Wt 97.1 kg
[~2023-06-27 10:30] MED LIST changes: -LIDOCAINE SOLN 4% 50 ML BOTTLE ONE
[2023-06-27 10:40] VITALS: O2SAT 91
[2023-06-27] MEDS: PIPERACILLIN /TAZOBACTAM 3.375 G in IV D5W 50 ML IV ONE (11:22)
[2023-06-27 11:36] LABS: BASOPHILS % (AUTO) 0.3 % (0.0-2.0); EOSINOPHILS # (AUTO) 0.2 K/uL (0.0-0.7); EOSINOPHILS % (AUTO) 2.3 % (0.0-6.0); HEMATOCRIT 35 % (39-51); HEMOGLOBIN 11.5 g/dL (13.5-17.5); LYMPHOCYTES # (AUTO) 1.7 K/uL (0.8-4.8); LYMPHOCYTES % (AUTO) 23.9 % (20.0-44.0); MEAN CORPUSCULAR HEMOGLOBIN 28 PG (26.0-33.0); MEAN CORPUSCULAR HGB CONC 33 g/dl (31.0-36.0); MEAN CORPUSCULAR VOLUME 85 fL (80-96); MONOCYTES # (AUTO) 0.7 K/uL (0.1-1.30); MONOCYTES % (AUTO) 10.1 % (2.0-12.0); NEUTROPHILS # (AUTO) 4.5 K/uL (1.8-8.9); NEUTROPHILS % (AUTO) 63.4 % (43.0-81.0); PLATELET COUNT (AUTO) 198 K/uL (150-450); RED BLOOD CELL COUNT(AUTO) 4.17 MIL/uL (4.5-6.0); RED CELL DISTRIBUTION WIDTH 17.7 % (11.5-15.0); WHITE BLOOD COUNT (AUTO) 7.1 K/uL (4.3-11.0)
[2023-06-27] MEDS: VANCOMYCIN 1 GM in IV D5W 250 ML IV ONE (11:48)
[2023-06-27 11:52] LABS: CALCIUM, SERUM 9.4 mg/dL (8.5-10.1); CARBON DIOXIDE 28 mmol/L (21-32); CHLORIDE 98 mmol/L (98-107); CREATININE 1.5 mg/dL (0.6-1.3); GLUCOSE 86 mg/dL (74-106); POTASSIUM 4.2 mmol/L (3.5-5.1); SODIUM SERUM 134 mmol/L (136-145); UREA NITROGEN, BLOOD 28 mg/dL (7-18)
[2023-06-27 12:00] LABS: INR 1.15 (0.91-1.10); PARTIAL THROMBOPLASTIN TIME 35.3 SEC (24.3-34.3); PROTHROMBIN TIME 12.1 SECS (9.2-11.1)
[2023-06-27 12:10] LABS: ALANINE AMINOTRANSFERASE 8 U/L (12-78); ALBUMIN 3.6 g/dL (3.4-5.0); ALKALINE PHOSPHATASE 69 U/L (46-116); ASPARTATE AMINOTRANSFERASE 12 U/L (15-37); BILIRUBIN,DIRECT 0.3 mg/dL (0.0-0.2); BILIRUBIN,TOTAL 1.8 mg/dL (0.2-1.0); TOTAL PROTEIN, SERUM 7.5 g/dL (6.4-8.2)
[2023-06-27] MEDS ORDERED: LISI40TA13 PO (12:13)
[2023-06-27] MEDS ORDERED: ASCO500T21 PO (12:13)
[2023-06-27] MEDS ORDERED: CLOP75TA15 PO (12:13)
[2023-06-27] MEDS ORDERED: DEXTROSE 50%-WATER 50 ML DISP.SYRIN IV PRN (14:30)
[2023-06-27] MEDS ORDERED: MORPHINE SULFATE INJ 2 MG/ML DISP.SYRIN IV PRN (14:30)
[2023-06-27] MEDS ORDERED: ONDANSETRON HCL/PF 4 MG/2 ML VIAL IVP PRN (14:30)
[2023-06-27] MEDS ORDERED: hydrALAZINE HCL IV 20 MG VIAL IV PRN (14:30)
[2023-06-27] MEDS: GABAPENTIN 300 MG CAPSULE PO SCH (16:17)
[2023-06-27] MEDS: BLOOD SUGAR DIAGNOSTIC 1 EACH STRIP VI SCH (17:18)
[2023-06-27 20:00] VITALS: BP 146/75; TEMP 98.1; O2SAT 94
[2023-06-27] MEDS: ACETAMINOPHEN 325 MG TABLET PO PRN (20:40)
[2023-06-27] MEDS: CEFEPIME 1 GM in IV D5W 50 ML IV SCH (20:48)
[2023-06-27] MEDS: *INSULIN REGULAR(HUMULIN R)HUM 100 UNIT/ML VIAL SQ PRN (22:15)
[2023-06-27] MEDS: ATORVASTATIN 40 MG TABLET PO SCH (22:23)
[2023-06-27] MEDS: HEPARIN SODIUM, PORCINE 5000 UNITS/1 ML VIAL SQ SCH (22:23)
[2023-06-27] MEDS: METRONIDAZOLE 500 MG TABLET PO SCH (22:23)
[2023-06-28] MEDS: VANCOMYCIN 750 MG in IV D5W 250 ML IV SCH (00:22)
[2023-06-28] MEDS: INSULIN REGULAR, HUMAN 100 UNIT/ML 3 ML VIAL SQ PRN (05:53)
[2023-06-28 06:42] LABS: BASOPHILS % (AUTO) 0.2 % (0.0-2.0); EOSINOPHILS # (AUTO) 0.2 K/uL (0.0-0.7); EOSINOPHILS % (AUTO) 2.3 % (0.0-6.0); HEMATOCRIT 33 % (39-51); HEMOGLOBIN 10.8 g/dL (13.5-17.5); LYMPHOCYTES # (AUTO) 1.9 K/uL (0.8-4.8); LYMPHOCYTES % (AUTO) 28.8 % (20.0-44.0); MEAN CORPUSCULAR HEMOGLOBIN 27 PG (26.0-33.0); MEAN CORPUSCULAR HGB CONC 32 g/dl (31.0-36.0); MEAN CORPUSCULAR VOLUME 83 fL (80-96); MONOCYTES # (AUTO) 0.6 K/uL (0.1-1.30); MONOCYTES % (AUTO) 9.7 % (2.0-12.0); NEUTROPHILS # (AUTO) 3.9 K/uL (1.8-8.9); PLATELET COUNT (AUTO) 198 K/uL (150-450); RED CELL DISTRIBUTION WIDTH 17.8 % (11.5-15.0); WHITE BLOOD COUNT (AUTO) 6.6 K/uL (4.3-11.0)
[2023-06-28 07:00] VITALS: BP 145/71; TEMP 97.5; O2SAT 98
[2023-06-28 07:29] LABS: ALANINE AMINOTRANSFERASE 9 U/L (12-78); ALBUMIN 3.3 g/dL (3.4-5.0); ALKALINE PHOSPHATASE 63 U/L (46-116); ASPARTATE AMINOTRANSFERASE 8 U/L (15-37); BILIRUBIN,TOTAL 1.4 mg/dL (0.2-1.0); CALCIUM, SERUM 9.4 mg/dL (8.5-10.1); CARBON DIOXIDE 25 mmol/L (21-32); CHLORIDE 103 mmol/L (98-107); CREATININE 1.2 mg/dL (0.6-1.3); GLUCOSE 73 mg/dL (74-106); MAGNESIUM 2.5 mg/dL (1.8-2.4); PHOSPHORUS 4.3 mg/dL (2.5-4.9); POTASSIUM 3.9 mmol/L (3.5-5.1); SODIUM SERUM 137 mmol/L (136-145); TOTAL PROTEIN, SERUM 6.9 g/dL (6.4-8.2); UREA NITROGEN, BLOOD 24 mg/dL (7-18)
[2023-06-28] MEDS ORDERED: CARVEDILOL 12.5 MG TABLET PO SCH (09:00)
[2023-06-28] MEDS: CLOPIDOGREL BISULFATE 75 MG TABLET PO SCH (09:00)
[2023-06-28] MEDS: BUMETANIDE (1 MG) 1 MG TABLET PO SCH (10:40)
[2023-06-28] MEDS: LISINOPRIL (20MG) 20 MG TABLET PO SCH (10:45)
[2023-06-28] MEDS: CARVEDILOL 12.5 MG TABLET PO SCH (10:45)
[2023-06-28 15:50] VITALS: BP 98/54; TEMP 100.2; O2SAT 99
[2023-06-28 16:15] VITALS: TEMP 97.5
[2023-06-28 20:00] VITALS: BP 112/59; TEMP 97.9; O2SAT 96
[2023-06-28] MEDS: TRAMADOL HCL 50 MG TABLET PO PRN (20:16)
[2023-06-29 06:56] LABS: CALCIUM, SERUM 9.3 mg/dL (8.5-10.1); CARBON DIOXIDE 26 mmol/L (21-32); CHLORIDE 102 mmol/L (98-107); CREATININE 1.4 mg/dL (0.6-1.3); GLUCOSE 84 mg/dL (74-106); POTASSIUM 4.4 mmol/L (3.5-5.1); SODIUM SERUM 135 mmol/L (136-145); UREA NITROGEN, BLOOD 22 mg/dL (7-18)
[2023-06-29 08:00] VITALS: BP 130/69; TEMP 97.7; O2SAT 100
[2023-06-29] MEDS ORDERED: METR500T PO (11:13)
[2023-06-29 15:55] VITALS: BP 119/65; TEMP 97.5; O2SAT 96
== END 2023-06-29 18:02 | disposition home health service (06) | DRG 264 ==
LOC: ER 10:47 → MED 12:10
PROVIDERS: ADMIT Internal Medicine; ATTEND Internal Medicine
PROC: 0JBR0ZZ Excision of Left Foot Subcutaneous Tissue and Fascia, Open Approach (ICD-10-PCS; principal; 2023-06-28)
PROC: 0QBQ0ZZ Excision of Right Toe Phalanx, Open Approach (ICD-10-PCS; 2023-06-28)
PROC: 05HC33Z Insertion of Infusion Device into Left Basilic Vein, Percutaneous Approach (ICD-10-PCS; 2023-06-29)
DX: E11.51 Type 2 diabetes mellitus with diabetic peripheral angiopathy without gangrene (principal); E87.1 Hypo-osmolality and hyponatremia; I13.0 Hypertensive heart and chronic kidney disease with heart failure and stage 1 through stage 4 chronic kidney disease, or unspecified chronic kidney disease; L03.115 Cellulitis of right lower limb; N17.9 Acute kidney failure, unspecified; I70.25 Atherosclerosis of native arteries of other extremities with ulceration; E11.621 Type 2 diabetes mellitus with foot ulcer; E11.42 Type 2 diabetes mellitus with diabetic polyneuropathy; E11.622 Type 2 diabetes mellitus with other skin ulcer; I50.9 Heart failure, unspecified; L03.031 Cellulitis of right toe; N18.30 Chronic kidney disease, stage 3 unspecified; E11.22 Type 2 diabetes mellitus with diabetic chronic kidney disease; E11.319 Type 2 diabetes mellitus with unspecified diabetic retinopathy without macular edema; E78.5 Hyperlipidemia, unspecified; I25.10 Atherosclerotic heart disease of native coronary artery without angina pectoris; Z85.038 Personal history of other malignant neoplasm of large intestine; Z95.2 Presence of prosthetic heart valve; Z90.49 Acquired absence of other specified parts of digestive tract; Z95.1 Presence of aortocoronary bypass graft; Z98.1 Arthrodesis status; Z79.85 Long-term (current) use of injectable non-insulin antidiabetic drugs; Z79.899 Other long term (current) drug therapy; Z79.84 Long term (current) use of oral hypoglycemic drugs; L97.519 Non-pressure chronic ulcer of other part of right foot with unspecified severity; L97.529 Non-pressure chronic ulcer of other part of left foot with unspecified severity; I27.20 Pulmonary hypertension, unspecified; M89.8X9 Other specified disorders of bone, unspecified site; I25.2 Old myocardial infarction; E80.6 Other disorders of bilirubin metabolism; Z79.82 Long term (current) use of aspirin; Z89.432 Acquired absence of left foot; D64.9 Anemia, unspecified; L98.499 Non-pressure chronic ulcer of skin of other sites with unspecified severity; Z87.19 Personal history of other diseases of the digestive system; Z79.02 Long term (current) use of antithrombotics/antiplatelets; Z86.19 Personal history of other infectious and parasitic diseases
CPT/HCPCS: 36415; 71045-TC; 73630-TC; 73718-TC; 76700-TC; 80048-TC; 80053-TC; 80076-TC; 80202-TC; 82962-TC; 83605-TC; 83735-TC; 84100-TC; 85025-TC; 85730-TC; 87040-TC; A4223; A6253; G0378; J0692; J1644; J1815; J2543; J3370; J3371; J7050; J7060

== ENCOUNTER 2023-09-12 11:34 | Day surgery (SDC) | payer MEDICARE, BC ==
[~2023-09-12] VITALS: Ht 177.8 cm; Wt 95.3 kg
[2023-09-12] VITALS (12 sets, daily range): BP systolic 124–164; BP diastolic 64–88; TEMP 97.8–98.2; O2SAT 91–95
[~2023-09-12 11:34] MED LIST changes: -ASCO-317 PO; +ASCO500T21 PO; -ASPI-1169 PO; +CLOP75TA15 PO; -CYCL5TAB PO; -LISI20TA30 PO; +LISI40TA13 PO; -MERO1PIG IV; +METR500T PO; -TAMS-12 PO; -VANC125C11 PO; -VANC750F2 IV
[2023-09-12] MEDS ORDERED: IODIXANOL 150 ML IV ONE (13:00)
[2023-09-12] MEDS ORDERED: LIDOCAINE HCL/PF 1% 30 ML SDV ONE (13:33)
[2023-09-12] MEDS ORDERED: SECONDARY IV SET 1 EA INFUS.SET MC ONE (14:12)
[2023-09-12] MEDS: CEFAZOLIN 2 GM in IV D5W 100 ML IV ONE (14:30)
== END 2023-09-12 20:45 | disposition home or self-care (01) ==
LOC: CATHLAB 11:34 → UNDOADMIN 15:37 → ICU 15:37 → CATHLAB 20:45 → UNDODISIN 09-13 07:28
PROVIDERS: ATTEND Surgery Vascular Surgery
DX: I73.9 Peripheral vascular disease, unspecified (principal); I10 Essential (primary) hypertension; E11.319 Type 2 diabetes mellitus with unspecified diabetic retinopathy without macular edema; Z95.1 Presence of aortocoronary bypass graft; Z98.890 Other specified postprocedural states; Z79.899 Other long term (current) drug therapy
CPT/HCPCS: 75625; 76937; 82962; 75710; 36247; 36248; J0690; J7060; J1644; J7030; J3490; A4223; Q9967; C1769; C1894; C1887; G0378

== ENCOUNTER 2023-12-24 09:47 | Outpatient (CLI) | payer MEDICARE, BC | END 2023-12-24 23:59 | disposition home health service (06) | LOC: WOU 09:47 | PROVIDERS: ATTEND Student in an Organized Health Care Education/Training Program | DX: E11.621 Type 2 diabetes mellitus with foot ulcer (principal); L97.522 Non-pressure chronic ulcer of other part of left foot with fat layer exposed; I70.235 Atherosclerosis of native arteries of right leg with ulceration of other part of foot; L97.515 Non-pressure chronic ulcer of other part of right foot with muscle involvement without evidence of necrosis; E11.51 Type 2 diabetes mellitus with diabetic peripheral angiopathy without gangrene; E11.42 Type 2 diabetes mellitus with diabetic polyneuropathy; Z79.84 Long term (current) use of oral hypoglycemic drugs | CPT/HCPCS: 15275; 11043; A6253; A6454; Q4186 ==

== ENCOUNTER 2024-01-03 10:51 | Outpatient (CLI) | payer MEDICARE, BC ==
[2024-01-03] MEDS ORDERED: CADEXOMER IODINE UD 5 GM TUBE ONE (11:05)
== END 2024-01-03 23:59 | disposition home health service (06) ==
LOC: WOU 10:51
PROVIDERS: ATTEND Student in an Organized Health Care Education/Training Program
DX: E11.621 Type 2 diabetes mellitus with foot ulcer (principal); L97.522 Non-pressure chronic ulcer of other part of left foot with fat layer exposed; I70.235 Atherosclerosis of native arteries of right leg with ulceration of other part of foot; L97.516 Non-pressure chronic ulcer of other part of right foot with bone involvement without evidence of necrosis; E11.51 Type 2 diabetes mellitus with diabetic peripheral angiopathy without gangrene; E11.42 Type 2 diabetes mellitus with diabetic polyneuropathy; Z79.84 Long term (current) use of oral hypoglycemic drugs
CPT/HCPCS: 11044; 15275; A6253; A6454 ×2; Q4186

== ENCOUNTER 2024-08-10 09:43 | Inpatient (IN) | payer MEDICARE, BC ==
[2024-08-10] VITALS (36 sets, daily range): BP systolic 79–120; BP diastolic 45–83; TEMP 97.8–98.4; O2SAT 92–100
[~2024-08-10] VITALS: Ht 172.7 cm; Wt 88.9 kg
[2024-08-10 10:41] LABS: BASOPHILS % (AUTO) 0.1 % (0.0-2.0); EOSINOPHILS % (AUTO) 0.4 % (0.0-6.0); HEMATOCRIT 33 % (39-51); HEMOGLOBIN 10.9 g/dL (13.5-17.5); LYMPHOCYTES # (AUTO) 0.3 K/uL (0.8-4.8); LYMPHOCYTES % (AUTO) 7.7 % (20.0-44.0); MEAN CORPUSCULAR HEMOGLOBIN 26 PG (26.0-33.0); MEAN CORPUSCULAR HGB CONC 33 g/dl (31.0-36.0); MEAN CORPUSCULAR VOLUME 80 fL (80-96); MONOCYTES # (AUTO) 0.3 K/uL (0.1-1.30); NEUTROPHILS % (AUTO) 82.8 % (43.0-81.0); PLATELET COUNT (AUTO) 85 K/uL (150-450); RED BLOOD CELL COUNT(AUTO) 4.15 MIL/uL (4.5-6.0); RED CELL DISTRIBUTION WIDTH 17.5 % (11.5-15.0); WHITE BLOOD COUNT (AUTO) 3.6 K/uL (4.3-11.0)
[2024-08-10] MEDS: IV NS 0.9% 1,000 ML BAG IV ONE (10:49)
[2024-08-10 10:53] LABS: CALCIUM, SERUM 8.9 mg/dL (8.5-10.1); CARBON DIOXIDE 18 mmol/L (21-32); CHLORIDE 100 mmol/L (98-107); CREATININE 4.6 mg/dL (0.6-1.3); GLUCOSE 182 mg/dL (74-106); POTASSIUM 3.9 mmol/L (3.5-5.1); SODIUM SERUM 134 mmol/L (136-145); UREA NITROGEN, BLOOD 62 mg/dL (7-18)
[2024-08-10 10:54] LABS: C-REACTIVE PROTEIN > 25.00 mg/dL (0.0-0.30); INR 1.33 (0.91-1.10); PARTIAL THROMBOPLASTIN TIME 36.7 SEC (24.3-34.3); PROTHROMBIN TIME 13.8 SECS (9.2-11.1)
[2024-08-10 10:58] LABS: ALANINE AMINOTRANSFERASE 36 U/L (12-78); ALBUMIN 2.8 g/dL (3.4-5.0); ALKALINE PHOSPHATASE 75 U/L (46-116); ASPARTATE AMINOTRANSFERASE 68 U/L (15-37); BILIRUBIN,DIRECT 1.2 mg/dL (0.0-0.2); BILIRUBIN,TOTAL 3.2 mg/dL (0.2-1.0); TOTAL PROTEIN, SERUM 6.6 g/dL (6.4-8.2)
[2024-08-10 11:03] LABS: LACTIC ACID 4.2 mmol/L (0.4-2.0)
[2024-08-10] MEDS ORDERED: LATA2.5D15 EACHEYE (11:22)
[2024-08-10 11:27] LABS: LYMPHOCYTES % (MANUAL) 3 % (16-48); MONOCYTES % (MANUAL) 3 % (0-11.0); NEUTROPHILS % (MANUAL) 44 (42-76); PLATELET ESTIMATE DECREASED
[2024-08-10 11:29] LABS: NT-PRO BNP > 25000 pg/mL (0-125)
[2024-08-10] MEDS: CEFEPIME 1 GM in IV D5W 50 ML IV ONE (12:07)
[2024-08-10] MEDS: VANCOMYCIN 1 GM in IV D5W 250 ML IV ONE (12:08)
[2024-08-10] MEDS: NOREPINEPHRINE 8 MG in IV NS 0.9% 250 ML IV ONE (12:50)
[2024-08-10 13:03] LABS: APPEARANCE,URINE CLEAR (CLEAR); BILIRUBIN,URINE 2+ (NEGATIVE); BLOOD, URINE NEGATIVE Ery/uL (NEGATIVE); COLOR,URINE DARK YELLOW (YELLOW); KETONES,URINE NEGATIVE (NEGATIVE); LEUKOCYTE ESTERASE ,URINE NEGATIVE (NEGATIVE); NITRITE, URINE POSITIVE (NEGATIVE); PROTEIN,URINE NEGATIVE (NEGATIVE); UGLUCOSE TRACE mg/dL (NEGATIVE); UROBILINOGEN,URINE 0.2 EU/dL (0.2)
[2024-08-10 13:11] LABS: ADD URINE CULTURE YES; BACTERIA,URINE 2+ /HPF (None Seen); RBC,URINE 0-2 /HPF (0-2); SQUAMOUS EPITHELIAL CELL,UR 0-2 /HPF (None Seen)
[2024-08-10] MEDS ORDERED: ONDANSETRON HCL/PF 4 MG/2 ML VIAL IVP PRN (13:30)
[2024-08-10] MEDS ORDERED: MAGNESIUM HYDROXIDE 30 ML UDC PO PRN (13:30)
[2024-08-10] MEDS ORDERED: VASOPRESSIN INJ 40 UNIT in IV NS 0.9% 38 ML IV PRN (13:30)
[2024-08-10] MEDS ORDERED: NOREPINEPHRINE 8 MG in IV D5W 242 ML IV PRN (13:30)
[2024-08-10] MEDS: NOREPINEPHRINE 8 MG in IV D5W 242 ML IV PRN (15:35)
[2024-08-10] MEDS: MEROPENEM 1 G in IV NS 0.9% 100 ML IV SCH (15:37)
[2024-08-10] MEDS ORDERED: PRECEDEX 400 MCG/100 ML BOTTLE 100 ML IV PRN ×2 (16:00)
[2024-08-10] MEDS: HYDROCORTISONE SOD SUCCINATE 100 MG/2 ML VIAL IV SCH (16:20)
[2024-08-10] MEDS ORDERED: HYDROCODONE/APAP 5/325MG TABLET PO PRN (16:30)
[2024-08-10] MEDS: NOREPINEPHRINE 32 MG in IV NS 0.9% 250 ML IV PRN (16:54)
[2024-08-10] MEDS: BLOOD SUGAR DIAGNOSTIC 1 EACH STRIP IN SCH (18:37)
[2024-08-10] MEDS: INSULIN REGULAR, HUMAN 100 UNIT/ML 3 ML VIAL SQ PRN (18:39)
[2024-08-10 20:01] LABS: INR 1.44 (0.91-1.10); PARTIAL THROMBOPLASTIN TIME 40.2 SEC (24.3-34.3); PROTHROMBIN TIME 14.9 SECS (9.2-11.1)
[2024-08-10] MEDS: HEPARIN SODIUM, PORCINE 5000 UNITS/1 ML VIAL IV ONE (20:21)
[2024-08-10] MEDS: FAMOTIDINE/PF INJ 20 MG/2 ML VIAL IV SCH (20:22)
[2024-08-10] MEDS: HEPARIN INFUSION/D5W 500 ML IV PRN (20:35)
[2024-08-10] MEDS ORDERED: HEPARIN SODIUM, PORCINE 5000 UNITS/1 ML VIAL SQ SCH (21:00)
[2024-08-10] MEDS: ATORVASTATIN 40 MG TABLET PO SCH (22:58)
[2024-08-11] VITALS (111 sets, daily range): BP systolic 86–154; BP diastolic 45–136; TEMP 98–98.8; O2SAT 63–100
[2024-08-11 04:00] LABS: INR 1.5 (0.91-1.10); PARTIAL THROMBOPLASTIN TIME 64.8 SEC (24.3-34.3); PROTHROMBIN TIME 15.5 SECS (9.2-11.1)
[2024-08-11 05:19] LABS: EOSINOPHILS # (AUTO) 0.6 K/uL (0.0-0.7); EOSINOPHILS % (AUTO) 3.8 % (0.0-6.0); HEMATOCRIT 36 % (39-51); HEMOGLOBIN 11.8 g/dL (13.5-17.5); LYMPHOCYTES # (AUTO) 0.6 K/uL (0.8-4.8); LYMPHOCYTES % (AUTO) 3.8 % (20.0-44.0); MEAN CORPUSCULAR HEMOGLOBIN 27 PG (26.0-33.0); MEAN CORPUSCULAR HGB CONC 32 g/dl (31.0-36.0); MEAN CORPUSCULAR VOLUME 82 fL (80-96); MONOCYTES # (AUTO) 4.5 K/uL (0.1-1.30); MONOCYTES % (AUTO) 27.1 % (2.0-12.0); NEUTROPHILS # (AUTO) 10.8 K/uL (1.8-8.9); NEUTROPHILS % (AUTO) 65.3 % (43.0-81.0); PLATELET COUNT (AUTO) 126 K/uL (150-450); RED BLOOD CELL COUNT(AUTO) 4.43 MIL/uL (4.5-6.0); RED CELL DISTRIBUTION WIDTH 18.2 % (11.5-15.0); WHITE BLOOD COUNT (AUTO) 16.4 K/uL (4.3-11.0)
[2024-08-11 05:59] LABS: CALCIUM, SERUM 8.7 mg/dL (8.5-10.1); CREATININE 5.5 mg/dL (0.6-1.3); MAGNESIUM 2.1 mg/dL (1.8-2.4); PHOSPHORUS 6.9 mg/dL (2.5-4.9)
[2024-08-11 06:07] LABS: POTASSIUM 6.6 mmol/L (3.5-5.1)
[2024-08-11] MEDS: DOBUTamine 500 MG in IV D5W 210 ML IV PRN (06:10)
[2024-08-11 06:17] LABS: ANISOCYTOSIS 1+; BAND % (MANUAL) 10 % (0.0-5.0); EOSINOPHILS % (MANUAL) 1 % (0-4); LYMPHOCYTES % (MANUAL) 9 % (16-48); MONOCYTES % (MANUAL) 12 % (0-11.0); NEUTROPHILS % (MANUAL) 68 (42-76); PLATELET ESTIMATE DECREASED
[2024-08-11] MEDS: CLOPIDOGREL BISULFATE 75 MG TABLET PO SCH (08:02)
[2024-08-11] MEDS: CHOLECALCIFEROL (VITAMIN D 3) 400 UNIT TABLET PO SCH (08:02)
[2024-08-11] MEDS ORDERED: VANCOMYCIN 1 GM in IV NS 0.9% 250 ML IV SCH (14:00)
[2024-08-11] MEDS: VANCOMYCIN 1 GM in IV D5W 250ml IV ONE (14:02)
[2024-08-11] MEDS: MEROPENEM 500 MG in IV NS 0.9% 50 ML IV SCH (15:06)
[2024-08-11 16:18] LABS: CALCIUM, SERUM 8.5 mg/dL (8.5-10.1); CREATININE 4.3 mg/dL (0.6-1.3); POTASSIUM 4.7 mmol/L (3.5-5.1)
[2024-08-12] VITALS (96 sets, daily range): BP systolic 87–147; BP diastolic 56–76; TEMP 98.2–99.1; O2SAT 93–100
[2024-08-12 06:32] LABS: BASOPHILS % (AUTO) 0.4 % (0.0-2.0); EOSINOPHILS # (AUTO) 0.1 K/uL (0.0-0.7); EOSINOPHILS % (AUTO) 0.5 % (0.0-6.0); HEMATOCRIT 35 % (39-51); HEMOGLOBIN 11.5 g/dL (13.5-17.5); LYMPHOCYTES # (AUTO) 0.6 K/uL (0.8-4.8); LYMPHOCYTES % (AUTO) 5.6 % (20.0-44.0); MEAN CORPUSCULAR HEMOGLOBIN 27 PG (26.0-33.0); MEAN CORPUSCULAR HGB CONC 33 g/dl (31.0-36.0); MEAN CORPUSCULAR VOLUME 80 fL (80-96); MONOCYTES # (AUTO) 0.6 K/uL (0.1-1.30); MONOCYTES % (AUTO) 5.7 % (2.0-12.0); NEUTROPHILS # (AUTO) 9.6 K/uL (1.8-8.9); NEUTROPHILS % (AUTO) 87.8 % (43.0-81.0); PLATELET COUNT (AUTO) 104 K/uL (150-450); RED BLOOD CELL COUNT(AUTO) 4.32 MIL/uL (4.5-6.0)
[2024-08-12 06:34] LABS: ALBUMIN 2.4 g/dL (3.4-5.0); BILIRUBIN,TOTAL 4.3 mg/dL (0.2-1.0); CALCIUM, SERUM 8.5 mg/dL (8.5-10.1); MAGNESIUM 2.2 mg/dL (1.8-2.4); PHOSPHORUS 5.2 mg/dL (2.5-4.9); TOTAL PROTEIN, SERUM 6.4 g/dL (6.4-8.2)
[2024-08-12 10:16] LABS: HEPATITIS B SURFACE AB (QUAL) Non Reactive (.)
[2024-08-12 10:22] LABS: ABG BASE EXCESS -10.7 mmol/L (-2.0-3.0); ABG OXYGEN SATURATION 98.1 % (94.0-98.0); ABG PCO2 26.5 mmHg (35.0-48.0); ABG PH 7.331 (7.350-7.450); ABG PO2 130.2 mmHg (83.0-108.0); COHb 0.3 % (0.5-1.5); MetHb 0.2 % (0.0-1.5); O2Hb 97.6 % (94.0-97.0); SITE, ABG LEFT RADIAL
[2024-08-12 10:41] LABS: LYMPHOCYTES % (MANUAL) 4 % (16-48); MONOCYTES % (MANUAL) 3 % (0-11.0); NEUTROPHILS % (MANUAL) 93 (42-76); PLATELET ESTIMATE DECREASED
[2024-08-12 10:42] LABS: ANISOCYTOSIS 1+
[2024-08-12] MEDS ORDERED: VANCOMYCIN 1 GM in IV D5W 250ml IV SCH (12:00)
[2024-08-12 16:29] LABS: HIV-1 p24 ANTIGEN NON REACTIVE (NONREACTIVE); HIV-1/2 ANTIBODY NON REACTIVE (NONREACTIVE)
[2024-08-12] MEDS: VANCOMYCIN POST DIALYSIS 500MG IV PRN (18:33)
[2024-08-12] MEDS: HEPARIN SODIUM, PORCINE 5000 UNITS/1 ML VIAL SQ SCH (20:32)
[2024-08-13] VITALS (78 sets, daily range): BP systolic 88–119; BP diastolic 55–79; TEMP 97.8–98.9; O2SAT 90–99
[2024-08-13 07:46] LABS: BASOPHILS % (AUTO) 0.2 % (0.0-2.0); EOSINOPHILS % (AUTO) 0.1 % (0.0-6.0); HEMATOCRIT 33 % (39-51); HEMOGLOBIN 10.9 g/dL (13.5-17.5); LYMPHOCYTES # (AUTO) 0.6 K/uL (0.8-4.8); LYMPHOCYTES % (AUTO) 4.8 % (20.0-44.0); MEAN CORPUSCULAR HEMOGLOBIN 26 PG (26.0-33.0); MEAN CORPUSCULAR HGB CONC 33 g/dl (31.0-36.0); MEAN CORPUSCULAR VOLUME 80 fL (80-96); MONOCYTES # (AUTO) 0.8 K/uL (0.1-1.30); NEUTROPHILS # (AUTO) 11.3 K/uL (1.8-8.9); NEUTROPHILS % (AUTO) 88.9 % (43.0-81.0); PLATELET COUNT (AUTO) 97 K/uL (150-450); RED BLOOD CELL COUNT(AUTO) 4.16 MIL/uL (4.5-6.0); WHITE BLOOD COUNT (AUTO) 12.7 K/uL (4.3-11.0)
[2024-08-13 08:16] LABS: CALCIUM, SERUM 8.4 mg/dL (8.5-10.1); CREATININE 3.5 mg/dL (0.6-1.3); PHOSPHORUS 3.1 mg/dL (2.5-4.9); POTASSIUM 4.1 mmol/L (3.5-5.1)
[2024-08-13] MEDS: THERAHONEY GEL 1.5 OZ TUBE TP SCH (09:05)
[2024-08-13 11:09] LABS: PTH, INTACT 137 pg/mL (15-65)
[2024-08-13 14:56] LABS: LYMPHOCYTES % (MANUAL) 6 % (16-48); MONOCYTES % (MANUAL) 2 % (0-11.0); NEUTROPHILS % (MANUAL) 92 (42-76); PLATELET ESTIMATE DECREASED
[2024-08-13 14:57] LABS: ANISOCYTOSIS 1+
[2024-08-13] MEDS ORDERED: HYDROCORTISONE SOD SUCCINATE 100 MG/2 ML VIAL IV SCH (16:00)
[2024-08-14] VITALS (37 sets, daily range): BP systolic 91–126; BP diastolic 53–93; TEMP 97.8–99; O2SAT 87–100
[2024-08-14] MEDS ORDERED: HYDROCODONE/APAP 5/325MG TABLET PO PRN (03:00)
[2024-08-14] MEDS: TRAMADOL HCL 50 MG TABLET PO PRN (03:48)
[2024-08-14 04:41] LABS: BASOPHILS % (AUTO) 0.2 % (0.0-2.0); EOSINOPHILS % (AUTO) 0.1 % (0.0-6.0); HEMATOCRIT 33 % (39-51); HEMOGLOBIN 11.1 g/dL (13.5-17.5); LYMPHOCYTES # (AUTO) 1.1 K/uL (0.8-4.8); LYMPHOCYTES % (AUTO) 5.9 % (20.0-44.0); MEAN CORPUSCULAR HEMOGLOBIN 27 PG (26.0-33.0); MEAN CORPUSCULAR HGB CONC 34 g/dl (31.0-36.0); MEAN CORPUSCULAR VOLUME 80 fL (80-96); MONOCYTES # (AUTO) 0.7 K/uL (0.1-1.30); MONOCYTES % (AUTO) 4.2 % (2.0-12.0); NEUTROPHILS % (AUTO) 89.6 % (43.0-81.0); PLATELET COUNT (AUTO) 88 K/uL (150-450); RED BLOOD CELL COUNT(AUTO) 4.13 MIL/uL (4.5-6.0); WHITE BLOOD COUNT (AUTO) 17.9 K/uL (4.3-11.0)
[2024-08-14 04:53] LABS: CALCIUM, SERUM 8.7 mg/dL (8.5-10.1); MAGNESIUM 2.2 mg/dL (1.8-2.4); PHOSPHORUS 3.3 mg/dL (2.5-4.9); POTASSIUM 3.6 mmol/L (3.5-5.1)
[2024-08-14 05:33] LABS: ANISOCYTOSIS 1+; BASOPHILS % (MANUAL) 0 % (0.0-2.0); EOSINOPHILS % (MANUAL) 0 % (0-4); LYMPHOCYTES % (MANUAL) 8 % (16-48); MONOCYTES % (MANUAL) 6 % (0-11.0); NEUTROPHILS % (MANUAL) 86 (42-76); PLATELET ESTIMATE DECREASED
[2024-08-14] MEDS: FAMOTIDINE (20 MG) 20 MG TABLET PO SCH (09:20)
[2024-08-15] VITALS (34 sets, daily range): BP systolic 89–140; BP diastolic 58–89; TEMP 97.7–99.2; O2SAT 90–99
[2024-08-15 04:44] LABS: BASOPHILS % (AUTO) 0.1 % (0.0-2.0); EOSINOPHILS # (AUTO) 0.2 K/uL (0.0-0.7); EOSINOPHILS % (AUTO) 1.1 % (0.0-6.0); HEMATOCRIT 36 % (39-51); HEMOGLOBIN 11.8 g/dL (13.5-17.5); LYMPHOCYTES # (AUTO) 1.1 K/uL (0.8-4.8); LYMPHOCYTES % (AUTO) 6.7 % (20.0-44.0); MEAN CORPUSCULAR HEMOGLOBIN 26 PG (26.0-33.0); MEAN CORPUSCULAR HGB CONC 33 g/dl (31.0-36.0); MEAN CORPUSCULAR VOLUME 79 fL (80-96); MONOCYTES # (AUTO) 1.1 K/uL (0.1-1.30); MONOCYTES % (AUTO) 6.7 % (2.0-12.0); NEUTROPHILS # (AUTO) 14.1 K/uL (1.8-8.9); NEUTROPHILS % (AUTO) 85.4 % (43.0-81.0); PLATELET COUNT (AUTO) 77 K/uL (150-450); RED BLOOD CELL COUNT(AUTO) 4.52 MIL/uL (4.5-6.0); RED CELL DISTRIBUTION WIDTH 17.8 % (11.5-15.0); WHITE BLOOD COUNT (AUTO) 16.5 K/uL (4.3-11.0)
[2024-08-15 05:00] LABS: ANISOCYTOSIS 1+; BASOPHILS % (MANUAL) 0 % (0.0-2.0); EOSINOPHILS % (MANUAL) 2 % (0-4); LYMPHOCYTES % (MANUAL) 8 % (16-48); MONOCYTES % (MANUAL) 3 % (0-11.0); NEUTROPHILS % (MANUAL) 87 (42-76); PLATELET ESTIMATE DECREASED
[2024-08-15 05:25] LABS: BILIRUBIN,TOTAL 6.7 mg/dL (0.2-1.0); CALCIUM, SERUM 8.8 mg/dL (8.5-10.1); CREATININE 2.7 mg/dL (0.6-1.3); MAGNESIUM 2.4 mg/dL (1.8-2.4); PHOSPHORUS 2.8 mg/dL (2.5-4.9); POTASSIUM 3.5 mmol/L (3.5-5.1); TOTAL PROTEIN, SERUM 5.8 g/dL (6.4-8.2)
[2024-08-15] MEDS: ALBUMIN 25% 25 GM in PREMIX 1 EA IV PRN (22:33)
[2024-08-16] VITALS: BP 114/85; TEMP 98.4; O2SAT 98
[2024-08-16 04:00] VITALS: BP 122/72; TEMP 98.2; O2SAT 97
[2024-08-16 06:36] LABS: BASOPHILS % (AUTO) 0.2 % (0.0-2.0); EOSINOPHILS # (AUTO) 0.3 K/uL (0.0-0.7); EOSINOPHILS % (AUTO) 1.6 % (0.0-6.0); HEMATOCRIT 37 % (39-51); HEMOGLOBIN 11.8 g/dL (13.5-17.5); LYMPHOCYTES # (AUTO) 1.2 K/uL (0.8-4.8); MEAN CORPUSCULAR HEMOGLOBIN 26 PG (26.0-33.0); MEAN CORPUSCULAR HGB CONC 32 g/dl (31.0-36.0); MEAN CORPUSCULAR VOLUME 81 fL (80-96); MONOCYTES % (AUTO) 5.6 % (2.0-12.0); NEUTROPHILS # (AUTO) 15.1 K/uL (1.8-8.9); NEUTROPHILS % (AUTO) 85.6 % (43.0-81.0); PLATELET COUNT (AUTO) 79 K/uL (150-450); RED BLOOD CELL COUNT(AUTO) 4.57 MIL/uL (4.5-6.0); RED CELL DISTRIBUTION WIDTH 18.2 % (11.5-15.0); WHITE BLOOD COUNT (AUTO) 17.7 K/uL (4.3-11.0)
[2024-08-16 07:35] LABS: ALBUMIN 2.3 g/dL (3.4-5.0); BILIRUBIN,TOTAL 7.6 mg/dL (0.2-1.0); CALCIUM, SERUM 8.9 mg/dL (8.5-10.1); MAGNESIUM 2.4 mg/dL (1.8-2.4); PHOSPHORUS 3.3 mg/dL (2.5-4.9); POTASSIUM 3.7 mmol/L (3.5-5.1); TOTAL PROTEIN, SERUM 6.2 g/dL (6.4-8.2)
[2024-08-16 08:07] LABS: COMPLEMENT C3, SERUM 98 mg/dL (82-167); COMPLEMENT C4, SERUM 23 mg/dL (12-38)
[2024-08-16 08:20] VITALS: BP 122/71; TEMP 98.1; O2SAT 100
[2024-08-16 09:10] LABS: HEPATITIS B SURFACE AB (QUAL) Non Reactive (.)
[2024-08-16 11:43] LABS: BAND % (MANUAL) 1 % (0.0-5.0); EOSINOPHILS % (MANUAL) 1 % (0-4); LYMPHOCYTES % (MANUAL) 3 % (16-48); MONOCYTES % (MANUAL) 5 % (0-11.0); MYELOCYTES % 3 % (0-0); NEUTROPHILS % (MANUAL) 87 (42-76); PLATELET ESTIMATE DECREASED
[2024-08-16 12:00] VITALS: BP 114/69; TEMP 98.6; O2SAT 96
[2024-08-16 16:00] VITALS: BP 115/70; TEMP 97.9; O2SAT 97
[2024-08-16 20:00] VITALS: BP 106/68; TEMP 98.4; O2SAT 97
[2024-08-17] VITALS: BP 100/66; TEMP 97.3; O2SAT 97
[2024-08-17 04:00] VITALS: BP 107/66; TEMP 97.4; O2SAT 96
[2024-08-17 08:00] VITALS: BP 117/71; TEMP 98.1; O2SAT 95
[2024-08-17 11:00] LABS: BASOPHILS % (AUTO) 0.1 % (0.0-2.0); EOSINOPHILS # (AUTO) 0.3 K/uL (0.0-0.7); EOSINOPHILS % (AUTO) 1.6 % (0.0-6.0); HEMATOCRIT 40 % (39-51); HEMOGLOBIN 12.8 g/dL (13.5-17.5); LYMPHOCYTES # (AUTO) 1.8 K/uL (0.8-4.8); LYMPHOCYTES % (AUTO) 10.3 % (20.0-44.0); MEAN CORPUSCULAR HEMOGLOBIN 26 PG (26.0-33.0); MEAN CORPUSCULAR HGB CONC 32 g/dl (31.0-36.0); MEAN CORPUSCULAR VOLUME 82 fL (80-96); MONOCYTES # (AUTO) 1.1 K/uL (0.1-1.30); MONOCYTES % (AUTO) 6.3 % (2.0-12.0); NEUTROPHILS # (AUTO) 14.3 K/uL (1.8-8.9); NEUTROPHILS % (AUTO) 81.7 % (43.0-81.0); PLATELET COUNT (AUTO) 94 K/uL (150-450); RED BLOOD CELL COUNT(AUTO) 4.85 MIL/uL (4.5-6.0); RED CELL DISTRIBUTION WIDTH 18.7 % (11.5-15.0); WHITE BLOOD COUNT (AUTO) 17.6 K/uL (4.3-11.0)
[2024-08-17 11:26] LABS: CALCIUM, SERUM 8.9 mg/dL (8.5-10.1); CREATININE 1.9 mg/dL (0.6-1.3); MAGNESIUM 2.7 mg/dL (1.8-2.4); PHOSPHORUS 3.6 mg/dL (2.5-4.9); POTASSIUM 4.2 mmol/L (3.5-5.1)
[2024-08-17 11:52] LABS: LYMPHOCYTES % (MANUAL) 7 % (16-48); MONOCYTES % (MANUAL) 2 % (0-11.0); MYELOCYTES % 2 % (0-0); NEUTROPHILS % (MANUAL) 89 (42-76); PLATELET ESTIMATE DECREASED
[2024-08-17 12:00] VITALS: BP 124/65; TEMP 98.1; O2SAT 95
[2024-08-17] MEDS: VANCOMYCIN 500 MG in IV D5W 100ml IV ONE (12:22)
[2024-08-17 16:00] VITALS: BP 122/83; TEMP 97.9; O2SAT 97
[2024-08-17 20:00] VITALS: BP 112/62; TEMP 98.6; O2SAT 95
[2024-08-18] VITALS: BP 109/82; TEMP 99; O2SAT 98
[2024-08-18 04:00] VITALS: BP 128/81; TEMP 98.6; O2SAT 98
[2024-08-18] MEDS ORDERED: VANCOMYCIN POST DIALYSIS 500MG IV PRN (06:00)
[2024-08-18 06:50] LABS: BASOPHILS % (AUTO) 0.1 % (0.0-2.0); EOSINOPHILS # (AUTO) 0.2 K/uL (0.0-0.7); HEMATOCRIT 37 % (39-51); HEMOGLOBIN 11.8 g/dL (13.5-17.5); LYMPHOCYTES # (AUTO) 1.7 K/uL (0.8-4.8); LYMPHOCYTES % (AUTO) 8.1 % (20.0-44.0); MEAN CORPUSCULAR HEMOGLOBIN 26 PG (26.0-33.0); MEAN CORPUSCULAR HGB CONC 32 g/dl (31.0-36.0); MEAN CORPUSCULAR VOLUME 81 fL (80-96); MONOCYTES # (AUTO) 1.4 K/uL (0.1-1.30); MONOCYTES % (AUTO) 6.8 % (2.0-12.0); NEUTROPHILS # (AUTO) 17.7 K/uL (1.8-8.9); PLATELET COUNT (AUTO) 138 K/uL (150-450); RED BLOOD CELL COUNT(AUTO) 4.56 MIL/uL (4.5-6.0); RED CELL DISTRIBUTION WIDTH 18.5 % (11.5-15.0); WHITE BLOOD COUNT (AUTO) 21.1 K/uL (4.3-11.0)
[2024-08-18 06:52] LABS: CALCIUM, SERUM 8.7 mg/dL (8.5-10.1); CREATININE 1.9 mg/dL (0.6-1.3); MAGNESIUM 2.6 mg/dL (1.8-2.4); PHOSPHORUS 3.4 mg/dL (2.5-4.9); POTASSIUM 4.5 mmol/L (3.5-5.1)
[2024-08-18 08:33] VITALS: O2SAT 94
[2024-08-18 12:00] VITALS: BP 123/83; TEMP 98.1; O2SAT 100
[2024-08-18 15:09] LABS: *ANA ANTI-CENTROMERE B AB <0.2 AI (0.0-0.9); *ANA ANTI-DNA(DS) AB, QN 2 IU/mL (0-9); *ANA ANTI-JO-1 <0.2 AI (0.0-0.9); *ANA ANTICHROMATIN ANTIBODY <0.2 AI (0.0-0.9); *ANA RNP ANTIBODIES <0.2 AI (0.0-0.9); *ANA SJOGREN'S ANTI-SS-A <0.2 AI (0.0-0.9); *ANA SJOGREN'S ANTI-SS-B <0.2 AI (0.0-0.9); *ANAANTI-SCLERODERMA-70 AB <0.2 AI (0.0-0.9); *ANASMITH AB <0.2 AI (0.0-0.9)
[2024-08-18 16:00] VITALS: BP 108/73; TEMP 98.6; O2SAT 93
[2024-08-18 20:00] VITALS: BP 114/79; TEMP 100.2; O2SAT 94
[2024-08-18] MEDS: ACETAMINOPHEN 325 MG TABLET PO PRN (21:25)
[2024-08-19 04:00] VITALS: BP 110/57; TEMP 99.3; O2SAT 95
[2024-08-19 06:08] LABS: *SPE A/G RATIO 0.8 (0.7-1.7); *SPE ALBUMIN 2.6 g/dL (2.9-4.4); *SPE ALPHA-1-GLOBULIN 0.5 g/dL (0.0-0.4); *SPE ALPHA-2-GLOBULIN 1.1 g/dL (0.4-1.0); *SPE BETA GLOBULIN 0.7 g/dL (0.7-1.3); *SPE GLOBULIN, TOTAL 3.1 g/dL (2.2-3.9); *SPE M-SPIKE Not Observed g/dL (Not Observed); *SPE PROTEIN TOTAL 5.7 g/dL (6.0-8.5); *SPEGAMMA GLOBULIN 0.9 g/dL (0.4-1.8)
[2024-08-19 07:01] LABS: BASOPHILS % (AUTO) 0.1 % (0.0-2.0); EOSINOPHILS # (AUTO) 0.2 K/uL (0.0-0.7); EOSINOPHILS % (AUTO) 0.8 % (0.0-6.0); HEMATOCRIT 37 % (39-51); LYMPHOCYTES # (AUTO) 1.9 K/uL (0.8-4.8); LYMPHOCYTES % (AUTO) 9.4 % (20.0-44.0); MEAN CORPUSCULAR HEMOGLOBIN 27 PG (26.0-33.0); MEAN CORPUSCULAR HGB CONC 33 g/dl (31.0-36.0); MEAN CORPUSCULAR VOLUME 83 fL (80-96); MONOCYTES # (AUTO) 1.5 K/uL (0.1-1.30); MONOCYTES % (AUTO) 7.3 % (2.0-12.0); NEUTROPHILS # (AUTO) 16.8 K/uL (1.8-8.9); NEUTROPHILS % (AUTO) 82.4 % (43.0-81.0); PLATELET COUNT (AUTO) 147 K/uL (150-450); RED BLOOD CELL COUNT(AUTO) 4.45 MIL/uL (4.5-6.0); RED CELL DISTRIBUTION WIDTH 18.7 % (11.5-15.0); WHITE BLOOD COUNT (AUTO) 20.4 K/uL (4.3-11.0)
[2024-08-19 07:35] LABS: ALBUMIN 1.8 g/dL (3.4-5.0); BILIRUBIN,TOTAL 6.6 mg/dL (0.2-1.0); CREATININE 1.8 mg/dL (0.6-1.3); MAGNESIUM 2.7 mg/dL (1.8-2.4); PHOSPHORUS 3.6 mg/dL (2.5-4.9); POTASSIUM 4.5 mmol/L (3.5-5.1); TOTAL PROTEIN, SERUM 6.9 g/dL (6.4-8.2)
[2024-08-19 07:57] LABS: CALCIUM, SERUM 8.8 mg/dL (8.5-10.1)
[2024-08-19 08:24] VITALS: BP 125/67; TEMP 97.2; O2SAT 94
[2024-08-19] MEDS: FUROSEMIDE 40 MG/4 ML VIAL IV SCH (10:21)
[2024-08-19] MEDS: VANCOMYCIN 1 GM in IV D5W 250ml IV SCH (13:16)
[2024-08-19 15:25] LABS: EOSINOPHILS % (MANUAL) 2 % (0-4); LYMPHOCYTES % (MANUAL) 11 % (16-48); MONOCYTES % (MANUAL) 8 % (0-11.0); NEUTROPHILS % (MANUAL) 79 (42-76); PLATELET ESTIMATE DECREASED
[2024-08-19 16:36] VITALS: BP 107/81; TEMP 98.1; O2SAT 93
[2024-08-19 20:00] VITALS: BP 120/78; TEMP 98; O2SAT 98
[2024-08-20] VITALS: BP 109/63; TEMP 98.3; O2SAT 99
[2024-08-20 04:00] VITALS: BP 143/74; TEMP 97.3; O2SAT 97
[2024-08-20 06:48] LABS: BASOPHILS % (AUTO) 0.1 % (0.0-2.0); EOSINOPHILS # (AUTO) 0.1 K/uL (0.0-0.7); EOSINOPHILS % (AUTO) 0.7 % (0.0-6.0); HEMATOCRIT 37 % (39-51); HEMOGLOBIN 11.4 g/dL (13.5-17.5); LYMPHOCYTES # (AUTO) 1.7 K/uL (0.8-4.8); LYMPHOCYTES % (AUTO) 9.4 % (20.0-44.0); MEAN CORPUSCULAR HEMOGLOBIN 26 PG (26.0-33.0); MEAN CORPUSCULAR HGB CONC 31 g/dl (31.0-36.0); MEAN CORPUSCULAR VOLUME 84 fL (80-96); MONOCYTES # (AUTO) 1.3 K/uL (0.1-1.30); MONOCYTES % (AUTO) 7.4 % (2.0-12.0); NEUTROPHILS # (AUTO) 14.7 K/uL (1.8-8.9); NEUTROPHILS % (AUTO) 82.4 % (43.0-81.0); PLATELET COUNT (AUTO) 191 K/uL (150-450); RED BLOOD CELL COUNT(AUTO) 4.41 MIL/uL (4.5-6.0); RED CELL DISTRIBUTION WIDTH 18.9 % (11.5-15.0); WHITE BLOOD COUNT (AUTO) 17.8 K/uL (4.3-11.0)
[2024-08-20 07:48] LABS: ALANINE AMINOTRANSFERASE 61 U/L (12-78); ALBUMIN 1.8 g/dL (3.4-5.0); ALKALINE PHOSPHATASE 96 U/L (46-116); ASPARTATE AMINOTRANSFERASE 37 U/L (15-37); BILIRUBIN,TOTAL 5.5 mg/dL (0.2-1.0); CALCIUM, SERUM 8.8 mg/dL (8.5-10.1); CARBON DIOXIDE 23 mmol/L (21-32); CHLORIDE 100 mmol/L (98-107); CREATININE 1.9 mg/dL (0.6-1.3); GLUCOSE 268 mg/dL (74-106); MAGNESIUM 2.6 mg/dL (1.8-2.4); POTASSIUM 4.9 mmol/L (3.5-5.1); SODIUM SERUM 130 mmol/L (136-145); UREA NITROGEN, BLOOD 70 mg/dL (7-18)
[2024-08-20 08:05] VITALS: BP 122/93; TEMP 98.3; O2SAT 99
[2024-08-20] MEDS: FUROSEMIDE 100 MG/10 ML VIAL IV SCH (09:31)
[2024-08-20 12:06] VITALS: BP 158/92; O2SAT 99
[2024-08-20 16:10] VITALS: BP 136/83; TEMP 98.6; O2SAT 96
[2024-08-20 21:45] VITALS: BP 134/71; TEMP 99.3; O2SAT 100
[2024-08-21 04:51] VITALS: BP 115/89; TEMP 98.4; O2SAT 100
[2024-08-21 08:05] VITALS: BP 127/94; TEMP 97.9; O2SAT 95
[2024-08-21 09:48] LABS: BASOPHILS % (AUTO) 0.3 % (0.0-2.0); EOSINOPHILS # (AUTO) 0.1 K/uL (0.0-0.7); EOSINOPHILS % (AUTO) 0.8 % (0.0-6.0); HEMATOCRIT 35 % (39-51); HEMOGLOBIN 11.2 g/dL (13.5-17.5); LYMPHOCYTES # (AUTO) 1.9 K/uL (0.8-4.8); LYMPHOCYTES % (AUTO) 11.6 % (20.0-44.0); MEAN CORPUSCULAR HEMOGLOBIN 26 PG (26.0-33.0); MEAN CORPUSCULAR HGB CONC 32 g/dl (31.0-36.0); MEAN CORPUSCULAR VOLUME 82 fL (80-96); MONOCYTES # (AUTO) 1.3 K/uL (0.1-1.30); NEUTROPHILS # (AUTO) 13.3 K/uL (1.8-8.9); NEUTROPHILS % (AUTO) 79.3 % (43.0-81.0); PLATELET COUNT (AUTO) 264 K/uL (150-450); RED BLOOD CELL COUNT(AUTO) 4.22 MIL/uL (4.5-6.0); RED CELL DISTRIBUTION WIDTH 18.7 % (11.5-15.0); WHITE BLOOD COUNT (AUTO) 16.8 K/uL (4.3-11.0)
[2024-08-21 11:21] LABS: ALBUMIN 1.7 g/dL (3.4-5.0); BILIRUBIN,TOTAL 4.6 mg/dL (0.2-1.0); CALCIUM, SERUM 9.1 mg/dL (8.5-10.1); MAGNESIUM 2.9 mg/dL (1.8-2.4); PHOSPHORUS 5.2 mg/dL (2.5-4.9); POTASSIUM 5.5 mmol/L (3.5-5.1); TOTAL PROTEIN, SERUM 7.2 g/dL (6.4-8.2)
[2024-08-21 11:41] LABS: CREATININE 2.2 mg/dL (0.6-1.3)
[2024-08-21 16:05] VITALS: BP 110/58; TEMP 97.5; O2SAT 98
[2024-08-21] MEDS: VANCOMYCIN POST DIALYSIS 500MG IV PRN (16:58)
[2024-08-21 20:00] VITALS: BP 111/71; TEMP 98.1; O2SAT 99
[2024-08-22 04:00] VITALS: BP 101/63; TEMP 99.3; O2SAT 100
[2024-08-22 07:29] LABS: ALBUMIN 1.7 g/dL (3.4-5.0); CALCIUM, SERUM 8.8 mg/dL (8.5-10.1); CREATININE 2.5 mg/dL (0.6-1.3); MAGNESIUM 2.6 mg/dL (1.8-2.4); PHOSPHORUS 5.5 mg/dL (2.5-4.9); POTASSIUM 4.9 mmol/L (3.5-5.1); TOTAL PROTEIN, SERUM 7.1 g/dL (6.4-8.2)
[2024-08-22 08:00] VITALS: BP 108/82; TEMP 98.4; O2SAT 98
[2024-08-22 08:06] LABS: BASOPHILS # (AUTO) 0.1 K/uL (0.0-0.2); BASOPHILS % (AUTO) 0.6 % (0.0-2.0); EOSINOPHILS # (AUTO) 0.1 K/uL (0.0-0.7); EOSINOPHILS % (AUTO) 0.6 % (0.0-6.0); HEMATOCRIT 32 % (39-51); HEMOGLOBIN 10.2 g/dL (13.5-17.5); LYMPHOCYTES # (AUTO) 1.6 K/uL (0.8-4.8); MEAN CORPUSCULAR HEMOGLOBIN 27 PG (26.0-33.0); MEAN CORPUSCULAR HGB CONC 32 g/dl (31.0-36.0); MEAN CORPUSCULAR VOLUME 84 fL (80-96); MONOCYTES # (AUTO) 1.4 K/uL (0.1-1.30); MONOCYTES % (AUTO) 9.5 % (2.0-12.0); NEUTROPHILS # (AUTO) 11.7 K/uL (1.8-8.9); NEUTROPHILS % (AUTO) 78.3 % (43.0-81.0); PLATELET COUNT (AUTO) 273 K/uL (150-450); RED BLOOD CELL COUNT(AUTO) 3.79 MIL/uL (4.5-6.0); RED CELL DISTRIBUTION WIDTH 19.2 % (11.5-15.0)
[2024-08-22] MEDS: CARVEDILOL 3.125 MG TABLET PO SCH (10:02)
[2024-08-22 13:28] LABS: EOSINOPHILS % (MANUAL) 1 % (0-4); LYMPHOCYTES % (MANUAL) 3 % (16-48); MONOCYTES % (MANUAL) 1 % (0-11.0); NEUTROPHILS % (MANUAL) 95 (42-76); PLATELET ESTIMATE ADEQUATE
[2024-08-22 13:29] LABS: ANISOCYTOSIS 1+
[2024-08-22 16:00] VITALS: BP 110/70; TEMP 97.9; O2SAT 99
[2024-08-22] MEDS: MUPIROCIN OINT 2% 22 GM TUBE TP SCH (17:55)
[2024-08-22 20:00] VITALS: BP 115/75; TEMP 98.6; O2SAT 99
[2024-08-23 04:00] VITALS: BP 110/65; TEMP 99.1; O2SAT 96
[2024-08-23 07:40] LABS: BASOPHILS % (AUTO) 0.4 % (0.0-2.0); EOSINOPHILS # (AUTO) 0.1 K/uL (0.0-0.7); EOSINOPHILS % (AUTO) 1.2 % (0.0-6.0); HEMATOCRIT 31 % (39-51); HEMOGLOBIN 10.1 g/dL (13.5-17.5); LYMPHOCYTES # (AUTO) 1.3 K/uL (0.8-4.8); LYMPHOCYTES % (AUTO) 12.7 % (20.0-44.0); MEAN CORPUSCULAR HEMOGLOBIN 27 PG (26.0-33.0); MEAN CORPUSCULAR HGB CONC 33 g/dl (31.0-36.0); MEAN CORPUSCULAR VOLUME 81 fL (80-96); MONOCYTES # (AUTO) 0.9 K/uL (0.1-1.30); MONOCYTES % (AUTO) 8.4 % (2.0-12.0); NEUTROPHILS # (AUTO) 8.2 K/uL (1.8-8.9); NEUTROPHILS % (AUTO) 77.3 % (43.0-81.0); PLATELET COUNT (AUTO) 274 K/uL (150-450); RED BLOOD CELL COUNT(AUTO) 3.78 MIL/uL (4.5-6.0); RED CELL DISTRIBUTION WIDTH 18.9 % (11.5-15.0); WHITE BLOOD COUNT (AUTO) 10.5 K/uL (4.3-11.0)
[2024-08-23 08:00] VITALS: BP 118/82; TEMP 98.5; O2SAT 100
[2024-08-23 09:14] LABS: ALANINE AMINOTRANSFERASE 32 U/L (12-78); ALBUMIN 1.6 g/dL (3.4-5.0); ALKALINE PHOSPHATASE 79 U/L (46-116); ASPARTATE AMINOTRANSFERASE 36 U/L (15-37); BILIRUBIN,TOTAL 4.7 mg/dL (0.2-1.0); CALCIUM, SERUM 8.8 mg/dL (8.5-10.1); CARBON DIOXIDE 27 mmol/L (21-32); CHLORIDE 96 mmol/L (98-107); GLUCOSE 173 mg/dL (74-106); MAGNESIUM 2.7 mg/dL (1.8-2.4); PHOSPHORUS 6.4 mg/dL (2.5-4.9); POTASSIUM 4.9 mmol/L (3.5-5.1); SODIUM SERUM 133 mmol/L (136-145)
[2024-08-23 09:21] LABS: UREA NITROGEN, BLOOD 91 mg/dL (7-18)
[2024-08-23 16:00] VITALS: BP 130/74; TEMP 97.5; O2SAT 97
[2024-08-23] MEDS: NEPRO VAN 237 ML CAN PO SCH (17:00)
[2024-08-23 20:00] VITALS: BP 111/69; TEMP 94.3; O2SAT 96
[2024-08-24 04:00] VITALS: BP 112/44; TEMP 97.8; O2SAT 99
[2024-08-24 06:31] LABS: BASOPHILS # (AUTO) 0.1 K/uL (0.0-0.2); BASOPHILS % (AUTO) 0.5 % (0.0-2.0); EOSINOPHILS # (AUTO) 0.1 K/uL (0.0-0.7); HEMATOCRIT 29 % (39-51); HEMOGLOBIN 9.5 g/dL (13.5-17.5); LYMPHOCYTES # (AUTO) 1.1 K/uL (0.8-4.8); LYMPHOCYTES % (AUTO) 10.1 % (20.0-44.0); MEAN CORPUSCULAR HEMOGLOBIN 27 PG (26.0-33.0); MEAN CORPUSCULAR HGB CONC 33 g/dl (31.0-36.0); MEAN CORPUSCULAR VOLUME 82 fL (80-96); MONOCYTES % (AUTO) 9.2 % (2.0-12.0); NEUTROPHILS # (AUTO) 8.4 K/uL (1.8-8.9); NEUTROPHILS % (AUTO) 79.2 % (43.0-81.0); PLATELET COUNT (AUTO) 267 K/uL (150-450); RED BLOOD CELL COUNT(AUTO) 3.55 MIL/uL (4.5-6.0); RED CELL DISTRIBUTION WIDTH 18.9 % (11.5-15.0); WHITE BLOOD COUNT (AUTO) 10.6 K/uL (4.3-11.0)
[2024-08-24 06:48] LABS: CALCIUM, SERUM 8.7 mg/dL (8.5-10.1); CREATININE 2.4 mg/dL (0.6-1.3); MAGNESIUM 2.6 mg/dL (1.8-2.4); PHOSPHORUS 4.6 mg/dL (2.5-4.9); POTASSIUM 4.9 mmol/L (3.5-5.1)
[2024-08-24 08:00] VITALS: BP 108/64; TEMP 98.2; O2SAT 97
[2024-08-24 16:00] VITALS: BP 112/62; TEMP 98.1; O2SAT 98
[2024-08-24 20:00] VITALS: BP 105/66; TEMP 97.5; O2SAT 98
[2024-08-25 04:00] VITALS: BP 114/58; TEMP 97.6; O2SAT 98
[2024-08-25 07:05] LABS: BASOPHILS # (AUTO) 0.1 K/uL (0.0-0.2); BASOPHILS % (AUTO) 1.1 % (0.0-2.0); EOSINOPHILS # (AUTO) 0.1 K/uL (0.0-0.7); EOSINOPHILS % (AUTO) 1.6 % (0.0-6.0); HEMATOCRIT 28 % (39-51); HEMOGLOBIN 9.1 g/dL (13.5-17.5); LYMPHOCYTES # (AUTO) 1.3 K/uL (0.8-4.8); LYMPHOCYTES % (AUTO) 15.7 % (20.0-44.0); MEAN CORPUSCULAR HEMOGLOBIN 26 PG (26.0-33.0); MEAN CORPUSCULAR HGB CONC 32 g/dl (31.0-36.0); MEAN CORPUSCULAR VOLUME 82 fL (80-96); MONOCYTES # (AUTO) 0.9 K/uL (0.1-1.30); MONOCYTES % (AUTO) 11.2 % (2.0-12.0); NEUTROPHILS # (AUTO) 5.6 K/uL (1.8-8.9); NEUTROPHILS % (AUTO) 70.4 % (43.0-81.0); PLATELET COUNT (AUTO) 240 K/uL (150-450); RED BLOOD CELL COUNT(AUTO) 3.46 MIL/uL (4.5-6.0); RED CELL DISTRIBUTION WIDTH 18.8 % (11.5-15.0)
[2024-08-25 07:46] LABS: ALBUMIN 1.5 g/dL (3.4-5.0); BILIRUBIN,TOTAL 3.3 mg/dL (0.2-1.0); CALCIUM, SERUM 8.8 mg/dL (8.5-10.1); CREATININE 3.5 mg/dL (0.6-1.3); MAGNESIUM 2.6 mg/dL (1.8-2.4); PHOSPHORUS 7.1 mg/dL (2.5-4.9); POTASSIUM 4.8 mmol/L (3.5-5.1); TOTAL PROTEIN, SERUM 6.8 g/dL (6.4-8.2)
[2024-08-25 08:00] VITALS: BP 101/65; TEMP 98.8; O2SAT 98
[2024-08-25 16:00] VITALS: BP 101/66; TEMP 98.1; O2SAT 98
[2024-08-25 20:00] VITALS: BP 117/73; TEMP 99; O2SAT 98
[2024-08-26 04:00] VITALS: BP 99/64; TEMP 98.2; O2SAT 95
[2024-08-26 08:00] VITALS: BP 110/63; TEMP 98.4; O2SAT 97
[2024-08-26 08:03] LABS: BASOPHILS % (AUTO) 0.5 % (0.0-2.0); EOSINOPHILS # (AUTO) 0.1 K/uL (0.0-0.7); EOSINOPHILS % (AUTO) 1.6 % (0.0-6.0); HEMATOCRIT 26 % (39-51); HEMOGLOBIN 8.3 g/dL (13.5-17.5); MEAN CORPUSCULAR HEMOGLOBIN 27 PG (26.0-33.0); MEAN CORPUSCULAR HGB CONC 33 g/dl (31.0-36.0); MEAN CORPUSCULAR VOLUME 82 fL (80-96); MONOCYTES # (AUTO) 0.7 K/uL (0.1-1.30); MONOCYTES % (AUTO) 11.7 % (2.0-12.0); NEUTROPHILS # (AUTO) 4.5 K/uL (1.8-8.9); NEUTROPHILS % (AUTO) 70.2 % (43.0-81.0); PLATELET COUNT (AUTO) 232 K/uL (150-450); RED BLOOD CELL COUNT(AUTO) 3.13 MIL/uL (4.5-6.0); RED CELL DISTRIBUTION WIDTH 19.2 % (11.5-15.0); WHITE BLOOD COUNT (AUTO) 6.3 K/uL (4.3-11.0)
[2024-08-26 08:26] LABS: CALCIUM, SERUM 8.9 mg/dL (8.5-10.1); CREATININE 3.4 mg/dL (0.6-1.3); MAGNESIUM 2.4 mg/dL (1.8-2.4); PHOSPHORUS 6.1 mg/dL (2.5-4.9); POTASSIUM 4.4 mmol/L (3.5-5.1)
[2024-08-26 16:00] VITALS: BP 111/69; TEMP 98.6; O2SAT 95
[2024-08-26 20:00] VITALS: BP 114/74; TEMP 100.4; O2SAT 98
[2024-08-27 04:00] VITALS: BP 103/64; TEMP 98.1; O2SAT 96
[2024-08-27 07:57] LABS: BASOPHILS % (AUTO) 0.3 % (0.0-2.0); EOSINOPHILS # (AUTO) 0.2 K/uL (0.0-0.7); EOSINOPHILS % (AUTO) 2.3 % (0.0-6.0); HEMATOCRIT 25 % (39-51); HEMOGLOBIN 8.1 g/dL (13.5-17.5); LYMPHOCYTES # (AUTO) 1.2 K/uL (0.8-4.8); LYMPHOCYTES % (AUTO) 17.5 % (20.0-44.0); MEAN CORPUSCULAR HEMOGLOBIN 26 PG (26.0-33.0); MEAN CORPUSCULAR HGB CONC 32 g/dl (31.0-36.0); MEAN CORPUSCULAR VOLUME 82 fL (80-96); MONOCYTES # (AUTO) 0.7 K/uL (0.1-1.30); MONOCYTES % (AUTO) 10.6 % (2.0-12.0); NEUTROPHILS # (AUTO) 4.6 K/uL (1.8-8.9); NEUTROPHILS % (AUTO) 69.3 % (43.0-81.0); PLATELET COUNT (AUTO) 212 K/uL (150-450); RED BLOOD CELL COUNT(AUTO) 3.08 MIL/uL (4.5-6.0); RED CELL DISTRIBUTION WIDTH 18.5 % (11.5-15.0); WHITE BLOOD COUNT (AUTO) 6.6 K/uL (4.3-11.0)
[2024-08-27 08:00] VITALS: BP 127/80; TEMP 97.5; O2SAT 99
[2024-08-27 08:43] LABS: ALBUMIN 1.7 g/dL (3.4-5.0); CALCIUM, SERUM 9.3 mg/dL (8.5-10.1); CREATININE 4.8 mg/dL (0.6-1.3); MAGNESIUM 2.7 mg/dL (1.8-2.4); PHOSPHORUS 6.7 mg/dL (2.5-4.9); POTASSIUM 4.2 mmol/L (3.5-5.1); TOTAL PROTEIN, SERUM 6.9 g/dL (6.4-8.2)
[2024-08-27 12:03] VITALS: O2SAT 93
[2024-08-27] MEDS ORDERED: SEVELAMER CARBONATE 800 MG TABLET PO SCH (13:00)
[2024-08-27] MEDS: SEVELAMER CARBONATE 800 MG POWD.PACK PO SCH (13:01)
[2024-08-27] MEDS: EPOETIN ALFA (4000 UNIT) 4,000 UNIT/ML VIAL SQ SCH (15:51)
[2024-08-27 16:00] VITALS: BP 98/62; TEMP 97.7; O2SAT 98
[2024-08-27 20:00] VITALS: BP 105/63; TEMP 98.6; O2SAT 99
[2024-08-28 04:00] VITALS: BP 95/60; TEMP 98.6; O2SAT 99
[2024-08-28] MEDS: Z GUARD REMEDY 4 OZ OINT TP PRN (05:28)
[2024-08-28 07:08] LABS: ALBUMIN 1.7 g/dL (3.4-5.0); BILIRUBIN,TOTAL 2.7 mg/dL (0.2-1.0); CALCIUM, SERUM 9.1 mg/dL (8.5-10.1); CREATININE 4.1 mg/dL (0.6-1.3); MAGNESIUM 2.4 mg/dL (1.8-2.4); PHOSPHORUS 5.7 mg/dL (2.5-4.9); POTASSIUM 4.2 mmol/L (3.5-5.1)
[2024-08-28 07:19] LABS: BASOPHILS % (AUTO) 0.3 % (0.0-2.0); EOSINOPHILS # (AUTO) 0.2 K/uL (0.0-0.7); EOSINOPHILS % (AUTO) 2.3 % (0.0-6.0); HEMATOCRIT 25 % (39-51); HEMOGLOBIN 8.2 g/dL (13.5-17.5); LYMPHOCYTES # (AUTO) 1.3 K/uL (0.8-4.8); LYMPHOCYTES % (AUTO) 19.8 % (20.0-44.0); MEAN CORPUSCULAR HEMOGLOBIN 27 PG (26.0-33.0); MEAN CORPUSCULAR HGB CONC 33 g/dl (31.0-36.0); MEAN CORPUSCULAR VOLUME 82 fL (80-96); MONOCYTES # (AUTO) 0.7 K/uL (0.1-1.30); MONOCYTES % (AUTO) 10.4 % (2.0-12.0); NEUTROPHILS # (AUTO) 4.5 K/uL (1.8-8.9); NEUTROPHILS % (AUTO) 67.2 % (43.0-81.0); PLATELET COUNT (AUTO) 215 K/uL (150-450); RED CELL DISTRIBUTION WIDTH 18.6 % (11.5-15.0); WHITE BLOOD COUNT (AUTO) 6.7 K/uL (4.3-11.0)
[2024-08-28 08:00] VITALS: BP 116/66; TEMP 98.2; O2SAT 100
[2024-08-28] MEDS: VIT B CMPLX 3/FA/VIT C/BIOTIN 1 TAB TABLET PO SCH (09:00)
[2024-08-28] MEDS ORDERED: HEPARIN SODIUM, PORCINE 1,000 UNIT/ML VIAL ONE (15:53)
[2024-08-28] MEDS ORDERED: IOHEXOL 0 ML IV ONE (15:53)
[2024-08-28] MEDS ORDERED: LIDOCAINE 1% INJ 50 ML MDV IJ ONE (15:54)
[2024-08-28 16:00] VITALS: BP 107/62; TEMP 97.9; O2SAT 99
[2024-08-28 20:00] VITALS: BP 112/66; TEMP 98.4; O2SAT 99
[2024-08-29 04:00] VITALS: BP 107/76; TEMP 98.2; O2SAT 96
[2024-08-29 07:03] LABS: BASOPHILS % (AUTO) 0.1 % (0.0-2.0); EOSINOPHILS # (AUTO) 0.1 K/uL (0.0-0.7); EOSINOPHILS % (AUTO) 1.1 % (0.0-6.0); HEMATOCRIT 31 % (39-51); HEMOGLOBIN 9.9 g/dL (13.5-17.5); LYMPHOCYTES % (AUTO) 16.1 % (20.0-44.0); MEAN CORPUSCULAR HEMOGLOBIN 28 PG (26.0-33.0); MEAN CORPUSCULAR HGB CONC 32 g/dl (31.0-36.0); MEAN CORPUSCULAR VOLUME 87 fL (80-96); MONOCYTES # (AUTO) 0.3 K/uL (0.1-1.30); MONOCYTES % (AUTO) 4.9 % (2.0-12.0); NEUTROPHILS # (AUTO) 4.6 K/uL (1.8-8.9); NEUTROPHILS % (AUTO) 77.8 % (43.0-81.0); PLATELET COUNT (AUTO) 199 K/uL (150-450); RED BLOOD CELL COUNT(AUTO) 3.58 MIL/uL (4.5-6.0); RED CELL DISTRIBUTION WIDTH 19.5 % (11.5-15.0)
[2024-08-29 08:00] VITALS: BP 137/73; TEMP 98.6; O2SAT 100
[2024-08-29 09:14] LABS: CALCIUM, SERUM 8.9 mg/dL (8.5-10.1); CREATININE 5.9 mg/dL (0.6-1.3); MAGNESIUM 2.5 mg/dL (1.8-2.4); POTASSIUM 5.9 mmol/L (3.5-5.1)
[2024-08-29 09:36] LABS: PHOSPHORUS 9.2 mg/dL (2.5-4.9)
[2024-08-29] MEDS: SEVELAMER CARBONATE 800 MG POWD.PACK PO SCH (13:39)
[2024-08-29 16:00] VITALS: BP 102/62; TEMP 98.6; O2SAT 100
[2024-08-29 20:00] VITALS: BP 94/59; TEMP 98.2; O2SAT 98
[2024-08-30 04:00] VITALS: BP 100/53; TEMP 97.5; O2SAT 94
[2024-08-30 07:38] LABS: BASOPHILS % (AUTO) 0.3 % (0.0-2.0); EOSINOPHILS % (AUTO) 0.5 % (0.0-6.0); HEMATOCRIT 25 % (39-51); HEMOGLOBIN 8.1 g/dL (13.5-17.5); LYMPHOCYTES # (AUTO) 0.9 K/uL (0.8-4.8); MEAN CORPUSCULAR HEMOGLOBIN 26 PG (26.0-33.0); MEAN CORPUSCULAR HGB CONC 32 g/dl (31.0-36.0); MEAN CORPUSCULAR VOLUME 82 fL (80-96); MONOCYTES # (AUTO) 0.6 K/uL (0.1-1.30); MONOCYTES % (AUTO) 9.2 % (2.0-12.0); NEUTROPHILS # (AUTO) 5.3 K/uL (1.8-8.9); PLATELET COUNT (AUTO) 206 K/uL (150-450); RED BLOOD CELL COUNT(AUTO) 3.06 MIL/uL (4.5-6.0); RED CELL DISTRIBUTION WIDTH 18.2 % (11.5-15.0); WHITE BLOOD COUNT (AUTO) 6.8 K/uL (4.3-11.0)
[2024-08-30 07:51] LABS: CALCIUM, SERUM 8.6 mg/dL (8.5-10.1); CREATININE 4.8 mg/dL (0.6-1.3); MAGNESIUM 2.4 mg/dL (1.8-2.4); PHOSPHORUS 6.2 mg/dL (2.5-4.9); POTASSIUM 4.2 mmol/L (3.5-5.1)
[2024-08-30 08:00] VITALS: BP 121/68; TEMP 97.5; O2SAT 97
[2024-08-30] MEDS: MAGNESIUM HYDROXIDE 30 ML UDC PO PRN (10:21)
[2024-08-30 16:00] VITALS: BP 105/60; TEMP 97.9; O2SAT 95
[2024-08-30 20:00] VITALS: BP 116/69; TEMP 97.5; O2SAT 94
[2024-08-31 04:00] VITALS: BP 103/58; TEMP 97.7; O2SAT 97
[2024-08-31 08:00] VITALS: BP 112/79; TEMP 97.9; O2SAT 97
[2024-08-31 11:04] LABS: BASOPHILS % (AUTO) 0.4 % (0.0-2.0); EOSINOPHILS # (AUTO) 0.1 K/uL (0.0-0.7); EOSINOPHILS % (AUTO) 1.5 % (0.0-6.0); HEMATOCRIT 29 % (39-51); HEMOGLOBIN 9.2 g/dL (13.5-17.5); LYMPHOCYTES # (AUTO) 1.2 K/uL (0.8-4.8); LYMPHOCYTES % (AUTO) 16.9 % (20.0-44.0); MEAN CORPUSCULAR HEMOGLOBIN 26 PG (26.0-33.0); MEAN CORPUSCULAR HGB CONC 32 g/dl (31.0-36.0); MEAN CORPUSCULAR VOLUME 83 fL (80-96); MONOCYTES # (AUTO) 0.7 K/uL (0.1-1.30); MONOCYTES % (AUTO) 8.9 % (2.0-12.0); NEUTROPHILS # (AUTO) 5.3 K/uL (1.8-8.9); NEUTROPHILS % (AUTO) 72.3 % (43.0-81.0); PLATELET COUNT (AUTO) 221 K/uL (150-450); RED BLOOD CELL COUNT(AUTO) 3.51 MIL/uL (4.5-6.0); RED CELL DISTRIBUTION WIDTH 18.9 % (11.5-15.0); WHITE BLOOD COUNT (AUTO) 7.3 K/uL (4.3-11.0)
[2024-08-31 11:35] LABS: CREATININE 6.3 mg/dL (0.6-1.3); MAGNESIUM 2.8 mg/dL (1.8-2.4); PHOSPHORUS 4.5 mg/dL (2.5-4.9); POTASSIUM 4.6 mmol/L (3.5-5.1)
[2024-08-31 16:00] VITALS: BP 126/87; TEMP 98.2; O2SAT 92
[2024-08-31 20:00] VITALS: BP 115/63; TEMP 98.4; O2SAT 93
[2024-09-01] VITALS (10 sets, daily range): BP systolic 91–138; BP diastolic 71–88; TEMP 97.4–99; O2SAT 93–100
[2024-09-01 07:05] LABS: CREATININE 4.7 mg/dL (0.6-1.3); MAGNESIUM 2.5 mg/dL (1.8-2.4); PHOSPHORUS 4.1 mg/dL (2.5-4.9); POTASSIUM 4.3 mmol/L (3.5-5.1)
[2024-09-01] MEDS ORDERED: ANESTHESIA TRAY IN PYXIS 1 EA TRAY MC ONE (07:36)
[2024-09-01 07:59] LABS: BASOPHILS % (AUTO) 0.1 % (0.0-2.0); EOSINOPHILS # (AUTO) 0.1 K/uL (0.0-0.7); EOSINOPHILS % (AUTO) 1.9 % (0.0-6.0); HEMATOCRIT 26 % (39-51); HEMOGLOBIN 8.6 g/dL (13.5-17.5); LYMPHOCYTES # (AUTO) 1.1 K/uL (0.8-4.8); MEAN CORPUSCULAR HEMOGLOBIN 27 PG (26.0-33.0); MEAN CORPUSCULAR HGB CONC 33 g/dl (31.0-36.0); MEAN CORPUSCULAR VOLUME 82 fL (80-96); MONOCYTES # (AUTO) 0.6 K/uL (0.1-1.30); MONOCYTES % (AUTO) 8.7 % (2.0-12.0); NEUTROPHILS # (AUTO) 5.2 K/uL (1.8-8.9); NEUTROPHILS % (AUTO) 73.3 % (43.0-81.0); PLATELET COUNT (AUTO) 209 K/uL (150-450); RED BLOOD CELL COUNT(AUTO) 3.22 MIL/uL (4.5-6.0); RED CELL DISTRIBUTION WIDTH 18.5 % (11.5-15.0)
[2024-09-01] MEDS: MAG HYDROX/AL HYDROX/SIMETH 30 ML UDC PO PRN (21:25)
[2024-09-02] VITALS: BP 131/91; TEMP 99; O2SAT 100
[2024-09-02 04:00] VITALS: BP 118/69; TEMP 99; O2SAT 100
[2024-09-02 08:00] VITALS: BP 110/78; TEMP 97.5; O2SAT 99
[2024-09-02 12:00] VITALS: BP 123/88; TEMP 97.9; O2SAT 100
[2024-09-02 12:57] LABS: BASOPHILS % (AUTO) 0.2 % (0.0-2.0); EOSINOPHILS # (AUTO) 0.2 K/uL (0.0-0.7); HEMATOCRIT 26 % (39-51); HEMOGLOBIN 8.4 g/dL (13.5-17.5); LYMPHOCYTES # (AUTO) 1.3 K/uL (0.8-4.8); LYMPHOCYTES % (AUTO) 13.7 % (20.0-44.0); MEAN CORPUSCULAR HEMOGLOBIN 27 PG (26.0-33.0); MEAN CORPUSCULAR HGB CONC 32 g/dl (31.0-36.0); MEAN CORPUSCULAR VOLUME 82 fL (80-96); MONOCYTES # (AUTO) 0.9 K/uL (0.1-1.30); MONOCYTES % (AUTO) 9.6 % (2.0-12.0); NEUTROPHILS # (AUTO) 6.8 K/uL (1.8-8.9); NEUTROPHILS % (AUTO) 74.5 % (43.0-81.0); PLATELET COUNT (AUTO) 228 K/uL (150-450); RED BLOOD CELL COUNT(AUTO) 3.17 MIL/uL (4.5-6.0); RED CELL DISTRIBUTION WIDTH 18.6 % (11.5-15.0); WHITE BLOOD COUNT (AUTO) 9.2 K/uL (4.3-11.0)
[2024-09-02 13:02] LABS: CALCIUM, SERUM 8.9 mg/dL (8.5-10.1); CREATININE 6.8 mg/dL (0.6-1.3); POTASSIUM 4.6 mmol/L (3.5-5.1)
[2024-09-02] MEDS ORDERED: NEPRO 1,000 ML BOTTLE GT PRN (15:00)
[2024-09-02 16:00] VITALS: BP 119/69; TEMP 98.1; O2SAT 100
[2024-09-02 20:00] VITALS: BP 125/78; TEMP 98.1; O2SAT 97
[2024-09-03] VITALS: BP 131/73; TEMP 98.2; O2SAT 97
[2024-09-03 04:00] VITALS: BP 126/73; TEMP 98.4; O2SAT 95
[2024-09-03] MEDS: DEXTROSE 50%-WATER 50 ML DISP.SYRIN IV PRN (06:30)
[2024-09-03 06:45] LABS: BASOPHILS % (AUTO) 0.4 % (0.0-2.0); EOSINOPHILS # (AUTO) 0.2 K/uL (0.0-0.7); EOSINOPHILS % (AUTO) 2.3 % (0.0-6.0); HEMATOCRIT 26 % (39-51); HEMOGLOBIN 8.3 g/dL (13.5-17.5); LYMPHOCYTES % (AUTO) 10.4 % (20.0-44.0); MEAN CORPUSCULAR HEMOGLOBIN 26 PG (26.0-33.0); MEAN CORPUSCULAR HGB CONC 32 g/dl (31.0-36.0); MEAN CORPUSCULAR VOLUME 83 fL (80-96); MONOCYTES # (AUTO) 0.9 K/uL (0.1-1.30); MONOCYTES % (AUTO) 9.5 % (2.0-12.0); NEUTROPHILS # (AUTO) 7.5 K/uL (1.8-8.9); NEUTROPHILS % (AUTO) 77.4 % (43.0-81.0); PLATELET COUNT (AUTO) 241 K/uL (150-450); RED CELL DISTRIBUTION WIDTH 19.1 % (11.5-15.0); WHITE BLOOD COUNT (AUTO) 9.6 K/uL (4.3-11.0)
[2024-09-03 07:17] LABS: CALCIUM, SERUM 8.9 mg/dL (8.5-10.1); CREATININE 5.5 mg/dL (0.6-1.3); POTASSIUM 4.2 mmol/L (3.5-5.1)
[2024-09-03 08:00] VITALS: BP 117/70; TEMP 98.4; O2SAT 96
[2024-09-03 12:00] VITALS: BP 96/75; TEMP 98.4; O2SAT 93
[2024-09-03 16:00] VITALS: BP 111/85; TEMP 98.4; O2SAT 95
[2024-09-03 20:00] VITALS: BP 110/75; TEMP 98.1; O2SAT 96
[2024-09-04] VITALS: BP 102/61; TEMP 98.8; O2SAT 92
[2024-09-04 04:00] VITALS: BP 117/68; TEMP 98.2; O2SAT 97
[2024-09-04 06:31] LABS: BASOPHILS % (AUTO) 0.2 % (0.0-2.0); EOSINOPHILS # (AUTO) 0.2 K/uL (0.0-0.7); EOSINOPHILS % (AUTO) 1.9 % (0.0-6.0); HEMATOCRIT 26 % (39-51); HEMOGLOBIN 8.1 g/dL (13.5-17.5); LYMPHOCYTES # (AUTO) 1.2 K/uL (0.8-4.8); LYMPHOCYTES % (AUTO) 11.6 % (20.0-44.0); MEAN CORPUSCULAR HEMOGLOBIN 26 PG (26.0-33.0); MEAN CORPUSCULAR HGB CONC 32 g/dl (31.0-36.0); MEAN CORPUSCULAR VOLUME 83 fL (80-96); MONOCYTES % (AUTO) 10.2 % (2.0-12.0); NEUTROPHILS # (AUTO) 7.8 K/uL (1.8-8.9); NEUTROPHILS % (AUTO) 76.1 % (43.0-81.0); PLATELET COUNT (AUTO) 257 K/uL (150-450); RED BLOOD CELL COUNT(AUTO) 3.09 MIL/uL (4.5-6.0); RED CELL DISTRIBUTION WIDTH 19.2 % (11.5-15.0); WHITE BLOOD COUNT (AUTO) 10.2 K/uL (4.3-11.0)
[2024-09-04 06:44] LABS: CALCIUM, SERUM 8.8 mg/dL (8.5-10.1); CARBON DIOXIDE 29 mmol/L (21-32); CHLORIDE 100 mmol/L (98-107); CREATININE 7.1 mg/dL (0.6-1.3); GLUCOSE 277 mg/dL (74-106); MAGNESIUM 2.7 mg/dL (1.8-2.4); PHOSPHORUS 4.3 mg/dL (2.5-4.9); POTASSIUM 4.1 mmol/L (3.5-5.1); SODIUM SERUM 139 mmol/L (136-145); UREA NITROGEN, BLOOD 66 mg/dL (7-18)
[2024-09-04 08:00] VITALS: BP 111/68; TEMP 98; O2SAT 97
[2024-09-04] MEDS: NEPRO 1,000 ML BOTTLE GT PRN (11:35)
[2024-09-04 12:00] VITALS: BP 105/65; TEMP 98.6; O2SAT 97
[2024-09-04 16:00] VITALS: BP 116/73; TEMP 98.6; O2SAT 97
[2024-09-04 20:00] VITALS: BP 100/50; TEMP 98.6; O2SAT 98
[2024-09-05] VITALS (35 sets, daily range): BP systolic 74–118; BP diastolic 40–64; TEMP 97.9–99.5; O2SAT 96–100
[2024-09-05 06:40] LABS: BASOPHILS % (AUTO) 0.1 % (0.0-2.0); EOSINOPHILS # (AUTO) 0.1 K/uL (0.0-0.7); EOSINOPHILS % (AUTO) 0.8 % (0.0-6.0); HEMATOCRIT 27 % (39-51); HEMOGLOBIN 8.5 g/dL (13.5-17.5); LYMPHOCYTES # (AUTO) 1.3 K/uL (0.8-4.8); LYMPHOCYTES % (AUTO) 9.2 % (20.0-44.0); MEAN CORPUSCULAR HEMOGLOBIN 26 PG (26.0-33.0); MEAN CORPUSCULAR HGB CONC 31 g/dl (31.0-36.0); MEAN CORPUSCULAR VOLUME 84 fL (80-96); MONOCYTES # (AUTO) 1.4 K/uL (0.1-1.30); MONOCYTES % (AUTO) 10.1 % (2.0-12.0); NEUTROPHILS # (AUTO) 11.2 K/uL (1.8-8.9); NEUTROPHILS % (AUTO) 79.8 % (43.0-81.0); PLATELET COUNT (AUTO) 276 K/uL (150-450); RED BLOOD CELL COUNT(AUTO) 3.25 MIL/uL (4.5-6.0); RED CELL DISTRIBUTION WIDTH 18.9 % (11.5-15.0)
[2024-09-05 07:32] LABS: CALCIUM, SERUM 8.4 mg/dL (8.5-10.1); CARBON DIOXIDE 29 mmol/L (21-32); CHLORIDE 100 mmol/L (98-107); CREATININE 6.1 mg/dL (0.6-1.3); GLUCOSE 279 mg/dL (74-106); MAGNESIUM 2.6 mg/dL (1.8-2.4); PHOSPHORUS 3.3 mg/dL (2.5-4.9); POTASSIUM 4.1 mmol/L (3.5-5.1); SODIUM SERUM 136 mmol/L (136-145); UREA NITROGEN, BLOOD 52 mg/dL (7-18)
[2024-09-05] MEDS: MEROPENEM 1 G in IV NS 0.9% 100 ML IV SCH (15:48)
[2024-09-05] MEDS: NOREPINEPHRINE 8 MG in IV D5W 242 ML IV PRN (16:04)
[2024-09-05 18:46] LABS: ABG OXYGEN SATURATION 98.1 % (94.0-98.0); ABG PCO2 34.1 mmHg (35.0-48.0); ABG PH 7.488 (7.350-7.450); ABG PO2 106.8 mmHg (83.0-108.0); ABG TOTAL HEMOGLOBIN 9.1 G/dL (13.5-17.5); COHb 0.5 % (0.5-1.5); MetHb 0.2 % (0.0-1.5); O2Hb 97.4 % (94.0-97.0); SITE, ABG LEFT RADIAL
[2024-09-06] VITALS (85 sets, daily range): BP systolic 85–132; BP diastolic 43–93; TEMP 98–100.8; O2SAT 96–100
[2024-09-06 04:38] LABS: BASOPHILS % (AUTO) 0.1 % (0.0-2.0); EOSINOPHILS # (AUTO) 0.3 K/uL (0.0-0.7); EOSINOPHILS % (AUTO) 1.8 % (0.0-6.0); HEMATOCRIT 26 % (39-51); HEMOGLOBIN 8.2 g/dL (13.5-17.5); LYMPHOCYTES # (AUTO) 1.4 K/uL (0.8-4.8); LYMPHOCYTES % (AUTO) 8.5 % (20.0-44.0); MEAN CORPUSCULAR HEMOGLOBIN 26 PG (26.0-33.0); MEAN CORPUSCULAR HGB CONC 32 g/dl (31.0-36.0); MEAN CORPUSCULAR VOLUME 81 fL (80-96); MONOCYTES % (AUTO) 11.9 % (2.0-12.0); NEUTROPHILS # (AUTO) 13.2 K/uL (1.8-8.9); NEUTROPHILS % (AUTO) 77.7 % (43.0-81.0); PLATELET COUNT (AUTO) 310 K/uL (150-450); WHITE BLOOD COUNT (AUTO) 16.9 K/uL (4.3-11.0)
[2024-09-06 05:33] LABS: CALCIUM, SERUM 8.9 mg/dL (8.5-10.1); CARBON DIOXIDE 27 mmol/L (21-32); CHLORIDE 100 mmol/L (98-107); CREATININE 7.3 mg/dL (0.6-1.3); GLUCOSE 315 mg/dL (74-106); MAGNESIUM 2.9 mg/dL (1.8-2.4); PHOSPHORUS 3.4 mg/dL (2.5-4.9); POTASSIUM 3.9 mmol/L (3.5-5.1); SODIUM SERUM 136 mmol/L (136-145); UREA NITROGEN, BLOOD 76 mg/dL (7-18)
[2024-09-06] MEDS: SEVELAMER CARBONATE 800 MG TABLET PO SCH (08:18)
[2024-09-06 08:43] LABS: ABG BASE EXCESS 2.3 mmol/L (-2.0-3.0); ABG OXYGEN SATURATION 96.6 % (94.0-98.0); ABG PH 7.458 (7.350-7.450); ABG PO2 89.4 mmHg (83.0-108.0); ABG TOTAL HEMOGLOBIN 8.8 G/dL (13.5-17.5); COHb 0.4 % (0.5-1.5); MetHb 0.3 % (0.0-1.5); O2Hb 95.9 % (94.0-97.0); SITE, ABG RIGHT BRACHIAL
[2024-09-06 10:43] LABS: CALCIUM, SERUM 8.6 mg/dL (8.5-10.1); CARBON DIOXIDE 28 mmol/L (21-32); CHLORIDE 102 mmol/L (98-107); GLUCOSE 303 mg/dL (74-106); POTASSIUM 3.9 mmol/L (3.5-5.1); SODIUM SERUM 136 mmol/L (136-145); UREA NITROGEN, BLOOD 74 mg/dL (7-18)
[2024-09-06 10:57] LABS: CREATININE 7.6 mg/dL (0.6-1.3)
[2024-09-07] VITALS (80 sets, daily range): BP systolic 85–126; BP diastolic 46–71; TEMP 98.2–100.5; O2SAT 91–100
[2024-09-07 04:54] LABS: MAGNESIUM 2.6 mg/dL (1.8-2.4); PHOSPHORUS 2.6 mg/dL (2.5-4.9)
[2024-09-07] MEDS: HYDROCORTISONE SOD SUCCINATE 100 MG/2 ML VIAL IV SCH (08:40)
[2024-09-07 09:26] LABS: BASOPHILS % (AUTO) 0.2 % (0.0-2.0); EOSINOPHILS # (AUTO) 0.3 K/uL (0.0-0.7); HEMATOCRIT 25 % (39-51); HEMOGLOBIN 7.8 g/dL (13.5-17.5); LYMPHOCYTES # (AUTO) 1.3 K/uL (0.8-4.8); LYMPHOCYTES % (AUTO) 9.2 % (20.0-44.0); MEAN CORPUSCULAR HEMOGLOBIN 25 PG (26.0-33.0); MEAN CORPUSCULAR HGB CONC 31 g/dl (31.0-36.0); MEAN CORPUSCULAR VOLUME 82 fL (80-96); MONOCYTES # (AUTO) 1.6 K/uL (0.1-1.30); MONOCYTES % (AUTO) 11.5 % (2.0-12.0); NEUTROPHILS # (AUTO) 10.9 K/uL (1.8-8.9); NEUTROPHILS % (AUTO) 77.1 % (43.0-81.0); PLATELET COUNT (AUTO) 269 K/uL (150-450); RED BLOOD CELL COUNT(AUTO) 3.09 MIL/uL (4.5-6.0); RED CELL DISTRIBUTION WIDTH 19.1 % (11.5-15.0); WHITE BLOOD COUNT (AUTO) 14.2 K/uL (4.3-11.0)
[2024-09-07 09:35] LABS: CALCIUM, SERUM 8.5 mg/dL (8.5-10.1); CREATININE 6.1 mg/dL (0.6-1.3); POTASSIUM 3.4 mmol/L (3.5-5.1)
[2024-09-07] MEDS: NYSTATIN TOP POWDER 15 GM BOTTLE TP SCH (16:59)
[2024-09-08] VITALS (66 sets, daily range): BP systolic 88–139; BP diastolic 47–99; TEMP 98.2–98.5; O2SAT 90–100
[2024-09-08 03:53] LABS: MAGNESIUM 2.8 mg/dL (1.8-2.4)
[2024-09-08 09:49] LABS: BASOPHILS % (AUTO) 0.1 % (0.0-2.0); HEMATOCRIT 23 % (39-51); HEMOGLOBIN 7.2 g/dL (13.5-17.5); LYMPHOCYTES # (AUTO) 0.9 K/uL (0.8-4.8); LYMPHOCYTES % (AUTO) 6.9 % (20.0-44.0); MEAN CORPUSCULAR HEMOGLOBIN 25 PG (26.0-33.0); MEAN CORPUSCULAR HGB CONC 31 g/dl (31.0-36.0); MEAN CORPUSCULAR VOLUME 81 fL (80-96); MONOCYTES # (AUTO) 0.6 K/uL (0.1-1.30); MONOCYTES % (AUTO) 4.5 % (2.0-12.0); NEUTROPHILS # (AUTO) 11.9 K/uL (1.8-8.9); NEUTROPHILS % (AUTO) 88.5 % (43.0-81.0); PLATELET COUNT (AUTO) 229 K/uL (150-450); RED BLOOD CELL COUNT(AUTO) 2.86 MIL/uL (4.5-6.0); RED CELL DISTRIBUTION WIDTH 18.7 % (11.5-15.0); WHITE BLOOD COUNT (AUTO) 13.5 K/uL (4.3-11.0)
[2024-09-08 10:05] LABS: CALCIUM, SERUM 8.5 mg/dL (8.5-10.1); CHLORIDE 96 mmol/L (98-107); POTASSIUM 3.8 mmol/L (3.5-5.1); SODIUM SERUM 131 mmol/L (136-145)
[2024-09-08] MEDS: INSULIN GLARGINE, 100 UNIT/ML CARTRIDGE SQ SCH (10:24)
[2024-09-08 10:25] LABS: CARBON DIOXIDE 25 mmol/L (21-32)
[2024-09-08 10:29] LABS: CREATININE 7.8 mg/dL (0.6-1.3); GLUCOSE 538 mg/dL (74-106); UREA NITROGEN, BLOOD 89 mg/dL (7-18)
[2024-09-09] VITALS (41 sets, daily range): BP systolic 90–128; BP diastolic 48–79; TEMP 96–97.7; O2SAT 94–100
[2024-09-09 05:09] LABS: MAGNESIUM 2.6 mg/dL (1.8-2.4); PHOSPHORUS 2.6 mg/dL (2.5-4.9)
[2024-09-09] MEDS: INSULIN REGULAR, HUMAN 100 UNIT/ML 3 ML VIAL SQ PRN (11:05)
[2024-09-09 11:07] LABS: BASOPHILS % (AUTO) 0.1 % (0.0-2.0); HEMATOCRIT 24 % (39-51); HEMOGLOBIN 7.4 g/dL (13.5-17.5); LYMPHOCYTES # (AUTO) 0.8 K/uL (0.8-4.8); LYMPHOCYTES % (AUTO) 5.8 % (20.0-44.0); MEAN CORPUSCULAR HEMOGLOBIN 26 PG (26.0-33.0); MEAN CORPUSCULAR HGB CONC 32 g/dl (31.0-36.0); MEAN CORPUSCULAR VOLUME 83 fL (80-96); MONOCYTES # (AUTO) 0.6 K/uL (0.1-1.30); MONOCYTES % (AUTO) 4.9 % (2.0-12.0); NEUTROPHILS # (AUTO) 11.9 K/uL (1.8-8.9); NEUTROPHILS % (AUTO) 89.2 % (43.0-81.0); PLATELET COUNT (AUTO) 220 K/uL (150-450); RED BLOOD CELL COUNT(AUTO) 2.85 MIL/uL (4.5-6.0); WHITE BLOOD COUNT (AUTO) 13.3 K/uL (4.3-11.0)
[2024-09-09 11:42] LABS: CALCIUM, SERUM 8.7 mg/dL (8.5-10.1); CREATININE 5.8 mg/dL (0.6-1.3); POTASSIUM 3.4 mmol/L (3.5-5.1)
[2024-09-09] MEDS: HYDROCORTISONE SOD SUCCINATE 100 MG/2 ML VIAL IV SCH (13:19)
[2024-09-09] MEDS: INSULIN GLARGINE, 100 UNIT/ML CARTRIDGE SQ SCH (21:01)
[2024-09-10] VITALS: BP 112/69; TEMP 97.7; O2SAT 100
[2024-09-10 04:00] VITALS: BP 105/62; TEMP 97.5; O2SAT 99
[2024-09-10] MEDS ORDERED: IV NS 0.9% 250 ML IV PRN (04:00)
[2024-09-10 07:38] LABS: MAGNESIUM 2.6 mg/dL (1.8-2.4); PHOSPHORUS 2.2 mg/dL (2.5-4.9)
[2024-09-10 07:56] LABS: BASOPHILS % (AUTO) 0.2 % (0.0-2.0); HEMATOCRIT 24 % (39-51); HEMOGLOBIN 7.4 g/dL (13.5-17.5); LYMPHOCYTES # (AUTO) 1.1 K/uL (0.8-4.8); LYMPHOCYTES % (AUTO) 6.3 % (20.0-44.0); MEAN CORPUSCULAR HEMOGLOBIN 25 PG (26.0-33.0); MEAN CORPUSCULAR HGB CONC 31 g/dl (31.0-36.0); MEAN CORPUSCULAR VOLUME 82 fL (80-96); MONOCYTES # (AUTO) 1.3 K/uL (0.1-1.30); MONOCYTES % (AUTO) 7.4 % (2.0-12.0); NEUTROPHILS # (AUTO) 15.3 K/uL (1.8-8.9); NEUTROPHILS % (AUTO) 86.1 % (43.0-81.0); PLATELET COUNT (AUTO) 257 K/uL (150-450); RED BLOOD CELL COUNT(AUTO) 2.94 MIL/uL (4.5-6.0); RED CELL DISTRIBUTION WIDTH 18.6 % (11.5-15.0); WHITE BLOOD COUNT (AUTO) 17.8 K/uL (4.3-11.0)
[2024-09-10 08:00] VITALS: BP 116/64; TEMP 98.1; O2SAT 98
[2024-09-10 08:03] LABS: CREATININE 4.4 mg/dL (0.6-1.3); POTASSIUM 3.8 mmol/L (3.5-5.1)
[2024-09-10] MEDS: HYDROCORTISONE SOD SUCCINATE 100 MG/2 ML VIAL IV SCH (09:05)
[2024-09-10 11:47] LABS: ANISOCYTOSIS 1+; HYPOCHROMASIA 1+; LYMPHOCYTES % (MANUAL) 6 % (16-48); MONOCYTES % (MANUAL) 8 % (0-11.0); NEUTROPHILS % (MANUAL) 86 (42-76); PLATELET ESTIMATE ADEQUATE
[2024-09-10 12:00] VITALS: BP 113/58; TEMP 97.5; O2SAT 98
[2024-09-10 16:00] VITALS: BP 98/68; TEMP 97.7; O2SAT 98
[2024-09-10 20:00] VITALS: BP 99/66; TEMP 97.9; O2SAT 98
== END 2024-09-10 21:46 | DRG 853 ==
LOC: ER 09:45 → ICU 12:48 → ICU IN 13:20 → ICU 13:39 → TELE-TD 08-15 15:32 → TELE1 08-16 16:26 → MEDSG1 08-18 10:34 → ICU 09-01 06:55 → TELE1 09-01 09:44 → ICU 09-05 15:38 → TELE1 09-09 19:53
PROVIDERS: ADMIT Nurse Practitioner Acute Care; ATTEND Nurse Practitioner Family
PROC: 5A09357 Assistance with Respiratory Ventilation, Less than 24 Consecutive Hours, Continuous Positive Airway Pressure (ICD-10-PCS; principal; 2024-08-10)
PROC: 06HY33Z Insertion of Infusion Device into Lower Vein, Percutaneous Approach (ICD-10-PCS; 2024-08-11)
PROC: 5A1D70Z Performance of Urinary Filtration, Intermittent, Less than 6 Hours Per Day (ICD-10-PCS; 2024-08-11)
PROC: 0JBR0ZZ Excision of Left Foot Subcutaneous Tissue and Fascia, Open Approach (ICD-10-PCS; 2024-08-21)
PROC: 0JBR0ZZ Excision of Left Foot Subcutaneous Tissue and Fascia, Open Approach (ICD-10-PCS; 2024-08-28)
PROC: 0JH63XZ Insertion of Tunneled Vascular Access Device into Chest Subcutaneous Tissue and Fascia, Percutaneous Approach (ICD-10-PCS; 2024-08-28)
PROC: 05HM33Z Insertion of Infusion Device into Right Internal Jugular Vein, Percutaneous Approach (ICD-10-PCS; 2024-08-28)
PROC: B513YZA Fluoroscopy of Right Jugular Veins using Other Contrast, Guidance (ICD-10-PCS; 2024-08-28)
PROC: 02HV33Z Insertion of Infusion Device into Superior Vena Cava, Percutaneous Approach (ICD-10-PCS; 2024-08-29)
PROC: B548ZZA Ultrasonography of Superior Vena Cava, Guidance (ICD-10-PCS; 2024-08-29)
PROC: B246ZZ4 Ultrasonography of Right and Left Heart, Transesophageal (ICD-10-PCS; 2024-09-01)
PROC: 0KBW0ZZ Excision of Left Foot Muscle, Open Approach (ICD-10-PCS; 2024-09-04)
DX: A41.89 Other specified sepsis (principal); I21.A1 Myocardial infarction type 2; R57.0 Cardiogenic shock; J96.01 Acute respiratory failure with hypoxia; J15.9 Unspecified bacterial pneumonia; I50.43 Acute on chronic combined systolic (congestive) and diastolic (congestive) heart failure; R65.21 Severe sepsis with septic shock; N39.0 Urinary tract infection, site not specified; N17.9 Acute kidney failure, unspecified; E87.20 Acidosis, unspecified; I13.2 Hypertensive heart and chronic kidney disease with heart failure and with stage 5 chronic kidney disease, or end stage renal disease; E87.1 Hypo-osmolality and hyponatremia; G93.40 Encephalopathy, unspecified; E11.52 Type 2 diabetes mellitus with diabetic peripheral angiopathy with gangrene; M86.172 Other acute osteomyelitis, left ankle and foot; E66.2 Morbid (severe) obesity with alveolar hypoventilation; J90 Pleural effusion, not elsewhere classified; N18.4 Chronic kidney disease, stage 4 (severe); Z20.822 Contact with and (suspected) exposure to COVID-19; Z95.1 Presence of aortocoronary bypass graft; Z85.038 Personal history of other malignant neoplasm of large intestine; E11.22 Type 2 diabetes mellitus with diabetic chronic kidney disease; Z98.890 Other specified postprocedural states; Z89.412 Acquired absence of left great toe; Z79.85 Long-term (current) use of injectable non-insulin antidiabetic drugs; Z79.84 Long term (current) use of oral hypoglycemic drugs; Z79.02 Long term (current) use of antithrombotics/antiplatelets; Z79.899 Other long term (current) drug therapy; Y95 Nosocomial condition; R13.10 Dysphagia, unspecified; M89.8X9 Other specified disorders of bone, unspecified site; I25.10 Atherosclerotic heart disease of native coronary artery without angina pectoris; E11.40 Type 2 diabetes mellitus with diabetic neuropathy, unspecified; E11.621 Type 2 diabetes mellitus with foot ulcer; E78.5 Hyperlipidemia, unspecified; I27.20 Pulmonary hypertension, unspecified; K80.20 Calculus of gallbladder without cholecystitis without obstruction; E11.319 Type 2 diabetes mellitus with unspecified diabetic retinopathy without macular edema; R94.5 Abnormal results of liver function studies; E80.6 Other disorders of bilirubin metabolism; D72.819 Decreased white blood cell count, unspecified; D64.9 Anemia, unspecified; D69.6 Thrombocytopenia, unspecified; B96.89 Other specified bacterial agents as the cause of diseases classified elsewhere; Z68.29 Body mass index [BMI] 29.0-29.9, adult; E87.5 Hyperkalemia; E87.6 Hypokalemia; F41.9 Anxiety disorder, unspecified; T38.0X5A Adverse effect of glucocorticoids and synthetic analogues, initial encounter; Y92.9 Unspecified place or not applicable; Z95.2 Presence of prosthetic heart valve; Z99.2 Dependence on renal dialysis; Z79.4 Long term (current) use of insulin; E11.69 Type 2 diabetes mellitus with other specified complication; L97.523 Non-pressure chronic ulcer of other part of left foot with necrosis of muscle
CPT/HCPCS: 36415; 36569; 36600; 71045-TC; 71250-TC; 73110; 73130-TC; 73620-TC; 73718-TC; 76705-TC; 76770-TC; 80048-TC; 80053-TC; 80076-TC; 80202-TC; 81001; 82533; 82550-TC; 82803-TC; 82962-TC; 83605-TC; 83735-TC; 83880; 83970; 84100-TC; 84155; 84165; 84443-TC; 84484-TC; 85025-TC; 85610-TC; 85652-TC; 85730-TC; 86140-TC; 86225; 86235; 86704; 86705; 86706; 86803; 87040-TC; 87081-TC; 87086-TC; 87340; 87806; 90935-TC; 92526; 92611-TC; 93307-TC; 93312-TC; 93970-TC; 93971-TC; 94799-TC; 97110-TC; 97112-TC; 97530-TC; 99082-TC; A4216; A4223; A6213; A6253; A6403; C1750; C1752; G0378; J0690; J0692; J0885; J1250; J1308; J1644; J1720; J1815; J1938; J2185; J2405; J2704; J2765; J3370; J3490; J7030; J7050; J7060; P9047; Q9967